=== PATIENT | male | born 1945 | race Caucasian/White ===

== ENCOUNTER 2016-12-31 05:13 | Inpatient (IN) | payer OTHER, MEDICARE ==
[2016-12-31] VITALS (8 sets, daily range): BP systolic 130–158; BP diastolic 62–74; PULSE 77–93; RESP 18–20; TEMP 98.7–99.4; O2SAT 90–97
[~2016-12-31] VITALS: Ht 188 cm; Wt 110.4 kg
[~2016-12-31 05:13] MED LIST: ASPI325T PO; BUME2TAB PO; CARV25TA PO; GLUC10TA3 PO; LANTINJ SQ; LEVA500T PO; NEUR400C PO; SIMV40TA PO; ULTR50TA PO
[2016-12-31] MEDS ORDERED: SODIUM CHLORIDE 0.9% FLUSH 5 ML FLUSH IVF PRN (06:15)
[2016-12-31] MEDS ORDERED: GABA400C5 PO (06:27)
[2016-12-31] MEDS ORDERED: SIMV20TA PO (06:27)
[2016-12-31] MEDS ORDERED: GLIP1TAB51 PO (06:27)
[2016-12-31] MEDS ORDERED: CARV25TA PO (06:27)
[2016-12-31] MEDS ORDERED: LANTUS2P SQ (06:27)
[2016-12-31] MEDS ORDERED: ASPI325T PO (06:27)
[2016-12-31] MEDS ORDERED: BUME1TAB PO (06:27)
--- NOTE | 2016-12-31 06:33 | PD ---
HPI Chief Complaint: Fall Time Seen by Provider: 06:13 Travel History International Travel<30 days: No Contact w/Intl Traveler<30days: No Traveled to known affect area: No History of Present Illness HPI 71-year-old male with history of colon cancer cancer status post resection, A. fib, pacemaker, presents to the ER today because he states that he has had intermittent dizziness for several days and today was walking his dog, got dizzy , and had a near syncopal episode, falling and hitting the posterior part of his scalp. He denies actual loss of consciousness. He denies any other injuries. He denies any chest pains, shortness of breath, palpitations, or any other symptoms. Modifying Factors: None Associated Signs & Symptoms: Near syncope, head injury, no loss of consciousness Risk Factors: A. fib, pacemaker PFSH Past Medical History Atrial Fibrillation: Yes Autoimmune Disease: No Heart Rhythm Problems: Yes Cardiovascular Problems: Yes High Cholesterol: No Chemotherapy: No Chest Pain: No Congestive Heart Failure: Yes Diabetes: Yes Patient Takes Glucophage: No (unsure at this time ) Endocrine: Yes Gastrointestinal Disorders: Yes (COLON CA) GERD: No Genitourinary: No Hiatal Hernia: No Hypertension: No Immune Disorder: No Implanted Vascular Access Dvce: Yes Musculoskeletal: No Neurologic: No Psychiatric: No Reproductive: No Respiratory: No Radiation Therapy: No Thyroid Disease: No Ulcer: No Tetanus Vaccination: Unknown Past Surgical History Abdominal Surgery: Yes (APPY / COLON RESECTION) AICD: Yes (MEDTRONIC CONCERTO II DEFIBRILLATOR) Appendectomy: Yes Arteriovenous Shunt: No Cardiac Surgery: Yes (PACER/AICD 2009 / CARDIAC CATH) Ear Surgery: No Endocrine Surgery: No Eye Surgery: No Genitourinary Surgery: No Insulin Pump: No Joint Replacement: No Oral Surgery: No Pacemaker: Yes Thoracic Surgery: No Other Surgery: Yes (COLON CA, PACEMAKER ) Social History Alcohol Use: Yes (OCCASIONAL) Tobacco Use: No Substance Use: No Allergies-Medications (Allergen,Severity, Reaction): Coded Allergies: No Known Allergies (Unverified , 12/31/16) Reported Meds & Prescriptions Reported Meds & Active Scripts Active Reported Lantus Inj (Insulin Glargine) 1,000 Unit/10 Ml Vial 20 Units SQ HS Glipizide ER (Glipizide) 10 Mg Cyril 10 Mg PO BID Take with breakfast or first main meal of the day Simvastatin 20 Mg Tab 20 Mg PO HS Carvedilol 25 Mg Tab 25 Mg PO BID Gabapentin 400 Mg Cap 400 Cap PO TID Bumetanide 1 Mg Tab 1 Mg PO DAILY Aspirin 325 Mg Tab 325 Mg PO DAILY Review of Systems Except as stated in HPI: all other systems reviewed are Neg Physical Exam Narrative GENERAL: Well-nourished, well-developed elderly white male patient in no acute distress. Awake, alert, oriented 3. SKIN: Warm and dry. HEAD: Normocephalic. Posterior cephalohematoma. EYES: No scleral icterus. No injection or drainage. NECK: Supple, trachea midline. CARDIOVASCULAR: Regular rate and rhythm without murmurs, gallops, or rubs. RESPIRATORY: Breath sounds equal bilaterally. No accessory muscle use. GASTROINTESTINAL: Abdomen soft, non-tender, nondistended. MUSCULOSKELETAL: No cyanosis, or edema. BACK: Nontender without obvious deformity. No CVA tenderness. NEUROLOGICAL: Awake and alert. Cranial nerves II through XII intact. Motor and sensory grossly within normal limits. Five out of 5 muscle strength in all muscle groups. Normal speech. Data Data Last Documented VS Vital Signs Date Time Temp Pulse Resp B/P Pulse Ox O2 Delivery O2 Flow Rate FiO2 12/31/16 05:18 98.7 77 20 135/64 95 Orders Complete Blood Count With Diff (12/31/16 06:13) Comprehensive Metabolic Panel (12/31/16 06:13) Ckmb (Isoenzyme) Profile (12/31/16 06:13) Troponin I (12/31/16 06:13) Act Partial Throm Time (Ptt) (12/31/16 06:13) Prothrombin Time / Inr (Pt) (12/31/16 06:13) Chest, Single Ap (12/31/16 06:13) Ct Brain W/O Iv Contrast(Rout) (12/31/16 06:13) Ecg Monitoring (12/31/16 06:13) Iv Access Insert/Monitor (12/31/16 06:13) Oximetry (12/31/16 06:13) Sodium Chloride 0.9% Flush (Ns Flush) (12/31/16 06:15) CKMB (12/31/16 06:00) CKMB% (12/31/16 06:00) Consult Neurosurgery (12/31/16 ) Admit To Inpatient (12/31/16 ) Vital Signs (Adult) Q4H (12/31/16 07:11) Activity Oob Ad Dania (12/31/16 07:11) Intake + Output 06,14,22 (12/31/16 07:11) Sodium Chloride 0.9% Flush (Ns Flush) (12/31/16 09:00) Sodium Chloride 0.9% Flush (Ns Flush) (12/31/16 07:15) Pantoprazole Inj (Protonix Inj) (12/31/16 09:00) Oxycodone-Acetamin 5-325 Mg (Percocet (12/31/16 07:15) Complete Blood Count With Diff (01/01/17 06:00) Basic Metabolic Panel (Bmp) (01/01/17 06:00) Hepatic Functional Panel (12/31/16 07:11) Scd Bilateral/Knee High MAJO.QSHIFT (12/31/16 07:11) Inpatient Certification (12/31/16 ) Ot Request For Service (12/31/16 07:11) Pt Request For Service (12/31/16 07:11) Activity Oob With Assistance (12/31/16 07:11) Ct Brain W/O Iv Contrast(Rout) (01/01/17 06:00) Levetiracetam Inj (Keppra Inj) (12/31/16 09:00) Labs Laboratory Tests Test 12/31/16 06:00 White Blood Count 5.9 TH/MM3 Red Blood Count 3.58 MIL/MM3 Hemoglobin 11.5 GM/DL Hematocrit 35.1 % Mean Corpuscular Volume 98.0 FL Mean Corpuscular Hemoglobin 32.3 PG Mean Corpuscular Hemoglobin 32.9 % Concent Red Cell Distribution Width 16.4 % Platelet Count 65 TH/MM3 Mean Platelet Volume 8.6 FL Neutrophils (%) (Auto) 82.7 % Lymphocytes (%) (Auto) 8.1 % Monocytes (%) (Auto) 6.7 % Eosinophils (%) (Auto) 2.0 % Basophils (%) (Auto) 0.5 % Neutrophils # (Auto) 4.9 TH/MM3 Lymphocytes # (Auto) 0.5 TH/MM3 Monocytes # (Auto) 0.4 TH/MM3 Eosinophils # (Auto) 0.1 TH/MM3 Basophils # (Auto) 0.0 TH/MM3 CBC Comment AUTO DIFF Sodium Level 140 MEQ/L Potassium Level 4.0 MEQ/L Chloride Level 103 MEQ/L Carbon Dioxide Level 28.5 MEQ/L Anion Gap 9 MEQ/L Blood Urea Nitrogen 30 MG/DL Creatinine 1.61 MG/DL Estimat Glomerular Filtration 43 ML/MIN Rate Random Glucose 179 MG/DL Calcium Level 8.9 MG/DL Total Bilirubin 1.0 MG/DL Aspartate Amino Transf 46 U/L (AST/SGOT) Alanine Aminotransferase 50 U/L (ALT/SGPT) Alkaline Phosphatase 79 U/L Total Creatine Kinase 168 U/L Creatine Kinase MB 4.3 NG/ML Troponin I 0.02 NG/ML Total Protein 7.2 GM/DL Albumin 3.2 GM/DL [facility] Medical Decision Making Medical Screen Exam Complete: Yes Emergency Medical Condition: Yes Medical Record Reviewed: Yes Interpretation(s) EKG shows a ventricular paced rhythm at a rate of 77 bpm with no signs of acute ST-T changes. Last [address] 12/31/16612 Signed Impressions: Service Date/Time: Saturday, December 31, 2016 06:24 - CONCLUSION: 1. Mild right parietal subdural hematoma measuring 7 mm with some effacement of the sulci but no midline shift. 2. Posterior scalp hematoma. 3. Sinus disease. Bonifacio Asencio MD Chest X-Ray 12/31/16612 Signed Impressions: Service Date/Time: Saturday, December 31, 2016 06:30 - CONCLUSION: Cardiomegaly and increased interstitial markings likely representing CHF. Bonifacio Asencio MD Differential Diagnosis Near-syncope, dizziness, head injuryacute intracranial injuries versus acute intracranial processes versus dysrhythmias versus dehydration versus metabolic issues Narrative Course EKG did not show any signs of acute dysrhythmias. CAT scan does show a small subdural hematoma. Case is discussed with Dr. Dennis and she would like the patient to be medically admitted with consult to her. At this point, case is discussed with Dr. Sommer for admission. Diagnosis Primary Impression: Near syncope Additional Impression: Intracranial hemorrhage after injury without loss of consciousness Admitting Information Admitting Physician Requests: Admit Marga Kenyon MD Dec 31, 2016 06:33
--- NOTE | 2016-12-31 06:41 | RADRPT ---
EXAM DATE/TIME: 12/31/2016 06:24 [facility] COMPARISON: No previous studies available for comparison. INDICATIONS : Fell backwards and hit head, laceration on posterior head, dizzy for several days RADIATION DOSE: 48.98 CTDIvol (mGy) MEDICAL HISTORY : Diabetes mellitus type 2. Colon cancer. SURGICAL HISTORY : Pacemaker. ENCOUNTER: Initial ACUITY: 1 day PAIN SCALE: 3/10 LOCATION: posterior cranium TECHNIQUE: Multiple contiguous axial images were obtained of the head. Using automated exposure control and adj ustment of the mA and/or kV according to patient size, radiation dose was kept as low as reasonably a chievable to obtain optimal diagnostic quality images. FINDINGS: CEREBRUM: There is a mild right parietal subdural hematoma measuring 7 mm. There is mild effacement of the sulc i in this region. Significant midline shift is not seen. There is a small old lacunar infarct at the right caudate head. The ventricles are normal for age. No evidence of midline shift or acute infarct ion. POSTERIOR FOSSA: The cerebellum and brainstem are intact. The 4th ventricle is midline. The cerebellopontine angle i s unremarkable. EXTRACRANIAL: The visualized portion of the orbits is intact. There is a prominent posterior scalp hematoma. There is near total opacification of the sinuses. SKULL: The calvaria is intact. No evidence of skull fracture. CONCLUSION: 1. Mild right parietal subdural hematoma measuring 7 mm with some effacement of the sulci but no midl ine shift. 2. Posterior scalp hematoma. 3. Sinus disease. Bonifacio Asencio MD on December 31, 2016 at 6:35 Board Certified Radiologist. This report was verified electronically.
[2016-12-31 06:51] LABS: AUTOMATED NEUTROPHIL # 4.9 TH/MM3 (1.8-7.7); BASOPHIL % 0.5 % (0.0-2.0); EOSINOPHIL # 0.1 TH/MM3 (0-0.4); HEMATOCRIT 35.1 % (39.0-51.0); LYMPH % 8.1 % (9.0-44.0); LYMPHOCYTE # 0.5 TH/MM3 (1.0-4.8); MEAN CORPUSCULAR HEMOGLOBIN 32.3 PG (27.0-34.0); MEAN CORPUSCULAR HGB CONC 32.9 % (32.0-36.0); MONO % 6.7 % (0.0-8.0); NEUT % 82.7 % (16.0-70.0); PLATELET COUNT 65 TH/MM3 (150-450); RED BLOOD COUNT 3.58 MIL/MM3 (4.50-5.90); RED CELL DISTRIBUTION WIDTH 16.4 % (11.6-17.2); WHITE BLOOD COUNT 5.9 TH/MM3 (4.0-11.0)
[2016-12-31 06:54] LABS: HEMO FLAGS AUTO DIFF
--- NOTE | 2016-12-31 06:55 | RADRPT ---
EXAM DATE/TIME: 12/31/2016 06:30 [facility] COMPARISON: CHEST SINGLE AP, February 18, 2013, 6:50. INDICATIONS : Trauma, fall. MEDICAL HISTORY : Diabetes mellitus type II. SURGICAL HISTORY : Pacemaker. ENCOUNTER: Initial ACUITY: 1 day PAIN SCORE: 0/10 LOCATION: Bilateral chest FINDINGS: There is a multilead pacing/AICD in place from the left subclavian approach. The heart size is enlarg ed. Lungs are so diffuse increased interstitial markings. CONCLUSION: Cardiomegaly and increased interstitial markings likely representing CHF. Bonifacio Asencio MD on December 31, 2016 at 6:52 Board Certified Radiologist. This report was verified electronically.
[2016-12-31 07:05] LABS: ALKALINE PHOSPHATASE 79 U/L (45-117); CREATINE KINASE 168 U/L (39-308)
[2016-12-31 07:11] LABS: ALT (GPT) 50 U/L (12-78); ANION GAP 9 MEQ/L (5-15); AST (GOT) 46 U/L (15-37); BICARBONATE 28.5 MEQ/L (21.0-32.0); BLOOD UREA NITROGEN 30 MG/DL (7-18); CHLORIDE 103 MEQ/L (98-107); GLOMERULAR FILTRATION RATE 43 ML/MIN (>89); SODIUM (NA) 140 MEQ/L (136-145)
[2016-12-31] MEDS ORDERED: SODIUM CHLORIDE 0.9% FLUSH 5 ML FLUSH IV FLUSH PRN (07:15)
[2016-12-31 07:17] LABS: CKMB 4.3 NG/ML (0.5-3.6)
[2016-12-31 07:48] LABS: PLATELET ESTIMATE SMEAR LOW (NORMAL); PLATELET MORPHOLOGY NORMAL (NORMAL)
[2016-12-31 07:49] LABS: SCAN/DIFF AUTO DIFF CONFIRMED
[2016-12-31 08:17] LABS: APTT (PATIENT) 27.2 SEC (24.3-30.1); INTERNATIONAL NORMALIZED RATIO 1.2 RATIO; PROTHROMBIN TIME - PATIENT 12.9 SEC (9.8-11.6)
[2016-12-31 08:21] LABS: INDIRECT BILIRUBIN 0.9 MG/DL (0.0-0.8); TOTAL BILIRUBIN ADULT 1.1 MG/DL (0.2-1.0)
[2016-12-31] MEDS: levETIRAcetam INJ 500 MG in SODIUM CHLORIDE 0.9% INJ 100 ML IV SCH ×2 (09:09→21:34)
[2016-12-31] MEDS: SODIUM CHLORIDE 0.9% FLUSH 5 ML FLUSH IV FLUSH SCH ×2 (09:10→21:35)
[2016-12-31] MEDS: PANTOPRAZOLE SODIUM 40 MG VIAL IV SCH (09:10)
[2016-12-31] MEDS: SODIUM CHLOR 0.9% 1000 ML INJ 1,000 ML IV SCH (09:11)
--- NOTE | 2016-12-31 09:39 | RADRPT ---
EXAM DATE/TIME: 12/31/2016 08:00 [facility] COMPARISON: No previous studies available for comparison. INDICATIONS : Syncope. MEDICAL HISTORY : Congestive heart failure. Anticoagulant therapy. A. FIB. Colon cancer. Diabetes. SURGICAL HISTORY : Appendectomy. AICD pacemaker placement. Cardiac catherazation. Colon resection. ENCOUNTER: Initial ACUITY: 1 day PAIN SCORE: 2/10 LOCATION: Bilateral neck PEAK SYSTOLIC VELOCITIES (cm/sec): ICA/CCA RATIO: Right: 2.6 Left: 0.4 ICA: Right: 245 Left: 52 CCA: Right: 95 Left: 126 ECA: Right: Not visualized. Left: 50 VERTEBRAL: Right: Not visualized. absent Left: 93 antegrade Elevated flow velocities and ICA/CCA ratios have been found to correlate with increased degrees of vessel stenosis, calculated as percentage of diameter relative to a normal segment of distal ICA/CCA FINDINGS: RIGHT CAROTID: The distal right internal carotid artery is not visualized. There is calcified plaque in the carotid bulb and proximal internal carotid artery. Spectral broadening is present.. LEFT CAROTID: The distal internal carotid artery is not visualized. Waveform demonstrates high resistance. VERTEBRAL ARTERIES: Antegrade blood flow is present within the left vertebral artery. The right vertebral artery is not v isualized. MISCELLANEOUS: None. CONCLUSION: 1. Abnormally elevated velocity measurements in the proximal right internal carotid artery suggesting greater than 70% stenosis. Consider carotid CTA for further evaluation. 2. Abnormal decreased blood flow in the left internal carotid artery with high resistance waveform murray ggests either a high-grade stenosis or proximal stenosis. 3. No blood flow is documented within the right vertebral artery. Therefore, this could be occluded. Bonifacio Gibson MD on December 31, 2016 at 9:14 Board Certified Radiologist. This report was verified electronically.
[2016-12-31] MEDS: oxyCODONE/ACETAMINOPHEN 5 MG/325 MG TAB PO PRN ×3 (09:50→21:35)
[2016-12-31] MEDS ORDERED: MAGNESIUM HYDROXIDE SUSP 30 ML CUP PO PRN (15:45)
[2016-12-31] MEDS ORDERED: glipiZIDE 10 MG TAB PO SCH (16:00)
--- NOTE | 2016-12-31 16:11 | PD.CONS ---
[facility] Service Neurosurgery Consult Requested By Medicine Reason for Consult [facility] Primary Care Physician Benji Chirinos M.D. History of Present Illness 71 yr old with a hx of afib and arrhythmia has felt light headed for several days. He fell while walking the dog at 5 am this morning. He fell backwards and hit the back of his head. He had no LOC but was unable to get up. He was brought in by EMS. A head CT showed a small 6mm right parietal SDH. He has some chronic back pain but no nausea or vomiting and no new neurologic changes. He did well with PT. Review of Systems Constitutional: DENIES: Diaphoretic episodes, Fatigue, Fever, Weight gain, Weight loss, Chills, Dizziness, Change in appetite, Night Sweats Eyes: DENIES: Blurred vision, Diplopia, Eye inflammation, Eye pain, Vision loss , Photosensitivity, Double Vision Respiratory: DENIES: Apneas, Cough, Snoring, Wheezing, Hemoptysis, Sputum production, Shortness of breath Cardiovascular: DENIES: Chest pain, Palpitations, Syncope, Dyspnea on Exertion , PND, Lower Extremity Edema, Orthopnea, Claudication Gastrointestinal: DENIES: Abdominal pain, Black stools, Bloody stools, Constipation, Diarrhea, Nausea, Vomiting, Difficulty Swallowing, Anorexia Genitourinary: DENIES: Sexual dysfunction, Urinary frequency, Urinary incontinence, Urgency, Hematuria, Dysuria, Nocturia, Penile Discharge, Testicular Pain, Testicular Swelling Musculoskeletal: COMPLAINS OF: Back pain, DENIES: Joint pain, Muscle aches, Stiffness, Joint Swelling, Neck pain Integumentary: DENIES: Abnormal pigmentation, Nail changes, Pruritus, Rash Hematologic/lymphatic: COMPLAINS OF: Bruising Immunologic/allergic: DENIES: Eczema, Urticaria Neurologic: COMPLAINS OF: Poor Balance, DENIES: Abnormal gait, Headache, Localized weakness, Paresthesias, Seizures, Speech Problems, Tremor Psychiatric: DENIES: Anxiety, Confusion, Mood changes, Depression, Hallucinations, Agitation, Suicidal Ideation, Homicidal Ideation, Delusions Past Family Social History Allergies: Coded Allergies: No Known Allergies (Unverified , 12/31/16) Past Medical History Arrhythmia, has a pacemaker, was shocked once CAD, s/p stent placement Spondylosis DM Neuropathy Colon CA, resected primarily Past Surgical History Stent placement several yrs ago. Reported Medications Reported Meds & Active Scripts Active Reported Lantus Inj (Insulin Glargine) 1,000 Unit/10 Ml Vial 20 Units SQ HS Glipizide ER (Glipizide) 10 Mg Cyril 10 Mg PO BID Take with breakfast or first main meal of the day Simvastatin 20 Mg Tab 20 Mg PO HS Carvedilol 25 Mg Tab 25 Mg PO BID Gabapentin 400 Mg Cap 400 Cap PO TID Bumetanide 1 Mg Tab 1 Mg PO DAILY Aspirin 325 Mg Tab 325 Mg PO DAILY Family History Parents late in life, CAD Social History Lives with his , about 2-4 drinks per weeks, no tob Physical Exam Vital Signs Vital Signs Date Time Temp Pulse Resp B/P Pulse Ox O2 Delivery O2 Flow Rate FiO2 12/31/16 12:00 89 19 139/69 97 Nasal Cannula 2 12/31/16 10:50 18 12/31/16 09:52 86 19 145/68 94 Nasal Cannula 12/31/16 08:08 95 Room Air 12/31/16 05:18 98.7 77 20 135/64 95 Physical Exam Alert and oriented x 3, abrasion at the vertex still oozing at this time, face symmetric, no Quick sign, speech fluent, affect normal. No pronator drift, moves both upper and lower extremities with 5/5 strength, able to sit up with no help, Sensory loss in the feet, no radicular numbness Abd soft, obese, Reflexes decreased throughout, no Mcmullen sign Laboratory Laboratory Tests Test 12/31/16 12/31/16 06:00 07:40 White Blood Count 5.9 Red Blood Count 3.58 Hemoglobin 11.5 Hematocrit 35.1 Mean Corpuscular Volume 98.0 Mean Corpuscular Hemoglobin 32.3 Mean Corpuscular Hemoglobin 32.9 Concent Red Cell Distribution Width 16.4 Platelet Count 65 Mean Platelet Volume 8.6 Neutrophils (%) (Auto) 82.7 Lymphocytes (%) (Auto) 8.1 Monocytes (%) (Auto) 6.7 Eosinophils (%) (Auto) 2.0 Basophils (%) (Auto) 0.5 Neutrophils # (Auto) 4.9 Lymphocytes # (Auto) 0.5 Monocytes # (Auto) 0.4 Eosinophils # (Auto) 0.1 Basophils # (Auto) 0.0 CBC Comment AUTO DIFF Differential Comment AUTO DIFF CONFIRMED Platelet Estimate LOW Platelet Morphology Comment NORMAL Basophilic Stippling FAINT Sodium Level 140 Potassium Level 4.0 Chloride Level 103 Carbon Dioxide Level 28.5 Anion Gap 9 Blood Urea Nitrogen 30 Creatinine 1.61 Estimat Glomerular Filtration 43 Rate Random Glucose 179 Calcium Level 8.9 Total Bilirubin 1.1 Direct Bilirubin 0.2 Indirect Bilirubin 0.9 Aspartate Amino Transf 48 (AST/SGOT) Alanine Aminotransferase 51 (ALT/SGPT) Alkaline Phosphatase 84 Total Creatine Kinase 168 Creatine Kinase MB 4.3 Troponin I 0.02 Total Protein 7.4 Albumin 3.3 Prothrombin Time 12.9 Prothromb Time International 1.2 Ratio Activated Partial 27.2 Thromboplast Time Result Diagram: 12/31/1659912/31/16599 Imaging Last Impressions Head CT 12/31/16612 Signed Impressions: Service Date/Time: Saturday, December 31, 2016 06:24 - CONCLUSION: 1. Mild right parietal subdural hematoma measuring 7 mm with some effacement of the sulci but no midline shift. 2. Posterior scalp hematoma. 3. Sinus disease. Bonifacio Asencio MD Chest X-Ray 12/31/16612 Signed Impressions: Service Date/Time: Saturday, December 31, 2016 06:30 - CONCLUSION: Cardiomegaly and increased interstitial markings likely representing CHF. Bonifacio Asencio MD Carotid Artery Ultrasound 12/31/16 0000 Signed Impressions: Service Date/Time: Saturday, December 31, 2016 08:00 - CONCLUSION: 1. Abnormally elevated velocity measurements in the proximal right internal carotid artery suggesting greater than 70%% stenosis. Consider carotid CTA for further evaluation. 2. Abnormal decreased blood flow in the left internal carotid artery with high resistance waveform suggests either a high-grade stenosis or proximal stenosis. 3. No blood flow is documented within the right vertebral artery. Therefore, this could be occluded. Bonifacio Gibson MD Assessment and Plan Diagnosis: (1) Near syncope Plan: Carotid stenosis was diagnosed and neurology consulted. Cardiology evaluation is pending as well as hematology/oncology because anemia and previous colon CA. ICD Code: R55 (2) Intracranial hemorrhage after injury without loss of consciousness Plan: Small SDH, with no side effects or symptoms. Will obtain follow up imaging in the am and again in a week. He may restart ASA or other anticoagulation when the bleed is resolved.PT following. ICD Code: S06.300A Problem Qualifiers (1) Intracranial hemorrhage after injury without loss of consciousness: Qualified Code: S06.300A - Intracranial hemorrhage after injury without loss of consciousness, initial encounter Isaías Dennis Dec 31, 2016 16:11
--- NOTE | 2016-12-31 16:51 | EKG ---
Date Performed: 12/31/2016 Time Performed: 05:34:30 PTAGE: 71 years EKG: ELECTRONIC VENTRICULAR PACEMAKER Since previous tracing, no significant change noted ABNORM AL RHYTHM ECG PREVIOUS TRACING : 03/03/2015 06.36 DOCTOR: Vimal Simpson Interpretating Date/Time 12/31/2016 16:49:44
--- NOTE | 2016-12-31 16:57 | EC ---
Study Study Date:12/31/2016 STUDY CONCLUSIONS SUMMARY - Left ventricle: The cavity size was normal. Wall thickness was increased in a pattern of mild LVH. Systolic function was vigorous. The estimated ejection fraction was in the range of 60% to 70%. Wall motion was normal; there were no regional wall motion abnormalities. - Aortic valve: Valve area: 1.7cm^2(VTI). Valve area: 1.85cm^2 (Vmax). - Mitral valve: Mild regurgitation. - Left atrium: The atrium was mildly dilated. - Tricuspid valve: Mild regurgitation. If LV function is below 40, please consider prescribing an ACEI or ARB or document rationale for non-use. PROCEDURE DATA STUDY STATUS: Elective. Procedure: Transthoracic echocardiography. Image quality was suboptimal. The study was technically limited due to poor acoustic window availability. Scanning was performed from the parasternal, apical, and subcostal acoustic windows. Study completion: The patient tolerated the procedure well. Transthoracic echocardiography. M-mode, complete 2D, complete spectral Doppler, and color Doppler. Height: Height: 74in. Weight: Weight: 264.4lb. Body mass index: BMI: 34kg/m^2. Body surface area: BSA: 2.45m^2. Patient status: Inpatient. CARDIAC ANATOMY LEFT VENTRICLE: The cavity size was normal. Wall thickness was increased in a pattern of mild LVH. Systolic function was vigorous. The estimated ejection fraction was in the range of 60% to 70%. Wall motion was normal; there were no regional wall motion abnormalities. AORTIC VALVE: Trileaflet; normal thickness leaflets. Doppler: Transvalvular velocity was within the normal range. There was no stenosis. No regurgitation. Valve area: 1.7cm^2(VTI). Indexed valve area: 0.69cm^2/m^2 (VTI). Valve area: 1.85cm^2 (Vmax). Indexed valve area: 0.76cm^2/m^2 (Vmax). Mean gradient: 6mm Hg (S). AORTA: Aortic root: The aortic root was normal in size. MITRAL VALVE: Structurally normal valve. Doppler: Transvalvular velocity was within the normal range. There was no evidence for stenosis. Mild regurgitation. Peak gradient: 3mm Hg (D). LEFT ATRIUM: The atrium was mildly dilated. RIGHT VENTRICLE: The cavity size was normal. Wall thickness was normal. Pacer wire or catheter noted in right ventricle. PULMONIC VALVE: Doppler: Transvalvular velocity was within the normal range. There was no evidence for stenosis. No regurgitation. TRICUSPID VALVE: Structurally normal valve. Doppler: Transvalvular velocity was within the normal range. Mild regurgitation. PULMONARY ARTERY: The main pulmonary artery was normal-sized. Systolic pressure was within the normal range. RIGHT ATRIUM: The atrium was normal in size. PERICARDIUM: There was no pericardial effusion. SYSTEMIC VEINS: Inferior vena cava: The vessel was normal in size. Patient weight: 264.4lb _Ejection fraction:_ 65-75% _Fractional shortening:_ 32% up to 5Kg 5-11.5Kg 11.6-22.9Kg 23-45Kg 45-57Kg Aortic Root 7-13 <17 13-22 17-27 17-27 LA diam 6-13 <23 24-38 33-47 37-40 RVID 10-17 7-15 7-15 7-18 8-17 LVIDd 12-22 <32 24-38 33-47 37-40 LVPW 2-4 3-6 5-7 6-8 7-8 IVS 2-4 3-6 5-7 6-8 7-8 BASIC MEASUREMENTS ADULT NORMAL Left ventricle LV internal dimension, ED, chordal 50.6 mm 43-52 level, PLAX LV internal dimension, ES, chordal 34.1 mm 23-38 level, PLAX Fractional shortening, chordal level, 33 % >29 PLAX LV posterior wall thickness, ED 11.6 mm IVS/LVPW ratio, ED 0.97 <1.3 Ventricular septum Septal thickness, ED 11.2 mm Aortic valve Leaflet separation 15 mm 15-26 Aorta Root diameter, ED 41 mm Left atrium Anterior-posterior dimension 45 mm Anterior-posterior dimension index 1.84 cm/m^2 <2.2 BASIC MEASUREMENTS ADULT NORMAL Aortic valve Leaflet separation 15 mm 15-26 DOPPLER MEASUREMENTS ADULT NORMAL Aortic valve Peak velocity, S 141 cm/s Mean velocity, S 104 cm/s VTI, S 25.9 cm Mean gradient, S 6 mm Hg Valve area, VTI 1.7 cm^2 Valve area index, VTI 0.69 cm^2/m^2 Valve area, Vmax 1.85 cm^2 Valve area index, Vmax 0.76 cm^2/m^2 Mitral valve Peak E-wave velocity 84.9 cm/s Peak gradient, D 3 mm Hg Tricuspid valve Regurgitant peak velocity 360 cm/s Peak RV-RA gradient, S 52 mm Hg Maximal regurgitant velocity 360 cm/s Pulmonic valve Peak velocity, S 47.6 cm/s LEGEND: Mean values are shown as u=mean value. Asterisk (*) briceño values outside specified normal range. Prepared and signed by Dada Vinson [id number]
--- NOTE | 2016-12-31 17:44 | HHI.HP ---
[facility] Service [facility] Primary Care Physician Benji Chirinos M.D. Admission Diagnosis syncope/subdural hemorrhage Diagnoses: Chief Complaint: near Syncope. fall Travel History International Travel<30 Days: No Contact w/Intl Traveler <30 Da: No Traveled to Known Affected Are: No History of Present Illness Patient is a 71-year-old male ambidextrous but predominantly left handed male who this morning while walking his dog felt faint, very lightheaded and lost his balance and fell backwards and hit his head on the asphalt. Patient denies any loss of consciousness. Was able to call out for help and a stranger called EMS right away and patient was brought in here. Head CT shows a small posterior scalp hematoma and a small parietal subdural hematoma Labs shows thrombocytopenia which on review of EMR has been on this range since 2012. Patient is currently awake alert denies any pain. Denies any focal weakness. Denies any blurring of vision. On further history patient has been stating that he has been having on and off feeling of lightheadedness. He states easy bruising. But denies any melena or hematochezia or any epistaxis episodes Admitted for further evaluation and management. Review of Systems Constitutional: DENIES: Diaphoretic episodes, Fatigue, Fever, Weight gain, Weight loss, Chills, Dizziness, Change in appetite, Night Sweats Endocrine: DENIES: Heat/cold intolerance, Polydipsia, Polyuria, Polyphagia Eyes: DENIES: Blurred vision, Diplopia, Eye inflammation, Eye pain, Vision loss , Photosensitivity, Double Vision Ears, nose, mouth, throat: DENIES: Tinnitus, Hearing loss, Vertigo, Nasal discharge, Oral lesions, Throat pain, Hoarseness, Ear Pain, Running Nose, Epistaxis, Sinus Pain, Toothache, Odynophagia Respiratory: DENIES: Apneas, Cough, Snoring, Wheezing, Hemoptysis, Sputum production, Shortness of breath Cardiovascular: DENIES: Chest pain, Palpitations, Syncope, Dyspnea on Exertion , PND, Lower Extremity Edema, Orthopnea, Claudication Gastrointestinal: DENIES: Abdominal pain, Black stools, Bloody stools, Constipation, Diarrhea, Nausea, Vomiting, Difficulty Swallowing, Anorexia Genitourinary: DENIES: Sexual dysfunction, Urinary frequency, Urinary incontinence, Urgency, Hematuria, Dysuria, Nocturia, Penile Discharge, Testicular Pain, Testicular Swelling Musculoskeletal: DENIES: Joint pain, Muscle aches, Stiffness, Joint Swelling, Back pain, Neck pain Integumentary: DENIES: Abnormal pigmentation, Nail changes, Pruritus, Rash Hematologic/lymphatic: COMPLAINS OF: Bruising Immunologic/allergic: DENIES: Eczema, Urticaria Neurologic: DENIES: Abnormal gait, Headache, Localized weakness, Paresthesias, Seizures, Speech Problems, Tremor, Poor Balance Psychiatric: DENIES: Anxiety, Confusion, Mood changes, Depression, Hallucinations, Agitation, Suicidal Ideation, Homicidal Ideation, Delusions Past Family Social History Past Medical History History of coronary artery disease status post non-[facility] 3-4 years ago. History of CHF History of chronic thrombocytopenia on review of old labs Diabetes type 2 insulin-requiring Chronic kidney disease stage III stable from review of old labs History of GI bleed in 2009 History of colon cancer History of permanent pacemaker placement in February 2015 Past Surgical History Colon surgery resection due to colon cancer 4 years ago Pacemaker placement in February 2015 Appendectomy Reported Medications Lantus 20 units at bedtime Coreg 25 mg twice a day Gabapentin 400 mg twice a day Simvastatin 20 mg at bedtime Allopurinol 100 mg at bedtime Glipizide 10 mg twice a Bumex 1 mg daily Aspirin 325 mg daily [place]-3 fatty acids Allergies: Coded Allergies: No Known Allergies (Unverified , 12/31/16) Family History Noncontributory Social History Denies smoking very rare alcohol use Denies any substance abuse Physical Exam Vital Signs Vital Signs Date Time Temp Pulse Resp B/P Pulse Ox O2 Delivery O2 Flow Rate FiO2 12/31/16 16:00 99.2 89 20 130/62 90 12/31/16 12:00 89 19 139/69 97 Nasal Cannula 2 12/31/16 10:50 18 12/31/16 09:52 86 19 145/68 94 Nasal Cannula 12/31/16 08:08 95 Room Air 12/31/16 05:18 98.7 77 20 135/64 95 Physical Exam GENERAL: Awake alert oriented 3 clear speech not in distress SKIN: No hematoma HEAD: Atraumatic. Normocephalic. No temporal or scalp tenderness. Posterior scalp with of small hematoma with minimal blood on the gauze EYES: Pupils equal round and reactive. Extraocular motions intact. No scleral icterus. No injection or drainage. ENT: Nose without bleeding, purulent drainage or septal hematoma. Throat without erythema, Airway patent. NECK: Trachea midline. No JVD or lymphadenopathy. Supple, nontender, no meningeal signs. No bruit heard CARDIOVASCULAR: Regular rate and rhythm without murmurs, gallops, or rubs. RESPIRATORY: Clear to auscultation. Breath sounds equal bilaterally. No wheezes , rales, or rhonchi. GASTROINTESTINAL: Abdomen soft, non-tender, nondistended. No guarding. MUSCULOSKELETAL: Extremities without clubbing, cyanosis, or edema. No joint tenderness, effusion, or edema noted. No calf tenderness. Negative Homans sign bilaterally. NEUROLOGICAL: Awake and alert. Cranial nerves II through XII intact. Motor and sensory grossly within normal limits. Five out of 5 muscle strength in all muscle groups. Normal speech. Laboratory Laboratory Tests Test 12/31/16 12/31/16 06:00 07:40 White Blood Count 5.9 Red Blood Count 3.58 Hemoglobin 11.5 Hematocrit 35.1 Mean Corpuscular Volume 98.0 Mean Corpuscular Hemoglobin 32.3 Mean Corpuscular Hemoglobin 32.9 Concent Red Cell Distribution Width 16.4 Platelet Count 65 Mean Platelet Volume 8.6 Neutrophils (%) (Auto) 82.7 Lymphocytes (%) (Auto) 8.1 Monocytes (%) (Auto) 6.7 Eosinophils (%) (Auto) 2.0 Basophils (%) (Auto) 0.5 Neutrophils # (Auto) 4.9 Lymphocytes # (Auto) 0.5 Monocytes # (Auto) 0.4 Eosinophils # (Auto) 0.1 Basophils # (Auto) 0.0 CBC Comment AUTO DIFF Differential Comment AUTO DIFF CONFIRMED Platelet Estimate LOW Platelet Morphology Comment NORMAL Basophilic Stippling FAINT Sodium Level 140 Potassium Level 4.0 Chloride Level 103 Carbon Dioxide Level 28.5 Anion Gap 9 Blood Urea Nitrogen 30 Creatinine 1.61 Estimat Glomerular Filtration 43 Rate Random Glucose 179 Calcium Level 8.9 Total Bilirubin 1.1 Direct Bilirubin 0.2 Indirect Bilirubin 0.9 Aspartate Amino Transf 48 (AST/SGOT) Alanine Aminotransferase 51 (ALT/SGPT) Alkaline Phosphatase 84 Total Creatine Kinase 168 Creatine Kinase MB 4.3 Troponin I 0.02 Total Protein 7.4 Albumin 3.3 Prothrombin Time 12.9 Prothromb Time International 1.2 Ratio Activated Partial 27.2 Thromboplast Time Result Diagram: 12/31/1659912/31/16599 Imaging Last Impressions Head CT 12/31/16612 Signed Impressions: Service Date/Time: Saturday, December 31, 2016 06:24 - CONCLUSION: 1. Mild right parietal subdural hematoma measuring 7 mm with some effacement of the sulci but no midline shift. 2. Posterior scalp hematoma. 3. Sinus disease. Bonifacio Asencio MD Chest X-Ray 12/31/16612 Signed Impressions: Service Date/Time: Saturday, December 31, 2016 06:30 - CONCLUSION: Cardiomegaly and increased interstitial markings likely representing CHF. Bonifacio Asencio MD Carotid Artery Ultrasound 12/31/16 0000 Signed Impressions: Service Date/Time: Saturday, December 31, 2016 08:00 - CONCLUSION: 1. Abnormally elevated velocity measurements in the proximal right internal carotid artery suggesting greater than 70%% stenosis. Consider carotid CTA for further evaluation. 2. Abnormal decreased blood flow in the left internal carotid artery with high resistance waveform suggests either a high-grade stenosis or proximal stenosis. 3. No blood flow is documented within the right vertebral artery. Therefore, this could be occluded. Bonifacio Gibson MD Assessment and Plan Assessment and Plan Patient is an 71-year-old male left-handed Near syncope S/P fall sustained Left parietal small subdural hematoma, posterior scalp hematoma Telemetry. Neuro vital signs. Echo requested. Carotid ultrasound positive for stenosis Seen by neurosurgery. Complete Syncopal workup- get echo, EEG. Carotid US resulted Pressure dressing on the posterior scalp hematoma started on IV Keppra bid Right Carotid Stenosis 70% Get vascular consult for recommendation- History of CAD status post stent history of CMP - EF 45% CHF stable. Status PM Hold ASA Continue on Coreg 25 mg twice a day Continue on simvastatin 20 mg at bedtime Continue on Bumex 1 mg daily Chronic thrombocytopenia Will get hematology consult.. - s/w Dr. Wolfe- monitor. Recheck CBC in am Review of old labs from 2012 shows that this is chronic. Chronic kidney insufficiency stage III. Creatinine is near baseline. gentle hydration 30 cc/hr History of neuropathy Continue on gabapentin 400 mg twice a day Diabetes type 2 insulin-requiring \ hemoglobin A1C in am will check blood sugars tid hs with sliding scale coverage Hold Lantus and glipizide for now PPI for GI prophylaxis No chemical prophylaxis secondary to [employer] bleed Discussed with patient and at bedside Physician Certification 2 Midnight Certification Type: Admission for Inpatient Services Order for Inpatient Services The services are ordered in accordance with Medicare regulations or non- Medicare payer requirements, as applicable. In the case of services not specified as inpatient-only, they are appropriately provided as inpatient services in accordance with the 2-midnight benchmark. Estimated LOS (days): 3 days is the estimated time the patient will need to remain in the hospital, assuming treatment plan goals are met and no additional complications. Post-Hospital Plan: Not yet determined Presley Sommer MD Dec 31, 2016 17:44 Presley Sommer MD Dec 31, 2016 17:44 Presley Sommer MD Dec 31, 2016 17:44
[2016-12-31] MEDS ORDERED: GLUCAGON 1 MG/ML VIAL OTHER PRN ×2 (18:00→20:00)
[2016-12-31] MEDS ORDERED: DEXTROSE 50% IN WATER 50 ML VIAL(D50) IV PUSH PRN ×2 (18:00→20:00)
--- NOTE | 2016-12-31 19:18 | MG ---
cc: JAMAICA DEVLIN MD Lab No: [id number] Date: 12/31/16 Age: 71 Sex: M Race: DATE OF : [address] Sommer With photic stimulation only, awake, drowsy study as well as asleep noted by orthopedic technician. CT mild right parietal subdural hematoma measuring 7 mm with some effacement of the sulci. admitted with intermittent dizziness for several days. Walking the dog today, became dizzy, had syncope, falling and hitting posterior part of the patient's scalp. History of pacemaker, atrial fibrillation, colon cancer, AICD, diabetic. MEDICATIONS Current - Lantus Glimepiride Simvastatin Carvedilol Bumetanide Aspirin DESCRIPTION OF RECORD Overall normal alpha rhythm of 8 Hz, 20 microvolt low amplitude. By epoch 17, the patient starts having some spike and wave discharges predominately seen bilaterally, short-lived and returns and then starts again by epoch 25. Photic stimulation, there is a posterior driving response. IMPRESSION Abnormal EEG due to theta spike and wave discharges seen as described in the EEG consistent with epileptic activity not continuous but paroxysmal. Clinical correlation. [place] Devlin MD DF/ /6:48 PM /7:11 PM
[2016-12-31] MEDS ORDERED: INSULIN GLARGINE 1,000 UNITS/10 ML VIAL SQ SCH (21:00)
[2016-12-31] MEDS ORDERED: INSULIN DETEMIR 100 UNITS/ML VIAL SQ SCH (21:00)
[2016-12-31] MEDS: INSULIN ASPART SUPPLEMENTAL SCALE SQ SCH (21:00)
[2016-12-31] MEDS ORDERED: NON-FORMULARY DRUG (Simvastatin 20 MG) PO SCH (21:00)
[2016-12-31] MEDS: PRAVASTATIN SOD 40 MG TAB PO SCH (21:34)
[2016-12-31] MEDS: CARVEDILOL 12.5 MG TAB PO SCH (21:34)
[2016-12-31] MEDS: DOCUSATE SODIUM 100 MG CAP PO SCH (21:35)
[2016-12-31 21:38] LABS: AUTOMATED NEUTROPHIL # 5.1 TH/MM3 (1.8-7.7); BASOPHIL % 0.3 % (0.0-2.0); EOSINOPHIL # 0.2 TH/MM3 (0-0.4); EOSINOPHIL % 2.8 % (0.0-4.0); HEMATOCRIT 31.7 % (39.0-51.0); LYMPH % 7.2 % (9.0-44.0); LYMPHOCYTE # 0.4 TH/MM3 (1.0-4.8); MEAN CELL VOLUME 97.9 FL (80.0-100.0); MEAN CORPUSCULAR HEMOGLOBIN 32.6 PG (27.0-34.0); MEAN CORPUSCULAR HGB CONC 33.3 % (32.0-36.0); MONO % 5.6 % (0.0-8.0); NEUT % 84.1 % (16.0-70.0); PLATELET COUNT 72 TH/MM3 (150-450); RED BLOOD COUNT 3.23 MIL/MM3 (4.50-5.90); RED CELL DISTRIBUTION WIDTH 16.3 % (11.6-17.2)
[2016-12-31 21:44] LABS: HEMO FLAGS DIFF FINAL
[2016-12-31 22:12] LABS: BICARBONATE 30.2 MEQ/L (21.0-32.0); MAGNESIUM 2.1 MG/DL (1.5-2.5)
[2017-01-01] VITALS: BP 110/58; PULSE 80; RESP 18; TEMP 99.6; O2SAT 94
[2017-01-01 06:27] VITALS: BP 141/70; PULSE 83; RESP 16; TEMP 98.1; O2SAT 96
[2017-01-01] MEDS: oxyCODONE/ACETAMINOPHEN 5 MG/325 MG TAB PO PRN ×2 (06:30→12:56)
[2017-01-01] MEDS: INSULIN ASPART SUPPLEMENTAL SCALE SQ SCH ×4 (06:31→20:51)
[2017-01-01 07:21] LABS: AUTOMATED NEUTROPHIL # 4.9 TH/MM3 (1.8-7.7); BASOPHIL % 0.5 % (0.0-2.0); EOSINOPHIL # 0.3 TH/MM3 (0-0.4); EOSINOPHIL % 4.4 % (0.0-4.0); HEMATOCRIT 31.3 % (39.0-51.0); LYMPH % 6.8 % (9.0-44.0); LYMPHOCYTE # 0.4 TH/MM3 (1.0-4.8); MEAN CELL VOLUME 98.1 FL (80.0-100.0); MEAN CORPUSCULAR HGB CONC 32.6 % (32.0-36.0); MONO % 7.7 % (0.0-8.0); NEUT % 80.6 % (16.0-70.0); PLATELET COUNT 66 TH/MM3 (150-450); RED BLOOD COUNT 3.19 MIL/MM3 (4.50-5.90); RED CELL DISTRIBUTION WIDTH 16.2 % (11.6-17.2); WHITE BLOOD COUNT 6.1 TH/MM3 (4.0-11.0)
[2017-01-01 07:28] LABS: HEMO FLAGS AUTO DIFF
[2017-01-01 07:39] LABS: ANION GAP 7 MEQ/L (5-15); BICARBONATE 28.3 MEQ/L (21.0-32.0); BLOOD UREA NITROGEN 30 MG/DL (7-18); CHLORIDE 102 MEQ/L (98-107); GLOMERULAR FILTRATION RATE 47 ML/MIN (>89); POTASSIUM 4.1 MEQ/L (3.5-5.1); SODIUM (NA) 137 MEQ/L (136-145)
[2017-01-01 08:00] VITALS: BP 116/56; PULSE 70; RESP 20; TEMP 97.4; O2SAT 93
[2017-01-01] MEDS: SODIUM CHLOR 0.9% 1000 ML INJ 1,000 ML IV SCH (08:00)
--- NOTE | 2017-01-01 08:03 | PD.ONC.PN ---
Subjective Subjective Remarks I been asked to see Mr. Wu for his chronic thrombocytopenia, now associated with a sub-dural hematoma following head trauma. I walked in to see him at 7:45 AM, he was on the way out to have a CT scan of the head. I spoke briefly to the patient reported continued pain in his head and neck, no new neurologic deficits were reported. The patient's labs and scans were reviewed. I did speak to his in quite a bit detail who elaborated further on historical details of the event which led to his admission; a fall while walking his dog at around 5 in the morning on 12/31/2016. I have reviewed my previous notes from 2012 when I saw this patient last. I was however not able to fully examine the patient or obtain a full history. The purpose of this note is to document initiation of this consult. At the present time I would recommend awaiting results of the CT scan from this morning. Platelet counts appear to be stable at 66,000. I would recommend continue holding aspirin until we document stability of the subdural hematoma. A full consultation note will be dictated and added to the electronic medical record after a full history and physical has been performed. If the patient is discharged today, I would like to see him in follow-up in my [place] office in 2-3 weeks. Objective Data Date Time Temp Pulse Resp B/P Pulse Ox O2 Delivery O2 Flow Rate FiO2 01/01/17 06:27 98.1 83 16 141/70 96 01/01/17 00:00 99.6 80 18 110/58 94 12/31/16 22:11 Nasal Cannula 2.00 12/31/16 20:00 99.4 93 18 158/74 94 12/31/16 19:25 86 12/31/16 18:25 87 12/31/16 16:00 99.2 89 20 130/62 90 12/31/16 12:00 89 19 139/69 97 Nasal Cannula 2 12/31/16 10:50 18 12/31/16 09:52 86 19 145/68 94 Nasal Cannula 12/31/16 08:08 95 Room Air 01/01/17 01/01/17 01/01/17 07:00 15:00 23:00 Output Total 300 ml Balance -300 ml Result Diagram: 01/01/17 0652 01/01/17 0652 Laboratory Results Laboratory Tests Test 12/31/16 01/01/17 20:38 06:52 White Blood Count 6.0 TH/MM3 6.1 TH/MM3 Red Blood Count 3.23 MIL/MM3 3.19 MIL/MM3 Hemoglobin 10.5 GM/DL 10.2 GM/DL Hematocrit 31.7 % 31.3 % Mean Corpuscular Volume 97.9 FL 98.1 FL Mean Corpuscular Hemoglobin 32.6 PG 32.0 PG Mean Corpuscular Hemoglobin 33.3 % 32.6 % Concent Red Cell Distribution Width 16.3 % 16.2 % Platelet Count 72 TH/MM3 66 TH/MM3 Mean Platelet Volume 8.1 FL 8.0 FL Neutrophils (%) (Auto) 84.1 % 80.6 % Lymphocytes (%) (Auto) 7.2 % 6.8 % Monocytes (%) (Auto) 5.6 % 7.7 % Eosinophils (%) (Auto) 2.8 % 4.4 % Basophils (%) (Auto) 0.3 % 0.5 % Neutrophils # (Auto) 5.1 TH/MM3 4.9 TH/MM3 Lymphocytes # (Auto) 0.4 TH/MM3 0.4 TH/MM3 Monocytes # (Auto) 0.3 TH/MM3 0.5 TH/MM3 Eosinophils # (Auto) 0.2 TH/MM3 0.3 TH/MM3 Basophils # (Auto) 0.0 TH/MM3 0.0 TH/MM3 CBC Comment DIFF FINAL AUTO DIFF Differential Comment Sodium Level 139 MEQ/L 137 MEQ/L Potassium Level 4.0 MEQ/L 4.1 MEQ/L Chloride Level 103 MEQ/L 102 MEQ/L Carbon Dioxide Level 30.2 MEQ/L 28.3 MEQ/L Anion Gap 6 MEQ/L 7 MEQ/L Blood Urea Nitrogen 27 MG/DL 30 MG/DL Creatinine 1.52 MG/DL 1.49 MG/DL Estimat Glomerular Filtration 46 ML/MIN 47 ML/MIN Rate Random Glucose 125 MG/DL 127 MG/DL Calcium Level 8.4 MG/DL 8.7 MG/DL Magnesium Level 2.1 MG/DL Administered Medications Medications (Trade) Dose Ordered Sig/Suzanna Route PRN Reason Start Time Stop Time Status Last Admin Dose Admin IV Flush (NS Flush) 2 ml BID IV FLUSH 12/31/16 09:00 12/31/16 21:35 Pantoprazole Sodium (Protonix Inj) 40 mg DAILY IV 12/31/16 09:00 12/31/16 09:10 Oxycodone/ Acetaminophen 1 tab 1 tab Q4H PRN PO PAIN SCALE 1 TO 5 12/31/16 07:15 01/01/17 06:30 Levetriacetam 500 mg/Sodium Chloride 105 ml @ 420 mls/hr Q12HR IV 12/31/16 09:00 12/31/16 21:34 Sodium Chloride (NS 1000 ml Inj) 1,000 ml @ 30 mls/hr Q24H IV 12/31/16 08:00 12/31/16 09:11 Carvedilol (Coreg) 25 mg BID PO 12/31/16 21:00 12/31/16 21:34 Pravastatin Sodium (Pravachol) 40 mg HS PO 12/31/16 21:00 12/31/16 21:34 Docusate Sodium (Colace) 100 mg BID PO 12/31/16 21:00 12/31/16 21:35 Objective Remarks GENERAL: Well-nourished, well-developed patient. SKIN: Warm and dry. HEAD: Normocephalic. EYES: No scleral icterus. No injection or drainage. NECK: Supple, trachea midline. No JVD or lymphadenopathy. LYMPHATIC: No adenopathy. CARDIOVASCULAR: Regular rate and rhythm without murmurs. RESPIRATORY: Breath sounds equal bilaterally. No accessory muscle use. GASTROINTESTINAL: Abdomen soft, non-tender, nondistended. EXTREMITIES: No cyanosis, or edema. MUSCULOSKELETAL: Adequate muscle tone. NEUROLOGICAL: No obvious focal deficit. Awake, alert, and oriented x3. PSYCHIATRIC: Appropriate mood and affect; insight and judgment normal. Jarocho Wolfe MD Jan 01, 2017 08:03
[2017-01-01 08:20] LABS: PLATELET ESTIMATE SMEAR LOW (NORMAL); PLATELET MORPHOLOGY NORMAL (NORMAL); SCAN/DIFF AUTO DIFF CONFIRMED
--- NOTE | 2017-01-01 08:22 | RADRPT ---
EXAM DATE/TIME: 01/01/2017 07:58 [place] COMPARISON: CT BRAIN W/O CONTRAST, December 31, 2016, 6:24. INDICATIONS: Follow up subdural hematoma. RADIATION DOSE: 52.18 CTDIvol (mGy) MEDICAL HISTORY: Cardiovascular disease. Diabetes mellitus type 2. Carcinoma, colon. SURGICAL HISTORY: Pacemaker. ENCOUNTER: Subsequent ACUITY: 2 days PAIN SCALE: 0/10 LOCATION: Cranial TECHNIQUE: Multiple contiguous axial images were obtained of the head. Using automated exposure control and adj ustment of the mA and/or kV according to patient size, radiation dose was kept as low as reasonably a chievable to obtain optimal diagnostic quality images. FINDINGS: There is increasing subdural hematoma on the right. This now is over the right frontal convexity and measures 1.3 cm. Very small amount of parafalcine blood is present. There is minimal effacing of th e right cortical sulci. There is no significant midline shift. The left hemisphere is unremarkable. Posterior fossa appears normal. CONCLUSION: Increasing subdural hematoma on the right. Camden Sesay MD FACR on January 01, 2017 at 8:11 Board Certified Radiologist. This report was verified electronically.
[2017-01-01 09:20] LABS: HEMOGLOBIN A1a 0.9 %; HEMOGLOBIN A1b 1.4 %; HEMOGLOBIN Ao 85.2 %; HEMOGLOBIN LA1C 2.1 %; HEMOGLOBIN P3 5.4 %
[2017-01-01] MEDS ORDERED: INFLUENZA VIRUS VACCINE (QUADRIVALENT) 0.5 ML SYR IM ONE (10:00)
[2017-01-01] MEDS: PANTOPRAZOLE SODIUM 40 MG VIAL IV SCH (10:03)
[2017-01-01] MEDS: levETIRAcetam INJ 500 MG in SODIUM CHLORIDE 0.9% INJ 100 ML IV SCH ×2 (10:03→20:58)
[2017-01-01] MEDS: CARVEDILOL 12.5 MG TAB PO SCH ×2 (10:04→20:56)
[2017-01-01] MEDS: SODIUM CHLORIDE 0.9% FLUSH 5 ML FLUSH IV FLUSH SCH ×2 (10:04→20:56)
[2017-01-01] MEDS: DOCUSATE SODIUM 100 MG CAP PO SCH ×2 (10:04→20:55)
[2017-01-01] MEDS: BUMETANIDE 1 MG TAB PO SCH (10:05)
[2017-01-01] MEDS: GABAPENTIN 300 MG CAP PO SCH ×4 (10:05→18:00)
[2017-01-01] MEDS: AMIODARONE 200 MG TAB PO SCH ×2 (10:08→20:56)
[2017-01-01] MEDS ORDERED: ALPRAZolam 0.25 MG TAB PO PRN (11:00)
--- NOTE | 2017-01-01 11:06 | HHI.NSPN ---
History Chief Complaint: back pain Interval History Day 2 after near syncope, afib, arrhythmias, chronic low platelet count, obesity , new right SDH after head trauma yesterday, is now complaining of severe back pain after the ct this am. The pain is paraspinal around the left SI joint and muscular. He is improved with sitting up, and with hydrocodone but more tired and anxious this am. GCS is still 15. He denies headaches, nausea, ate breakfast well, walked to bathroom. He is still dizzy and was told by cardiology that this may be from his AFIB. His medications are unchanged except from the ASA which is on hold. His platelet count is low and he was seen by hem/ onc. The platelet function estimate is pending. The repeat CT showed a marked increase of the bleed from 6mm to 13mm. Review of Systems Respiratory: Positive for: shortness of breath, Negative for: cough, sputum Cardiovascular: Negative for: chest pain, palpitations, orthopnea Gastrointestinal: Negative for: nausea, vomitting, diarrhea, constipation Genitourinary: Negative for: urinary burning, urinary frequency, urinary urgency Exam Results Vital Signs Date Time Temp Pulse Resp B/P Pulse Ox O2 Delivery O2 Flow Rate FiO2 01/01/17 08:00 97.4 70 20 116/56 93 12/31/16 22:11 Nasal Cannula 2.00 Intake and Output 12/31/16 12/31/16 01/01/17 08:00 16:00 00:00 Intake Total 240 ml Output Total 200 ml 275 ml Balance -200 ml -35 ml Physical Examination Awake, anxious, cannot lay down, feels claustrophobic, speech fluent, Pupils 2mm equal, EOMI, face symmetric, oriented to hospital, date, events, plan No pronator drift, good delt/bic/tri/HF/quad/at/EHL juancarlos, no neglect, no sensory change from yesterday Hyporeflexic, irregular HR, abd obese and interferes with breathing when lying flat. Peripheral edema juancarlos Lab, Micro, Other Results Laboratory Tests Test 12/31/16 01/01/17 20:38 06:52 White Blood Count 6.0 TH/MM3 6.1 TH/MM3 Red Blood Count 3.23 MIL/MM3 3.19 MIL/MM3 Hemoglobin 10.5 GM/DL 10.2 GM/DL Hematocrit 31.7 % 31.3 % Mean Corpuscular Volume 97.9 FL 98.1 FL Mean Corpuscular Hemoglobin 32.6 PG 32.0 PG Mean Corpuscular Hemoglobin 33.3 % 32.6 % Concent Red Cell Distribution Width 16.3 % 16.2 % Platelet Count 72 TH/MM3 66 TH/MM3 Mean Platelet Volume 8.1 FL 8.0 FL Neutrophils (%) (Auto) 84.1 % 80.6 % Lymphocytes (%) (Auto) 7.2 % 6.8 % Monocytes (%) (Auto) 5.6 % 7.7 % Eosinophils (%) (Auto) 2.8 % 4.4 % Basophils (%) (Auto) 0.3 % 0.5 % Neutrophils # (Auto) 5.1 TH/MM3 4.9 TH/MM3 Lymphocytes # (Auto) 0.4 TH/MM3 0.4 TH/MM3 Monocytes # (Auto) 0.3 TH/MM3 0.5 TH/MM3 Eosinophils # (Auto) 0.2 TH/MM3 0.3 TH/MM3 Basophils # (Auto) 0.0 TH/MM3 0.0 TH/MM3 CBC Comment DIFF FINAL AUTO DIFF Differential Comment AUTO DIFF CONFIRMED Sodium Level 139 MEQ/L 137 MEQ/L Potassium Level 4.0 MEQ/L 4.1 MEQ/L Chloride Level 103 MEQ/L 102 MEQ/L Carbon Dioxide Level 30.2 MEQ/L 28.3 MEQ/L Anion Gap 6 MEQ/L 7 MEQ/L Blood Urea Nitrogen 27 MG/DL 30 MG/DL Creatinine 1.52 MG/DL 1.49 MG/DL Estimat Glomerular Filtration 46 ML/MIN 47 ML/MIN Rate Random Glucose 125 MG/DL 127 MG/DL Calcium Level 8.4 MG/DL 8.7 MG/DL Magnesium Level 2.1 MG/DL Platelet Estimate LOW Platelet Morphology Comment NORMAL Hemoglobin A1c 6.0 % Last Impressions Head CT 12/31/16 0613 Signed Impressions: Service Date/Time: Saturday, December 31, 2016 06:24 - CONCLUSION: 1. Mild right parietal subdural hematoma measuring 7 mm with some effacement of the sulci but no midline shift. 2. Posterior scalp hematoma. 3. Sinus disease. Bonifacio Asencio MD Chest X-Ray 12/31/16 0613 Signed Impressions: Service Date/Time: Saturday, December 31, 2016 06:30 - CONCLUSION: Cardiomegaly and increased interstitial markings likely representing CHF. Bonifacio Asencio MD Carotid Artery Ultrasound 12/31/16 0000 Signed Impressions: Service Date/Time: Saturday, December 31, 2016 08:00 - CONCLUSION: 1. Abnormally elevated velocity measurements in the proximal right internal carotid artery suggesting greater than 70%% stenosis. Consider carotid CTA for further evaluation. 2. Abnormal decreased blood flow in the left internal carotid artery with high resistance waveform suggests either a high-grade stenosis or proximal stenosis. 3. No blood flow is documented within the right vertebral artery. Therefore, this could be occluded. Bonifacio Gibson MD Reported Meds & Active Scripts Active Reported Lantus Inj (Insulin Glargine) 1,000 Unit/10 Ml Vial 20 Units SQ HS Glipizide ER (Glipizide) 10 Mg [place] 10 Mg PO BID Take with breakfast or first main meal of the day Simvastatin 20 Mg Tab 20 Mg PO HS Carvedilol 25 Mg Tab 25 Mg PO BID Gabapentin 400 Mg Cap 400 Cap PO TID Bumetanide 1 Mg Tab 1 Mg PO DAILY Aspirin 325 Mg Tab 325 Mg PO DAILY Medical Decision Making Impression and Plan 1- Large right SDH with minimal symptoms at this time. Will keep on neuro checks and obtain a platelet function assay. Plan platelet transfusion if function is compromised. Seizure prophylaxis and DVT prophylaxis as well as PT/ OT continued. 2- Dizziness, afib, carotid stenosis. Anticoagulation is on hold. Possible cardioversion and CEA in the future to be discussed with the appropriate specialists. He remains critically ill and at risk for new CVA and PE. Total Minutes: 20 Isaías Dennis Jan 01, 2017 11:06
[2017-01-01 12:00] VITALS: BP 118/58; PULSE 76; RESP 20; TEMP 97.1; O2SAT 99
[2017-01-01] MEDS ORDERED: PILL SPLITTER OTHER PRN (12:00)
--- NOTE | 2017-01-01 15:11 | HHI.PR ---
Subjective Remarks The patient currently has no back pain. He's able to get up unassisted and ambulate to the bed. However his feels he is somewhat groggy from the Percocet. He has no paresthesias, headache, or unilateral weakness. Head CT was reviewed. Objective Vitals Vital Signs Date Time Temp Pulse Resp B/P Pulse Ox O2 Delivery O2 Flow Rate FiO2 01/01/17 12:00 97.1 76 20 118/58 99 01/01/17 08:00 97.4 70 20 116/56 93 01/01/17 06:27 98.1 83 16 141/70 96 01/01/17 00:00 99.6 80 18 110/58 94 12/31/16 22:11 Nasal Cannula 2.00 12/31/16 20:00 99.4 93 18 158/74 94 12/31/16 19:25 86 12/31/16 18:25 87 12/31/16 16:00 99.2 89 20 130/62 90 I/O 12/31/16 12/31/16 12/31/16 01/01/17 01/01/17 01/01/17 07:00 15:00 23:00 07:00 15:00 23:00 Intake Total 240 ml Output Total 200 ml 275 ml 300 ml 175 ml Balance -200 ml -35 ml -300 ml -175 ml Intake Oral 240 ml Output Urine Total 200 ml 275 ml 300 ml 175 ml # Voids 2 # Bowel Movements 0 0 0 0 Result Diagram: 01/01/17 0652 01/01/17 0652 Objective Remarks GENERAL: Well-nourished, well-developed pleasant male patient. SKIN: Warm and dry. HEAD: Normocephalic. EYES: No scleral icterus. No injection or drainage. Pupils are constricted but equal and reactive bilaterally. NECK: Supple, trachea midline. No JVD or lymphadenopathy. CARDIOVASCULAR: Regular rate and rhythm without murmurs, gallops, or rubs. RESPIRATORY: Breath sounds equal bilaterally. No accessory muscle use. GASTROINTESTINAL: Abdomen soft, non-tender, nondistended. EXTREMITIES: 1+ pitting edema of the feet bilaterally. NEUROLOGICAL: Awake, alert, and oriented x 3. Non-focal. 5 out of 5 strength in hands and feet. A/P Assessment and Plan -Subdural hematoma status post fall backwards while walking his dog - head CT this morning shows slight increase in the size of subdural hematoma without midline shift. Patient has no neurologic findings. I discussed with neurosurgery Dr. Dennis. We will continue neuro checks every 4 hours and repeat a head CT in the morning. -Vertigo/versus syncope precipitating the fall. The patient had been lightheaded before he fell. Left ventricular ejection fraction is normal on 2- D echocardiogram with no significant valvular abnormalities. He has a biventricular AICD in place with no recent shocks. -Paroxysmal Atrial fibrillation - seen by cardiology and started on amiodarone. Continue Coreg. He is also been started on amiodarone by cardiology today. -Chronic thrombocytopenia. This is stable on repeat CBC. Hematology is following. -Right internal carotid artery stenosis which is estimated to be 70% on the Doppler carotid ultrasound. This will need to be addressed in the outpatient setting as patient currently is not a candidate for carotid endarterectomy due to the intracranial bleed. Avoid CTAs the patient is having extreme lower back pain when he lays flat. -Chronic kidney disease. Appears stable. Type 2 diabetes. Continue sliding scale insulin with Accu-Cheks at this time. His by mouth intake is not that great so I will hold off on his basal insulin. Obesity Chronic low back pain with acute exacerbation secondary to the fall. Will continue Percocet as needed. Will use a pain scale. is concerned about sedation so I will use a lower dose for less severe pain. Consider imaging of the back however this time patient cannot tolerate laying flat for CT and is already having a hard time with a head CT. -Pedal edema. Continue his Bumex 1 mg by mouth daily. -DVT prophylaxis with SCDs. Mikaela Gregg MD Jan 01, 2017 15:11
--- NOTE | 2017-01-01 15:22 | HHI.PR ---
Objective Vitals Vital Signs Date Time Temp Pulse Resp B/P Pulse Ox O2 Delivery O2 Flow Rate FiO2 01/01/17 12:00 97.1 76 20 118/58 99 01/01/17 08:00 97.4 70 20 116/56 93 01/01/17 06:27 98.1 83 16 141/70 96 01/01/17 00:00 99.6 80 18 110/58 94 12/31/16 22:11 Nasal Cannula 2.00 12/31/16 20:00 99.4 93 18 158/74 94 12/31/16 19:25 86 12/31/16 18:25 87 12/31/16 16:00 99.2 89 20 130/62 90 I/O 12/31/16 12/31/16 12/31/16 01/01/17 01/01/17 01/01/17 07:00 15:00 23:00 07:00 15:00 23:00 Intake Total 240 ml Output Total 200 ml 275 ml 300 ml 175 ml Balance -200 ml -35 ml -300 ml -175 ml Intake Oral 240 ml Output Urine Total 200 ml 275 ml 300 ml 175 ml # Voids 2 # Bowel Movements 0 0 0 0 Result Diagram: 01/01/17 0652 01/01/17 0652 Mikaela Gregg MD Jan 01, 2017 15:22
--- NOTE | 2017-01-01 15:44 | MB ---
cc: VALENTE MIRANDA M.D. DATE OF CONSULTATION: 01/01/2017 REASON FOR CONSULTATION Near-syncope, arrhythmia evaluation. HISTORY OF PRESENT ILLNESS The patient is a 71-year-old white male with a history of possibly nonischemic cardiomyopathy, status post biventricular AICD implant 2008 in [place], chronic renal insufficiency, coronary artery disease, diabetes, paroxysmal atrial flutter, chronic thrombocytopenia, who presented to the hospital after a near-syncopal episode which resulted in a fall causing head trauma. Brain imaging has revealed a mild right parietal subdural hematoma with no midline shift. The patient states he has felt more lightheaded than usual over the last several days although he has never lost consciousness. On the day of admission he was walking up an incline to his house when he felt generally weak and lightheaded, falling backwards and hitting the back of his head on the pavement. He denies any preceding nausea, palpitations. He also denies chest pains, shortness of breath, paroxysmal nocturnal dyspnea, orthopnea, pedal edema. PAST MEDICAL HISTORY 1. Apparently history of nonischemic cardiomyopathy diagnosed in [place] several years ago, subsequently undergoing biventricular [employer] AICD implant in 2008. 2. Chronic renal insufficiency. 3. Colon cancer status post resection approximately 2009. 4. Diabetes. 5. Gout. 6. Hyperlipidemia. 7. Hypertension. 8. Chronic thrombocytopenia. 9. Paroxysmal atrial flutter initially diagnosed February 2013. 10. Coronary artery disease status post possible non-ST elevation myocardial infarction 02/13/2013 initially treated medically due to renal insufficiency and hemoptysis. He did undergo cardiac catheterization 03/02/2013 after his renal indices had improved, with coronary angiography showing normal left main, 60% proximal LAD stenosis stented with a 3.0-mm Resolute stent after the fractional flow reserve was found to be 0.76, 85% proximal obtuse marginal (small vessel), 30% proximal and 30% mid right coronary arteries lesions, 40% distal right coronary stenosis. MEDICATIONS His cardiac medications at home: 1. Simvastatin 20 mg q.h.s. 2. Carvedilol 25 mg b.i.d. 3. Bumex 1 mg daily. 4. Aspirin 325 mg daily. ALLERGIES NO KNOWN DRUG ALLERGIES. FAMILY HISTORY Noncontributory. SOCIAL HISTORY The patient has never smoked cigarettes. He drinks occasional alcohol. REVIEW OF SYSTEMS Review of systems as in the history of present illness, otherwise negative or noncontributory. He also denies visual changes, unilateral weakness or numbness, abdominal pain, melena, dyspepsia, bright red blood per rectum, fevers. PHYSICAL EXAMINATION VITAL SIGNS: On physical examination, his blood pressure is 118/58 with a pulse of 76, respirations 20. GENERAL: In general he is a well-developed, well-nourished white male in no acute distress. HEENT: Jugular venous pressure is normal. Carotid pulses are 2+ bilaterally and without bruits. CHEST: Examination of the chest reveals clear lung victoria. CARDIAC: On cardiac examination he has a regular rhythm and rate without S3-S4 or murmur. ABDOMEN: On abdominal examination he has a soft, nontender abdomen. Bowel sounds are present. There is no definite hepatosplenomegaly. EXTREMITIES: Examination of the extremities reveals no clubbing, cyanosis or edema. LABORATORY DATA Laboratory data includes WBC 6.1, hemoglobin 10.2, platelets 66, potassium 4.1, BUN 30, creatinine 1.49, CK 168, troponin 0.02. IMAGING STUDIES Chest x-ray shows possibly increased interstitial markings. EKG Shows atrial sensed ventricular paced rhythm. IMPRESSION Near syncope, head trauma resulting in subdural hematoma in this 71-year-old white male with a history of multiple medical problems including nonischemic cardiomyopathy diagnosed a few years ago, apparently now resolved, history of coronary artery disease, diabetes, paroxysmal atrial flutter, chronic thrombocytopenia. Overall, I doubt his recent lightheadedness and near-syncope has been due to ventricular tachyarrhythmias. He does have a biventricular AICD implant in place, and he has received no recent shocks. The patient does have a history of paroxysmal atrial flutter, with a relatively high atrial arrhythmia burden noted on this months AICD check (approximately 60% of the time). I doubt the atrial flutter itself is causing his dizziness. At this time monitoring suggests an atrial sensed ventricular paced rhythm. He is at fairly high risk for thromboembolic phenomena without anticoagulation therapy. With the subdural hematoma he is obviously not a candidate for anticoagulation at this time. Left ventricular function by echo this admission reportedly is normal. RECOMMENDATIONS 1. In the future resume at least daily aspirin when okay from a neurosurgical standpoint. 2. We will start amiodarone orally 400 mg b.i.d. to help reduce his atrial flutter burden. MD EDMOND Benitez/TLL /1:36 PM /3:18 PM AL
[2017-01-01 16:00] VITALS: BP 110/56; PULSE 79; RESP 20; TEMP 98.6; O2SAT 93
[2017-01-01] MEDS ORDERED: oxyCODONE/ACETAMINOPHEN 5 MG/325 MG TAB PO PRN (17:30)
[2017-01-01 20:00] VITALS: BP 131/68; PULSE 93; RESP 22; TEMP 100.1; O2SAT 94
[2017-01-01] MEDS: PRAVASTATIN SOD 40 MG TAB PO SCH (20:55)
[2017-01-02] VITALS (9 sets, daily range): BP systolic 114–143; BP diastolic 55–67; PULSE 70–87; RESP 14–22; TEMP 97–100.4; O2SAT 94–99
[2017-01-02] MEDS: INSULIN ASPART SUPPLEMENTAL SCALE SQ SCH ×4 (05:36→20:43)
[2017-01-02] MEDS ORDERED: SODIUM CHLOR 0.9% 250 ML INJ 250 ML IV ONE (07:00)
[2017-01-02] MEDS ORDERED: diphenhydrAMINE HCL 25 MG CAP PO PRN (07:00)
[2017-01-02] MEDS ORDERED: ACETAMINOPHEN 325 MG TAB PO PRN (07:00)
[2017-01-02] MEDS: SODIUM CHLOR 0.9% 1000 ML INJ 1,000 ML IV SCH (08:00)
--- NOTE | 2017-01-02 08:06 | PD.CARD.PN ---
Subjective Subjective Remarks Denies dizziness, near syncope, CP , dyspnea, palpitations, nausea. Objective Medications Item Value Date Time Bumetanide 1 mg 01/01/17 0900 (Bumetanide) DAILY/PO 01/01/17 100 Amiodarone HCl 400 mg 01/01/17 0900 (Cordarone) Q12HR/PO 01/01/172055 Carvedilol 25 mg 12/31/162099 (Coreg) BID/PO 01/01/172055 Pravastatin Sodium 40 mg 12/31/162099 (Pravachol) HS/PO 01/01/172054 Vital Signs / I&O Vital Signs Date Time Temp Pulse Resp B/P Pulse Ox O2 Delivery O2 Flow Rate FiO2 01/02/17 07:41 97.9 80 14 122/66 97 01/02/17 07:39 98.0 78 16 143/ 97 01/02/17 05:40 99.5 87 16 139/64 99 01/02/17 00:00 98.8 82 22 121/60 95 01/01/17 20:45 Nasal Cannula 2.00 01/01/17 20:00 100.1 93 22 131/68 94 01/01/17 16:00 98.6 79 20 110/56 93 01/01/17 13:56 15 01/01/17 12:00 97.1 76 20 118/58 99 I/O 01/01/17 01/01/17 01/01/17 01/02/17 01/02/17 01/02/17 07:00 15:00 23:00 07:00 15:00 23:00 Intake Total 240 ml Output Total 300 ml 175 ml Balance -300 ml -175 ml 240 ml Intake Oral 240 ml Output Urine Total 300 ml 175 ml # Voids 2 1 1 # Bowel Movements 0 0 0 0 Physical Exam GENERAL: Well developed, well nourished. No acute distress. HEENT: Jugular venous pressure is normal. CHEST: Lungs clear to auscultation bilaterally. Unlabored respiratory effort. CARDIAC: Regular rate and rhythm without S3, S4, or murmur. ABDOMEN: Soft, nontender, no hepatosplenomegaly. Bowel sounds present. EXTREMITIES: No clubbing, cyanosis. Trace to 1+ pretibial edema. Laboratory Laboratory Tests Test 01/01/17 01/01/17 01/01/1701/02/17 13:45 13:55 13:56 07:01 Blood Type O NEGATIVE O NEGATIVE Blood Bank Comment Platelet Function Screen (ADP) 98 SECONDS Platelet Function Scrn 236 SECONDS (Epinephrine Assessment and Plan Problem List: (1) Near syncope Assessment and Plan: No further near syncope or lightheadedness. Etiology of episode on presentation not entirely clear. Doubt atrial flutter causing near syncope especially as HR's normal during episodes. (2) Paroxysmal atrial flutter Assessment and Plan: Currently in ventricular paced rhythm. Patient in atrial flutter ~60% of the time the past few months. He is now not a candidate for anticoagulation therapy with his SDH. Rec continue Amiodarone. (3) CAD (coronary artery disease) Assessment and Plan: Stable. No recent angina. Cont medical therapy. (4) Dilated cardiomyopathy Assessment and Plan: History of non-ischemic cardiomyopathy, now resolved. EF 65% on echo this admission. Continue beta susana, diuretic. No JHON-I with his CRI. Code Status full code Discussed Condition With patient and Problem Qualifiers (1) CAD (coronary artery disease): Qualified Code: I25.10 - Coronary artery disease involving [place] coronary artery of [place] heart without angina pectoris Lalit Sim MD Jan 02, 2017 08:05
--- NOTE | 2017-01-02 08:14 | MB ---
cc: MARIA ESTHER AVILA MD RAYOS, GLEN DATE OF CONSULTATION 01/02/2017 DATE OF 1945 REASON FOR CONSULTATION Right-sided subdural hematoma which occurred following a fall with direct impact to the head on 12/31/2016. 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 The patient had also been on aspirin at a dose of 325 mg daily. CHIEF COMPLAINT Mr. Wu reports pain along the back of his head and along his neck. HISTORY OF PRESENT ILLNESS Mr. Wu is a very pleasant 71-year-old male whom I am know from previous visits in 2012, he was referred to me initially for further workup and evaluation of thrombocytopenia. Mr. 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 He denies having had any loss of consciousness and though there were no witnesses to his fall, his neighbor says that the amount of time the patient was on the ground was less than one minute. There was extensive bleeding from a laceration along the scalp. He was brought into the emergency department immediately and underwent imaging studies of the head on 12/31/2016. CT scan without contrast of the head revealed a right parietal subdural hematoma measuring 7 mm with some effacement of the sulci, but no midline shift. Platelet counts at the time of admission were 65,000. Hemoglobin/hematocrit were stable. Additionally, repeat CT scan of the head dated 01/01/2017 revealed interval enlargement of the subdural hematoma on the right side, now measuring 1.3 cm. Very small amount of parafalcine blood was noted. There was no significant midline shift. The left hemisphere was unremarkable. His platelet counts have fluctuated between 65 and 72,000. A platelet study performed on 01/01/2017 indicated a prolonged epinephrine time indicating drug effect which fits with his history of being on aspirin 325 mg daily. The hematology service has been consulted for further workup and evaluation and management of thrombocytopenia to make a progression of the subdural hematoma. The patient is also being followed by the neurosurgeons. PAST MEDICAL HISTORY 1. Chronic thrombocytopenia 2. History of adenocarcinoma of the colon diagnosed in 2009. 3. Type 2 diabetes 4. Diastolic heart failure 5. Chronic kidney failure 6. Patient with permanent pacemaker/defibrillator placed in 2007. 7. Valvular heart disease. 8. History of gastric ulcers. 9. Hyperlipidemia 10. Obesity PAST SURGICAL HISTORY 1. Appendectomy at age of 18. 2. Multiple cardiac catheterizations 3. Permanent pacemaker placement in 2007 4. Colon resection of primary anastomoses in 2009. 5. Multiple surveillance colonoscopies and EGD's. FAMILY HISTORY Father of coronary artery disease at the age of 39. Brother with coronary artery disease, mom at the age of 82. SOCIAL HISTORY The patient is a [place]. He lives at home with his daughter. Mr. Wu has two adult children. 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 He denies ever being a smoker. He reports previously being a heavy drinker. ALLERGIES NO KNOWN DRUG ALLERGIES. CURRENT INPATIENT MEDICATIONS 1. Keppra for 500 mg twice daily 2. Tylenol 650 mg p.o. q4h as needed for pain 3. Alprazolam 0.125 mg p.o. q6h 4. Amiodarone 400 mg p.o. q12h 5. Bumetanide 1 mg p.o. daily 6. Coreg 25 mg p.o. twice daily 7. Diphenhydramine 25 mg p.o. q4h as needed 8. Colace 100 mg twice daily 9. Gabapentin 300 mg p.o. t.i.d. 10. Low-dose insulin sliding scale before meals and before Bedtime. 11. Milk of magnesia 30 mL p.o. daily as needed for constipation. 12. Oxycodone/acetaminophen 5/325 one tablet every 4 hours as needed for pain. 13. Pantoprazole 40 mcg IV daily 14. Pravastatin 50 mg p.o. q.h.s. REVIEW OF SYSTEMS 13-point review of systems is obtained the following are the pertinent positives: CONSTITUTIONAL: The patient reports fatigue, denies fevers, chills, night sweats. He reports his appetite had been good. HEENT: Reports headache, pain in his neck, denies blurry vision, difficulty swallowing, soreness in the throat or nosebleeds. RESPIRATORY: Denies difficulty breathing, cough, hemoptysis, pleuritic chest pain. CARDIOVASCULAR: Denies angina-like chest pain, PND, orthopnea. EXTREMITIES: Lower extremities, reports chronic lower extremity swelling. GI: Denies nausea, vomiting, diarrhea, hematochezia or melena. : No complaints. MARBLE HELPER: Denies any focal sensory or motor deficits. PHYSICAL EXAMINATION VITAL SIGNS: Dated 01/02/2017: Temperature 99.5 degrees Fahrenheit, heart rate 87 beats minute, respiratory rate 16, blood pressure 139/64, O2 sats 99% on two liters nasal cannula. GENERAL PHYSICAL APPEARANCE: Mr. Wu is an elderly male, he is laying in bed comfortably, he was easily awakened when spoken to. He is able to sit up without assistance. His is at bedside. HEENT: Head atraumatic, normocephalic, conjunctivae are non-pale, sclerae are anicteric, EOMI, PERRLA, oral exam no pharyngeal erythema. NECK: No palpable cervical or supraclavicular lymphadenopathy. RESPIRATORY: Good air movement bilaterally. No added breath sounds. CARDIOVASCULAR: Regular rate and rhythm, S1 plus S2. No obvious murmurs, rubs or gallops. ABDOMEN: Protuberant/obese belly, soft and nontender, nondistended. No palpable organ enlargement (the clinical exam may have been impaired by his large body habitus which would obscure palpation of a mildly enlarged visceral organs such as the spleen). EXTREMITIES: Bilateral pretibial edema. No calf tenderness. MARBLE HELPER: 5/5 motor strength over his upper and lower extremities of both extensor and flexor compartments at the wrist, elbow, shoulders, knees and ankles as well as hips. SKIN: Multiple bruises over the forearms. LABORATORY FINDINGS Blood work dated 01/01/2017: WBC count 6.1, hemoglobin 10.2 gm/dl, hematocrit 31.3%, platelet count 66,000, absolute neutrophil count 4.9. Chemistries: Sodium 137, potassium 4.1, chloride 102, bicarb 28, BUN 7, creatinine 1.5, BUN 30, EGFR 47, random glucose 127, calcium 8.7. Liver enzymes: Total bilirubin 1.1, AST 48, ALT 51, alkaline phosphatase 84, albumin 3.3. IMAGING STUDIES CT scan of the head dated 12/30/2016: Increasing subdural hematoma on the right side, now measuring 1.3 cm at its greatest thickness. Minimal effacement of the right cortical sulci. No significant midline shift. ASSESSMENT Mr. Wu is a very pleasant 71-year-old male with multiple medical comorbid conditions as outlined above. He does have chronic non-progressive thrombocytopenia which dates back at least to 2012 when I had first seen him. 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 The patient has not had any significant unprovoked bleeding over his lifetime. He presently had been on a therapeutic dose of aspirin for antiplatelet effect due to his increased risk of stroke, he does have a history of valvular heart disease and I believe also has a cardiac arrhythmia (I am not certain exactly what specific cardiac arrhythmia he has, but he been he does have a pacemaker). On 12/31/2016, the patient fell while walking his dog at five in the morning, he fell backwards and hit the back of his head on the pavement. He suffered a laceration and also was found to have a 7 mm subdural hematoma all over the right parietal lobe of the brain. Over the next 224 hours, the subdural hematoma increased and measured 1.3 cm in greatest thickness. There was also more involvement anteriorly. From a clinical standpoint, Mr. Wu denies any loss of consciousness, worsening headaches and on a clinical examination, he is without evidence of progressive neurological deficits and in fact on my examination today, he had no neurologic deficits that were measurable. The hematology service has been consulted to help mitigate the progression of the subdural hematoma. His risk factors for developing the subdural hematomas certainly were the thrombocytopenia which is chronic, as well as the antiplatelet effect from the therapeutic dose aspirin. RECOMMENDATIONS Chronic thrombocytopenia: I have recommended we transfuse him platelets this morning given the increased size of the subdural hematoma. Two units have been ordered to be delivered stat. I would like the platelets to be delivered before he goes down for his CT scan which is scheduled for this morning. Additionally, I would like a CBC to be drawn two to four hours after the platelet transfusion has been delivered. I suspect there is a possibility of the transfused platelets to become sequestered within the enlarged and hyperfunctioning spleen, therefore, I would not be surprised if he does not have a major rebound in his platelet counts after transfusion. Recommend holding aspirin until we are certain his subdural hematomas no longer progressing. Monitor closely with neuro checks and monitor blood counts daily. MD JOE Arrington/KANDIS /7:14 AM /7:39 AM
[2017-01-02] MEDS ORDERED: BUMETANIDE INJ 1 MG/4 ML VIAL IV PUSH ONE (08:15)
[2017-01-02] MEDS: PANTOPRAZOLE SODIUM 40 MG VIAL IV SCH (08:31)
[2017-01-02] MEDS: DOCUSATE SODIUM 100 MG CAP PO SCH ×2 (08:32→20:40)
[2017-01-02] MEDS: CARVEDILOL 12.5 MG TAB PO SCH ×2 (08:32→20:40)
[2017-01-02] MEDS: AMIODARONE 200 MG TAB PO SCH ×2 (08:32→20:41)
[2017-01-02] MEDS: GABAPENTIN 300 MG CAP PO SCH ×3 (08:32→19:12)
[2017-01-02] MEDS: SODIUM CHLORIDE 0.9% FLUSH 5 ML FLUSH IV FLUSH SCH ×2 (08:33→20:42)
[2017-01-02] MEDS: oxyCODONE/ACETAMINOPHEN 5 MG/325 MG TAB PO PRN (08:35)
[2017-01-02] MEDS: BUMETANIDE 1 MG TAB PO SCH (09:00)
[2017-01-02] MEDS: levETIRAcetam INJ 500 MG in SODIUM CHLORIDE 0.9% INJ 100 ML IV SCH (09:04)
--- NOTE | 2017-01-02 10:38 | RADRPT ---
EXAM DATE/TIME: 01/02/2017 09:48 CORRECTION Corrected on: January 10, 2017; added missing exam form information [facility] COMPARISON: CT BRAIN W/O CONTRAST, January 01, 2017, 7:58. INDICATIONS : Follow up bleed. RADIATION DOSE: 50.36 CTDIvol (mGy) MEDICAL HISTORY : Cardiovascular disease. Carcinoma, colon. Diabetes mellitus type 2. SURGICAL HISTORY : Pacemaker. ENCOUNTER: Subsequent ACUITY: 1 day PAIN SCALE: 0/10 LOCATION: cranial TECHNIQUE: Multiple contiguous axial images were obtained of the head. Using automated exposure control and adj ustment of the mA and/or kV according to patient size, radiation dose was kept as low as reasonably a chievable to obtain optimal diagnostic quality images. FINDINGS: CEREBRUM: Stable configuration and size of the right subdural hematoma which extends from below is the highest convexity. The widest area is in the high right frontal parietal region measuring 1.2 cm in thicknes s, unchanged from prior. There is some minimal effacement of the sulci in the right hemisphere, stab le configuration. The ventricular width is symmetric. There is good meehan-white matter differentiati on. No evidence of midline shift. POSTERIOR FOSSA: The cerebellum and brainstem are intact. The 4th ventricle is midline. The cerebellopontine angle i s unremarkable. EXTRACRANIAL: Opacification of the visualized portions of the frontal and ethmoid sinuses, stable. SKULL: The calvaria is intact. No evidence of skull fracture. CONCLUSION: Stable size to the right hemisphere subdural hematoma. No evidence of midline shift. Rodo Gaxiola MD on January 02, 2017 at 10:34 Board Certified Radiologist. This report was verified electronically. DR Certified [place] Engineer on January 10, 2017 at 16:11 Board Certified Radiologist. This report was verified electronically.
--- NOTE | 2017-01-02 11:54 | HHI.PR ---
Subjective Remarks Patient states he is doing well today with no low back pain. He tolerated the CT well. He denies headache, double vision, paresthesias or weakness. Objective Vitals Vital Signs Date Time Temp Pulse Resp B/P Pulse Ox O2 Delivery O2 Flow Rate FiO2 01/02/17 08:49 97 Nasal Cannula 2.00 01/02/17 08:42 76 01/02/17 08:30 16 01/02/17 08:00 97.9 80 14 122/66 97 01/02/17 07:41 97.9 80 14 122/66 97 01/02/17 07:39 98.0 78 16 143/ 97 01/02/17 05:40 99.5 87 16 139/64 99 01/02/17 00:00 98.8 82 22 121/60 95 01/01/17 20:45 Nasal Cannula 2.00 01/01/17 20:00 100.1 93 22 131/68 94 01/01/17 16:00 98.6 79 20 110/56 93 01/01/17 13:56 15 01/01/17 12:00 97.1 76 20 118/58 99 I/O 01/01/17 01/01/17 01/01/17 01/02/17 01/02/17 01/02/17 07:00 15:00 23:00 07:00 15:00 23:00 Intake Total 240 ml Output Total 300 ml 175 ml Balance -300 ml -175 ml 240 ml Intake Oral 240 ml Output Urine Total 300 ml 175 ml # Voids 2 1 1 # Bowel Movements 0 0 0 0 Result Diagram: 01/01/17 0652 01/01/17 0652 Objective Remarks GENERAL: Well-nourished, well-developed pleasant male patient. SKIN: Warm and dry. HEAD: Normocephalic. EYES: No scleral icterus. No injection or drainage. Pupils are constricted but equal and reactive bilaterally. NECK: Supple, trachea midline. No JVD or lymphadenopathy. CARDIOVASCULAR: Regular rate and rhythm without murmurs, gallops, or rubs. RESPIRATORY: Breath sounds equal bilaterally. No accessory muscle use. GASTROINTESTINAL: Abdomen soft, non-tender, nondistended. EXTREMITIES: 1+ pitting edema of the feet bilaterally. NEUROLOGICAL: Awake, alert, and oriented x 3. Non-focal. 5 out of 5 strength in hands and feet. A/P Assessment and Plan -Subdural hematoma status post fall backwards while walking his dog - head CT this morning shows stable size of subdural hematoma 1.3 cm without midline shift. Patient has no neurologic findings. Management as per neurosurgery. -Vertigo/versus syncope precipitating the fall. The patient had been lightheaded before he fell. Left ventricular ejection fraction is normal on 2- D echocardiogram with no significant valvular abnormalities. He has a biventricular AICD in place with no recent shocks. -Paroxysmal Atrial fibrillation - seen by cardiology and started on amiodarone. Continue Coreg. He has also been started on amiodarone by cardiology. -Chronic thrombocytopenia. This is stable on repeat CBC. Hematology is following. -Right internal carotid artery stenosis which is estimated to be 70% on the Doppler carotid ultrasound. This will need to be addressed in the outpatient setting as patient currently is not a candidate for carotid endarterectomy due to the intracranial bleed. -Chronic kidney disease. Appears stable. Type 2 diabetes. Continue sliding scale insulin with Accu-Cheks at this time. Resume basal insulin if blood glucose trend warrants it. Obesity Chronic low back pain with acute exacerbation secondary to the fall. Will continue Percocet as needed. -Pedal edema. Continue his Bumex 1 mg by mouth daily. -DVT prophylaxis with SCDs. Mikaela Gregg MD Jan 02, 2017 11:54 Mikaela Gregg MD Jan 02, 2017 11:54
--- NOTE | 2017-01-02 14:28 | HHI.NSPN ---
History Chief Complaint: back pain Interval History Day 2 after near syncope, afib, arrhythmias, chronic low platelet count, obesity , new right SDH after head trauma yesterday, is now complaining of severe back pain after the ct this am. The pain is paraspinal around the left SI joint and muscular. He is improved with sitting up, and with hydrocodone but more tired and anxious this am. GCS is still 15. He denies headaches, nausea, ate breakfast well, walked to bathroom. He is still dizzy and was told by cardiology that this may be from his AFIB. His medications are unchanged except from the ASA which is on hold. His platelet count is low and he was seen by hem/ onc. The platelet function estimate is pending. The repeat CT showed a marked increase of the bleed from 6mm to 13mm. 01/02/17 He remains alert and cooperative. He denies headaches. Platelet transfusion was ordered with the help of hematology for platelet thrombocytopenia and dysfunction. Review of Systems General: Negative for: fever, chills, insomnia Respiratory: Negative for: shortness of breath, cough, sputum Cardiovascular: Negative for: chest pain, palpitations, orthopnea Gastrointestinal: Negative for: nausea, vomitting, diarrhea, constipation Exam Results Vital Signs Date Time Temp Pulse Resp B/P Pulse Ox O2 Delivery O2 Flow Rate FiO2 01/02/17 12:29 97.0 70 18 114/55 94 01/02/17 08:49 Nasal Cannula 2.00 Intake and Output 01/01/17 01/01/17 01/02/17 08:00 16:00 00:00 Intake Total 240 ml Output Total 300 ml 175 ml Balance -300 ml -175 ml 240 ml Physical Examination Awake, speech fluent, cooperative Pupils 2mm equal, EOMI, face symmetric, oriented to hospital, date, events, plan No pronator drift, good delt/bic/tri/HF/quad/at/EHL juancarlos, no neglect, no sensory change from yesterday Hyporeflexic, irregular HR, abd obese Peripheral edema juancarlos Lab, Micro, Other Results Last Impressions Head CT 01/02/17 0600 Signed Impressions: Service Date/Time: December 09:48 - CONCLUSION: Stable size to the right hemisphere subdural hematoma. No evidence of midline shift. Rodo Gaxiola MD Chest X-Ray 12/31/16 0613 Signed Impressions: Service Date/Time: Saturday, December 31, 2016 06:30 - CONCLUSION: Cardiomegaly and increased interstitial markings likely representing CHF. Bonifacio Asencio MD Carotid Artery Ultrasound 12/31/16 0000 Signed Impressions: Service Date/Time: Saturday, December 31, 2016 08:00 - CONCLUSION: 1. Abnormally elevated velocity measurements in the proximal right internal carotid artery suggesting greater than 70%% stenosis. Consider carotid CTA for further evaluation. 2. Abnormal decreased blood flow in the left internal carotid artery with high resistance waveform suggests either a high-grade stenosis or proximal stenosis. 3. No blood flow is documented within the right vertebral artery. Therefore, this could be occluded. Bonifacio Gibson MD Medical Decision Making Impression and Plan 1- Large right SDH with minimal symptoms at this time. Will keep on neuro checks and obtain a platelet function assay. Platelet transfusion completed finally this am. Seizure prophylaxis and DVT prophylaxis as well as PT/OT continued. 2- Dizziness, afib, carotid stenosis. Anticoagulation is on hold.Amiodarone was added and CEA in the future to be discussed with the appropriate specialists. He remains critically ill and at risk for new CVA and PE. Total Minutes: 20 Isaías Dennis Jan 02, 2017 14:28
[2017-01-02 16:40] LABS: AUTOMATED NEUTROPHIL # 4.2 TH/MM3 (1.8-7.7); BASOPHIL % 0.6 % (0.0-2.0); EOSINOPHIL # 0.2 TH/MM3 (0-0.4); EOSINOPHIL % 3.3 % (0.0-4.0); HEMATOCRIT 31.4 % (39.0-51.0); LYMPH % 5.2 % (9.0-44.0); LYMPHOCYTE # 0.3 TH/MM3 (1.0-4.8); MEAN CELL VOLUME 98.1 FL (80.0-100.0); MEAN CORPUSCULAR HEMOGLOBIN 32.4 PG (27.0-34.0); MONO % 7.3 % (0.0-8.0); NEUT % 83.6 % (16.0-70.0); PLATELET COUNT 86 TH/MM3 (150-450); RED CELL DISTRIBUTION WIDTH 16.4 % (11.6-17.2); WHITE BLOOD COUNT 5.1 TH/MM3 (4.0-11.0)
[2017-01-02 16:41] LABS: HEMO FLAGS DIFF FINAL; INTERNATIONAL NORMALIZED RATIO 1.1 RATIO; PROTHROMBIN TIME - PATIENT 12.4 SEC (9.8-11.6)
[2017-01-02] MEDS: ACETAMINOPHEN 325 MG TAB PO PRN (16:42)
[2017-01-02 16:50] LABS: ALKALINE PHOSPHATASE 68 U/L (45-117); ALT (GPT) 35 U/L (12-78); ANION GAP 5 MEQ/L (5-15); AST (GOT) 23 U/L (15-37); BICARBONATE 32.1 MEQ/L (21.0-32.0); BLOOD UREA NITROGEN 38 MG/DL (7-18); CHLORIDE 98 MEQ/L (98-107); GLOMERULAR FILTRATION RATE 39 ML/MIN (>89); POTASSIUM 4.2 MEQ/L (3.5-5.1); SODIUM (NA) 135 MEQ/L (136-145); TOTAL BILIRUBIN ADULT 1.1 MG/DL (0.2-1.0)
--- NOTE | 2017-01-02 19:03 | EKG ---
Date Performed: 01/02/2017 Time Performed: 08:11:13 PTAGE: 71 years EKG: ELECTRONIC VENTRICULAR PACEMAKER ABNORMAL RHYTHM ECG PREVIOUS TRACING : 12/31/2016 05.34 Compared to prior tracing no significant change DOCTOR: Iek Nicole Interpretating Date/Time 01/02/2017 19:01:20
--- NOTE | 2017-01-02 19:19 | RADRPT ---
EXAM DATE/TIME: 01/02/2017 19:02 [facility] COMPARISON: CHEST SINGLE AP, December 31, 2016, 6:30. INDICATIONS : Fever. MEDICAL HISTORY : Cardiovascular disease. Carcinoma, colon. Diabetes mellitus type 2. SURGICAL HISTORY : Pacemaker. ENCOUNTER: Subsequent ACUITY: 1 day PAIN SCORE: 0/10 LOCATION: chest FINDINGS: Evidence of pulmonary vascular congestion CHF has cleared. Pacemaker remains in place and compensated cardiomegaly. CONCLUSION: No acute disease. Findings of CHF have cleared Matt Reed MD on January 02, 2017 at 19:17 Board Certified Radiologist. This report was verified electronically.
[2017-01-02] MEDS: levETIRAcetam 500 MG TAB PO SCH (20:40)
[2017-01-02] MEDS: PRAVASTATIN SOD 40 MG TAB PO SCH (20:41)
[2017-01-02 23:04] LABS: BLOOD, URINE NEG (NEG); GLUCOSE,URINE NEG (NEG); KETONE, URINE NEG (NEG); MUCUS URINE FEW /lpf (OCC); NITRITE,URINE NEG (NEG); URINE COLOR YELLOW (YELLW/STRAW)
[2017-01-02 23:05] LABS: COMMENT (UR) CULT NOT INDICATED; CULTURE IF INDICATED CULT NOT INDICATED
[2017-01-03] VITALS: BP 130/70; PULSE 82; RESP 16; TEMP 99; O2SAT 94
[2017-01-03 04:00] VITALS: BP 120/59; PULSE 86; RESP 22; TEMP 99.5; O2SAT 93
[2017-01-03] MEDS: INSULIN ASPART SUPPLEMENTAL SCALE SQ SCH ×2 (06:19→11:00)
[2017-01-03] MEDS: ACETAMINOPHEN 325 MG TAB PO PRN (07:35)
[2017-01-03 07:39] LABS: AUTOMATED NEUTROPHIL # 3.2 TH/MM3 (1.8-7.7); BASOPHIL % 0.5 % (0.0-2.0); EOSINOPHIL # 0.1 TH/MM3 (0-0.4); HEMATOCRIT 29.2 % (39.0-51.0); LYMPHOCYTE # 0.4 TH/MM3 (1.0-4.8); MEAN CELL VOLUME 96.4 FL (80.0-100.0); MEAN CORPUSCULAR HEMOGLOBIN 32.4 PG (27.0-34.0); MEAN CORPUSCULAR HGB CONC 33.6 % (32.0-36.0); MONO % 12.1 % (0.0-8.0); NEUT % 76.4 % (16.0-70.0); PLATELET COUNT 78 TH/MM3 (150-450); RED BLOOD COUNT 3.03 MIL/MM3 (4.50-5.90); RED CELL DISTRIBUTION WIDTH 16.7 % (11.6-17.2); WHITE BLOOD COUNT 4.2 TH/MM3 (4.0-11.0)
[2017-01-03 07:54] LABS: BICARBONATE 26.3 MEQ/L (21.0-32.0); POTASSIUM 4.2 MEQ/L (3.5-5.1)
[2017-01-03 07:55] LABS: HEMO FLAGS AUTO DIFF
[2017-01-03 08:00] VITALS: PULSE 86
[2017-01-03] MEDS: SODIUM CHLOR 0.9% 1000 ML INJ 1,000 ML IV SCH (08:00)
[2017-01-03 08:19] VITALS: BP 132/66; PULSE 76; RESP 16; TEMP 98.9; O2SAT 98
[2017-01-03] MEDS: PANTOPRAZOLE SODIUM 40 MG VIAL IV SCH (08:45)
[2017-01-03] MEDS: SODIUM CHLORIDE 0.9% FLUSH 5 ML FLUSH IV FLUSH SCH (08:46)
[2017-01-03] MEDS: AMIODARONE 200 MG TAB PO SCH (08:46)
[2017-01-03] MEDS: levETIRAcetam 500 MG TAB PO SCH (08:46)
[2017-01-03] MEDS: CARVEDILOL 12.5 MG TAB PO SCH (08:47)
[2017-01-03] MEDS: GABAPENTIN 300 MG CAP PO SCH ×2 (08:48→14:44)
[2017-01-03] MEDS: BUMETANIDE 1 MG TAB PO SCH (08:48)
[2017-01-03] MEDS: DOCUSATE SODIUM 100 MG CAP PO SCH (08:48)
[2017-01-03 09:13] LABS: PLATELET ESTIMATE SMEAR LOW (NORMAL); PLATELET MORPHOLOGY NORMAL (NORMAL)
[2017-01-03 09:14] LABS: SCAN/DIFF AUTO DIFF CONFIRMED
--- NOTE | 2017-01-03 10:27 | HHI.PR ---
Subjective Remarks Follow up for SDH, bilateral carotid artery stenosis. Objective Vitals Vital Signs Date Time Temp Pulse Resp B/P Pulse Ox O2 Delivery O2 Flow Rate FiO2 01/03/17 08:35 15 01/03/17 08:19 98.9 76 16 132/66 98 01/03/17 04:00 99.5 86 22 120/59 93 01/03/17 00:00 99.0 82 16 130/70 94 01/02/17 20:00 Nasal Cannula 2.00 01/02/17 20:00 86 01/02/17 20:00 100.2 81 16 131/60 94 01/02/17 16:29 100.4 78 18 132/67 97 01/02/17 12:29 97.0 70 18 114/55 94 I/O 01/02/17 01/02/17 01/02/17 01/03/17 01/03/17 01/03/17 06:59 14:59 22:59 06:59 14:59 22:59 Intake Total 480 ml 0 ml Balance 480 ml 0 ml Intake Oral 480 ml IV Total 0 ml # Voids 1 2 # Bowel Movements 0 Result Diagram: 01/03/17 0651 01/03/17 0651 Lakesha Cortez DO Jan 03, 2017 10:26
[2017-01-03 12:00] VITALS: BP 118/58; PULSE 70; RESP 16; TEMP 99.1; O2SAT 92
--- NOTE | 2017-01-03 12:20 | PD.CONS ---
[facility] Service Rehabilitation Medicine Consult Requested By José Miguel Dennis MD Reason for Consult Comprehensive rehabilitation evaluation. Primary Care Physician Benji Chirinos M.D. History of Present Illness Michelet Wu is a 71 year old left hand dominant male admitted to [facility] 12/31/16 after fall when walking his dogs. He reports that he fell backward and hit his head. No LOC. Head CT showed mild right parietal SDH 7mm without midline shift, Carotid ultrasound 12/31/16 showed >70% stenosis right ICA; left ICA high resistance waveform suggesting high grade stenosis or proximal stenosis; no flow in right vertebral artery. Followup CT 01/02/17 showed stable right hemipshere SDH without shift. Review of Systems Constitutional: COMPLAINS OF: Fatigue Eyes: DENIES: Diplopia Ears, nose, mouth, throat: COMPLAINS OF: Hearing loss Respiratory: DENIES: Shortness of breath Cardiovascular: DENIES: Chest pain Gastrointestinal: DENIES: Abdominal pain Genitourinary: DENIES: Urinary incontinence Integumentary: DENIES: Rash Hematologic/lymphatic: COMPLAINS OF: Bruising Immunologic/allergic: DENIES: Urticaria Neurologic: DENIES: Headache, Localized weakness, Paresthesias Psychiatric: DENIES: Confusion Past Family Social History Allergies: Coded Allergies: No Known Allergies (Unverified , 12/31/16) Past Medical History CAD S/P MT CHF Chronic thrombocytopenia DM type II Neuropathy CKD III History of GI bleed Colon CA Past Surgical History AICD Colon resection Appendectomy Current Medications Current Medications Medications (Trade) Dose Ordered Sig/Suzanna Route Start Time Stop Time Status Last Admin (NS Flush) 2 ml BID IV FLUSH 12/31/16 09:00 01/03/17 08:46 (NS Flush) 2 ml UNSCH PRN IV FLUSH 12/31/16 07:15 (Protonix Inj) 40 mg DAILY IV 12/31/16 09:00 01/03/17 08:45 Oxycodone/ Acetaminophen 1 tab 1 tab Q4H PRN PO 12/31/16 07:15 01/02/17 08:35 (NS 1000 ml Inj) 1,000 ml @ 30 mls/hr Q24H IV 12/31/16 08:00 12/31/16 09:11 (Bumetanide) 1 mg DAILY PO 01/01/17 09:00 01/03/17 08:48 (Coreg) 25 mg BID PO 12/31/16 21:00 01/03/17 08:47 (Neurontin) 300 mg TID PO 12/31/16 18:00 01/03/17 08:48 (Pravachol) 40 mg HS PO 12/31/16 21:00 01/02/17 20:41 (Colace) 100 mg BID PO 12/31/16 21:00 01/03/17 08:48 (Milk Of Magnesia Liq) 30 ml DAILY PRN PO 12/31/16 15:45 (D50w (Vial) Inj) 25 ml UNSCH PRN IV PUSH 12/31/16 20:00 (Glucagon Inj) 1 mg UNSCH PRN OTHER 12/31/16 20:00 (Cordarone) 400 mg Q12HR PO 01/01/17 09:00 01/03/17 08:46 (Xanax) 0.125 mg Q6H PRN PO 01/01/17 11:00 (Pill Splitter) 1 ea UNSCH PRN OTHER 01/01/17 12:00 (Percocet 5-325 Mg) 0.5 tab Q4H PRN PO 01/01/17 17:30 (Keppra) 500 mg Q12HR PO 01/02/17 21:00 01/03/17 08:46 (Tylenol) 650 mg Q6H PRN PO 01/02/17 17:00 01/03/17 07:35 Family History Father : MT age 39 Mother: DM Social History No tobacco. Occasional ETOH. Independent with mobility and ADL's prior to admission. Lives in [place], [place] with his in a first floor condo with no steps. Exam I&O / VS 01/02/17 01/02/17 01/03/17 15:00 23:00 07:00 Intake Total 480 ml 0 ml Balance 480 ml 0 ml Intake Oral 480 ml IV Total 0 ml # Voids 2 Vital Signs Date Time Temp Pulse Resp B/P Pulse Ox O2 Delivery O2 Flow Rate FiO2 01/03/17 08:35 15 01/03/17 08:19 98.9 76 16 132/66 98 01/03/17 08:00 86 01/03/17 07:00 Nasal Cannula 2.00 01/03/17 04:00 99.5 86 22 120/59 93 01/03/17 00:00 99.0 82 16 130/70 94 01/02/17 20:00 Nasal Cannula 2.00 01/02/17 20:00 86 01/02/17 20:00 100.2 81 16 131/60 94 01/02/17 16:29 100.4 78 18 132/67 97 01/02/17 12:29 97.0 70 18 114/55 94 General: No acute distress Respiratory: Lungs CTA, Non-labored respirations, BS equal, Other (NC oxygen in place) Gastrointestinal: Positive Bowel Sounds, Non-Distended, Non-Tender, Other ( Obese) Cardiovascular: Normal rate, Regular Rhythm Musculoskeletal: Swelling (Bilateral LE edema 2+ to knee level) Psychiatric: Cooperative, Appropriate mood & affect Orientation: oriented to Self, oriented to Place, oriented to Time, oriented to Situation Neurologic: Cranial Nerves (Intact 2-12), Speech (Clear with no dysarthtria or word finding problems) Motor: Right Upper Extremity (5/5), Left Upper Extremity (5/5), Right Lower Extremity (5/5), Left Lower Extremity (5/5) Spasticity None Sensory Intact to light touch bilateral UE and LE DTRs: Normal (1+ throughout) Clonus: Negative Assessment and Plan Diagnosis: (1) SDH (subdural hematoma) Assessment 1. Right parietal SDH after fall 2. CAD S/P MT 3. AICD 4. DM type II 5. Neuropathy 6. CKD III 7. Colon CA S/P resection 8. History of GI bleed Plan 1. Patient progressing well with PT for transfers and gait and now independent with transfers and ambulating 100 feet with CG. Continue to mobilize. 2. OT evaluated ADL's and independent with dressing and grooming 3. Case management addressing discharge planning and would recommend Home health PT at discharge 4. Will follow while hospitalized and at discharge as needed. Thank you for this consult. Vivian Armijo MD Jan 03, 2017 12:20
[2017-01-03 16:06] VITALS: BP 116/55; PULSE 72; RESP 16; TEMP 98.3; O2SAT 98
[2017-01-03] MEDS ORDERED: LEVE500 PO ×2 (16:16→18:19)
--- NOTE | 2017-01-03 16:24 | HHI.FF ---
Face to Face Verification Diagnosis: (1) SDH (subdural hematoma) (2) Near syncope Physical Therapy Order: Evaluate and Treat, Improve ambulation, Strength and gait training Home Health Nursing Order: Signs/symptoms of disease process CHF education Medication education-adverse effect Wound care and dressing changes Nursing assessment with vital signs Home Health Aide Order: To Assist In: Bathing and personal care, underwriting consultant and meal prep I have seen patient Michelet Wu on 01/03/17. My clinical findings support the need for the requested home health care services because: Ltd mobility - disease progression Patient has SOB Deconditioned w/ increased weakness Limited ability to care for self Need for psychosocial assistance High risk of falls Infection w/ risk of complications I certify that my clinical findings support that this patient is homebound because: Impaired cognitive ability/safety Unsteady gait/balance Unsafe to leave home unassisted Need for psychosocial assistance Unable to use public transportation Lakesha Cortez DO Jan 03, 2017 16:24
--- NOTE | 2017-01-03 16:28 | HHI.NSPN ---
History Chief Complaint: none Interval History 71 yr old gentleman presents after a near syncope, afib, arrhythmias, chronic low platelet count, obesity, new right SDH after head trauma yesterday, is now complaining of severe back pain after the ct this am. The pain is paraspinal around the left SI joint and muscular. He is improved with sitting up, and with hydrocodone but more tired and anxious this am. GCS is still 15. He denies headaches, nausea, ate breakfast well, walked to bathroom. He is still dizzy and was told by cardiology that this may be from his AFIB. His medications are unchanged except from the ASA which is on hold. His platelet count is low and he was seen by hem/onc. The platelet function estimate is pending. The repeat CT showed a marked increase of the bleed from 6mm to 13mm. 01/02/17 He remains alert and cooperative. He denies headaches. Platelet transfusion was ordered with the help of hematology for platelet thrombocytopenia and dysfunction. 01/03/17 He is now improved, did very well with PT, walked 100 ft. The fatigue and peripheral edema remain. He denies headaches or gait instability Review of Systems General: Negative for: fever, chills, insomnia Respiratory: Negative for: shortness of breath, cough, sputum Cardiovascular: Negative for: chest pain, palpitations, orthopnea Gastrointestinal: Negative for: nausea, vomitting, diarrhea, constipation Exam Results Vital Signs Date Time Temp Pulse Resp B/P Pulse Ox O2 Delivery O2 Flow Rate FiO2 01/03/17 16:06 98.3 72 16 116/55 98 01/03/17 07:00 Nasal Cannula 2.00 Intake and Output 01/02/17 01/02/17 01/03/17 08:00 16:00 00:00 Intake Total 480 ml Balance 480 ml Physical Examination Awake, speech fluent, cooperative Pupils 2mm equal, EOMI, face symmetric, oriented to hospital, date, events, plan No pronator drift, good delt/bic/tri/HF/quad/at/EHL juancarlos, no neglect, no sensory change from yesterday Peripheral edema juancarlos Lab, Micro, Other Results Laboratory Tests Test 2/23/17 2/24/17 21:26 06:51 Urine Color YELLOW Urine Turbidity CLEAR Urine pH 5.0 Urine Specific [place] 1.015 Urine Protein TRACE mg/dL Urine Glucose (UA) NEG mg/dL Urine Ketones NEG mg/dL Urine Occult Blood NEG Urine Nitrite NEG Urine Bilirubin NEG Urine Urobilinogen LESS THAN 2.0 MG/DL Urine Leukocyte Esterase NEG Urine RBC LESS THAN 1 /hpf Urine WBC LESS THAN 1 /hpf Urine Mucus FEW /lpf Microscopic Urinalysis Comment CULT NOT INDICATED White Blood Count 4.2 TH/MM3 Red Blood Count 3.03 MIL/MM3 Hemoglobin 9.8 GM/DL Hematocrit 29.2 % Mean Corpuscular Volume 96.4 FL Mean Corpuscular Hemoglobin 32.4 PG Mean Corpuscular Hemoglobin 33.6 % Concent Red Cell Distribution Width 16.7 % Platelet Count 78 TH/MM3 Mean Platelet Volume 8.2 FL Neutrophils (%) (Auto) 76.4 % Lymphocytes (%) (Auto) 9.0 % Monocytes (%) (Auto) 12.1 % Eosinophils (%) (Auto) 2.0 % Basophils (%) (Auto) 0.5 % Neutrophils # (Auto) 3.2 TH/MM3 Lymphocytes # (Auto) 0.4 TH/MM3 Monocytes # (Auto) 0.5 TH/MM3 Eosinophils # (Auto) 0.1 TH/MM3 Basophils # (Auto) 0.0 TH/MM3 CBC Comment AUTO DIFF Differential Comment AUTO DIFF CONFIRMED Platelet Estimate LOW Platelet Morphology Comment NORMAL Sodium Level 133 MEQ/L Potassium Level 4.2 MEQ/L Chloride Level 97 MEQ/L Carbon Dioxide Level 26.3 MEQ/L Anion Gap 10 MEQ/L Blood Urea Nitrogen 39 MG/DL Creatinine 1.69 MG/DL Estimat Glomerular Filtration 40 ML/MIN Rate Random Glucose 129 MG/DL Calcium Level 8.6 MG/DL Medical Decision Making Impression and Plan 1- Right SDH with minimal symptoms at this time. Will keep on neuro checks and obtain a platelet function assay. Platelet transfusion completed finally yesterday Seizure prophylaxis and DVT prophylaxis as well as PT/OT continued. 2- Dizziness, afib, carotid stenosis. Anticoagulation is on hold.Amiodarone was added and CEA in the future to be discussed with the appropriate specialists. He remains at risk for new CVA and PE. Total Minutes: 10 Isaías Dennis M Jan 03, 2017 16:28 Isaías Dennis Jan 03, 2017 16:28
--- NOTE | 2017-01-03 16:45 | PD.CARD.PN ---
Subjective Subjective Remarks Tired. No dyspnea, CP, dizziness, nausea, palpitations. Objective Medications Item Value Date Time Bumetanide 1 mg 01/01/17 0900 (Bumetanide) DAILY/PO 01/03/17 0848 Amiodarone HCl 400 mg 01/01/17 0900 (Cordarone) Q12HR/PO 01/03/17 0846 Carvedilol 25 mg 12/31/16 2100 (Coreg) BID/PO 01/03/17 0847 Pravastatin Sodium 40 mg 12/31/162099 (Pravachol) HS/PO 01/02/17 204 Vital Signs / I&O Vital Signs Date Time Temp Pulse Resp B/P Pulse Ox O2 Delivery O2 Flow Rate FiO2 01/03/17 16:06 98.3 72 16 116/55 98 01/03/17 12:00 99.1 70 16 118/58 92 01/03/17 08:35 15 01/03/17 08:19 98.9 76 16 132/66 98 01/03/17 08:00 86 01/03/17 07:00 Nasal Cannula 2.00 01/03/17 04:00 99.5 86 22 120/59 93 01/03/17 00:00 99.0 82 16 130/70 94 01/02/17 20:00 Nasal Cannula 2.00 01/02/17 20:00 86 01/02/17 20:00 100.2 81 16 131/60 94 I/O 01/02/17 01/02/17 01/02/17 01/03/17 01/03/17 01/03/17 07:00 15:00 23:00 07:00 15:00 23:00 Intake Total 480 ml 0 ml 960 ml Balance 480 ml 0 ml 960 ml Intake Oral 480 ml 960 ml IV Total 0 ml # Voids 1 2 6 # Bowel Movements 0 1 Physical Exam GENERAL: Well developed, well nourished. No acute distress. HEENT: Jugular venous pressure is normal. CHEST: Lungs clear to auscultation bilaterally. Unlabored respiratory effort. CARDIAC: Regular rate and rhythm without S3, S4, or murmur. ABDOMEN: Soft, nontender, no hepatosplenomegaly. Bowel sounds present. EXTREMITIES: No clubbing, cyanosis. 1-2+ pretibial edema. Laboratory Laboratory Tests Test 01/02/17 01/03/17 21:26 06:51 Urine Color YELLOW Urine Turbidity CLEAR Urine pH 5.0 Urine Specific [place] 1.015 Urine Protein TRACE mg/dL Urine Glucose (UA) NEG mg/dL Urine Ketones NEG mg/dL Urine Occult Blood NEG Urine Nitrite NEG Urine Bilirubin NEG Urine Urobilinogen LESS THAN 2.0 MG/DL Urine Leukocyte Esterase NEG Urine RBC LESS THAN 1 /hpf Urine WBC LESS THAN 1 /hpf Urine Mucus FEW /lpf Microscopic Urinalysis Comment CULT NOT INDICATED White Blood Count 4.2 TH/MM3 Red Blood Count 3.03 MIL/MM3 Hemoglobin 9.8 GM/DL Hematocrit 29.2 % Mean Corpuscular Volume 96.4 FL Mean Corpuscular Hemoglobin 32.4 PG Mean Corpuscular Hemoglobin 33.6 % Concent Red Cell Distribution Width 16.7 % Platelet Count 78 TH/MM3 Mean Platelet Volume 8.2 FL Neutrophils (%) (Auto) 76.4 % Lymphocytes (%) (Auto) 9.0 % Monocytes (%) (Auto) 12.1 % Eosinophils (%) (Auto) 2.0 % Basophils (%) (Auto) 0.5 % Neutrophils # (Auto) 3.2 TH/MM3 Lymphocytes # (Auto) 0.4 TH/MM3 Monocytes # (Auto) 0.5 TH/MM3 Eosinophils # (Auto) 0.1 TH/MM3 Basophils # (Auto) 0.0 TH/MM3 CBC Comment AUTO DIFF Differential Comment AUTO DIFF CONFIRMED Platelet Estimate LOW Platelet Morphology Comment NORMAL Sodium Level 133 MEQ/L Potassium Level 4.2 MEQ/L Chloride Level 97 MEQ/L Carbon Dioxide Level 26.3 MEQ/L Anion Gap 10 MEQ/L Blood Urea Nitrogen 39 MG/DL Creatinine 1.69 MG/DL Estimat Glomerular Filtration 40 ML/MIN Rate Random Glucose 129 MG/DL Calcium Level 8.6 MG/DL Assessment and Plan Problem List: (1) Near syncope Assessment and Plan: No further near syncope or lightheadedness. Etiology of episode on presentation not entirely clear. Doubt atrial flutter causing near syncope especially as HR's normal during episodes. (2) Paroxysmal atrial flutter Assessment and Plan: Currently in ventricular paced rhythm. Patient in atrial flutter ~60% of the time the past few months. He is now not a candidate for anticoagulation therapy with his subdural hematoma. Rec continue Amiodarone; can reduce dose to 200 mg qd on discharge. (3) CAD (coronary artery disease) Assessment and Plan: Stable. No recent angina. Cont medical therapy. (4) Dilated cardiomyopathy Assessment and Plan: History of non-ischemic cardiomyopathy, now resolved. EF 65% on echo this admission. Continue beta susana, diuretic. No JHON-I with his CRI. Suspect his pedal edema is mostly due to chronic deep venous insufficiency. Rec increase Bumex to 2 mg qd, and will check BMP next week as an outpatient. Code Status full code Discussed Condition With patient and Problem Qualifiers (1) CAD (coronary artery disease): Qualified Code: I25.10 - Coronary artery disease involving [place] coronary artery of [place] heart without angina pectoris Lalit Sim MD Jan 03, 2017 16:45
[2017-01-03] MEDS ORDERED: AMIO200T PO (16:48)
[2017-01-03] MEDS ORDERED: LANTUS2P SQ (16:48)
[2017-01-03] MEDS ORDERED: NEUR300C PO (16:48)
[2017-01-03] MEDS ORDERED: NOVOLOGP2 SQ (16:48)
[2017-01-03] MEDS ORDERED: BUME1TAB PO (16:49)
--- NOTE | 2017-01-03 18:03 | PD.CAR.PN ---
CVT Progress Note Subjective/Hospital Course: Patient seen and evaluated Full consult dictated Patient has hemodynamically significant carotid stenosis based on the ultrasound but ultrasound sometimes overestimates are underestimates the degree of stenosis. CTA of the neck at this point is not necessary for patient has a subdural hematoma and is not candidate for carotid surgery as it is Patient can be discharged and he is instructed to follow-up with me in a month at which point I'm going to order a repeat CT of the head as well as CTA of the neck and then we going to reassess the situation If patient has over 70% carotid stenosis he will be a candidate for surgery as long as the subdural hematoma by that time is gone or has significantly decreased in size At this point there is no zhao to any of this and patient can be discharged safely Thanks Eitan Objective: Vital Signs Date Time Temp Pulse Resp B/P Pulse Ox O2 Delivery O2 Flow Rate FiO2 01/03/17 16:06 98.3 72 16 116/55 98 01/03/17 12:00 99.1 70 16 118/58 92 01/03/17 08:35 15 01/03/17 08:19 98.9 76 16 132/66 98 01/03/17 08:00 86 01/03/17 07:00 Nasal Cannula 2.00 01/03/17 04:00 99.5 86 22 120/59 93 01/03/17 00:00 99.0 82 16 130/70 94 01/02/17 20:00 Nasal Cannula 2.00 01/02/17 20:00 86 01/02/17 20:00 100.2 81 16 131/60 94 Labs: Laboratory Tests Test 01/03/17 06:51 White Blood Count 4.2 TH/MM3 (4.0-11.0) Red Blood Count 3.03 MIL/MM3 (4.50-5.90) Hemoglobin 9.8 GM/DL (13.0-17.0) Hematocrit 29.2 % (39.0-51.0) Mean Corpuscular Volume 96.4 FL (80.0-100.0) Mean Corpuscular Hemoglobin 32.4 PG (27.0-34.0) Mean Corpuscular Hemoglobin 33.6 % Concent (32.0-36.0) Red Cell Distribution Width 16.7 % (11.6-17.2) Platelet Count 78 TH/MM3 (150-450) Mean Platelet Volume 8.2 FL (7.0-11.0) Neutrophils (%) (Auto) 76.4 % (16.0-70.0) Lymphocytes (%) (Auto) 9.0 % (9.0-44.0) Monocytes (%) (Auto) 12.1 % (0.0-8.0) Eosinophils (%) (Auto) 2.0 % (0.0-4.0) Basophils (%) (Auto) 0.5 % (0.0-2.0) Neutrophils # (Auto) 3.2 TH/MM3 (1.8-7.7) Lymphocytes # (Auto) 0.4 TH/MM3 (1.0-4.8) Monocytes # (Auto) 0.5 TH/MM3 (0-0.9) Eosinophils # (Auto) 0.1 TH/MM3 (0-0.4) Basophils # (Auto) 0.0 TH/MM3 (0-0.2) CBC Comment AUTO DIFF Differential Comment AUTO DIFF CONFIRMED Platelet Estimate LOW (NORMAL) Platelet Morphology Comment NORMAL (NORMAL) Sodium Level 133 MEQ/L (136-145) Potassium Level 4.2 MEQ/L (3.5-5.1) Chloride Level 97 MEQ/L (98-107) Carbon Dioxide Level 26.3 MEQ/L (21.0-32.0) Anion Gap 10 MEQ/L (5-15) Blood Urea Nitrogen 39 MG/DL (7-18) Creatinine 1.69 MG/DL (0.60-1.30) Estimat Glomerular Filtration 40 ML/MIN (>89) Rate Random Glucose 129 MG/DL (74-106) Calcium Level 8.6 MG/DL (8.5-10.1) Result Diagram: 01/03/1765001/03/17650 (1) Near syncope Plan: No further near syncope or lightheadedness. Etiology of episode on presentation not entirely clear. Doubt atrial flutter causing near syncope especially as HR's normal during episodes. (2) Paroxysmal atrial flutter Plan: Currently in ventricular paced rhythm. Patient in atrial flutter ~60% of the time the past few months. He is now not a candidate for anticoagulation therapy with his subdural hematoma. Rec continue Amiodarone; can reduce dose to 200 mg qd on discharge. (3) CAD (coronary artery disease) Plan: Stable. No recent angina. Cont medical therapy. (4) Dilated cardiomyopathy Plan: History of non-ischemic cardiomyopathy, now resolved. EF 65% on echo this admission. Continue beta susana, diuretic. No JHON-I with his CRI. Suspect his pedal edema is mostly due to chronic deep venous insufficiency. Rec increase Bumex to 2 mg qd, and will check BMP next week as an outpatient. Problem Qualifiers (1) CAD (coronary artery disease): Qualified Code: I25.10 - Coronary artery disease involving crow coronary artery of crow heart without angina pectoris Yamila Good MD Jan 03, 2017 18:03
--- NOTE | 2017-01-03 19:50 | MB ---
cc: YAMILA SOL MD DATE OF CONSULTATION: 01/03/2017. REASON FOR CONSULTATION: Bilateral carotid stenosis. HISTORY OF PRESENT ILLNESS: This is a 71-year-old gentleman with multiple medical problems who presented to the hospital with a syncopal episode and a fall. On further workup, he was found to have on ultrasound bilateral carotid stenosis and also a right subdural hematoma, which did not require any surgical drainage. The question now rises as to where to go from here as far as carotid stenosis is concerned. PAST MEDICAL HISTORY: 1. Coronary artery disease. 2. Nonischemic cardiomyopathy with placement of defibrillator in 2008. 3. Chronic renal insufficiency. 4. Diabetes mellitus. 5. Hyperlipidemia. 6. Hypertension. 7. Splenomegaly. 8. Colon cancer with resection in 2009. 9. Paroxysmal atrial flutter. MEDICATIONS: His medications include: 1. Carvedilol. 2. Bumex. 3. Aspirin. ALLERGIES: NO ALLERGIES. 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 He never smoked. He drinks socially. REVIEW OF SYSTEMS: The patient is now doing well. He has no complaint about any problem. PHYSICAL EXAMINATION: GENERAL: The physical examination reveals a pleasant 71-year-old gentleman in no acute distress. HEAD, EYES, EARS, NOSE, THROAT: Normocephalic. No trauma to the head. Pupils equal and reactive. Extraocular muscles intact. NECK: The neck is supple. Bilateral carotid pulses. Actually, no bruits. CHEST: Clear. Bilateral breath sounds. HEART: Regular rhythm. He is not in either atrial fibrillation or atrial flutter. ABDOMEN: Soft. Active bowel sounds. EXTREMITIES: The patient has bilateral femoral, popliteal, dorsalis pedis, posterior tibial pulses on palpation. BACK: The back is normal. NEUROLOGIC: The patient is fully intact. IMPRESSION AND RECOMMENDATIONS: This gentleman had an ultrasound that confirmed bilateral carotid stenosis which is hemodynamically significant, left probably more than the right. The current literature indicates that patients who are even asymptomatic should be considered strongly for carotid surgery if they have over 70% asymptomatic carotid stenosis. I do not believe that the syncopal episode in this gentleman was related to his carotid disease, but was probably more so related to his cardiac function and a plethora of other problems he has. Therefore, until proven otherwise, I would consider this asymptomatic stenosis. Having said that, ultrasound can sometimes overestimate and sometimes underestimate the degree of stenosis because it is a fractionated measure of the velocity of blood flow. Therefore, CTA of the neck will be necessary to objectively evaluate the degree of stenosis. At this point, however, this would not matter because the patient has a subdural hematoma and he is not a candidate for anticoagulation, which would be of course necessary if we were to do a carotid endarterectomy. Therefore, at this point, the patient can be discharged from my point and I will followup with him in about a month or so at which point we are going to order repeat CT of the head as well as CTA of the neck and then go from there. If at that time the subdural is resolved and the patient has indeed hemodynamically significant carotid stenosis, then will talk about surgery. I thank you very much for the referral. I will see the patient in followup. Yamila BERGERON/SKIP /6:32 PM /7:28 PM
--- NOTE | 2017-01-03 22:58 | HHI.DS ---
Discharge Summary Admission Date Dec 31, 2016 at 07:29 Discharge Date: Jan 03, 2017 Admitting Diagnosis syncope/subdural hemorrhage (1) Subdural hematoma ICD Code: I62.00 Diagnosis: Principal (2) Dilated cardiomyopathy ICD Code: I42.0 (3) Paroxysmal atrial flutter ICD Code: I48.92 Diagnosis: Principal (4) DM type 2 (diabetes mellitus, type 2) ICD Code: E11.9 (5) Chronic kidney disease, stage III (moderate) ICD Code: N18.3 Procedures Echo 12/31/2016 - Left ventricle: The cavity size was normal. Wall thickness was increased in a pattern of mild LVH. Systolic function was vigorous. The estimated ejection fraction was in the range of 60% to 70%. Wall motion was normal; there were no regional wall motion abnormalities. - Aortic valve: Valve area: 1.7cm^2(VTI). Valve area: 1.85cm^2 (Vmax). - Mitral valve: Mild regurgitation. - Left atrium: The atrium was mildly dilated. - Tricuspid valve: Mild regurgitation. Brief History - From Admission Patient is a 71-year-old male ambidextrous but predominantly left handed male who this morning while walking his dog felt faint, very lightheaded and lost his balance and fell backwards and hit his head on the asphalt. Patient denies any loss of consciousness. Was able to call out for help and a stranger called EMS right away and patient was brought in here. Head CT shows a small posterior scalp hematoma and a small parietal subdural hematoma Labs shows thrombocytopenia which on review of EMR has been on this range since 2013. Patient is currently awake alert denies any pain. Denies any focal weakness. Denies any blurring of vision. On further history patient has been stating that he has been having on and off feeling of lightheadedness. He states easy bruising. But denies any melena or hematochezia or any epistaxis episodes Admitted for further evaluation and management. CBC/BMP: 01/03/17 0651 01/03/17 0651 Significant Findings Laboratory Tests Test 2/22/17 01/01/17 01/02/17 01/02/17 06:52 13:55 16:17 21:26 Red Blood Count 3.19 MIL/MM3 3.20 MIL/MM3 (4.50-5.90) (4.50-5.90) Hemoglobin 10.2 GM/DL 10.4 GM/DL (13.0-17.0) (13.0-17.0) Hematocrit 31.3 % 31.4 % (39.0-51.0) (39.0-51.0) Platelet Count 66 TH/MM3 86 TH/MM3 (150-450) (150-450) Neutrophils (%) (Auto) 80.6 % 83.6 % (16.0-70.0) (16.0-70.0) Lymphocytes (%) (Auto) 6.8 % 5.2 % (9.0-44.0) (9.0-44.0) Eosinophils (%) (Auto) 4.4 % (0.0-4.0) Lymphocytes # (Auto) 0.4 TH/MM3 0.3 TH/MM3 (1.0-4.8) (1.0-4.8) Platelet Estimate LOW (NORMAL) Blood Urea Nitrogen 30 MG/DL (7-18) 38 MG/DL (7-18) Creatinine 1.49 MG/DL 1.75 MG/DL (0.60-1.30) (0.60-1.30) Estimat Glomerular Filtration 47 ML/MIN (>89) 39 ML/MIN (>89) Rate Random Glucose 127 MG/DL 145 MG/DL (74-106) (74-106) Platelet Function Scrn 236 SECONDS (Epinephrine (103-176) Prothrombin Time 12.4 SEC (9.8-11.6) Sodium Level 135 MEQ/L (136-145) Carbon Dioxide Level 32.1 MEQ/L (21.0-32.0) Total Bilirubin 1.1 MG/DL (0.2-1.0) Albumin 3.3 GM/DL (3.4-5.0) Urine Mucus FEW /lpf (OCC) Test 01/03/17 06:51 Red Blood Count 3.03 MIL/MM3 (4.50-5.90) Hemoglobin 9.8 GM/DL (13.0-17.0) Hematocrit 29.2 % (39.0-51.0) Platelet Count 78 TH/MM3 (150-450) Neutrophils (%) (Auto) 76.4 % (16.0-70.0) Monocytes (%) (Auto) 12.1 % (0.0-8.0) Lymphocytes # (Auto) 0.4 TH/MM3 (1.0-4.8) Platelet Estimate LOW (NORMAL) Sodium Level 133 MEQ/L (136-145) Chloride Level 97 MEQ/L (98-107) Blood Urea Nitrogen 39 MG/DL (7-18) Creatinine 1.69 MG/DL (0.60-1.30) Estimat Glomerular Filtration 40 ML/MIN (>89) Rate Random Glucose 129 MG/DL (74-106) Imaging Last Impressions Head CT 01/02/17 0600 Signed Impressions: Service Date/Time: December 09:48 - CONCLUSION: Stable size to the right hemisphere subdural hematoma. No evidence of midline shift. Rodo Gaxiola MD Chest X-Ray 01/02/17 0000 Signed Impressions: Service Date/Time: December 19:02 - CONCLUSION: No acute disease. Findings of CHF have cleared Matt Reed MD Carotid Artery Ultrasound 12/31/16 0000 Signed Impressions: Service Date/Time: Saturday, December 31, 2016 08:00 - CONCLUSION: 1. Abnormally elevated velocity measurements in the proximal right internal carotid artery suggesting greater than 70%% stenosis. Consider carotid CTA for further evaluation. 2. Abnormal decreased blood flow in the left internal carotid artery with high resistance waveform suggests either a high-grade stenosis or proximal stenosis. 3. No blood flow is documented within the right vertebral artery. Therefore, this could be occluded. Bonifacio Gibson MD PE at Discharge GENERAL: Well-nourished, well-developed pleasant male patient. SKIN: Warm and dry. HEAD: Normocephalic. EYES: No scleral icterus. No injection or drainage. Pupils are constricted but equal and reactive bilaterally. NECK: Supple, trachea midline. No JVD or lymphadenopathy. CARDIOVASCULAR: Regular rate and rhythm without murmurs, gallops, or rubs. RESPIRATORY: Breath sounds equal bilaterally. No accessory muscle use. GASTROINTESTINAL: Abdomen soft, non-tender, nondistended. EXTREMITIES: 1+ pitting edema of the feet bilaterally. NEUROLOGICAL: Awake, alert, and oriented x 3. Non-focal. 5 out of 5 strength in hands and feet. Pt update on day of discharge Patient is doing well. No acute concerns. Hospital Course Mr. Wu is a pleasant 71 year old male with diabetes mellitus, colon cancer, Afib who presented to the ED on 12/31/2016 after he fell at around 5AM while walking his dog. He fell backwards and hit the back of his head without any loss of consciousness. CT head showed a small right parietal subdural hematoma. Cardiology followed patient closely with regards to near syncope. Patient was not a candidate for anti-coagulation. Cardiology adjusted patient's medications for dilated cardiomyopathy - we continued beta susana and increased dose of Bumex. Patient has a history of chronic thrombocytopenia, his plt count was 66K. Hematology was consulted and patient received two units of platelet transfusions due to subdural hemorrhage. CT head on 01/02/2017 showed stable SDH. Patient was subsequently discharged on 01/03/2017 with appropriate follow ups. Pt Condition on Discharge: Good Discharge Disposition: Disch w/ Home Health Serv Discharge Time: > 30 minutes Discharge Instructions DIET: Follow Instructions for: Diabetic Diet Activities you can perform: Regular-No Restrictions Follow up Referrals: Cardiology - 1 Week with Lalit Sim MD Neurosurgery - 1 Week @ [facility] that morning at [place] PCP Follow-up - 1 Week Physical Medicine & Rehab - 6 Weeks with Vivian Armijo MD Vascular Surgery - 3 Weeks with Yamila Good MD New Medications: Insulin Aspart Inj (Novolog Inj) 1,000 Unit/10 Ml Vial 1-9 UNITS SQ ACHS Max dose at bedtime:( )units; sugars less than 70,(0)units; sugars 150-199,(1) unit; sugars 200-249,(3) units; sugars 250-299,(5) units; sugars 300-349,(7) units; sugars greater than 349,(9) units Blood Sugar Management #10 Ref 0 ML Amiodarone (Amiodarone) 200 Mg Tab 200 MG PO DAILY Heart Rhythm #30 TAB Gabapentin (Neurontin) 300 Mg Cap 300 MG PO TID Neuropathic pain #90 CAP Levetiracetam (Keppra) 500 Mg Tab 500 MG PO Q12HR seizure prevention #60 Ref 5 TAB Changed Medications: Bumetanide (Bumetanide) 1 Mg Tab 1 MG PO BID Fluid #30 Ref 0 TAB (Changed from: DAILY) Insulin Glargine Inj (Lantus Inj) 1,000 Unit/10 Ml Vial 5 UNITS SQ HS Blood Sugar Management Days 30 Ref 0 VIAL (Changed from: 20 UNITS) Continued Medications: Carvedilol (Carvedilol) 25 Mg Tab 25 MG PO BID #60 Ref 0 TAB Simvastatin (Simvastatin) 20 Mg Tab 20 MG PO HS Cholesterol Management #30 Ref 0 TAB Discontinued Medications: Aspirin (Aspirin) 325 Mg Tab 325 MG PO DAILY #30 Ref 0 TAB Gabapentin (Gabapentin) 400 Mg Cap 400 CAP PO TID #30 Ref 0 CAP Glipizide ER (Glipizide ER) 10 Mg Cyril 10 MG PO BID Take with breakfast or first main meal of the day Blood Sugar Management #30 Ref 0 TAB Lakesha Cortez DO Jan 03, 2017 22:58
[2017-03-03] MEDS ORDERED: BACL10TA (14:49)
== END 2017-01-03 20:55 | disposition home health service (06) | DRG 86 ==
LOC: NEPE 05:13 → NEDA 07:29 → N05B 12:39
PROVIDERS: ADMIT Hospitalist; ATTEND Hospitalist
PROC: 30233R1 Transfusion of Nonautologous Platelets into Peripheral Vein, Percutaneous Approach (ICD-10-PCS; principal; 2017-01-02)
PROC: 30233R1 Transfusion of Nonautologous Platelets into Peripheral Vein, Percutaneous Approach (ICD-10-PCS; 2017-01-03)
DX: S06.5X0A Traumatic subdural hemorrhage without loss of consciousness, initial encounter (principal); I42.0 Dilated cardiomyopathy; D69.6 Thrombocytopenia, unspecified; I13.0 Hypertensive heart and chronic kidney disease with heart failure and stage 1 through stage 4 chronic kidney disease, or unspecified chronic kidney disease; I50.32 Chronic diastolic (congestive) heart failure; E11.22 Type 2 diabetes mellitus with diabetic chronic kidney disease; N18.3 Chronic kidney disease, stage 3 (moderate); I48.92 Unspecified atrial flutter; I65.23 Occlusion and stenosis of bilateral carotid arteries; I48.0 Paroxysmal atrial fibrillation; G62.9 Polyneuropathy, unspecified; R55 Syncope and collapse; I87.2 Venous insufficiency (chronic) (peripheral); D73.1 Hypersplenism; I25.10 Atherosclerotic heart disease of native coronary artery without angina pectoris; W18.30XA Fall on same level, unspecified, initial encounter; Y93.K1 Activity, walking an animal; I25.2 Old myocardial infarction; E66.9 Obesity, unspecified; E78.5 Hyperlipidemia, unspecified; G89.29 Other chronic pain; Z95.5 Presence of coronary angioplasty implant and graft; Z79.4 Long term (current) use of insulin; Z95.810 Presence of automatic (implantable) cardiac defibrillator; Z85.038 Personal history of other malignant neoplasm of large intestine; R16.1 Splenomegaly, not elsewhere classified
CPT/HCPCS: 36430; 70450; 71010; 80048; 80053; 80076; 81001; 82550; 82552; 82948; 83036; 83735; 84484; 85025; 85576; 85610; 85730; 86900; 86901; 87040; 90686; 93005; 93306; 93880; 95819; C9113; J1815; J1953; J7030; P9035; Q2038

== ENCOUNTER 2017-01-13 07:41 | Inpatient (IN) | payer OTHER, MEDICARE ==
[~2017-01-13] VITALS: Ht 188 cm; Wt 110.3 kg
[2017-01-13] VITALS (10 sets, daily range): BP systolic 109–181; BP diastolic 57–86; PULSE 67–88; RESP 15–22; TEMP 98.1–98.6; O2SAT 95–99
[~2017-01-13 07:41] MED LIST changes: +AMIO200T PO; -ASPI325T PO; +BUME1TAB PO; -BUME2TAB PO; -GLUC10TA3 PO; -LANTINJ SQ; +LANTUS2P SQ; -LEVA500T PO; +LEVE500 PO; +NEUR300C PO; -NEUR400C PO; +NOVOLOGP2 SQ; +SIMV20TA PO; -SIMV40TA PO; -ULTR50TA PO
--- NOTE | 2017-01-13 07:46 | PD ---
HPI Chief Complaint: headache, disequilibrium Time Seen by Provider: 07:46 Travel History International Travel<30 days: No Contact w/Intl Traveler<30days: No Traveled to known affect area: No History of Present Illness HPI 71-year-old male came to the emergency room with his with history of headache and disequilibrium over the weekend for past couple days. Patient was discharged not too long ago from this hospital after being diagnosed with a head bleed. No surgery was done at that point. Patient called his neurosurgeon this morning who asked him to go to the emergency room to get a CAT scan and blood test. Patient says that his headache has never gone since the initial head bleed but it has worsened over the weekend. Patient was little hypertensive in ER. He is slow in answering questions but answers them appropriately. He is fully oriented. Patient denied any fall or head injury this time. [facility] Past Medical History Narrative Medical List of his past medical, surgical, social and family history as reviewed from the nursing note. Arthritis: No Atrial Fibrillation: Yes Autoimmune Disease: No Heart Rhythm Problems: Yes Cardiovascular Problems: Yes High Cholesterol: No Chemotherapy: No Chest Pain: No Congestive Heart Failure: Yes Cerebrovascular Accident: No Diabetes: Yes Endocrine: Yes Gastrointestinal Disorders: Yes (COLON CA) GERD: No Genitourinary: Yes Hiatal Hernia: No Hypertension: No Immune Disorder: No Implanted Vascular Access Dvce: Yes Kidney Stones: Yes Musculoskeletal: Yes Neurologic: Yes Psychiatric: No Reproductive: No Respiratory: No Migraines: No Radiation Therapy: No Renal Failure: No Seizures: No Thyroid Disease: No Ulcer: No Past Surgical History Abdominal Surgery: Yes (colon surgery) AICD: Yes ([employer] CONCERTO II DEFIBRILLATOR) Appendectomy: Yes Arteriovenous Shunt: No Cardiac Surgery: Yes (pacemaker implantation and stent) Ear Surgery: No Endocrine Surgery: No Eye Surgery: Yes (cataracts) Genitourinary Surgery: No Gynecologic Surgery: No Insulin Pump: No Joint Replacement: No Oral Surgery: No Pacemaker: Yes Thoracic Surgery: No Other Surgery: Yes (COLON CA, PACEMAKER ) Social History Alcohol Use: Yes (OCCASIONAL) Tobacco Use: No Substance Use: No Allergies-Medications (Allergen,Severity, Reaction): Coded Allergies: No Known Allergies (Unverified , 01/13/17) Comments List of his allergies reviewed from the nursing note. Reported Meds & Prescriptions Reported Meds & Active Scripts Active Keppra (Levetiracetam) 500 Mg Tab 500 Mg PO Q12HR Bumetanide 1 Mg Tab 1 Mg PO BID Novolog Inj (Insulin Aspart) 1,000 Unit/10 Ml Vial 1-9 Units SQ ACHS Max dose at bedtime:( )units; sugars less than 70,(0)units; sugars 150-199,(1) unit; sugars 200-249,(3) units; sugars 250-299,(5) units; sugars 300-349,(7) units; sugars greater than 349,(9) units Neurontin (Gabapentin) 300 Mg Cap 300 Mg PO TID Amiodarone (Amiodarone HCl) 200 Mg Tab 200 Mg PO DAILY Lantus Inj (Insulin Glargine) 1,000 Unit/10 Ml Vial 5 Units SQ HS 30 Days Reported Glipizide 10 Mg Tab 10 Mg PO BIDAC Take 30 minutes before a meal Allopurinol 100 Mg Tab 100 Mg PO DAILY Simvastatin 20 Mg Tab 20 Mg PO HS Carvedilol 25 Mg Tab 25 Mg PO BID Narrative Medication List of his home medications reviewed from the nursing note. Review of Systems Except as stated in HPI: all other systems reviewed are Neg Physical Exam Narrative GENERAL: Awake, alert, little slow in answering questions, moderate distress SKIN: Warm and dry. Ecchymosis around the left posterior auricular area as well as mandibular area HEAD: Posterior parietal area has a little bogginess with a hematoma and clotted blood that's oozing slight dark-colored blood. EYES: Pupils equal and round. No scleral icterus. No injection or drainage. ENT: No nasal bleeding or discharge. Mucous membranes pink and moist. NECK: Trachea midline. No JVD. CARDIOVASCULAR: Regular rate and rhythm. No murmur appreciated. RESPIRATORY: No accessory muscle use. Clear to auscultation. Breath sounds equal bilaterally. GASTROINTESTINAL: Abdomen soft, non-tender, nondistended. Hepatic and splenic margins not palpable. MUSCULOSKELETAL: No obvious deformities. No clubbing. No cyanosis. No edema. NEUROLOGICAL: Awake and alert. No obvious cranial nerve deficits. Slight weakness over the left lower extremity. Strength of 4 out of 5 of the left leg and 5 out of 5 of right leg. Normal speech. PSYCHIATRIC: Appropriate mood and affect; insight and judgment normal. Data Data Last Documented VS Vital Signs Date Time Temp Pulse Resp B/P Pulse Ox O2 Delivery O2 Flow Rate FiO2 01/13/17 08:02 95 Room Air 01/13/17 07:55 70 16 01/13/17 07:44 98.3 181/83 Orders Prothrombin Time / Inr (Pt) (01/13/17 07:54) Complete Blood Count With Diff (01/13/17 07:54) Basic Metabolic Panel (Bmp) (01/13/17 07:54) Creatine Kinase (Cpk) (01/13/17 07:54) Troponin I (01/13/17 07:54) Ct Brain W/O Iv Contrast(Rout) (01/13/17 07:54) Chest, Single Ap (01/13/17 07:54) Ecg Monitoring (01/13/17 07:54) Iv Access Insert/Monitor (01/13/17 07:54) Oximetry (01/13/17 07:54) Sodium Chloride 0.9% Flush (Ns Flush) (01/13/17 08:00) Admit Order (Ed Use Only) (01/13/17 09:23) Labs Laboratory Tests Test 01/13/17 08:10 White Blood Count 5.4 TH/MM3 Red Blood Count 3.79 MIL/MM3 Hemoglobin 11.9 GM/DL Hematocrit 35.3 % Mean Corpuscular Volume 93.0 FL Mean Corpuscular Hemoglobin 31.4 PG Mean Corpuscular Hemoglobin 33.7 % Concent Red Cell Distribution Width 16.0 % Platelet Count 119 TH/MM3 Mean Platelet Volume 7.5 FL Neutrophils (%) (Auto) 79.8 % Lymphocytes (%) (Auto) 9.9 % Monocytes (%) (Auto) 8.9 % Eosinophils (%) (Auto) 0.9 % Basophils (%) (Auto) 0.5 % Neutrophils # (Auto) 4.3 TH/MM3 Lymphocytes # (Auto) 0.5 TH/MM3 Monocytes # (Auto) 0.5 TH/MM3 Eosinophils # (Auto) 0.1 TH/MM3 Basophils # (Auto) 0.0 TH/MM3 CBC Comment DIFF FINAL Differential Comment Prothrombin Time 12.4 SEC Prothromb Time International 1.1 RATIO Ratio Sodium Level 135 MEQ/L Potassium Level 4.4 MEQ/L Chloride Level 100 MEQ/L Carbon Dioxide Level 27.7 MEQ/L Anion Gap 7 MEQ/L Blood Urea Nitrogen 24 MG/DL Creatinine 1.36 MG/DL Estimat Glomerular Filtration 52 ML/MIN Rate Random Glucose 105 MG/DL Calcium Level 9.5 MG/DL Total Creatine Kinase 49 U/L Troponin I 0.02 NG/ML MDM Medical Decision Making Medical Screen Exam Complete: Yes Emergency Medical Condition: Yes Medical Record Reviewed: Yes Differential Diagnosis Intracranial bleed, peaked hemorrhage Narrative Course 9:30 AM discussed the case with the neurosurgeon Dr. Dennis and she is aware that the patient is in the emergency room. She was notified about the CAT scan finding. She was driving and said she would be here as soon as possible and take the patient to the OR. Patient had been admitted under her service at this point to the ICU. Waiting for her to come in and take the patient to the OR. 10:30 AM patient should be going soon to the operating room. Neurosurgeon is here and saw the patient and spoke with the patient as well as his . I've spoken with the patient and his as well and let them know about the CAT scan finding. Critical Care Narrative Aggregate critical care time was 45 minutes. Time to perform other separately billable procedures was not included in the critical care time. My time did not include minutes spent treating any other patients simultaneously or on activities that did not directly contribute to the patient's treatment. The services I provided to this patient were to treat and/or prevent clinically significant deterioration that could result in: Subdural hygroma with acute subdural hematoma with midline shift I provided critical care services requiring my management, as noted below: Chart data review, documentation time, medication orders and management, vital sign assessments/reviewing monitor data, ordering and reviewing lab tests, ordering and interpreting/reviewing x-rays and diagnostic studies, care of the patient and discussion of the patient with the admitting physicians. Procedures EKG Prior to Arrival: No Physician Communication Physician Communication Dr. Nirav Ludwig Diagnosis Primary Impression: Subdural hematoma Additional Impressions: Subdural hygroma Midline shift of brain Admitting Information Admitting Physician Requests: Admit Alejandra Dhaliwal MD Jan 13, 2017 07:46 Alejandra Dhaliwal MD Jan 13, 2017 07:46
[2017-01-13] MEDS ORDERED: SODIUM CHLORIDE 0.9% FLUSH 5 ML FLUSH IVF PRN ×2 (08:00→10:15)
[2017-01-13] MEDS ORDERED: GLIP10TA6 PO (08:08)
[2017-01-13] MEDS ORDERED: ALLO100T PO (08:08)
[2017-01-13 08:38] LABS: AUTOMATED NEUTROPHIL # 4.3 TH/MM3 (1.8-7.7); BASOPHIL % 0.5 % (0.0-2.0); EOSINOPHIL # 0.1 TH/MM3 (0-0.4); EOSINOPHIL % 0.9 % (0.0-4.0); HEMATOCRIT 35.3 % (39.0-51.0); HEMO FLAGS DIFF FINAL; LYMPH % 9.9 % (9.0-44.0); LYMPHOCYTE # 0.5 TH/MM3 (1.0-4.8); MEAN CORPUSCULAR HEMOGLOBIN 31.4 PG (27.0-34.0); MEAN CORPUSCULAR HGB CONC 33.7 % (32.0-36.0); MONO % 8.9 % (0.0-8.0); NEUT % 79.8 % (16.0-70.0); PLATELET COUNT 119 TH/MM3 (150-450); RED BLOOD COUNT 3.79 MIL/MM3 (4.50-5.90); WHITE BLOOD COUNT 5.4 TH/MM3 (4.0-11.0)
[2017-01-13 08:47] LABS: INTERNATIONAL NORMALIZED RATIO 1.1 RATIO; PROTHROMBIN TIME - PATIENT 12.4 SEC (9.8-11.6)
--- NOTE | 2017-01-13 08:49 | RADRPT ---
EXAM DATE/TIME: 01/13/2017 07:56 [facility] COMPARISON: CHEST SINGLE AP, January 02, 2017, 19:02. INDICATIONS : Extreme weakness. Previous fall with head trauma 10 days ago. MEDICAL HISTORY : Cardiovascular disease. Carcinoma, colon. Diabetes mellitus type 2. SURGICAL HISTORY : Pacemaker. ENCOUNTER: Subsequent ACUITY: 2 days PAIN SCORE: 0/10 LOCATION: Bilateral chest FINDINGS: AP views of the chest demonstrate stable enlargement of the cardiac silhouette. Left chest wall cardi ac pacemaker device remains present with biventricular leads. No pleural effusion, airspace consolida tion, or pneumothorax is identified. Bones and soft tissues demonstrate no acute finding. CONCLUSION: No acute cardiopulmonary abnormality is identified. Cardiac silhouette size remains enlarged. Bonifacio Gibson MD on January 13, 2017 at 8:46 Board Certified Radiologist. This report was verified electronically.
--- NOTE | 2017-01-13 08:51 | RADRPT ---
EXAM DATE/TIME: 01/13/2017 08:29 [facility] COMPARISON: CT BRAIN W/O CONTRAST, January 02, 2017, 9:48. INDICATIONS: Generalized weakness. RADIATION DOSE: 56.35 CTDIvol (mGy) MEDICAL HISTORY: Cerebrovascular disease. Cardiovascular disease Carcinoma, colon. SURGICAL HISTORY: None. ENCOUNTER: Initial ACUITY: 1 day PAIN SCALE: 0/10 LOCATION: Cranial TECHNIQUE: Multiple contiguous axial images were obtained of the head. Using automated exposure control and adj ustment of the mA and/or kV according to patient size, radiation dose was kept as low as reasonably a chievable to obtain optimal diagnostic quality images. FINDINGS: There is a large right subdural hygroma with acute blood products measuring 2.2 cm. There is no hemo rrhage on the left. Posterior fossa is unremarkable. CONCLUSION: Acute and chronic subdural hygroma and subdural blood with right to left shift as described above. Findings were discussed with Dr. Dhaliwal on today's date. Camden Sesay MD FACR on January 13, 2017 at 8:43 Board Certified Radiologist. This report was verified electronically.
[2017-01-13 09:01] LABS: BICARBONATE 27.7 MEQ/L (21.0-32.0); POTASSIUM 4.4 MEQ/L (3.5-5.1)
[2017-01-13] MEDS ORDERED: hydrALAZINE HCL 20 MG/ML VIAL IV PUSH STA (09:34)
[2017-01-13] MEDS ORDERED: ENALAPRILAT 1.25 MG/ML VIAL IV PRN (10:15)
[2017-01-13] MEDS ORDERED: ONDANSETRON HCL 4 MG/2 ML VIAL IV PRN (10:15)
[2017-01-13] MEDS ORDERED: DOCUSATE SODIUM 100 MG/10 ML UDC NG PRN (10:15)
[2017-01-13] MEDS ORDERED: MORPHINE SULFATE 8 MG/ML INJ IV PUSH PRN (10:15)
[2017-01-13] MEDS ORDERED: MAGNESIUM HYDROXIDE SUSP 30 ML CUP PO PRN (10:15)
[2017-01-13] MEDS ORDERED: LABETALOL HCL 100 MG/20 ML VIAL IV PRN (10:15)
[2017-01-13] MEDS: hydrALAZINE HCL 20 MG/ML VIAL IV PUSH PRN ×2 (10:37→13:27)
[2017-01-13] MEDS ORDERED: ceFAZolin 2 GM PREMIX 50 ML ONE (10:56)
[2017-01-13] MEDS ORDERED: LIDOCAINE 1%/EPINEPHrine 1:100,000 SOLN 20 ML VIAL INFIL ONE (11:35)
[2017-01-13 11:47] LABS: BLOOD GAS BASE EXCESS -1.6 mmol/L (-2-2); BLOOD GAS CARBOXYHEMOGLOBIN 2.5 % (0-4); BLOOD GAS HCO3 23 mmol/L (22-26); BLOOD GAS METHEMOGLOBIN 0.8 % (0-2); BLOOD GAS O2 HGB SATURATION 97 % (90-100); BLOOD GAS OXYGEN CONTENT 18.7 Vol % (12.0-20.0); BLOOD GAS PCO2 37 mmHg (38-42); BLOOD GAS PO2 259 mmHg (61-120); BLOOD GAS TOTAL HGB 13.4 G/DL (12.0-16.0); CRITICAL VALUE NO; FIO2 50 %; OXYGEN DEVICE OR; STAT YES; TEMP CORR TO 98.6
[2017-01-13] MEDS ORDERED: PROPOFOL 200 MG/20 ML AMP IV ONE (12:00)
[2017-01-13] MEDS: levETIRAcetam 500 MG TAB PO SCH ×2 (12:00→20:49)
[2017-01-13] MEDS ORDERED: ONDANSETRON HCL 4 MG/2 ML VIAL IV PUSH ONE (12:00)
[2017-01-13] MEDS ORDERED: NEOSTIGMINE 3 MG/3 ML SYR IV ONE (12:00)
[2017-01-13] MEDS ORDERED: ePHEDrine/NS 25 MG/5 ML SYR IV ONE (12:00)
--- NOTE | 2017-01-13 12:43 | OTSOAPIP ---
TIME SESSION COMPLETED: 1200 TREATMENT TIME: 0 MINS. CHART REVIEWED. PATIENT ADMITTED WITH ACUTE SUBDURAL BLEED WITH SUBDURAL HYGROMA MIDLINE. PATIENT WAS NOT AVAILABLE DUE TO BEING INVOLVED IN A SURGICAL PROCEDURE. PLAN: WILL SEE PATIENT NEXT TREATMENT DAY INTERDISCIPLINARY COMMUNICATION: SPOKE WITH NURSING Therapist: EVETTE HANDLEY/Francisca Signature on file
[2017-01-13] MEDS: GABAPENTIN 300 MG CAP PO SCH ×2 (13:00→18:23)
[2017-01-13] MEDS ORDERED: DO NOT ADM ANY ANTICOAGULANT DRUGS XX PRN ×2 (13:00→13:30)
[2017-01-13] MEDS ORDERED: fentaNYL CITRATE 250 MCG/5 ML AMP ONE (13:11)
[2017-01-13] MEDS ORDERED: niCARdipine INJ 25 MG in SODIUM CHLOR 0.9% 250 ML INJ 250 ML IV SCH (13:30)
[2017-01-13] MEDS: levETIRAcetam INJ 500 MG in SODIUM CHLORIDE 0.9% INJ 100 ML IV SCH ×2 (13:30→16:14)
--- NOTE | 2017-01-13 13:31 | HHI.HP ---
HPI Service Neurosurgery Primary Care Physician Benji Chirinos M.D. Chief Complaint: lethargy History of Present Illness 71 yr old fell walking his dog 12/31/16 and suffered a right SDH. He was discharged at his neurologic baseline on 01/03/17 and scheduled for repeat CT today but his noted deterioration in his alertness and he underwent a right mally hole for evacuation of the bleed today. Review of Systems Endocrine: COMPLAINS OF: Heat/cold intolerance Respiratory: COMPLAINS OF: Shortness of breath Genitourinary: COMPLAINS OF: Urinary frequency Musculoskeletal: COMPLAINS OF: Back pain Neurologic: COMPLAINS OF: Localized weakness, Poor Balance Past Family Social History Allergies: Coded Allergies: No Known Allergies (Unverified , 01/13/17) Past Medical History Cardiomyopathy, s/p pacemaker implant HTN, DM, OA Past Surgical History Pacemaker Reported Medications Reported Meds & Active Scripts Active Keppra (Levetiracetam) 500 Mg Tab 500 Mg PO Q12HR Bumetanide 1 Mg Tab 1 Mg PO BID Novolog Inj (Insulin Aspart) 1,000 Unit/10 Ml Vial 1-9 Units SQ ACHS Max dose at bedtime:( )units; sugars less than 70,(0)units; sugars 150-199,(1) unit; sugars 200-249,(3) units; sugars 250-299,(5) units; sugars 300-349,(7) units; sugars greater than 349,(9) units Neurontin (Gabapentin) 300 Mg Cap 300 Mg PO TID Amiodarone (Amiodarone HCl) 200 Mg Tab 200 Mg PO DAILY Lantus Inj (Insulin Glargine) 1,000 Unit/10 Ml Vial 5 Units SQ HS 30 Days Reported Glipizide 10 Mg Tab 10 Mg PO BIDAC Take 30 minutes before a meal Allopurinol 100 Mg Tab 100 Mg PO DAILY Simvastatin 20 Mg Tab 20 Mg PO HS Carvedilol 25 Mg Tab 25 Mg PO BID Family History NC Social History Lives with his family, does not smoke, occ ETOH Physical Exam Vital Signs Vital Signs Date Time Temp Pulse Resp B/P Pulse Ox O2 Delivery O2 Flow Rate FiO2 3/6/17 10:37 69 166/78 98 01/13/17 10:11 67 16 172/81 98 Room Air 01/13/17 10:09 69 16 179/86 98 Room Air 01/13/17 08:02 95 Room Air 01/13/17 07:55 70 16 95 Room Air 01/13/17 07:44 98.3 73 16 181/83 97 Physical Exam Awake but lethargic, pupils 2mm equal, EOMI, full visual victoria, Left sided apraxia and weakness but antigravity with the left arm and hand RRR, abd obese, lungs CTA, no wheezing Mod peripheral edema Skin warm and dry, healing vertex cephalohematoma on the scalp. Laboratory Laboratory Tests Test 01/13/17 01/13/17 08:10 11:30 White Blood Count 5.4 Red Blood Count 3.79 Hemoglobin 11.9 Hematocrit 35.3 Mean Corpuscular Volume 93.0 Mean Corpuscular Hemoglobin 31.4 Mean Corpuscular Hemoglobin 33.7 Concent Red Cell Distribution Width 16.0 Platelet Count 119 Mean Platelet Volume 7.5 Neutrophils (%) (Auto) 79.8 Lymphocytes (%) (Auto) 9.9 Monocytes (%) (Auto) 8.9 Eosinophils (%) (Auto) 0.9 Basophils (%) (Auto) 0.5 Neutrophils # (Auto) 4.3 Lymphocytes # (Auto) 0.5 Monocytes # (Auto) 0.5 Eosinophils # (Auto) 0.1 Basophils # (Auto) 0.0 CBC Comment DIFF FINAL Differential Comment Prothrombin Time 12.4 Prothromb Time International 1.1 Ratio Sodium Level 135 Potassium Level 4.4 Chloride Level 100 Carbon Dioxide Level 27.7 Anion Gap 7 Blood Urea Nitrogen 24 Creatinine 1.36 Estimat Glomerular Filtration 52 Rate Random Glucose 105 Calcium Level 9.5 Total Creatine Kinase 49 Troponin I 0.02 Blood Gas Puncture Site DRAWN IN OR Blood Gas Patient Temperature 98.6 Blood Gas HCO3 23 Blood Gas Base Excess -1.6 Blood Gas Oxygen Saturation 97 Arterial Blood pH 7.40 Arterial Blood Partial 37 Pressure CO2 Arterial Blood Partial 259 Pressure O2 Arterial Blood Oxygen Content 18.7 Arterial Blood 2.5 Carboxyhemoglobin Arterial Blood Methemoglobin 0.8 Blood Gas Hemoglobin 13.4 Oxygen Delivery Device OR Blood Gas Inspired Oxygen 50 Result Diagram: 01/13/17 0810 01/13/17 0810 Imaging Last Impressions Chest X-Ray 01/13/17 0754 Signed Impressions: Service Date/Time: Friday, January 13, 2017 07:56 - CONCLUSION: No acute cardiopulmonary abnormality is identified. Cardiac silhouette size remains enlarged. Bonifacio Gibson MD Assessment and Plan Diagnosis: (1) SDH (subdural hematoma) Plan: s/p right sided bur hole, BP control, follow up CT in the am. Seizure and PUD prophylaxis is pending. ICD Code: I62.00 (2) Midline shift of brain Plan: Required surgery, drain is in place. ICD Code: G93.9 Isaías Dennis Jan 13, 2017 13:31
[2017-01-13] MEDS: SODIUM CHLOR 0.9% 1000 ML INJ 1,000 ML IV SCH ×2 (13:43→16:14)
--- NOTE | 2017-01-13 13:46 | PD.CONS ---
[facility] Service Critical Care Medicine Consult Requested By Primary Care Physician Benji Chirinos M.D. History of Present Illness History of Present Illness HPI 71-year-old male came to the emergency room with his with history of headache and disequilibrium over the weekend for past couple days. Patient was discharged not too long ago from this hospital after being diagnosed with a head bleed. No surgery was done at that point. Patient called his neurosurgeon this morning who asked him to go to the emergency room to get a CAT scan and blood test. Patient says that his headache has never gone since the initial head bleed but it has worsened over the weekend. Patient was little hypertensive in ER. He is slow in answering questions but answers them appropriately. He is fully oriented. Patient denied any fall or head injury this time. Patient underwent head CT following arrival in the ER which revealed right subdural hygroma with an acute component of subdural hemorrhage with midline shift. Dr. Dennis was contacted and per discussion with ER physician was planning to take patient to the OR for craniotomy and evacuation of right subdural collection/hematoma. Critical care consult was requested and I evaluated patient shortly after being notified while he was in the ER. Patient' s blood pressure was running 180s systolic and I had already ordered hydralazine when necessary. Patient did not appear to be in any acute distress at the time of my evaluation in the ER. He was complaining of a headache, otherwise denied any chest pain shortness of breath nausea or abdominal discomfort visual disturbance or any weakness in either extremities. Per his , his gait became more unsteady yesterday and he was unable to walk around today. History PFSH Past Medical History Narrative Medical List of his past medical, surgical, social and family history as reviewed from the nursing note. Arthritis: No Atrial Fibrillation: Yes Autoimmune Disease: No Heart Rhythm Problems: Yes Cardiovascular Problems: Yes High Cholesterol: No Chemotherapy: No Chest Pain: No Congestive Heart Failure: Yes Cerebrovascular Accident: No Diabetes: Yes Endocrine: Yes Gastrointestinal Disorders: Yes (COLON CA) GERD: No Genitourinary: Yes Hiatal Hernia: No Hypertension: No Immune Disorder: No Implanted Vascular Access Dvce: Yes Kidney Stones: Yes Musculoskeletal: Yes Neurologic: Yes Psychiatric: No Reproductive: No Respiratory: No Migraines: No Radiation Therapy: No Renal Failure: No Seizures: No Thyroid Disease: No Ulcer: No Past Surgical History Abdominal Surgery: Yes (colon surgery) AICD: Yes ([employer] CONCERTO II DEFIBRILLATOR) Appendectomy: Yes Arteriovenous Shunt: No Cardiac Surgery: Yes (pacemaker implantation and stent) Ear Surgery: No Endocrine Surgery: No Eye Surgery: Yes (cataracts) Genitourinary Surgery: No Gynecologic Surgery: No Insulin Pump: No Joint Replacement: No Oral Surgery: No Pacemaker: Yes Thoracic Surgery: No Other Surgery: Yes (COLON CA, PACEMAKER ) Social History Alcohol Use: Yes (OCCASIONAL) Tobacco Use: No Substance Use: No Allergies-Medications Allergies-Medications (Allergen,Severity, Reaction): Coded Allergies: No Known Allergies (Unverified , 01/13/17) Comments List of his allergies reviewed from the nursing note. Reported Meds & Prescriptions Reported Meds & Active Scripts Active Keppra (Levetiracetam) 500 Mg Tab 500 Mg PO Q12HR Bumetanide 1 Mg Tab 1 Mg PO BID Novolog Inj (Insulin Aspart) 1,000 Unit/10 Ml Vial 1-9 Units SQ ACHS Max dose at bedtime:( )units; sugars less than 70,(0)units; sugars 150-199,(1) unit; sugars 200-249,(3) units; sugars 250-299,(5) units; sugars 300-349,(7) units; sugars greater than 349,(9) units Neurontin (Gabapentin) 300 Mg Cap 300 Mg PO TID Amiodarone (Amiodarone HCl) 200 Mg Tab 200 Mg PO DAILY Lantus Inj (Insulin Glargine) 1,000 Unit/10 Ml Vial 5 Units SQ HS 30 Days Reported Glipizide 10 Mg Tab 10 Mg PO BIDAC Take 30 minutes before a meal Allopurinol 100 Mg Tab 100 Mg PO DAILY Simvastatin 20 Mg Tab 20 Mg PO HS Carvedilol 25 Mg Tab 25 Mg PO BID Narrative Medication List of his home medications reviewed from the nursing note. ROS Review of Systems Except as stated in HPI: all other systems reviewed are Neg Physical Exam Vital Signs Vital Signs Date Time Temp Pulse Resp B/P Pulse Ox O2 Delivery O2 Flow Rate FiO2 01/13/17 10:37 69 166/78 98 01/13/17 10:11 67 16 172/81 98 Room Air 01/13/17 10:09 69 16 179/86 98 Room Air 01/13/17 08:02 95 Room Air 01/13/17 07:55 70 16 95 Room Air 01/13/17 07:44 98.3 73 16 181/83 97 Physical Exam Narrative GENERAL: Awake, alert, little slow in answering questions, not in any acute distress SKIN: Warm and dry. Ecchymosis around the left posterior auricular area as well as mandibular area HEAD: Posterior parietal area has a little bogginess with a hematoma and clotted blood that's oozing slight dark-colored blood. EYES: Pupils equal and round. No scleral icterus. No injection or drainage. ENT: No nasal bleeding or discharge. Mucous membranes pink and moist. NECK: Trachea midline. No JVD. CARDIOVASCULAR: Regular rate and rhythm. No murmur appreciated. RESPIRATORY: No accessory muscle use. Clear to auscultation. Breath sounds equal bilaterally. GASTROINTESTINAL: Abdomen soft, non-tender, nondistended. Hepatic and splenic margins not palpable. MUSCULOSKELETAL: No obvious deformities. No clubbing. No cyanosis. No edema. NEUROLOGICAL: Awake and alert. No obvious cranial nerve deficits. Slight weakness over the left lower extremity. Strength of 4 out of 5 of the left leg and 5 out of 5 of right leg. Normal speech. PSYCHIATRIC: Appropriate mood and affect; insight and judgment normal. Laboratory Laboratory Tests Test 01/13/17 01/13/17 08:10 11:30 White Blood Count 5.4 Red Blood Count 3.79 Hemoglobin 11.9 Hematocrit 35.3 Mean Corpuscular Volume 93.0 Mean Corpuscular Hemoglobin 31.4 Mean Corpuscular Hemoglobin 33.7 Concent Red Cell Distribution Width 16.0 Platelet Count 119 Mean Platelet Volume 7.5 Neutrophils (%) (Auto) 79.8 Lymphocytes (%) (Auto) 9.9 Monocytes (%) (Auto) 8.9 Eosinophils (%) (Auto) 0.9 Basophils (%) (Auto) 0.5 Neutrophils # (Auto) 4.3 Lymphocytes # (Auto) 0.5 Monocytes # (Auto) 0.5 Eosinophils # (Auto) 0.1 Basophils # (Auto) 0.0 CBC Comment DIFF FINAL Differential Comment Prothrombin Time 12.4 Prothromb Time International 1.1 Ratio Sodium Level 135 Potassium Level 4.4 Chloride Level 100 Carbon Dioxide Level 27.7 Anion Gap 7 Blood Urea Nitrogen 24 Creatinine 1.36 Estimat Glomerular Filtration 52 Rate Random Glucose 105 Calcium Level 9.5 Total Creatine Kinase 49 Troponin I 0.02 Blood Gas Puncture Site DRAWN IN OR Blood Gas Patient Temperature 98.6 Blood Gas HCO3 23 Blood Gas Base Excess -1.6 Blood Gas Oxygen Saturation 97 Arterial Blood pH 7.40 Arterial Blood Partial 37 Pressure CO2 Arterial Blood Partial 259 Pressure O2 Arterial Blood Oxygen Content 18.7 Arterial Blood 2.5 Carboxyhemoglobin Arterial Blood Methemoglobin 0.8 Blood Gas Hemoglobin 13.4 Oxygen Delivery Device OR Blood Gas Inspired Oxygen 50 Result Diagram: 01/13/17 0810 01/13/[address] 01/13: Right sided subdural collection with component of acute hemorrhage with midline shift Last 24 hours Impressions Chest X-Ray 01/13/17 0754 Signed Impressions: Service Date/Time: Friday, January 13, 2017 07:56 - CONCLUSION: No acute cardiopulmonary abnormality is identified. Cardiac silhouette size remains enlarged. Bonifacio Gibson MD Assessment and Plan Assessment and Plan 71-year-old male with: Right subdural hematoma with midline shift Diastolic CHF Type 2 diabetes mellitus CK D Permanent pacemaker/ICD placement Valvular heart disease gastric ulcers hyperlipidemia Hypersplenism with thrombocytopenia Plan: Neuro: Patient being admitted by Dr. Dennis from neurosurgery who is taking patient to the OR directly from the emergency room for craniotomy and evacuation of hematoma. Follow neuro status. Antihypertensives to control blood pressure. Cardiovascular: Hydralazine when necessary to keep SBP below 1 60 mmHg. Nicardipine drip as needed. Pulmonary: Supplemental O2 as needed. Protecting airway adequately in the ER. GI/liver: Nothing by mouth in anticipation of surgery Renal/: Strict intake output, monitor and replete elect lites, follow BUN/ creatinine. IV hydration ID: Perioperative antibiotic prophylaxis per Dr. Esparza. Heme: Patient has chronic thrombocytopenia secondary to hypersplenism. Currently platelet count greater than 100,000. Endocrine: SSI for glycemic control as needed Prophylaxis: SCDs. No heparin or Lovenox till OK by neurosurgery. Condition critical. Patient with significant subdural collection with midline shift which will require emergent decompression by neurosurgery. Time spent on critical care excluding procedures 45 minutes. Bryson Gastelum MD Jan 13, 2017 13:45
--- NOTE | 2017-01-13 13:51 | MP ---
cc: ISAÍAS ROQUE MD DATE OF SURGERY: 01/13/2017 PREOPERATIVE DIAGNOSIS Right-sided subacute subdural hematoma. POSTOPERATIVE DIAGNOSIS Right-sided subacute subdural hematoma. PROCEDURE Right-sided bur hole for evacuation of subdural hematoma. HISTORY The patient is a 71-year-old gentleman who fell and hit the back of his head on December 31. He was admitted to the hospital and found to have a right-sided subdural hematoma which was managed medically. He was kept on antiseizure medication. He had experienced increased headaches at home as well as increasing apraxia on the left side. He was taken to the emergency room where a head CT showed increased mass-effect from the subacute collection from December 31 to the 13 of January. He was taken to the operating room for decompression of the brain. SURGEON Dr. Isaías Roque. TECHNIQUE The patient was brought to the operating room, placed supine on the OR table. Anesthesia was induced and the patient was intubated orally. His right frontal region, frontal parietal and occipital region were clipped and prepped with Betadine scrub and paint. The incision was planned at the level of the coronal suture and posterior to it in front of the parietal boss. The skin was infiltrated with 1% lidocaine with epinephrine. 10 ccs of local was used. The incision was made with a 15 blade and carried to the periosteum with the 15 blade. Hemostasis was obtained with bipolar cautery and Luis clips. A single bur hole was placed in the posterior right frontal lobe. Hemostasis was obtained with bone wax. The dura was then coagulated and opened with an 11 blade. Thick subdural membranes were removed with the bipolar cautery and irrigation. An external ventricular catheter from [employer] was then used to drain the subdural collection which was copious and dark brown in color in all quadrants. Most of the collection was actually in the temporal region. The drain was left in that position 7 cm from the skull surface. The drain was then tunneled under the scalp and secured with a 3-0 nylon suture. The galea was then reapproximated with 2-0 Vicryl sutures. The skin edges were reapproximated with mattress 3-0 nylon sutures. The wound was dressed sterilely with Telfa iodine dressing and Kerlix. The patient was then extubated and brought back to the recovery room in a stable condition. ESTIMATED BLOOD LOSS Estimated at 50 ccs. Isaías Roque MD YYG/TLFrancisca /1:06 PM /1:34 PM
[2017-01-13] MEDS: BUMETANIDE 1 MG TAB PO SCH (20:49)
[2017-01-13] MEDS: CARVEDILOL 12.5 MG TAB PO SCH (20:49)
[2017-01-13] MEDS: SODIUM CHLORIDE 0.9% FLUSH 5 ML FLUSH IVF SCH (20:49)
[2017-01-13] MEDS: PRAVASTATIN SOD 40 MG TAB PO SCH (20:49)
[2017-01-13] MEDS: TAMSULOSIN HCL 0.4 MG CAP PO SCH (21:00)
[2017-01-14] VITALS (9 sets, daily range): BP systolic 97–142; BP diastolic 51–66; PULSE 69–93; RESP 11–20; TEMP 97.4–98.4; O2SAT 93–100
[2017-01-14 05:03] LABS: AUTOMATED NEUTROPHIL # 5.3 TH/MM3 (1.8-7.7); BASOPHIL % 0.2 % (0.0-2.0); HEMATOCRIT 34.2 % (39.0-51.0); HEMO FLAGS DIFF FINAL; LYMPH % 8.5 % (9.0-44.0); LYMPHOCYTE # 0.5 TH/MM3 (1.0-4.8); MEAN CELL VOLUME 93.3 FL (80.0-100.0); MEAN CORPUSCULAR HEMOGLOBIN 31.2 PG (27.0-34.0); MEAN CORPUSCULAR HGB CONC 33.5 % (32.0-36.0); NEUT % 83.3 % (16.0-70.0); PLATELET COUNT 126 TH/MM3 (150-450); RED BLOOD COUNT 3.67 MIL/MM3 (4.50-5.90); RED CELL DISTRIBUTION WIDTH 16.2 % (11.6-17.2); WHITE BLOOD COUNT 6.4 TH/MM3 (4.0-11.0)
--- NOTE | 2017-01-14 05:07 | RADRPT ---
EXAM DATE/TIME: 01/14/2017 04:17 [facility] COMPARISON: CT BRAIN W/O CONTRAST, January 13, 2017, 8:29. INDICATIONS : Follow up hemorrhagic stroke. RADIATION DOSE: 69.15 CTDIvol (mGy) MEDICAL HISTORY : Cardiovascular disease. Cerebrovascular disease. Carcinoma, colon.diabetes SURGICAL HISTORY : Pacemaker. ENCOUNTER: Subsequent ACUITY: 1 week PAIN SCALE: Non-responsive LOCATION: cranial TECHNIQUE: Multiple contiguous axial images were obtained of the head. Using automated exposure control and adj ustment of the mA and/or kV according to patient size, radiation dose was kept as low as reasonably a chievable to obtain optimal diagnostic quality images. FINDINGS: CEREBRUM: Previously seen large acute on chronic right subdural hygroma has been decompressed with a subdural d rain. There is still some air and fluid remaining in the subdural space however, the 1.1 cm right to left subfalcine shift seen previously has resolved. No parenchymal mass lesions. POSTERIOR FOSSA: The cerebellum and brainstem are intact. The 4th ventricle is midline. The cerebellopontine angle i s unremarkable. EXTRACRANIAL: The visualized portion of the orbits is intact. Chronic sinus disease in the bilateral maxillary antr a, frontal sinuses and ethmoid air cells SKULL: The calvaria is intact. No evidence of skull fracture. CONCLUSION: 1. Interval surgical evacuation of the acute on chronic right subdural hygroma with resolution of the previously seen 1.1 cm right to left subfalcine shift. 2. Subdural drain remains in place. Small amount of fluid, blood and air still remains in the subdura l space. 3. No new lesions. 4. Chronic sinusitis. Kory Zayas MD on January 14, 2017 at 5:01 Board Certified Radiologist. This report was verified electronically.
[2017-01-14 05:31] LABS: BICARBONATE 27.8 MEQ/L (21.0-32.0); POTASSIUM 4.7 MEQ/L (3.5-5.1)
[2017-01-14 05:32] LABS: INDIRECT BILIRUBIN 0.4 MG/DL (0.0-0.8); TOTAL BILIRUBIN ADULT 0.7 MG/DL (0.2-1.0)
--- NOTE | 2017-01-14 07:17 | HHI.NSPN ---
History Chief Complaint: none Interval History POD1 after mally hole for SDH, alert and with improved headache this am. Review of Systems General: Negative for: fever, chills, insomnia Respiratory: Negative for: shortness of breath, cough, sputum Cardiovascular: Negative for: chest pain, palpitations, orthopnea Gastrointestinal: Negative for: nausea, vomitting, diarrhea, constipation Genitourinary: Negative for: urinary burning, urinary frequency, urinary urgency Exam Results Vital Signs Date Time Temp Pulse Resp B/P Pulse Ox O2 Delivery O2 Flow Rate FiO2 01/14/17 04:00 98.2 69 12 116/58 100 01/14/17 00:05 Nasal Cannula 3.00 Intake and Output 01/13/17 01/13/17 01/14/17 08:00 16:00 00:00 Intake Total 600 ml 681 ml Output Total 600 ml 500 ml Balance 0 ml 181 ml Physical Examination Oriented x 3 and to events, asking appropriate questions about the CT and plans pupils 2mm, EOMI, face symmetric, No motor weakness or apraxia juancarlos, Mild left peripheral edema, Wound with dried blood, closed. Drain removed this am. RRR, abd obese, lungs clear Lab, Micro, Other Results Last Impressions Head CT 01/14/17 0000 Signed Impressions: Service Date/Time: Saturday, January 14, 2017 04:17 - CONCLUSION: 1. Interval surgical evacuation of the acute on chronic right subdural hygroma with resolution of the previously seen 1.1 cm right to left subfalcine shift. 2. Subdural drain remains in place. Small amount of fluid, blood and air still remains in the subdural space. 3. No new lesions. 4. Chronic sinusitis. Kory Zayas MD Chest X-Ray 01/13/17 0754 Signed Impressions: Service Date/Time: Friday, January 13, 2017 07:56 - CONCLUSION: No acute cardiopulmonary abnormality is identified. Cardiac silhouette size remains enlarged. Bonifacio Gibson MD Laboratory Tests Test 01/13/17 01/13/17 01/13/17 01/14/17 08:10 11:30 14:45 03:40 White Blood Count 5.4 TH/MM3 6.4 TH/MM3 Red Blood Count 3.79 MIL/MM3 3.67 MIL/MM3 Hemoglobin 11.9 GM/DL 11.5 GM/DL Hematocrit 35.3 % 34.2 % Mean Corpuscular Volume 93.0 FL 93.3 FL Mean Corpuscular Hemoglobin 31.4 PG 31.2 PG Mean Corpuscular Hemoglobin 33.7 % 33.5 % Concent Red Cell Distribution Width 16.0 % 16.2 % Platelet Count 119 TH/MM3 126 TH/MM3 Mean Platelet Volume 7.5 FL 7.8 FL Neutrophils (%) (Auto) 79.8 % 83.3 % Lymphocytes (%) (Auto) 9.9 % 8.5 % Monocytes (%) (Auto) 8.9 % 8.0 % Eosinophils (%) (Auto) 0.9 % 0.0 % Basophils (%) (Auto) 0.5 % 0.2 % Neutrophils # (Auto) 4.3 TH/MM3 5.3 TH/MM3 Lymphocytes # (Auto) 0.5 TH/MM3 0.5 TH/MM3 Monocytes # (Auto) 0.5 TH/MM3 0.5 TH/MM3 Eosinophils # (Auto) 0.1 TH/MM3 0.0 TH/MM3 Basophils # (Auto) 0.0 TH/MM3 0.0 TH/MM3 CBC Comment DIFF FINAL DIFF FINAL Differential Comment Prothrombin Time 12.4 SEC Prothromb Time International 1.1 RATIO Ratio Sodium Level 135 MEQ/L 137 MEQ/L Potassium Level 4.4 MEQ/L 4.7 MEQ/L Chloride Level 100 MEQ/L 101 MEQ/L Carbon Dioxide Level 27.7 MEQ/L 27.8 MEQ/L Anion Gap 7 MEQ/L 8 MEQ/L Blood Urea Nitrogen 24 MG/DL 27 MG/DL Creatinine 1.36 MG/DL 1.52 MG/DL Estimat Glomerular Filtration 52 ML/MIN 46 ML/MIN Rate Random Glucose 105 MG/DL 84 MG/DL Calcium Level 9.5 MG/DL 9.2 MG/DL Total Creatine Kinase 49 U/L Troponin I 0.02 NG/ML Blood Gas Puncture Site DRAWN IN OR Blood Gas Patient Temperature 98.6 Blood Gas HCO3 23 mmol/L Blood Gas Base Excess -1.6 mmol/L Blood Gas Oxygen Saturation 97 % Arterial Blood pH 7.40 Arterial Blood Partial 37 mmHg Pressure CO2 Arterial Blood Partial 259 mmHg Pressure O2 Arterial Blood Oxygen Content 18.7 Vol % Arterial Blood 2.5 % Carboxyhemoglobin Arterial Blood Methemoglobin 0.8 % Blood Gas Hemoglobin 13.4 G/DL Oxygen Delivery Device OR Blood Gas Inspired Oxygen 50 % Nasal Screen MRSA (PCR) NEGATIVE Fibrinogen 366 mg/dL Total Bilirubin 0.7 MG/DL Direct Bilirubin 0.3 MG/DL Indirect Bilirubin 0.4 MG/DL Aspartate Amino Transf 22 U/L (AST/SGOT) Alanine Aminotransferase 32 U/L (ALT/SGPT) Alkaline Phosphatase 95 U/L Total Protein 7.1 GM/DL Albumin 3.4 GM/DL Medical Decision Making Impression and Plan POD 1 after mally hole for SDH, improved cognitively. Platelet dysfunction stable with no active bleeding at this time. DVT prophylaxis with SCDs in bed but rehab is planned. May be up to the chair today. Total Minutes: 10 Isaías Dennis Jan 14, 2017 07:17
[2017-01-14] MEDS: BUMETANIDE 1 MG TAB PO SCH ×2 (08:58→21:02)
[2017-01-14] MEDS: AMIODARONE 200 MG TAB PO SCH (08:58)
[2017-01-14] MEDS: ALLOPURINOL 100 MG TAB PO SCH (08:58)
[2017-01-14] MEDS: CARVEDILOL 12.5 MG TAB PO SCH ×2 (08:58→21:03)
[2017-01-14] MEDS: PANTOPRAZOLE SODIUM 40 MG VIAL IVP SCH (08:58)
[2017-01-14] MEDS: levETIRAcetam 500 MG TAB PO SCH ×2 (08:58→21:00)
[2017-01-14] MEDS: TAMSULOSIN HCL 0.4 MG CAP PO SCH (08:58)
[2017-01-14] MEDS: GABAPENTIN 300 MG CAP PO SCH ×2 (08:58→21:02)
[2017-01-14] MEDS: SODIUM CHLORIDE 0.9% FLUSH 5 ML FLUSH IVF SCH ×2 (08:59→21:00)
[2017-01-14] MEDS ORDERED: INFLUENZA VIRUS VACCINE (QUADRIVALENT) 0.5 ML SYR IM ONE (10:00)
--- NOTE | 2017-01-14 11:35 | HHI.PR ---
Subjective Remarks Follow-up CHF, diabetes, CAD, subdural hematoma. The patient states that he is having some weakness of the left arm/hand. This seemed to worsen this morning while using the walker. He states that neurosurgery told him it may have been exhaustion that caused the worsening weakness. Denies chest pain, dyspnea. Objective Vitals Vital Signs Date Time Temp Pulse Resp B/P Pulse Ox O2 Delivery O2 Flow Rate FiO2 01/14/17 11:01 76 01/14/17 11:00 94 Nasal Cannula 01/14/17 08:00 98.4 69 19 134/63 93 01/14/17 07:47 93 21 01/14/17 04:00 98.2 69 12 116/58 100 01/14/17 00:05 98 Nasal Cannula 3.00 01/14/17 00:00 73 11 97/51 98 01/13/17 23:00 79 01/13/17 20:00 97 Nasal Cannula 2.00 01/13/17 20:00 98.6 86 15 109/57 97 01/13/17 15:16 80 22 122/57 99 01/13/17 15:15 80 22 122/57 99 01/13/17 15:00 88 01/13/17 15:00 98.1 75 17 134/68 99 01/13/17 15:00 99 Nasal Cannula 2.00 01/13/17 14:15 96.9 69 12 130/60 100 Nasal Cannula 3 01/13/17 14:00 69 12 134/62 100 Nasal Cannula 3 01/13/17 13:45 69 12 127/59 100 Nasal Cannula 3 01/13/17 13:30 69 13 155/72 96 Nasal Cannula 3 01/13/17 13:15 86 14 142/70 100 Nasal Cannula 3 01/13/17 13:00 96.2 118 16 131/66 98 Simple Mask 6 I/O 01/13/17 01/13/17 01/13/17 01/14/17 01/14/17 01/14/17 07:00 15:00 23:00 07:00 15:00 23:00 Intake Total 600 ml 681 ml 1124 ml Output Total 600 ml 500 ml 500 ml 1000 ml Balance 0 ml 181 ml 624 ml -1000 ml Intake IV Total 681 ml 1124 ml Other 600 ml Output Urine Total 500 ml 500 ml 1000 ml Drainage Total 150 ml Estimated Blood Loss 50 ml Other 400 ml Result Diagram: 01/14/17 0340 01/14/17 0340 Imaging Last Impressions Head CT 01/14/17 0000 Signed Impressions: Service Date/Time: Saturday, January 14, 2017 04:17 - CONCLUSION: 1. Interval surgical evacuation of the acute on chronic right subdural hygroma with resolution of the previously seen 1.1 cm right to left subfalcine shift. 2. Subdural drain remains in place. Small amount of fluid, blood and air still remains in the subdural space. 3. No new lesions. 4. Chronic sinusitis. Kory Zayas MD Chest X-Ray 01/13/17 0754 Signed Impressions: Service Date/Time: Friday, January 13, 2017 07:56 - CONCLUSION: No acute cardiopulmonary abnormality is identified. Cardiac silhouette size remains enlarged. Bonifacio Gibson MD Objective Remarks General: No acute distress. HEENT: S/P craniotomy. Heart: Regular rate and rhythm. No murmur. Lungs: Clear to auscultation bilaterally. No wheezes, rales, or rhonchi. Breathing is nonlabored. Abdomen: Soft, nontender, nondistended. Extremities: No lower extremity edema. Left upper extremity slightly weak compared to right (4/5 cylinder tester strength compared to 5/5 on right). Psych: Alert and oriented. Procedures 01/13/17 craniotomy with evacuation of subdural hematoma Urinary Catheter: No Vascular Central Line Catheter: No A/P Problem List: (1) Intracranial hemorrhage after injury without loss of consciousness ICD Code: S06.300A Status: Acute (2) Subdural hematoma ICD Code: I62.00 Status: Acute (3) Subdural hygroma ICD Code: D18.1 Status: Acute (4) CAD (coronary artery disease) ICD Code: I25.10 Status: Chronic (5) Dilated cardiomyopathy ICD Code: I42.0 Status: Chronic Assessment and Plan 1. Head injury with subdural hematoma: Appreciate neurosurgery management. Status post craniotomy with evacuation of hematoma. Monitor neuro status. Antihypertensives for blood pressure control. Keppra for seizure prophylaxis. 2. Chronic diastolic CHF: Stable. Continue home medications. 3. Diabetes mellitus type 2: Monitor Accu-Cheks and cover with sliding scale insulin. 4. Chronic kidney disease: Monitor labs. IV fluids. 5. Hypertension: Vasotec as needed. Blood pressure is well controlled. 6. DVT prophylaxis: SCDs. Avoid chemical prophylaxis until okay by neurosurgery secondary to subdural hematoma. 7. Paroxysmal atrial flutter: Continue amiodarone, Coreg. 8. GI prophylaxis: Protonix. Discharge Planning Transfer to med/surg floor. Dario Rosa MD Jan 14, 2017 11:35
[2017-01-14] MEDS ORDERED: DEXTROSE 50% IN WATER 50 ML VIAL(D50) IV PUSH PRN (12:00)
[2017-01-14] MEDS ORDERED: GLUCAGON 1 MG/ML VIAL OTHER PRN (12:00)
[2017-01-14] MEDS: INSULIN ASPART SUPPLEMENTAL SCALE SQ SCH ×2 (16:17→21:00)
[2017-01-14] MEDS: ACETAMINOPHEN 325 MG TAB PO PRN (17:19)
[2017-01-14] MEDS: ACETAMINOPHEN/HYDROcodone 325 MG/5 MG TAB PO PRN (21:02)
[2017-01-14] MEDS: PRAVASTATIN SOD 40 MG TAB PO SCH (21:03)
[2017-01-15] VITALS (12 sets, daily range): BP systolic 107–135; BP diastolic 55–63; PULSE 69–82; RESP 16–20; TEMP 97–98; O2SAT 93–100
[2017-01-15] MEDS: ACETAMINOPHEN/HYDROcodone 325 MG/5 MG TAB PO PRN ×3 (06:02→18:00)
[2017-01-15] MEDS: INSULIN ASPART SUPPLEMENTAL SCALE SQ SCH ×4 (07:00→22:15)
--- NOTE | 2017-01-15 07:13 | HHI.NSPN ---
History Chief Complaint: none Interval History POD1 after mally hole for SDH, alert and with improved headache this am. 01/15/17 POD 2 alert and tired. He did well with PT yesterday but his left arm apraxia and headaches worsened after PT. They improved after rest. He has difficulty sleeping. His pain is mainly incisional and frontal, he is still GCS 15. Review of Systems General: Negative for: fever, chills, insomnia Respiratory: Negative for: shortness of breath, cough, sputum Cardiovascular: Negative for: chest pain, palpitations, orthopnea Gastrointestinal: Negative for: nausea, vomitting, diarrhea, constipation Genitourinary: Negative for: urinary burning, urinary frequency, urinary urgency Exam Results Vital Signs Date Time Temp Pulse Resp B/P Pulse Ox O2 Delivery O2 Flow Rate FiO2 01/15/17 04:23 97.4 70 20 134/61 95 01/14/17 11:00 Nasal Cannula 01/14/17 07:47 21 01/14/17 00:05 3.00 Intake and Output 01/14/17 01/14/17 01/15/17 08:00 16:00 00:00 Intake Total 1124 ml 240 ml Output Total 500 ml 1450 ml 400 ml Balance 624 ml -1450 ml -160 ml Physical Examination Oriented x 3 and to events, asking appropriate questions about inpatient rehab Pupils 2mm, EOMI, face symmetric, No motor weakness or apraxia juancarlos, Mild left peripheral edema, Wound with dried blood, closed. Drain site dry RRR, abd obese,no wheezing, off oxygen Medical Decision Making Impression and Plan POD 2 after mally hole for SDH, improved cognitively. Platelet dysfunction stable with no active bleeding at this time. DVT prophylaxis with SCDs in bed but rehab is planned. May be up to the chair today. Inpatient rehab is requested for the end of the week. Total Minutes: 10 Isaías Dennis Jan 15, 2017 07:13
[2017-01-15 08:14] LABS: AUTOMATED NEUTROPHIL # 5.8 TH/MM3 (1.8-7.7); BASOPHIL % 0.4 % (0.0-2.0); EOSINOPHIL % 0.4 % (0.0-4.0); HEMATOCRIT 34.6 % (39.0-51.0); HEMO FLAGS DIFF FINAL; LYMPH % 6.9 % (9.0-44.0); LYMPHOCYTE # 0.5 TH/MM3 (1.0-4.8); MEAN CELL VOLUME 93.7 FL (80.0-100.0); MEAN CORPUSCULAR HGB CONC 34.2 % (32.0-36.0); MONO % 8.2 % (0.0-8.0); NEUT % 84.1 % (16.0-70.0); PLATELET COUNT 116 TH/MM3 (150-450); RED CELL DISTRIBUTION WIDTH 16.2 % (11.6-17.2); WHITE BLOOD COUNT 6.9 TH/MM3 (4.0-11.0)
[2017-01-15 08:38] LABS: BICARBONATE 26.4 MEQ/L (21.0-32.0); POTASSIUM 4.2 MEQ/L (3.5-5.1)
[2017-01-15] MEDS: AMIODARONE 200 MG TAB PO SCH (09:24)
[2017-01-15] MEDS: GABAPENTIN 300 MG CAP PO SCH ×2 (09:24→22:03)
[2017-01-15] MEDS: CARVEDILOL 12.5 MG TAB PO SCH ×2 (09:25→22:02)
[2017-01-15] MEDS: ALLOPURINOL 100 MG TAB PO SCH (09:25)
[2017-01-15] MEDS: PANTOPRAZOLE SODIUM 40 MG VIAL IVP SCH (09:25)
[2017-01-15] MEDS: BUMETANIDE 1 MG TAB PO SCH ×2 (09:25→22:03)
[2017-01-15] MEDS: TAMSULOSIN HCL 0.4 MG CAP PO SCH (09:25)
[2017-01-15] MEDS: SODIUM CHLORIDE 0.9% FLUSH 5 ML FLUSH IVF SCH ×2 (09:26→22:02)
[2017-01-15] MEDS: levETIRAcetam 500 MG TAB PO SCH ×2 (09:38→22:03)
--- NOTE | 2017-01-15 10:13 | HHI.PR ---
Subjective Remarks no complains of headache, nausea or vomiting, or weakness po intake - no difficulty- appetite fair seen with at bedside Objective Vitals Vital Signs Date Time Temp Pulse Resp B/P Pulse Ox O2 Delivery O2 Flow Rate FiO2 01/15/17 09:57 97 21 01/15/17 08:00 97.7 69 17 135/63 100 01/15/17 04:23 97.4 70 20 134/61 95 01/15/17 00:49 71 01/15/17 00:06 97.1 70 20 107/59 97 01/14/17 20:09 97.4 71 20 122/60 96 01/14/17 16:51 98.4 72 18 142/66 95 01/14/17 12:00 98.0 93 18 103/57 100 01/14/17 11:01 76 01/14/17 11:00 94 Nasal Cannula I/O 01/14/17 01/14/17 01/14/17 01/15/17 01/15/17 01/15/17 07:00 15:00 23:00 07:00 15:00 23:00 Intake Total 1124 ml 240 ml 240 ml Output Total 500 ml 1450 ml 400 ml 350 ml Balance 624 ml -1450 ml -160 ml -110 ml Intake Oral 240 ml 240 ml IV Total 1124 ml Output Urine Total 500 ml 1450 ml 400 ml 350 ml # Voids 1 Result Diagram: 01/15/17 0655 01/15/17 0655 Imaging Last Impressions Head CT 01/14/17 0000 Signed Impressions: Service Date/Time: Saturday, January 14, 2017 04:17 - CONCLUSION: 1. Interval surgical evacuation of the acute on chronic right subdural hygroma with resolution of the previously seen 1.1 cm right to left subfalcine shift. 2. Subdural drain remains in place. Small amount of fluid, blood and air still remains in the subdural space. 3. No new lesions. 4. Chronic sinusitis. Kory Zayas MD Chest X-Ray 01/13/17 0754 Signed Impressions: Service Date/Time: Friday, January 13, 2017 07:56 - CONCLUSION: No acute cardiopulmonary abnormality is identified. Cardiac silhouette size remains enlarged. Bonifacio Gibson MD Objective Remarks head - sutures dry awake and alert, oriented x 3, speech clear pupils equally reactive to light, EOM full ROM no facial asymmetry, tongue, midline, good gag reflex no bruit lungs clear regular rhythm abdomen soft, nontender extremities no edema neuro exam- non focal Procedures 01/13/17 craniotomy with evacuation of subdural hematoma A/P Problem List: (1) Intracranial hemorrhage after injury without loss of consciousness ICD Code: S06.300A Status: Acute (2) Subdural hematoma ICD Code: I62.00 Status: Acute (3) Subdural hygroma ICD Code: D18.1 Status: Acute (4) CAD (coronary artery disease) ICD Code: I25.10 Status: Chronic (5) Dilated cardiomyopathy ICD Code: I42.0 Status: Chronic Assessment and Plan 71 years old male left handed 1. Head injury with subdural hematoma: Appreciate neurosurgery management. Status post craniotomy with evacuation of hematoma. Monitor neuro status- awake and alert . Antihypertensives for blood pressure control. Keppra for seizure prophylaxis. 2. Chronic diastolic CHF: not in failure. Stable. Continue home medications. 3. Diabetes mellitus type 2: Monitor Accu-Cheks and cover with sliding scale insulin. 4. Chronic kidney disease: creatinine stable. non oliguric 5. Hypertension: Vasotec as needed. Blood pressure is well controlled. 6. DVT prophylaxis: SCDs. Avoid chemical prophylaxis until okay by neurosurgery secondary to subdural hematoma. 7. Paroxysmal atrial flutter: in SR. Continue amiodarone, Coreg. 8. GI prophylaxis: Protonix. 9. Bilateral Carotid Stenosis - not candidate for CEA with recent ICH noted last admission. OP ff up with Vascular surgery 3-4 weeks and consider CTA then PT/OT daily CM-consulted working on SNF- family requesting for Presley Lara MD Jan 15, 2017 10:13
[2017-01-15] MEDS ORDERED: TEMAZEPAM 15 MG CAP PO SCH (21:00)
[2017-01-15] MEDS: PRAVASTATIN SOD 40 MG TAB PO SCH (22:02)
[2017-01-16] VITALS (7 sets, daily range): BP systolic 113–127; BP diastolic 61–63; PULSE 70–97; RESP 18–26; TEMP 97–97.9; O2SAT 93–97
[2017-01-16] MEDS: INSULIN ASPART SUPPLEMENTAL SCALE SQ SCH ×4 (05:56→21:59)
[2017-01-16] MEDS: ACETAMINOPHEN/HYDROcodone 325 MG/5 MG TAB PO PRN ×4 (06:56→21:58)
[2017-01-16] MEDS: BUMETANIDE 1 MG TAB PO SCH ×2 (09:11→21:58)
[2017-01-16] MEDS: CARVEDILOL 12.5 MG TAB PO SCH ×2 (09:11→21:58)
[2017-01-16] MEDS: GABAPENTIN 300 MG CAP PO SCH ×2 (09:12→21:58)
[2017-01-16] MEDS: AMIODARONE 200 MG TAB PO SCH (09:12)
[2017-01-16] MEDS: levETIRAcetam 500 MG TAB PO SCH ×2 (09:12→21:58)
[2017-01-16] MEDS: TAMSULOSIN HCL 0.4 MG CAP PO SCH (09:12)
[2017-01-16] MEDS: SODIUM CHLORIDE 0.9% FLUSH 5 ML FLUSH IVF SCH ×2 (09:13→21:58)
[2017-01-16] MEDS: ALLOPURINOL 100 MG TAB PO SCH (09:13)
[2017-01-16] MEDS: PANTOPRAZOLE SODIUM 40 MG VIAL IVP SCH (09:13)
--- NOTE | 2017-01-16 09:57 | HHI.PR ---
Subjective Remarks patient appears depressed- he feels that he is being a burden to his poor po appetite- but he is trying mild headache, no nausea or vomiting states he did not sleep well last evening Objective Vitals Vital Signs Date Time Temp Pulse Resp B/P Pulse Ox O2 Delivery O2 Flow Rate FiO2 01/16/17 08:39 97.9 75 20 122/63 94 01/16/17 04:00 97.8 97 26 113/62 97 01/16/17 00:12 Room Air 01/16/17 00:00 97.0 70 20 121/61 93 01/15/17 23:00 82 01/15/17 20:00 98.0 73 16 117/62 97 01/15/17 17:42 99 21 01/15/17 14:44 81 01/15/17 14:40 98.0 74 18 117/58 99 01/15/17 11:49 97.7 74 19 111/55 97 01/15/17 10:25 Room Air 01/15/17 09:57 97 21 I/O 01/15/17 01/15/17 01/15/17 01/16/17 01/16/17 01/16/17 07:00 15:00 23:00 07:00 15:00 23:00 Intake Total 240 ml 450 ml Output Total 350 ml 1200 ml Balance -110 ml 450 ml -1200 ml Intake Oral 240 ml 450 ml Output Urine Total 350 ml 1200 ml Result Diagram: 01/15/17 0655 01/15/17 0655 Imaging Last Impressions Head CT 01/14/17 0000 Signed Impressions: Service Date/Time: Saturday, January 14, 2017 04:17 - CONCLUSION: 1. Interval surgical evacuation of the acute on chronic right subdural hygroma with resolution of the previously seen 1.1 cm right to left subfalcine shift. 2. Subdural drain remains in place. Small amount of fluid, blood and air still remains in the subdural space. 3. No new lesions. 4. Chronic sinusitis. Kory Zayas MD Chest X-Ray 01/13/17 0754 Signed Impressions: Service Date/Time: Friday, January 13, 2017 07:56 - CONCLUSION: No acute cardiopulmonary abnormality is identified. Cardiac silhouette size remains enlarged. Bonifacio Gibson MD Objective Remarks head - sutures with dried blood awake and alert, oriented x 3, speech clear, appears depressed pupils equally reactive to light, EOM full ROM no facial asymmetry, tongue, midline, good gag reflex no bruit lungs clear regular rhythm abdomen soft, nontender extremities no edema neuro exam- non focal Procedures 01/13/17 craniotomy with evacuation of subdural hematoma A/P Problem List: (1) Intracranial hemorrhage after injury without loss of consciousness ICD Code: S06.300A Status: Acute (2) Subdural hematoma ICD Code: I62.00 Status: Acute (3) Subdural hygroma ICD Code: D18.1 Status: Acute (4) CAD (coronary artery disease) ICD Code: I25.10 Status: Chronic (5) Dilated cardiomyopathy ICD Code: I42.0 Status: Chronic Assessment and Plan 71 years old male left handed 1. Head injury with subdural hematoma: Appreciate neurosurgery management. Status post craniotomy with evacuation of hematoma. Monitor neuro status- awake and alert . Antihypertensives for blood pressure control. Keppra for seizure prophylaxis. 2. Chronic diastolic CHF: not in failure. Stable. Continue home medications. 3. Diabetes mellitus type 2: Monitor Accu-Cheks and cover with sliding scale insulin. as OP was on Lantus 5 units hs. monitor here. restart if po intake improves 4. Chronic kidney disease: creatinine stable. non oliguric 5. Hypertension: Vasotec as needed. Blood pressure is well controlled. 6. DVT prophylaxis: SCDs. Avoid chemical prophylaxis until okay by neurosurgery secondary to subdural hematoma. 7. Paroxysmal atrial flutter: in SR. Continue amiodarone, Coreg. 8. GI prophylaxis: Protonix. no Lovenox with ICH 9. Depression - will get Psychiatry consult 10. Bialteral carotid stenosis- no plan for surgery at this time due to ICH. OP ff up with Vascular with a CTA then CM- [facility] willing to take him- awaiting insurance approval good candidate for [facility] for comprehensive rehab PT/OT daily Presley Sommer MD Jan 16, 2017 09:57 Presley Sommer MD Jan 16, 2017 09:57
--- NOTE | 2017-01-16 15:30 | HHI.NSPN ---
History Chief Complaint: none Interval History POD1 after mally hole for SDH, alert and with improved headache this am. 01/15/17 POD 2 alert and tired. He did well with PT yesterday but his left arm apraxia and headaches worsened after PT. They improved after rest. He has difficulty sleeping. His pain is mainly incisional and frontal, he is still GCS 15. 01/16/17 POD 3, has poor appetite. Some redness developed on the head with serous drainage. Review of Systems General: Negative for: fever, chills, insomnia Respiratory: Negative for: shortness of breath, cough, sputum Cardiovascular: Negative for: chest pain, palpitations, orthopnea Gastrointestinal: Negative for: nausea, vomitting, diarrhea, constipation Exam Results Vital Signs Date Time Temp Pulse Resp B/P Pulse Ox O2 Delivery O2 Flow Rate FiO2 01/16/17 13:16 97.9 76 20 118/62 97 01/16/17 09:06 21 01/16/17 00:12 Room Air 01/14/17 00:05 3.00 Intake and Output 01/15/17 01/15/17 01/16/17 08:00 16:00 00:00 Intake Total 240 ml 450 ml Output Total 350 ml Balance -110 ml 450 ml Physical Examination Oriented x 3 and to events, asking appropriate questions about inpatient rehab Pupils 2mm, EOMI, face symmetric, Serous erythema inferior and lateral to the wound about 5mm No motor weakness or apraxia juancarlos, no pronator drift Mild left peripheral edema, Wound with dried blood, closed. Drain site dry RRR, abd obese,no wheezing, off oxygen Medical Decision Making Impression and Plan POD 3 after mally hole for SDH, improved cognitively. Platelet dysfunction stable with no active bleeding at this time. DVT prophylaxis with SCDs in bed but rehab is planned. May be up to the chair today. Inpatient rehab is requested for the end of the week. Wound healing may be delayed, to be followed closely. Total Minutes: 10 Isaías Dennis Jan 16, 2017 15:30
--- NOTE | 2017-01-16 15:50 | PD.CONS ---
Provisional Diagnosis Admission Date Jan 13, 2017 at 09:26 [place] I. Adjustment disorder with depression, alcohol use disorder [place] II. Deferred [place] III. CHF, DM, A. fib, CAD, subdural hygroma, subdural hematoma [place] V. 55 History of Present Illness Service Psychiatry Consult Requested By Primary Care Physician Benji Chirinos M.D. HPI The patient is a 71-year-old man, domicile with with his in [place], retired, without any previous psychiatric history, no previous psychiatric hospitalizations, no previous suicidal attempts, alcohol use disorder, significant medical history of CHF, DM, A. fib, CAD. He was hospitalized due to subdural hematoma after fall in December, was discharged at his neurologic baseline on 01/03/17 and scheduled for repeat CT today but his noted deterioration in his alertness and brought into the ER again, he finally underwent for neurosurgical evacuation. During this hospitalization a she has pressed depresses symptoms in the context of feeling guilty and burden for his . Patient was seen for psychiatric evaluation at bedside in the medical floor. His Sandra Sanchez served as collateral information, she says that about 2 months ago she had to go to help her daughter with her , she left her along in the house and for about 3 weeks he was abusing alcohol and not taking his medication properly. She thinks that for this reason is why he felt. Now, he was hospitalized and discharged at baseline with recommendations, he was doing fine, but resulted that she had to go back to help her daughter with the , but and I before leaving he deteriorated to the point that he ended up hospitalized again. What is going on now is that he feels very guilty that his could not do what she wanted and plan to do because he was sick. She does not think that his depression, but having a bad moment and having and normal reaction to his medical condition. At baseline the patient is very functional and active, he has a good memory and is able to take care of himself. He usually takes alcohol about 2 or 3 times a week no more than 1 or 2 drinks. On psychiatric evaluation patient is calm, cooperative and pleasant, he reports good mood, but has moments of sadness thinking that he been in the hospital is a burden for his and his family. He also reports very poor sleep at night, mostly thinking about his medical problems and pessimistic thought. He denies hopelessness, he denies helplessness, he denies anhedonia, he denies low energy and poor appetite, he denies suicidal and homicidal ideation, patient reports that he has too many things to live for. He denies visual and auditory hallucinations. Patient is fully oriented 3, no confusion, no delirium, no attention deficit, not gross cognitive impairment is observed. He denies the use of illicit drugs and confirms that he drinks alcohol about 2 or 3 times per week. Review of Systems Constitutional: DENIES: Diaphoretic episodes, Fatigue, Fever, Weight gain, Weight loss, Chills, Dizziness, Change in appetite, Night Sweats Endocrine: DENIES: Heat/cold intolerance, Polydipsia, Polyuria, Polyphagia Eyes: DENIES: Blurred vision, Diplopia, Eye inflammation, Eye pain, Vision loss , Photosensitivity, Double Vision Ears, nose, mouth, throat: DENIES: Tinnitus, Hearing loss, Vertigo, Nasal discharge, Oral lesions, Throat pain, Hoarseness, Ear Pain, Running Nose, Epistaxis, Sinus Pain, Toothache, Odynophagia Respiratory: DENIES: Apneas, Cough, Snoring, Wheezing, Hemoptysis, Sputum production, Shortness of breath Cardiovascular: DENIES: Chest pain, Palpitations, Syncope, Dyspnea on Exertion , PND, Lower Extremity Edema, Orthopnea, Claudication Gastrointestinal: DENIES: Abdominal pain, Black stools, Bloody stools, Constipation, Diarrhea, Nausea, Vomiting, Difficulty Swallowing, Anorexia Musculoskeletal: DENIES: Joint pain, Muscle aches, Stiffness, Joint Swelling, Back pain, Neck pain Integumentary: DENIES: Abnormal pigmentation, Nail changes, Pruritus, Rash Hematologic/lymphatic: DENIES: Bruising, Lymphadenopathy Immunologic/allergic: DENIES: Eczema, Urticaria Neurologic: DENIES: Abnormal gait, Headache, Localized weakness, Paresthesias, Seizures, Speech Problems, Tremor, Poor Balance Psychiatric: DENIES: Anxiety, Confusion, Mood changes, Depression, Hallucinations, Agitation, Suicidal Ideation, Homicidal Ideation, Delusions Past Family Social History Coded Allergies: No Known Allergies (Unverified , 01/13/17) Active Scripts Levetiracetam (Keppra)500 Mg [id number] Mg PO Q12HR #60 TAB Ref 5 Prov:Lakesha Cortez DO 01/03/17 Bumetanide 1 Mg Tab1 Mg PO BID #30 TAB Ref 0 Prov:Lakesha Cortez DO 01/03/17 Insulin Aspart Inj (Novolog Inj)1,000 Unit/10 Ml Vial1-9 Units SQ ACHS #10 ML Ref 0 Max dose at bedtime:( )units; sugars less than 70,(0)units; sugars 150-199,(1) unit; sugars 200-249,(3) units; sugars 250-299,(5) units; sugars 300-349,(7) units; sugars greater than 349,(9) units Prov:Lakesha Cortez DO 01/03/17 Gabapentin (Neurontin)300 Mg [id number] Mg PO TID #90 CAP Prov:Lakesha Cortez DO 01/03/17 Amiodarone 200 Mg [id number] Mg PO DAILY #30 TAB Prov:Lakesha Cortez DO 01/03/17 Insulin Glargine Inj (Lantus Inj)1,000 Unit/10 Ml Vial5 Units SQ HS 30 Days Ref 0 Prov:Lakesha Cortez DO 01/03/17 Reported Medications Glipizide 10 Mg Tab10 Mg PO BIDAC #60 TAB Ref 0 Take 30 minutes before a meal 01/13/17 Allopurinol 100 Mg [id number] Mg PO DAILY #30 TAB Ref 0 01/13/17 Simvastatin 20 Mg Tab20 Mg PO HS #30 TAB Ref 0 12/31/16 Carvedilol 25 Mg Tab25 Mg PO BID #60 TAB Ref 0 12/31/16 Current Medications Medications (Trade) Dose Ordered Sig/Suzanna Route Start Time Stop Time Status Last Admin (NS Flush) 2 ml UNSCH PRN IVF 01/13/17 08:00 (Apresoline Inj) 10 mg Q1HR PRN IV PUSH 01/13/17 09:45 01/13/17 13:27 (Zyloprim) 100 mg DAILY PO 01/14/17 09:00 01/16/17 09:13 (Cordarone) 200 mg DAILY PO 01/14/17 09:00 01/16/17 09:12 (Bumetanide) 1 mg BID PO 01/13/17 21:00 01/16/17 09:11 (Coreg) 25 mg BID PO 01/13/17 21:00 01/16/17 09:11 (Keppra) 500 mg Q12HR PO 01/13/17 12:00 01/16/17 09:12 (Pravachol) 40 mg HS PO 01/13/17 21:00 01/15/17 22:02 (NS Flush) 2 ml UNSCH PRN IVF 01/13/17 10:15 (NS Flush) 2 ml BID IVF 01/13/17 21:00 01/16/17 09:13 (Vasotec Inj) 1.25 mg Q6H PRN IV 01/13/17 10:15 01/13/17 16:21 (Tylenol) 650 mg Q4H PRN PO 01/13/17 10:15 01/14/17 17:19 ([place] 5-325 Mg) 1 tab Q4H PRN PO 01/13/17 10:15 01/16/17 14:02 (Morphine Inj) 5 mg Q4H PRN IV PUSH 01/13/17 10:15 (Zofran Inj) 4 mg Q6H PRN IV 01/13/17 10:15 (Colace Liq) 100 mg BID PRN NG 01/13/17 10:15 01/16/17 14:05 (Milk Of Magnesia Liq) 30 ml DAILY PRN PO 01/13/17 10:15 (Flomax) 0.4 mg DAILY PO 01/13/17 21:00 01/16/17 09:12 (Neurontin) 300 mg BID PO 01/14/17 21:00 01/16/17 09:12 (D50w (Vial) Inj) 25 ml UNSCH PRN IV PUSH 01/14/17 12:00 (Glucagon Inj) 1 mg UNSCH PRN OTHER 01/14/17 12:00 (Protonix) 40 mg DAILY PO 01/17/17 09:00 (Ambien) 10 mg HS PO 01/16/17 21:00 Family History He denies Social History The patient lives with his in [place], 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, 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, he was born and raised in [place], he has a college degree Physical Exam Vital Signs Vital Signs Date Time Temp Pulse Resp B/P Pulse Ox O2 Delivery O2 Flow Rate FiO2 01/16/17 13:16 97.9 76 20 118/62 97 01/16/17 09:06 21 01/16/17 00:12 Room Air 01/14/17 00:05 3.00 I/O 01/15/17 01/15/17 01/16/17 08:00 16:00 00:00 Intake Total 240 ml 450 ml Output Total 350 ml Balance -110 ml 450 ml Mental Status Examination Appearance Told man, appearing his stated age, good hygiene, hospital [facility], calm, cooperative and pleasant Speech: Unremarkable Orientation: x3 Memory: Unremarkable Thought Process: Logical Thought Content: Unremarkable Hallucination Type: None Attention and Concentration: Good Suicidal Ideation: No Homicidal Ideation: No Previous Homicide Attempts: No Insight: Good Judgement: WNL Affect: Good Mood: Appropriate Motor Activity: Normal gait Assessment & Plan Problem List: (1) Adjustment disorder with depressed mood Assessment & Plan: On psychiatric evaluation today the patient reports guiltiness and sadness related with the fact that he be hospitalized already twice is a burden for his and family, but also secondary to his medical conditions. However the patient denies low energy, hopelessness, helplessness, anhedonia, generalized pessimism, he denies suicidal and homicidal ideation. He denies visual and auditory hallucinations. There are several protective factors for suicidality and depression identified in this patient as a good family support, high level of education, spirituality. He does not meet criteria for psychiatric hospitalization at this moment. His recently reported sad mood is most probably related with adjustment to his medical illness and no to a primary psychiatric diagnosis. He will benefit of a medication that can improve his mood and help him to sleep at night, such as Trazodone 100 mg hs. extensive support, motivation and psychoeducation provided. Consult appreciated. ICD Code: F43.21 Assessment & Plan Estimated LOS: Arnoldo Nunes MD Jan 16, 2017 15:50
[2017-01-16] MEDS: MULTIVITAMINS/MINERALS THERAPEUTIC TAB PO SCH (17:26)
[2017-01-16] MEDS ORDERED: ZOLPIDEM TARTRATE 10 MG TAB PO SCH (21:00)
[2017-01-16] MEDS: PRAVASTATIN SOD 40 MG TAB PO SCH (21:58)
[2017-01-17] VITALS (11 sets, daily range): BP systolic 114–155; BP diastolic 53–79; PULSE 73–99; RESP 17–22; TEMP 97.2–101.6; O2SAT 90–96
[2017-01-17] MEDS: INSULIN ASPART SUPPLEMENTAL SCALE SQ SCH ×4 (06:43→21:00)
--- NOTE | 2017-01-17 09:38 | PD.CONS ---
[facility] Service Rehabilitation Medicine Consult Requested By Reason for Consult Comprehensive rehabilitation evaluation. Primary Care Physician eBnji Chirinos M.D. History of Present Illness Michelet Wu is a 71-year-old male who sustained a fall 12/31/16 with right subdural hematoma. He was excessively discharged home 01/03/17. He presented to the emergency department 01/13/17 with headache and decreased balance. Head CT showed acute and chronic subdural hygroma with subdural blood with right to left shift. On 01/13/17 he underwent right mally hole for evacuation of subdural hematoma. Follow-up head CT 01/14/17 showed interval surgical evacuation of the acute on chronic right subdural hygroma with resolution of the previously seen 1.1 cm right to left subfalcine shift. Noted to have had a fall 01/16/17. Psychiatry has evaluated for depression and trazodone has been recommended. Review of Systems Constitutional: COMPLAINS OF: Fatigue Eyes: DENIES: Diplopia Ears, nose, mouth, throat: DENIES: Hearing loss, Throat pain Respiratory: DENIES: Shortness of breath Cardiovascular: DENIES: Chest pain Gastrointestinal: DENIES: Abdominal pain, Constipation Genitourinary: DENIES: Urinary incontinence Integumentary: DENIES: Rash Hematologic/lymphatic: COMPLAINS OF: Bruising Neurologic: COMPLAINS OF: Headache (Mild), Localized weakness, Poor Balance, DENIES: Speech Problems Psychiatric: DENIES: Confusion Past Family Social History Allergies: Coded Allergies: No Known Allergies (Unverified , 01/13/17) Past Medical History Cardiomyopathy Hypertension Diabetes mellitus Osteoarthritis Paroxysmal atrial flutter Depression Bilateral carotid stenosis Chronic kidney disease Past Surgical History Pacemaker Current Medications Current Medications Medications (Trade) Dose Ordered Sig/Suzanna Route Start Time Stop Time Status Last Admin (NS Flush) 2 ml UNSCH PRN IVF 01/13/17 08:00 (Apresoline Inj) 10 mg Q1HR PRN IV PUSH 01/13/17 09:45 01/13/17 13:27 (Zyloprim) 100 mg DAILY PO 01/14/17 09:00 01/16/17 09:13 (Cordarone) 200 mg DAILY PO 01/14/17 09:00 01/16/17 09:12 (Bumetanide) 1 mg BID PO 01/13/17 21:00 01/16/17 21:58 (Coreg) 25 mg BID PO 01/13/17 21:00 01/16/17 21:58 (Keppra) 500 mg Q12HR PO 01/13/17 12:00 01/16/17 21:58 (Pravachol) 40 mg HS PO 01/13/17 21:00 01/16/17 21:58 (NS Flush) 2 ml UNSCH PRN IVF 01/13/17 10:15 (NS Flush) 2 ml BID IVF 01/13/17 21:00 01/16/17 21:58 (Vasotec Inj) 1.25 mg Q6H PRN IV 01/13/17 10:15 01/13/17 16:21 (Tylenol) 650 mg Q4H PRN PO 01/13/17 10:15 01/14/17 17:19 ([place] 5-325 Mg) 1 tab Q4H PRN PO 01/13/17 10:15 01/16/17 21:58 (Morphine Inj) 5 mg Q4H PRN IV PUSH 01/13/17 10:15 (Zofran Inj) 4 mg Q6H PRN IV 01/13/17 10:15 (Colace Liq) 100 mg BID PRN NG 01/13/17 10:15 01/16/17 14:05 (Milk Of Magnesia Liq) 30 ml DAILY PRN PO 01/13/17 10:15 (Flomax) 0.4 mg DAILY PO 01/13/17 21:00 01/16/17 09:12 (Neurontin) 300 mg BID PO 01/14/17 21:00 01/16/17 21:58 (D50w (Vial) Inj) 25 ml UNSCH PRN IV PUSH 01/14/17 12:00 (Glucagon Inj) 1 mg UNSCH PRN OTHER 01/14/17 12:00 (Protonix) 40 mg DAILY PO 01/17/17 09:00 (Ambien) 10 mg HS PO 01/16/17 21:00 01/16/17 21:58 (Theragran M Tab) 1 tab DAILY PO 01/16/17 15:30 01/16/17 17:26 Family History Mother: : "old age" Father: , MIH 39 Social History No tobacco. Occasional alcohol use. Lives with his in [place], [place] Exam I&O / VS 01/16/17 01/16/17 01/17/17 15:00 23:00 07:00 Intake Total 120 ml 360 ml Output Total 750 ml Balance 120 ml -390 ml Intake Oral 120 ml 360 ml Output Urine Total 750 ml # Voids 2 # Bowel Movements 0 Vital Signs Date Time Temp Pulse Resp B/P Pulse Ox O2 Delivery O2 Flow Rate FiO2 01/17/17 08:29 99.8 91 20 145/68 95 01/17/17 06:27 97.2 80 17 152/73 96 01/17/17 05:14 97.9 84 17 155/73 96 01/17/17 04:10 97.9 80 17 131/72 96 01/17/17 00:23 98.2 73 17 134/63 94 01/16/17 23:15 Room Air 01/16/17 23:00 82 01/16/17 16:18 97.6 80 18 127/62 94 01/16/17 13:16 97.9 76 20 118/62 97 General: No acute distress Respiratory: Lungs CTA, Non-labored respirations, BS equal Gastrointestinal: Positive Bowel Sounds, Non-Distended, Non-Tender Cardiovascular: Normal rate, Regular Rhythm Skin: Incision (Dressing intact) Musculoskeletal: Swelling Psychiatric: Cooperative Orientation: oriented to Self, oriented to Place, oriented to Time (with cues) Neurologic: Pupils (PERRLA), EOM (Intact), Speech (intelligible) Motor: Right Upper Extremity (5/5), Left Upper Extremity (4-4+/5), Right Lower Extremity (4/5 hip flexion remainder 4+/5), Left Lower Extremity (4/5 hip flexion remainder 4+/5) Spasticity None noted Sensory Intact to light touch bilateral UE and LE Clonus: Negative Assessment and Plan Diagnosis: (1) SDH (subdural hematoma) (2) Subdural hygroma Assessment 1. History of fall 12/31/16 with decreased balance and headache status post right mally hole evacuation of subdural hygroma/subdural hematoma 2. Impaired mobility and ADLs due to the above 3. Hypertension 4. Diabetes mellitus 5. Osteoarthritis 6. Cardiomyopathy 7. Status post pacemaker 8. Depression 9. Paroxysmal atrial flutter 10. Carotid stenosis 11. Chronic kidney disease Plan 1. Physical therapy as mobilizing and patient requires minimal assistance for transfers and is ambulating 50 feet contact guard with a rolling walker with fair balance. Continue to mobilize. Monitor carefully for falls as patient is at high risk and has had recent fall 01/16/17 2. Occupational therapy is addressing ADLs and now set up for eating, minimal assistance for grooming and moderate to maximal assistance for dressing 3. Speech therapy for cognitive eval 4. Patient will benefit from ongoing rehabilitation at discharge and case management is working with family for placement 5. Will follow-up hospitalized and at discharge Thank you for this consult Vivian Armijo MD Jan 17, 2017 09:38
[2017-01-17 09:43] LABS: POTASSIUM 4.3 MEQ/L (3.5-5.1)
[2017-01-17] MEDS: PANTOPRAZOLE SOD 40 MG DELAYED RELEASE TAB PO SCH (10:25)
[2017-01-17] MEDS: levETIRAcetam 500 MG TAB PO SCH ×2 (10:25→21:29)
[2017-01-17] MEDS: ALLOPURINOL 100 MG TAB PO SCH (10:25)
[2017-01-17] MEDS: MULTIVITAMINS/MINERALS THERAPEUTIC TAB PO SCH (10:25)
[2017-01-17] MEDS: BUMETANIDE 1 MG TAB PO SCH (10:25)
[2017-01-17] MEDS: CARVEDILOL 12.5 MG TAB PO SCH ×2 (10:26→21:29)
[2017-01-17] MEDS: TAMSULOSIN HCL 0.4 MG CAP PO SCH (10:26)
[2017-01-17] MEDS: GABAPENTIN 300 MG CAP PO SCH (10:26)
[2017-01-17] MEDS: AMIODARONE 200 MG TAB PO SCH (10:26)
[2017-01-17] MEDS: SODIUM CHLORIDE 0.9% FLUSH 5 ML FLUSH IVF SCH ×2 (10:27→21:29)
--- NOTE | 2017-01-17 11:58 | HHI.NSPN ---
History Chief Complaint: i feel cold Interval History Admitted for mally hole for right SDH 3 POD 2 alert and tired. He did well with PT yesterday but his left arm apraxia and headaches worsened after PT. They improved after rest. He has difficulty sleeping. His pain is mainly incisional and frontal, he is still GCS 15. 01/16/17 POD 3, has poor appetite. Some redness developed on the head with serous drainage. 01/17/17 Day 4 after SDH, fell after being given the ambien yesterday, is still very lethargic this afternoon. His intake is poor, CR is increased and sodium has dropped to 133. Review of Systems General: Positive for: fever (low grade) Respiratory: Negative for: shortness of breath, cough, sputum Cardiovascular: Negative for: chest pain, palpitations, orthopnea Gastrointestinal: Negative for: nausea, vomitting, diarrhea, constipation Exam Results Vital Signs Date Time Temp Pulse Resp B/P Pulse Ox O2 Delivery O2 Flow Rate FiO2 01/17/17 10:00 98.8 75 20 141/75 95 01/16/17 23:15 Room Air 01/16/17 09:06 21 01/14/17 00:05 3.00 Intake and Output 01/16/17 01/16/17 01/17/17 08:00 16:00 00:00 Intake Total 120 ml Output Total 1200 ml Balance -1200 ml 120 ml Physical Examination Oriented x 3 and to events,lethargic today Pupils 2mm, EOMI, face symmetric, speech is clear Serous erythema inferior and lateral to the wound about 5mm No focal motor weakness or apraxia juancarlos, no pronator drift but is too weak to walk today Mod left peripheral edema, Wound with dried blood, closed. Drain site dry RRR, abd obese,no wheezing, off oxygen Lab, Micro, Other Results Laboratory Tests Test 01/17/17 07:36 Sodium Level 133 MEQ/L Potassium Level 4.3 MEQ/L Chloride Level 96 MEQ/L Carbon Dioxide Level 27.0 MEQ/L Anion Gap 10 MEQ/L Blood Urea Nitrogen 35 MG/DL Creatinine 1.64 MG/DL Estimat Glomerular Filtration 42 ML/MIN Rate Random Glucose 183 MG/DL Calcium Level 9.6 MG/DL Medical Decision Making Impression and Plan POD 4 after mally hole for SDH, worsened after a fall yesterday after ambien was given in the chair. Platelet dysfunction stable with no active bleeding at this time. DVT prophylaxis with SCDs in bed but rehab is planned. May be up to the chair today. Inpatient rehab is requested for the end of the week. Wound healing may be delayed, to be followed closely. His mental status changes are thought to be related to his medications at this time. The ambien is removed as it was the cause of his fall last night. A follow up CT is ordered. Total Minutes: 10 Isaías Dennis Jan 17, 2017 11:58
--- NOTE | 2017-01-17 13:08 | HHI.PR ---
Subjective Remarks spoke with me- smiled, ff all commands patient appears depressed but looks better c/w yesterday discussed with and Dr. Keshawn Dennis patient received Ambie last evening Objective Vitals Vital Signs Date Time Temp Pulse Resp B/P Pulse Ox O2 Delivery O2 Flow Rate FiO2 01/17/17 12:00 100.5 92 20 146/65 94 01/17/17 10:00 98.8 75 20 141/75 95 01/17/17 08:29 99.8 91 20 145/68 95 01/17/17 06:27 97.2 80 17 152/73 96 01/17/17 05:14 97.9 84 17 155/73 96 01/17/17 04:10 97.9 80 17 131/72 96 01/17/17 00:23 98.2 73 17 134/63 94 01/16/17 23:15 Room Air 01/16/17 23:00 82 01/16/17 16:18 97.6 80 18 127/62 94 01/16/17 13:16 97.9 76 20 118/62 97 I/O 01/16/17 01/16/17 01/16/17 01/17/17 01/17/17 01/17/17 07:00 15:00 23:00 07:00 15:00 23:00 Intake Total 120 ml 360 ml Output Total 1200 ml 750 ml Balance -1200 ml 120 ml -390 ml Intake Oral 120 ml 360 ml Output Urine Total 1200 ml 750 ml # Voids 2 # Bowel Movements 0 Result Diagram: 01/15/17 0655 01/17/17 0736 Imaging Last Impressions Head CT 01/14/17 0000 Signed Impressions: Service Date/Time: Saturday, January 14, 2017 04:17 - CONCLUSION: 1. Interval surgical evacuation of the acute on chronic right subdural hygroma with resolution of the previously seen 1.1 cm right to left subfalcine shift. 2. Subdural drain remains in place. Small amount of fluid, blood and air still remains in the subdural space. 3. No new lesions. 4. Chronic sinusitis. Kory Zayas MD Chest X-Ray 01/13/17 0754 Signed Impressions: Service Date/Time: Friday, January 13, 2017 07:56 - CONCLUSION: No acute cardiopulmonary abnormality is identified. Cardiac silhouette size remains enlarged. Bonifacio Gibson MD Objective Remarks head - sutures with dried blood awake oriented x 3, speech clear, appears depressed and less interactive pupils equally reactive to light, EOM full ROM no facial asymmetry, tongue, midline, good gag reflex no bruit lungs clear regular rhythm abdomen soft, nontender extremities no edema neuro exam- non focal Procedures 01/13/17 craniotomy with evacuation of subdural hematoma A/P Problem List: (1) Intracranial hemorrhage after injury without loss of consciousness ICD Code: S06.300A Status: Acute (2) Subdural hematoma ICD Code: I62.00 Status: Acute (3) Subdural hygroma ICD Code: D18.1 Status: Acute (4) CAD (coronary artery disease) ICD Code: I25.10 Status: Chronic (5) Dilated cardiomyopathy ICD Code: I42.0 Status: Chronic Assessment and Plan 71 years old male left handed 1. Head injury with subdural hematoma: Appreciate neurosurgery management. Status post craniotomy with evacuation of hematoma. Monitor neuro status- awake and alert . Antihypertensives for blood pressure control. Keppra for seizure prophylaxis. repeat Head CT today. Caution with CHARGER drugs- Ambien discontinued 2. Chronic diastolic CHF: not in failure. Stable. Continue home medications. 3. Diabetes mellitus type 2: Monitor Accu-Cheks and cover with sliding scale insulin. as OP was on Lantus 5 units hs. monitor here. restart if po intake improves 4. Chronic kidney disease: creatinine stable. non oliguric 5. Hypertension: Vasotec as needed. Blood pressure is well controlled. 6. DVT prophylaxis: SCDs. Avoid chemical prophylaxis until okay by neurosurgery secondary to subdural hematoma. 7. Paroxysmal atrial flutter: in SR. Continue amiodarone, Coreg. 8. GI prophylaxis: Protonix. no Lovenox with ICH 9. Depression - will get Psychiatry consult 10. Bialteral carotid stenosis- no plan for surgery at this time due to ICH. OP ff up with [facility] with a CTA then CM- [facility] willing to take him- awaiting insurance approval Definitely a good candidate for [facility]- needs comprehensive rehab good candidate for [facility] for comprehensive rehab PT/OT daily d/w - NO code status Presley Sommer MD Jan 17, 2017 13:08
[2017-01-17] MEDS: ACETAMINOPHEN 325 MG TAB PO PRN ×2 (16:32→21:30)
[2017-01-17] MEDS: PRAVASTATIN SOD 40 MG TAB PO SCH (21:29)
--- NOTE | 2017-01-17 23:55 | RADRPT ---
EXAM DATE/TIME: 01/17/2017 22:37 [place] COMPARISON: CT BRAIN W/O CONTRAST, January 14, 2017, 4:17. INDICATIONS : Follow up subdural hematoma. RADIATION DOSE: 50.58 CTDIvol (mGy) MEDICAL HISTORY : Carcinoma, colon. Cardiovascular disease Diabetes mellitus type 2.CVA SURGICAL HISTORY : Pacemaker. ENCOUNTER: Subsequent ACUITY: 2 days PAIN SCALE: 5/10 LOCATION: cranial TECHNIQUE: Multiple contiguous axial images were obtained of the head. Using automated exposure control and adj ustment of the mA and/or kV according to patient size, radiation dose was kept as low as reasonably a chievable to obtain optimal diagnostic quality images. FINDINGS: CEREBRUM: The subdural drain has been removed since the prior CT. Extra-axial mixed-intensity subdural fluid c ollection extending from mid to high as convexity is stable in size when compared to 01/14/17, measurin g up to 1.2 cm in width at the high convexity. Several collections of gas in the subdural space minoo in. At the level of the foramen magnum, there is 2 mm midline shift towards left which is unchanged from the most recent CT. The ventricles are symmetric in size and there is good meehan-white matter di fferentiation in both hemispheres. No intra-axial blood products seen. The POSTERIOR FOSSA: The cerebellum and brainstem are intact. The 4th ventricle is midline. The cerebellopontine angle i s unremarkable. EXTRACRANIAL: The visualized portion of the orbits is intact. Chronic opacities in the frontal, ethmoid, and maxil shannan sinuses. SKULL: The calvaria is intact. No evidence of skull fracture. CONCLUSION: Interval removal of subdural drain. Extra-axial fluid/blood in the right subdural space is stable in size when compared to 01/14/17. Chronic sinus disease. No new findings. Rodo Gaxiola MD on January 17, 2017 at 23:46 Board Certified Radiologist. This report was verified electronically.
[2017-01-18] VITALS (8 sets, daily range): BP systolic 110–152; BP diastolic 58–75; PULSE 69–85; RESP 17–20; TEMP 96.6–98.9; O2SAT 91–96
[2017-01-18] MEDS: INSULIN ASPART SUPPLEMENTAL SCALE SQ SCH ×4 (05:59→22:00)
[2017-01-18 07:30] LABS: BASOPHIL % 0.6 % (0.0-2.0); EOSINOPHIL % 0.4 % (0.0-4.0); HEMATOCRIT 32.9 % (39.0-51.0); LYMPH % 7.1 % (9.0-44.0); LYMPHOCYTE # 0.4 TH/MM3 (1.0-4.8); MEAN CELL VOLUME 92.6 FL (80.0-100.0); MEAN CORPUSCULAR HGB CONC 33.5 % (32.0-36.0); MONO % 11.2 % (0.0-8.0); NEUT % 80.7 % (16.0-70.0); PLATELET COUNT 93 TH/MM3 (150-450); RED BLOOD COUNT 3.55 MIL/MM3 (4.50-5.90); RED CELL DISTRIBUTION WIDTH 15.6 % (11.6-17.2)
[2017-01-18 07:46] LABS: BICARBONATE 29.1 MEQ/L (21.0-32.0); POTASSIUM 4.4 MEQ/L (3.5-5.1)
[2017-01-18 07:56] LABS: HEMO FLAGS AUTO DIFF
--- NOTE | 2017-01-18 08:18 | HHI.NSPN ---
History Chief Complaint: i feel better Interval History Admitted for mally hole for right SDH 3 POD 2 alert and tired. He did well with PT yesterday but his left arm apraxia and headaches worsened after PT. They improved after rest. He has difficulty sleeping. His pain is mainly incisional and frontal, he is still GCS 15. 3/07/27 POD 3, has poor appetite. Some redness developed on the head with serous drainage. 01/17/17 Day 4 after SDH, fell after being given the ambien yesterday, is still very lethargic this afternoon. His intake is poor, CR is increased and sodium has dropped to 133. 01/18/17 Day 5 after mally hole, alertness has improved but his mobility and appetite are still poor. He is awaiting rehab. Review of Systems General: Negative for: fever, chills, insomnia Respiratory: Negative for: shortness of breath, cough, sputum Cardiovascular: Negative for: chest pain, palpitations, orthopnea Gastrointestinal: Negative for: nausea, vomitting, diarrhea, constipation Genitourinary: Negative for: urinary burning, urinary frequency, urinary urgency Exam Results Vital Signs Date Time Temp Pulse Resp B/P Pulse Ox O2 Delivery O2 Flow Rate FiO2 01/18/17 04:00 97.6 71 20 129/62 91 01/17/17 07:00 Room Air 01/16/17 09:06 21 Intake and Output 01/17/17 01/17/17 01/18/17 08:00 16:00 00:00 Intake Total 360 ml 360 ml Output Total 750 ml 400 ml Balance -390 ml -40 ml Physical Examination Oriented x 3 and to events, cooperative Pupils 2mm, EOMI, face symmetric, speech is clear Serous erythema inferior and lateral to the wound about 5mm is improving No focal motor weakness or apraxia juancarlos, no pronator drift but is still weak Mod left peripheral edema, Wound with dried blood, closed. Drain site dry RRR, abd obese,no wheezing, off oxygen Lab, Micro, Other Results Laboratory Tests Test 01/18/17 05:53 White Blood Count 5.0 TH/MM3 Red Blood Count 3.55 MIL/MM3 Hemoglobin 11.0 GM/DL Hematocrit 32.9 % Mean Corpuscular Volume 92.6 FL Mean Corpuscular Hemoglobin 31.0 PG Mean Corpuscular Hemoglobin 33.5 % Concent Red Cell Distribution Width 15.6 % Platelet Count 93 TH/MM3 Mean Platelet Volume 8.0 FL Neutrophils (%) (Auto) 80.7 % Lymphocytes (%) (Auto) 7.1 % Monocytes (%) (Auto) 11.2 % Eosinophils (%) (Auto) 0.4 % Basophils (%) (Auto) 0.6 % Neutrophils # (Auto) 4.0 TH/MM3 Lymphocytes # (Auto) 0.4 TH/MM3 Monocytes # (Auto) 0.6 TH/MM3 Eosinophils # (Auto) 0.0 TH/MM3 Basophils # (Auto) 0.0 TH/MM3 CBC Comment AUTO DIFF Sodium Level 132 MEQ/L Potassium Level 4.4 MEQ/L Chloride Level 95 MEQ/L Carbon Dioxide Level 29.1 MEQ/L Anion Gap 8 MEQ/L Blood Urea Nitrogen 34 MG/DL Creatinine 1.60 MG/DL Estimat Glomerular Filtration 43 ML/MIN Rate Random Glucose 198 MG/DL Calcium Level 10.0 MG/DL Medical Decision Making Impression and Plan POD 5 after mally hole for SDH, worsened after a fall yesterday . Platelet dysfunction stable with low count of 93 with no active bleeding at this time. DVT prophylaxis with SCDs in bed but rehab is planned. May be up to the chair today. Inpatient rehab is requested. Wound healing may be delayed, to be followed closely. Follow up CT shows a 1 cm healing subacute collection, it will be followed in the next 8 weeks until resolution. Next CT planned in 4 weeks unless he changes. Total Minutes: 10 Isaías Dennis Jan 18, 2017 08:18
--- NOTE | 2017-01-18 10:00 | HHI.PR ---
Subjective Remarks patient comfortable- no complains of headache per had a good am- ate pretty good telemetry- paced rhythm Objective Vitals Vital Signs Date Time Temp Pulse Resp B/P Pulse Ox O2 Delivery O2 Flow Rate FiO2 01/18/17 08:54 98.5 75 17 135/63 96 01/18/17 04:00 97.6 71 20 129/62 91 01/18/17 00:00 98.9 85 18 116/72 94 01/17/17 20:00 99.4 75 18 114/53 90 01/17/17 20:00 94 01/17/17 17:32 15 01/17/17 16:18 101.3 99 22 132/79 91 01/17/17 14:00 101.6 90 20 151/70 96 01/17/17 12:00 100.5 92 20 146/65 94 01/17/17 10:00 98.8 75 20 141/75 95 I/O 01/17/17 01/17/17 01/17/17 01/18/17 01/18/17 01/18/17 07:00 15:00 23:00 07:00 15:00 23:00 Intake Total 360 ml 360 ml 0 ml Output Total 750 ml 400 ml 850 ml Balance -390 ml -40 ml -850 ml Intake Oral 360 ml 360 ml IV Total 0 ml Output Urine Total 750 ml 400 ml 850 ml # Bowel Movements 0 Result Diagram: 01/18/17 0553 01/18/17 0553 Imaging Last Impressions Head CT 01/17/17 0000 Signed Impressions: Service Date/Time: Tuesday, January 17, 2017 22:37 - CONCLUSION: Interval removal of subdural drain. Extra-axial fluid/blood in the right subdural space is stable in size when compared to 01/14/17. Chronic sinus disease. No new findings. Rodo Gaxiola MD Chest X-Ray 01/13/17 0754 Signed Impressions: Service Date/Time: Friday, January 13, 2017 07:56 - CONCLUSION: No acute cardiopulmonary abnormality is identified. Cardiac silhouette size remains enlarged. Bonifacio Gibson MD Objective Remarks head - sutures with dried blood awake oriented x 3, speech clear, smiled a little pupils equally reactive to light, EOM full ROM no facial asymmetry, tongue, midline, good gag reflex no bruit lungs clear regular rhythm abdomen soft, nontender extremities no edema neuro exam- non focal Procedures 01/13/17 craniotomy with evacuation of subdural hematoma A/P Problem List: (1) Intracranial hemorrhage after injury without loss of consciousness ICD Code: S06.300A Status: Acute (2) Subdural hematoma ICD Code: I62.00 Status: Acute (3) Subdural hygroma ICD Code: D18.1 Status: Acute (4) CAD (coronary artery disease) ICD Code: I25.10 Status: Chronic (5) Dilated cardiomyopathy ICD Code: I42.0 Status: Chronic Assessment and Plan 71 years old male left handed 1. Head injury with subdural hematoma: Appreciate neurosurgery management. Status post craniotomy with evacuation of hematoma. Monitor neuro status- awake and alert . Antihypertensives for blood pressure control. Keppra for seizure prophylaxis. repeat Head CT - unchanged Caution with PATIENT OFFICE REP drugs- Ambien discontinued 01/17 2. Chronic diastolic CHF: not in failure. Stable. Continue home medications. 3. Diabetes mellitus type 2: Monitor Accu-Cheks and cover with sliding scale insulin. as OP was on Lantus 5 units hs. monitor here. restart if po intake improves 4. Chronic kidney disease: creatinine stable. non oliguric 5. Hypertension: Vasotec as needed. Blood pressure is well controlled. 6. DVT prophylaxis: SCDs. Avoid chemical prophylaxis until okay by neurosurgery secondary to subdural hematoma. 7. Paroxysmal atrial flutter: in SR. Continue Coreg. 8. GI prophylaxis: Protonix. no Lovenox with ICH 9. Depression - will get Psychiatry consult 10. Bialteral carotid stenosis- no plan for surgery at this time due to ICH. OP ff up with [facility] with a CTA then [facility]- [facility] willing to take him- awaiting insurance approval Definitely a good candidate for [facility]- needs comprehensive rehab good candidate for [facility] for comprehensive rehab PT/OT daily d/w - NO code status Presley Sommer MD Jan 18, 2017 10:00
[2017-01-18] MEDS: PANTOPRAZOLE SOD 40 MG DELAYED RELEASE TAB PO SCH (10:11)
[2017-01-18] MEDS: TAMSULOSIN HCL 0.4 MG CAP PO SCH (10:11)
[2017-01-18] MEDS: levETIRAcetam 500 MG TAB PO SCH ×2 (10:11→21:47)
[2017-01-18] MEDS: CARVEDILOL 12.5 MG TAB PO SCH ×2 (10:12→21:47)
[2017-01-18] MEDS: MULTIVITAMINS/MINERALS THERAPEUTIC TAB PO SCH (10:12)
[2017-01-18] MEDS: ACETAMINOPHEN 325 MG TAB PO PRN ×3 (10:13→21:46)
[2017-01-18] MEDS: SODIUM CHLORIDE 0.9% FLUSH 5 ML FLUSH IVF SCH ×2 (10:13→21:47)
[2017-01-18 10:16] LABS: PLATELET ESTIMATE SMEAR LOW (NORMAL); PLATELET MORPHOLOGY NORMAL (NORMAL); SCAN/DIFF AUTO DIFF CONFIRMED
[2017-01-18] MEDS: PRAVASTATIN SOD 40 MG TAB PO SCH (21:47)
[2017-01-19] VITALS (9 sets, daily range): BP systolic 111–148; BP diastolic 63–78; PULSE 71–92; RESP 18–20; TEMP 96.8–98.9; O2SAT 94–97
[2017-01-19] MEDS: ACETAMINOPHEN 325 MG TAB PO PRN ×5 (01:27→19:55)
[2017-01-19] MEDS: INSULIN ASPART SUPPLEMENTAL SCALE SQ SCH ×4 (05:35→23:10)
[2017-01-19 07:53] LABS: AUTOMATED NEUTROPHIL # 3.8 TH/MM3 (1.8-7.7); BASOPHIL % 0.4 % (0.0-2.0); EOSINOPHIL % 0.7 % (0.0-4.0); HEMATOCRIT 32.3 % (39.0-51.0); LYMPH % 10.8 % (9.0-44.0); LYMPHOCYTE # 0.6 TH/MM3 (1.0-4.8); MEAN CELL VOLUME 92.6 FL (80.0-100.0); MEAN CORPUSCULAR HEMOGLOBIN 31.6 PG (27.0-34.0); MEAN CORPUSCULAR HGB CONC 34.1 % (32.0-36.0); MONO % 13.8 % (0.0-8.0); NEUT % 74.3 % (16.0-70.0); PLATELET COUNT 98 TH/MM3 (150-450); RED BLOOD COUNT 3.49 MIL/MM3 (4.50-5.90); RED CELL DISTRIBUTION WIDTH 16.2 % (11.6-17.2); WHITE BLOOD COUNT 5.1 TH/MM3 (4.0-11.0)
[2017-01-19 08:02] LABS: HEMO FLAGS AUTO DIFF
[2017-01-19 08:11] LABS: BICARBONATE 29.9 MEQ/L (21.0-32.0); POTASSIUM 4.6 MEQ/L (3.5-5.1)
[2017-01-19] MEDS: PANTOPRAZOLE SOD 40 MG DELAYED RELEASE TAB PO SCH (08:34)
[2017-01-19] MEDS: TAMSULOSIN HCL 0.4 MG CAP PO SCH (08:34)
[2017-01-19] MEDS: SODIUM CHLORIDE 0.9% FLUSH 5 ML FLUSH IVF SCH ×2 (08:34→23:06)
[2017-01-19] MEDS: CARVEDILOL 12.5 MG TAB PO SCH ×2 (08:34→23:03)
[2017-01-19] MEDS: levETIRAcetam 500 MG TAB PO SCH ×2 (08:34→23:03)
[2017-01-19] MEDS: MULTIVITAMINS/MINERALS THERAPEUTIC TAB PO SCH (08:34)
--- NOTE | 2017-01-19 09:43 | HHI.NSPN ---
History Chief Complaint: Tired this am Interval History Admitted for mally hole for right SDH 3 POD 2 alert and tired. He did well with PT yesterday but his left arm apraxia and headaches worsened after PT. They improved after rest. He has difficulty sleeping. His pain is mainly incisional and frontal, he is still GCS 15. 3 POD 3, has poor appetite. Some redness developed on the head with serous drainage. 01/17/17 Day 4 after SDH, fell after being given the ambien yesterday, is still very lethargic this afternoon. His intake is poor, CR is increased and sodium has dropped to 133. 01/18/17 Day 5 after mally hole, alertness has improved but his mobility and appetite are still poor. He is awaiting rehab. 01/19/17 Day 6 after right SDH drainage, neurologically stable. He is still evry depressed and lethargic. Na remains low 132 Review of Systems General: Negative for: fever, chills, insomnia Respiratory: Negative for: shortness of breath, cough, sputum Cardiovascular: Negative for: chest pain, palpitations, orthopnea Gastrointestinal: Negative for: nausea, vomitting, diarrhea, constipation Genitourinary: Negative for: urinary burning, urinary frequency, urinary urgency Exam Results Vital Signs Date Time Temp Pulse Resp B/P Pulse Ox O2 Delivery O2 Flow Rate FiO2 01/19/17 08:00 96.8 72 18 113/65 97 01/17/17 07:00 Room Air 01/16/17 09:06 21 Intake and Output 01/18/17 01/18/17 01/19/17 08:00 16:00 00:00 Intake Total 0 ml Output Total 850 ml Balance -850 ml Physical Examination Oriented x 3 and to events, cooperative Pupils 2mm, EOMI, face symmetric, speech is clear Serous erythema inferior and lateral to the wound about 5mm is improving No focal motor weakness or apraxia juancarlos, no pronator drift but is still weak Mod left peripheral edema, Wound with dried blood, closed. Drain site dry RRR, abd obese,no wheezing, off oxygen Medical Decision Making Impression and Plan POD 6 after mally hole for SDH, worsened after a fall 2 days ago . Platelet dysfunction stable with low count of 98 with no active bleeding at this time. DVT prophylaxis with SCDs in bed but rehab is planned. May be up to the chair today. Inpatient rehab is requested. Wound healing may be delayed, to be followed closely. Follow up CT shows a 1 cm healing subacute collection, it will be followed in the next 8 weeks until resolution. Next CT planned in 4 weeks unless he changes. We will monitor urine sodium and osmolarity Total Minutes: 10 Isaías Dennis Jan 19, 2017 09:43
[2017-01-19 10:42] LABS: PLATELET ESTIMATE SMEAR LOW (NORMAL); PLATELET MORPHOLOGY NORMAL (NORMAL); SCAN/DIFF AUTO DIFF CONFIRMED
--- NOTE | 2017-01-19 13:22 | HHI.PR ---
Subjective Remarks patient up more interactive and more spontaneous but you can tell that he is still a bit withdrawn telling jokes no complains of headaches, nausea or vomiting telemetry- paced Objective Vitals Vital Signs Date Time Temp Pulse Resp B/P Pulse Ox O2 Delivery O2 Flow Rate FiO2 01/19/17 13:16 97.7 71 18 119/63 97 01/19/17 12:54 72 01/19/17 08:00 96.8 72 18 113/65 97 01/19/17 04:00 98.9 72 20 136/70 96 01/19/17 00:00 98.2 77 18 148/73 94 01/18/17 20:00 98.9 81 18 152/75 95 01/18/17 18:00 69 01/18/17 16:19 96.6 75 18 127/59 93 I/O 01/18/17 01/18/17 01/18/17 01/19/17 01/19/17 01/19/17 07:00 15:00 23:00 07:00 15:00 23:00 Intake Total 0 ml Output Total 850 ml Balance -850 ml IV Total 0 ml Output Urine Total 850 ml # Voids 4 3 # Bowel Movements 1 1 Result Diagram: 01/19/17 0635 01/19/17 0635 Imaging Last Impressions Head CT 01/17/17 0000 Signed Impressions: Service Date/Time: Tuesday, January 17, 2017 22:37 - CONCLUSION: Interval removal of subdural drain. Extra-axial fluid/blood in the right subdural space is stable in size when compared to 01/14/17. Chronic sinus disease. No new findings. Rodo Gaxiola MD Chest X-Ray 01/13/17 0754 Signed Impressions: Service Date/Time: Friday, January 13, 2017 07:56 - CONCLUSION: No acute cardiopulmonary abnormality is identified. Cardiac silhouette size remains enlarged. Bonifacio Gibson MD Objective Remarks head - sutures in place awake oriented x 3, speech clear, pupils equally reactive to light, EOM full ROM no facial asymmetry, tongue, midline, good gag reflex no bruit lungs clear regular rhythm abdomen soft, nontender extremities no edema neuro exam- non focal Procedures 01/13/17 craniotomy with evacuation of subdural hematoma A/P Problem List: (1) Intracranial hemorrhage after injury without loss of consciousness ICD Code: S06.300A Status: Acute (2) Subdural hematoma ICD Code: I62.00 Status: Acute (3) Subdural hygroma ICD Code: D18.1 Status: Acute (4) CAD (coronary artery disease) ICD Code: I25.10 Status: Chronic (5) Dilated cardiomyopathy ICD Code: I42.0 Status: Chronic Assessment and Plan 71 years old male left handed 1. Head injury with subdural hematoma: Status post craniotomy with evacuation of hematoma. Neurologically improving gradually . Antihypertensives for blood pressure control. Keppra for seizure prophylaxis. repeat Head CT - unchanged Caution with SIGNS CLEANER drugs- Ambien discontinued 01/17 Neurosurgery ff 2. Chronic diastolic CHF: not in failure. Stable. Continue home medications. 3. Diabetes mellitus type 2: Monitor Accu-Cheks and cover with sliding scale insulin. as OP was on Lantus 5 units hs. monitor here 4. Chronic kidney disease: creatinine stable. non oliguric 5. Hypertension: Vasotec as needed. Blood pressure is well controlled. 6. DVT prophylaxis: SCDs. Avoid chemical prophylaxis until okay by neurosurgery secondary to subdural hematoma. 7. Paroxysmal atrial flutter: in SR. Continue Coreg. 8. GI prophylaxis: Protonix. no Lovenox with ICH 9. Depression - will get Psychiatry consult 10. Bilateral carotid stenosis- no plan for surgery at this time due to ICH. OP ff up with [facility] with a CTA then [facility]- [facility] willing to take him- awaiting insurance approval Definitely a good candidate for [facility]- needs comprehensive rehab PT/OT daily Presley Sommer MD Jan 19, 2017 13:22 Presely Sommer MD Jan 19, 2017 13:22
[2017-01-19] MEDS: PRAVASTATIN SOD 40 MG TAB PO SCH (23:03)
[2017-01-20] VITALS (10 sets, daily range): BP systolic 118–164; BP diastolic 58–81; PULSE 70–92; RESP 18–20; TEMP 96.5–98; O2SAT 90–100
[2017-01-20] MEDS: ACETAMINOPHEN 325 MG TAB PO PRN ×5 (00:33→22:19)
[2017-01-20] MEDS: INSULIN ASPART SUPPLEMENTAL SCALE SQ SCH ×4 (06:53→22:17)
[2017-01-20 07:21] LABS: POTASSIUM 5.3 MEQ/L (3.5-5.1)
[2017-01-20] MEDS: PANTOPRAZOLE SOD 40 MG DELAYED RELEASE TAB PO SCH (09:42)
[2017-01-20] MEDS: levETIRAcetam 500 MG TAB PO SCH ×2 (09:42→22:18)
[2017-01-20] MEDS: SODIUM CHLORIDE 0.9% FLUSH 5 ML FLUSH IVF SCH ×2 (09:43→22:12)
[2017-01-20] MEDS: TAMSULOSIN HCL 0.4 MG CAP PO SCH (09:43)
[2017-01-20] MEDS: MULTIVITAMINS/MINERALS THERAPEUTIC TAB PO SCH (09:43)
[2017-01-20] MEDS: CARVEDILOL 12.5 MG TAB PO SCH ×2 (09:43→22:18)
--- NOTE | 2017-01-20 11:50 | HHI.NSPN ---
History Chief Complaint: much improved this am Interval History Admitted for mally hole for right SDH 3 POD 2 alert and tired. He did well with PT yesterday but his left arm apraxia and headaches worsened after PT. They improved after rest. He has difficulty sleeping. His pain is mainly incisional and frontal, he is still GCS 15. 3/07/27 POD 3, has poor appetite. Some redness developed on the head with serous drainage. 01/17/17 Day 4 after SDH, fell after being given the ambien yesterday, is still very lethargic this afternoon. His intake is poor, CR is increased and sodium has dropped to 133. 01/18/17 Day 5 after mally hole, alertness has improved but his mobility and appetite are still poor. He is awaiting rehab. 01/19/17 Day 6 after right SDH drainage, neurologically stable. He is still very depressed and lethargic. Na remains low 132 01/20/17 Day 7, more alert this am. He is ready to start a rehab program He is eating better and sleeping better. Review of Systems General: Negative for: fever, chills, insomnia Respiratory: Negative for: shortness of breath, cough, sputum Gastrointestinal: Negative for: nausea, vomitting, diarrhea, constipation Exam Results Vital Signs Date Time Temp Pulse Resp B/P Pulse Ox O2 Delivery O2 Flow Rate FiO2 01/20/17 08:12 97.7 84 18 127/60 98 01/17/17 07:00 Room Air 01/16/17 09:06 21 Intake and Output 01/19/17 01/19/17 01/20/17 08:00 16:00 00:00 Intake Total 240 ml Balance 240 ml Physical Examination Oriented x 3 and to events, cooperative Pupils 2mm, EOMI, face symmetric, speech is clear Wound dry healing better No focal motor weakness or apraxia juancarlos, no pronator drift Mod left peripheral edema, RRR, abd obese,no wheezing, off oxygen Lab, Micro, Other Results Laboratory Tests Test 01/20/17 01/20/17 06:20 06:48 Sodium Level 132 MEQ/L Potassium Level 5.3 MEQ/L Chloride Level 98 MEQ/L Carbon Dioxide Level 28.0 MEQ/L Anion Gap 6 MEQ/L Blood Urea Nitrogen 26 MG/DL Creatinine 1.37 MG/DL Estimat Glomerular Filtration 52 ML/MIN Rate Random Glucose 150 MG/DL Calcium Level 10.0 MG/DL Serum Osmolality 295 MOSM/KG Medical Decision Making Impression and Plan POD 7 after mally hole for SDH, worsened after a fall 2 days ago . Platelet dysfunction stable with low count of 98 with no active bleeding at this time. DVT prophylaxis with SCDs in bed but rehab is planned. May be up to the chair today. Inpatient rehab is requested. Wound healing improving. Follow up CT shows a 1 cm healing subacute collection, it will be followed in the next 8 weeks until resolution. Next CT planned in 4 weeks unless he changes. We will monitor urine sodium and osmolarity. Cardiology and renal services consulted to help resume diuretics and control BP. Total Minutes: 10 Isaías Dennis Jan 20, 2017 11:50
--- NOTE | 2017-01-20 12:04 | HHI.PR ---
Subjective Remarks patient definitely more interactive, smiling minimal headache po intake improved Objective Vitals Vital Signs Date Time Temp Pulse Resp B/P Pulse Ox O2 Delivery O2 Flow Rate FiO2 01/20/17 08:12 97.7 84 18 127/60 98 01/20/17 05:10 70 20 164/75 01/20/17 04:10 92 20 140/71 96 01/20/17 04:00 98.0 72 18 156/74 98 01/20/17 03:10 98.0 70 20 156/73 97 01/20/17 00:00 97.0 90 18 124/81 90 01/19/17 21:00 73 01/19/17 20:00 97.6 92 18 118/78 97 01/19/17 18:33 72 01/19/17 16:00 98.7 72 18 111/63 96 01/19/17 13:16 97.7 71 18 119/63 97 01/19/17 12:54 72 I/O 01/19/17 01/19/17 01/19/17 01/20/17 01/20/17 01/20/17 07:00 15:00 23:00 07:00 15:00 23:00 Intake Total 240 ml Output Total 1600 ml Balance 240 ml -1600 ml Intake Oral 240 ml Output Urine Total 1600 ml # Voids 3 4 # Bowel Movements 1 0 1 Result Diagram: 01/19/17 0635 01/20/17 0620 Imaging Last Impressions Head CT 01/17/17 0000 Signed Impressions: Service Date/Time: Tuesday, January 17, 2017 22:37 - CONCLUSION: Interval removal of subdural drain. Extra-axial fluid/blood in the right subdural space is stable in size when compared to 01/14/17. Chronic sinus disease. No new findings. Rodo Gaxiola MD Chest X-Ray 01/13/17 0754 Signed Impressions: Service Date/Time: Friday, January 13, 2017 07:56 - CONCLUSION: No acute cardiopulmonary abnormality is identified. Cardiac silhouette size remains enlarged. Bonifacio Gibson MD Objective Remarks head - sutures in place, awake oriented x 3, speech clear, pupils equally reactive to light, EOM full ROM no facial asymmetry, tongue, midline, good gag reflex no bruit lungs clear regular rhythm abdomen soft, nontender extremities trace edema neuro exam- non focal Procedures 3/6/17 craniotomy with evacuation of subdural hematoma A/P Problem List: (1) Intracranial hemorrhage after injury without loss of consciousness ICD Code: S06.300A Status: Acute (2) Subdural hematoma ICD Code: I62.00 Status: Acute (3) Subdural hygroma ICD Code: D18.1 Status: Acute (4) CAD (coronary artery disease) ICD Code: I25.10 Status: Chronic (5) Dilated cardiomyopathy ICD Code: I42.0 Status: Chronic Assessment and Plan 71 years old male left handed 1. Head injury with subdural hematoma: Appreciate neurosurgery management. Status post craniotomy with evacuation of hematoma. Monitor neuro status- continues to improve . Antihypertensives for blood pressure control. Keppra for seizure prophylaxis. repeat Head CT - unchanged Caution with COLON THERAPIST drugs- Ambien discontinued 01/17 2. Chronic diastolic CHF: not in failure. Stable. Continue home medications. 3. Diabetes mellitus type 2: Monitor Accu-Cheks and cover with sliding scale insulin. as OP was on Lantus 5 units hs. monitor here. - monitor- consider restarting 4. Chronic kidney disease: creatinine stable. non oliguric. Nephrology ff 5. Hypertension: Vasotec as needed. Blood pressure is well controlled. Cardiology ff 01/20 6. DVT prophylaxis: SCDs. Avoid chemical prophylaxis until okay by neurosurgery secondary to subdural hematoma. 7. Paroxysmal atrial flutter: in SR. Continue Coreg. Patient refused Amiodarone 8. GI prophylaxis: Protonix. no Lovenox with ICH 9. Depression -appreciate Dr. Tran's recommendations 10. Bialteral carotid stenosis- no plan for surgery at this time due to ICH. OP ff up with [facility] with a CTA then [facility]- [facility] willing to take him- awaiting insurance approval Definitely a good candidate for [facility]- needs comprehensive rehab PT/OT daily d/w Presley Sommer MD Jan 20, 2017 12:04 Presley Sommer MD Jan 20, 2017 12:04
--- NOTE | 2017-01-20 12:15 | PD.CONS ---
HPI Service Nephrology Consult Requested By Reason for Consult Hyponatremia Primary Care Physician Benji Chirinos M.D. History of Present Illness This is a 71 y/o male pt who was admitted with subdural hemorrhage after a fall. He had mally hole on 01/13. His sodium was 135 on arrival, improved to 137, but for the past few days has been around 132, thus we were consulted for management. PMH of HTN, DM, and CHF, he normally takes bumex daily at home. Today he is awake, demonstrating some lower extremity edema. Denies complaints. His creatinine was 1.36 on arrival, peaked at 1.6, but has improved to admission levels. There is adequate urine output. He is a full code. (Wendy Monten[place]ro) Review of Systems Constitutional: COMPLAINS OF: Fatigue Eyes: DENIES: Blurred vision Cardiovascular: COMPLAINS OF: Lower Extremity Edema, DENIES: Dyspnea on Exertion Neurologic: DENIES: Headache, Paresthesias (Wendy [place]en[place]) Past Family Social History Allergies: Coded Allergies: No Known Allergies (Unverified , 01/13/17) Past Medical History Cardiomyopathy HTN DM OA Past Surgical History Pacemaker Reported Medications Keppra (Levetiracetam) 500 Mg Tab 500 Mg PO Q12HR Bumetanide 1 Mg Tab 1 Mg PO BID Novolog Inj (Insulin Aspart) 1,000 Unit/10 Ml Vial 1-9 Units SQ ACHS Max dose at bedtime:( )units; sugars less than 70,(0)units; sugars 150-199,(1) unit; sugars 200-249,(3) units; sugars 250-299,(5) units; sugars 300-349,(7) units; sugars greater than 349,(9) units Neurontin (Gabapentin) 300 Mg Cap 300 Mg PO TID Amiodarone (Amiodarone HCl) 200 Mg Tab 200 Mg PO DAILY Lantus Inj (Insulin Glargine) 1,000 Unit/10 Ml Vial 5 Units SQ HS 30 Days Glipizide 10 Mg Tab 10 Mg PO BIDAC Take 30 minutes before a meal Allopurinol 100 Mg Tab 100 Mg PO DAILY Simvastatin 20 Mg Tab 20 Mg PO HS Carvedilol 25 Mg Tab 25 Mg PO BID Active Ordered Medications Current Medications Medications (Trade) Dose Ordered Sig/Suzanna Route Start Time Stop Time Status Last Admin (NS Flush) 2 ml UNSCH PRN IVF 01/13/17 08:00 (Apresoline Inj) 10 mg Q1HR PRN IV PUSH 01/13/17 09:45 01/13/17 13:27 (Coreg) 25 mg BID PO 01/13/17 21:00 01/20/17 09:43 (Keppra) 500 mg Q12HR PO 01/13/17 12:00 01/20/17 09:42 (Pravachol) 40 mg HS PO 01/13/17 21:00 01/19/17 23:03 (NS Flush) 2 ml UNSCH PRN IVF 01/13/17 10:15 (NS Flush) 2 ml BID IVF 01/13/17 21:00 01/20/17 09:43 (Vasotec Inj) 1.25 mg Q6H PRN IV 01/13/17 10:15 01/13/17 16:21 (Tylenol) 650 mg Q4H PRN PO 01/13/17 10:15 01/20/17 06:58 ([place] 5-325 Mg) 1 tab Q4H PRN PO 01/13/17 10:15 01/16/17 21:58 (Morphine Inj) 5 mg Q4H PRN IV PUSH 01/13/17 10:15 (Zofran Inj) 4 mg Q6H PRN IV 01/13/17 10:15 (Colace Liq) 100 mg BID PRN NG 01/13/17 10:15 01/16/17 14:05 (Milk Of Magnesia Liq) 30 ml DAILY PRN PO 01/13/17 10:15 01/20/17 06:55 (Flomax) 0.4 mg DAILY PO 01/13/17 21:00 01/20/17 09:43 (D50w (Vial) Inj) 25 ml UNSCH PRN IV PUSH 01/14/17 12:00 (Glucagon Inj) 1 mg UNSCH PRN OTHER 01/14/17 12:00 (Protonix) 40 mg DAILY PO 01/17/17 09:00 01/20/17 09:42 (Theragran M Tab) 1 tab DAILY PO 01/16/17 15:30 01/20/17 09:43 (Neurontin) 400 mg HS PO 01/20/17 21:00 (Bumetanide) 1 mg DAILY PO 01/20/17 12:00 Family History No hx of renal disorders Social History No smoking hx hx of 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 (Wendy Monten[place]ro) Physical Exam Vital Signs Vital Signs Date Time Temp Pulse Resp B/P Pulse Ox O2 Delivery O2 Flow Rate FiO2 01/20/17 08:12 97.7 84 18 127/60 98 01/20/17 05:10 70 20 164/75 01/20/17 04:10 92 20 140/71 96 01/20/17 04:00 98.0 72 18 156/74 98 01/20/17 03:10 98.0 70 20 156/73 97 01/20/17 00:00 97.0 90 18 124/81 90 01/19/17 21:00 73 01/19/17 20:00 97.6 92 18 118/78 97 01/19/17 18:33 72 01/19/17 16:00 98.7 72 18 111/63 96 01/19/17 13:16 97.7 71 18 119/63 97 01/19/17 12:54 72 Physical Exam Obese male, sitting up in chair awake, alert, no neuro deficit CV: S1/S2, no rubs or murmurs Lungs: clear in all victoria abd: obese, non distended Ext: 2+ edema Laboratory Laboratory Tests Test 01/20/17 01/20/17 06:20 06:48 Sodium Level 132 Potassium Level 5.3 Chloride Level 98 Carbon Dioxide Level 28.0 Anion Gap 6 Blood Urea Nitrogen 26 Creatinine 1.37 Estimat Glomerular Filtration 52 Rate Random Glucose 150 Calcium Level 10.0 Serum Osmolality 295 (Wendy Monten[place]) Result Diagram: 01/19/17 0635 01/20/17 0620 Imaging Last Impressions Head CT 01/17/17 0000 Signed Impressions: Service Date/Time: Tuesday, January 17, 2017 22:37 - CONCLUSION: Interval removal of subdural drain. Extra-axial fluid/blood in the right subdural space is stable in size when compared to 01/14/17. Chronic sinus disease. No new findings. Rodo Gaxiola MD Chest X-Ray 01/13/17 0754 Signed Impressions: Service Date/Time: Friday, January 13, 2017 07:56 - CONCLUSION: No acute cardiopulmonary abnormality is identified. Cardiac silhouette size remains enlarged. Bonifacio Gibson MD (Wendy Monten[place]) Assessment and Plan Problem List: (1) Hyponatremia Plan: mild hyponatremia, asymptomatic may have underlying SIADH check urine sodium, urine osmolality, uric acid, TSH, cortisol level he also has a hx of cardiomyopathy, may have hypervolemic component demonstrating excess fluid, begin bumex 1 mg po and monitor effect renal function has improved to baseline good urine output labs in am no IVF required (2) Subdural hematoma Plan: s/p mally hole monitor clinically neurosurgery following (3) DM type 2 (diabetes mellitus, type 2) Plan: insulin as needed monitor blood sugar (4) HTN (hypertension) Plan: on coreg BID per home medication list bumex started clonidine added BID (Wendy [place]en[place]) Problem List: (1) Subdural hematoma (2) Hyponatremia Plan: clinically appears to be hypervolemic hyponatremia, could be due to CHF. Start Bumex 1 mg PO daily, at home, he was taking 2 mg PO daily. May need fluid restriction. Workup of hyponatremia was ordered. (3) DM type 2 (diabetes mellitus, type 2) (4) HTN (hypertension) (5) Chronic kidney disease, stage III (moderate) Plan: May have nephrosclerosis or diabetic nephropathy. Appears to be stable. Obtain UA. Assessment and Plan patient was seen and examined. Start Bumex, monitor renal function. (Eagle Khan MD) Wendy Montenegro Jan 20, 2017 12:15 Eagle Khan MD Jan 20, 2017 21:08
[2017-01-20 12:30] LABS: URIC ACID 7.2 MG/DL (2.6-7.2)
[2017-01-20 12:42] LABS: TOTAL BILIRUBIN ADULT 0.8 MG/DL (0.2-1.0)
[2017-01-20 12:48] LABS: INDIRECT BILIRUBIN 0.6 MG/DL (0.0-0.8)
[2017-01-20] MEDS: BUMETANIDE 1 MG TAB PO SCH (13:10)
[2017-01-20] MEDS: cloNIDine HCL 0.1 MG TAB PO SCH ×2 (13:10→21:00)
--- NOTE | 2017-01-20 20:46 | MB ---
cc: IKE GONG GLENN H. MD DATE OF CONSULTATION 01/20/[address] Benji Chirinos PRIMARY DREDGE PIPEMAN Dr. Lalit Sim REASON FOR CONSULTATION Possible congestive heart failure, atrial fibrillation. HISTORY OF PRESENT ILLNESS Michelet Wu is a pleasant 71-year-old male who presents to [facility] on January 13, 2017 due to neurological deterioration. He was originally walking his dog on December 31, 2016 when he fell and suffered a right subdural hematoma. He was discharged on January 03, 2017 with a repeat for a CT scan. noticed neurologically he was deteriorating in his alertness and so he was brought to the emergency room. He was seen by neurosurgery at that time and underwent a right mally hole for evacuation of the bleed. Post procedure he was on a Bumex drip but then his creatinine started to increase. He also had an episode of atrial fibrillation with rapid ventricular response. In speaking to him and his he does not know when he is in atrial fibrillation. He denies chest pain or shortness of breath. He has noticed some swelling in his lower extremities but this that is somewhat chronic in nature. PAST MEDICAL HISTORY 1. Atrial fibrillation. 2. Coronary artery disease. 3. Cardiomyopathy. 4. Diabetes mellitus. 5. History of colon cancer. 6. Subdural hematoma. 7. Osteoarthritis. PAST SURGICAL HISTORY 1. Right mally hole for subdural hematoma (January 13, 2017). 2. Implantation of a Medtronic biventricular ICD (2008). 3. Colectomy for colon cancer (2009). 4. Cardiac catheterization (March 02, 2013) normal left main, 60% proximal LAD stented with a Resolute drug-eluting stent (3 mm), 85% proximal obtuse marginal which is a small vessel, 30% proximal and 30% mid RCA, 40% distal RCA. ALLERGIES NO KNOWN DRUG ALLERGIES. MEDICATIONS 1. Amiodarone 200 milligrams daily. 2. Give 300 milligrams t.i.d. 3. Keppra 500 milligrams every 12 hours. 4. Allopurinol 100 milligrams daily. 5. Coreg 25 milligrams b.i.d. 6. Zocor 20 milligrams every night. 7. Insulin sliding scale. 8. Lantus 5 units every night. 9. Bumex 1 milligram p.o. b.i.d. 10. Glipizide 10 milligrams b.i.d. FAMILY HISTORY Denies premature coronary artery disease or sudden cardiac within the family. SOCIAL HISTORY Denies tobacco, alcohol or drug abuse. REVIEW OF SYSTEMS 14-systems were reviewed in the history and physical and above, pertinent positives and negatives above, otherwise negative. PHYSICAL EXAMINATION VITAL SIGNS: Temperature 96.5, heart rate 75, blood pressure 128/61, respirations 18, pulse ox 100% on room air. GENERAL: In general the patient appears well in no acute distress. Alert, awake and oriented x3. HEENT: Incision on the right side of his head due to recent mally hole. Extraocular muscles intact. Mucous membranes moist. NECK: Neck is supple. No JVD at 45 degrees. No carotid bruits heard bilaterally. Carotid upstroke is brisk in nature. HEART: Heart is regular rate and rhythm. Positive first and second heart sounds with a 1/6 holosystolic murmur noted at the apex. LUNGS: Lungs are clear to auscultation bilaterally. No wheezes, rales or rhonchi. ABDOMEN: Soft, nontender, nondistended. No organomegaly noted. EXTREMITIES: Extremities have 1+ pitting edema with chronic changes secondary to venous stasis. NEUROLOGICALLY: No focal deficits. SKIN: Warm, dry and intact. OSTEOPATHIC: Mild lordosis. No kyphoscoliosis or paraspinal tender points. LABORATORY FINDINGS Hemoglobin 11.0, hematocrit 32.3, platelets 98. Potassium 5.3, BUN 26, creatinine 1.37. IMPRESSION 1. Head injury with subdural hematoma status post mally hole (January 13, 2017) for evacuation of hematoma. 2. Paroxysmal atrial fibrillation currently in sinus rhythm. 3. Chronic nonischemic heart failure status post biventricular Medtronic AICD (2009). 4. Diabetes mellitus type 2. 5. Lower extremity edema with some component of chronic venous stasis. 6. Chronic kidney disease. 7. Hypertension. 8. Depression. 9. Bilateral carotid stenosis. RECOMMENDATIONS 1. I spoke to Mr. Wu and his about his atrial fibrillation and trying to control. He has previously been on amiodarone and digoxin and disliked both of them as he felt that they slowed him down too much and he was unable to do anything. We will attempt to just control him on his Coreg 25 milligrams b.i.d. 2. If he is unable to be controlled on Coreg we may need too add back either amiodarone or digoxin. There is a possibility that Coreg could be switched to metoprolol succinate for better control also. 3. History of congestive heart failure, he clinically does not appear to be in it at this time. He does have some lower extremity edema and I would attribute some of this to chronic venous stasis. We will place him back on Bumex 1 milligram p.o. daily and watch his intake and output as well as his lower extremity edema. 4. Further recommendations will be made based on hospital course. Thank you for allowing me to see Michelet Wu. If there are any questions please do not hesitate to call. Ike Gong DO VGP/EO /4:32 PM /7:27 PM
[2017-01-20] MEDS: GABAPENTIN 400 MG CAP PO SCH (22:18)
[2017-01-20] MEDS: PRAVASTATIN SOD 40 MG TAB PO SCH (22:19)
[2017-01-21] VITALS (9 sets, daily range): BP systolic 103–136; BP diastolic 55–66; PULSE 69–78; RESP 17–19; TEMP 97.1–98.4; O2SAT 90–99
[2017-01-21] MEDS: INSULIN ASPART SUPPLEMENTAL SCALE SQ SCH ×4 (07:29→22:38)
[2017-01-21] MEDS: CARVEDILOL 12.5 MG TAB PO SCH ×2 (08:16→22:37)
[2017-01-21] MEDS: cloNIDine HCL 0.1 MG TAB PO SCH ×2 (08:17→21:00)
[2017-01-21] MEDS: PANTOPRAZOLE SOD 40 MG DELAYED RELEASE TAB PO SCH (08:17)
[2017-01-21] MEDS: levETIRAcetam 500 MG TAB PO SCH ×2 (08:17→22:32)
[2017-01-21] MEDS: SODIUM CHLORIDE 0.9% FLUSH 5 ML FLUSH IVF SCH ×2 (08:17→22:38)
[2017-01-21] MEDS: MULTIVITAMINS/MINERALS THERAPEUTIC TAB PO SCH (08:17)
[2017-01-21] MEDS: BUMETANIDE 1 MG TAB PO SCH (08:17)
[2017-01-21] MEDS: TAMSULOSIN HCL 0.4 MG CAP PO SCH (08:21)
--- NOTE | 2017-01-21 10:01 | HHI.PR ---
Subjective Remarks had a good breakfast, no headaches, nausea or vomting feeling better each day and getting more motivated Objective Vitals Vital Signs Date Time Temp Pulse Resp B/P Pulse Ox O2 Delivery O2 Flow Rate FiO2 01/21/17 08:00 98.0 70 17 118/63 97 01/21/17 05:14 69 01/21/17 04:15 97.1 70 18 112/60 90 01/21/17 00:00 97.6 72 18 103/57 96 01/20/17 23:34 19 01/20/17 20:29 96.7 74 18 118/58 98 01/20/17 20:14 74 01/20/17 16:04 96.5 72 18 128/61 100 01/20/17 12:14 97.7 75 18 118/59 95 I/O 01/20/17 01/20/17 01/20/17 01/21/17 01/21/17 01/21/17 07:00 15:00 23:00 07:00 15:00 23:00 Intake Total 780 ml 480 ml Output Total 1600 ml 350 ml 850 ml Balance -1600 ml 780 ml 130 ml -850 ml Intake Oral 780 ml 480 ml Output Urine Total 1600 ml 350 ml 850 ml # Voids 3 # Bowel Movements 1 2 Result Diagram: 01/19/17 0635 01/20/17 0620 Objective Remarks head - sutures in place, awake oriented x 3, speech clear, pupils equally reactive to light, EOM full ROM no facial asymmetry, tongue, midline, good gag reflex no bruit lungs clear regular rhythm abdomen soft, nontender extremities trace edema neuro exam- non focal Procedures 01/13/17 craniotomy with evacuation of subdural hematoma A/P Problem List: (1) Intracranial hemorrhage after injury without loss of consciousness ICD Code: S06.300A Status: Acute (2) Subdural hematoma ICD Code: I62.00 Status: Acute (3) Subdural hygroma ICD Code: D18.1 Status: Acute (4) CAD (coronary artery disease) ICD Code: I25.10 Status: Chronic (5) Dilated cardiomyopathy ICD Code: I42.0 Status: Chronic Assessment and Plan 71 years old male left handed 1. Head injury with subdural hematoma: Status post craniotomy with evacuation of hematoma. Neurologically improving gradually . Antihypertensives for blood pressure control. Keppra for seizure prophylaxis. 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 Chronic diastolic CHF: not in failure. Stable. On Bumex 3. Diabetes mellitus type 2: Monitor Accu-Cheks and cover with sliding scale insulin. as OP was on Lantus 5 units hs. monitor here 4. Chronic kidney disease: creatinine stable. non oliguric. nephrology ff BMP today- ff K 5. Hypertension: started on clonidine 0.1 mg po bid. on Coreg. Bumex 6. DVT prophylaxis: SCDs. Avoid chemical prophylaxis until okay by neurosurgery secondary to subdural hematoma. 7. Paroxysmal atrial flutter: in SR. Continue Coreg. 8. GI prophylaxis: Protonix. no Lovenox with ICH 9. Depression -psychiatry ff 10. Bilateral carotid stenosis- no plan for surgery at this time due to ICH. OP ff up with [facility] with a CTA then - [facility] willing to take him- awaiting insurance approval We are continuing to adjust his medications Definitely a great candidate for [facility]- needs comprehensive rehab- PT/OT daily Presley Sommer MD Jan 21, 2017 10:01
[2017-01-21 11:21] LABS: BICARBONATE 30.2 MEQ/L (21.0-32.0)
--- NOTE | 2017-01-21 12:24 | HHI.NPPN ---
Subjective Renal Failure: Acute Interval History Sodium has improved. Edema also improved. Fluctuant renal function. He is requesting discharge. (Wendy Montenegro) Objective Data Data 01/20/17 01/21/17 19:00 07:00 Intake Total 780 ml 480 ml Output Total 1200 ml Balance 780 ml -720 ml Intake Oral 780 ml 480 ml Output Urine Total 1200 ml # Voids 3 # Bowel Movements 2 Vital Signs Date Time Temp Pulse Resp B/P Pulse Ox O2 Delivery O2 Flow Rate FiO2 01/21/17 08:00 98.0 70 17 118/63 97 01/21/17 05:14 69 01/21/17 04:15 97.1 70 18 112/60 90 01/21/17 00:00 97.6 72 18 103/57 96 01/20/17 23:34 19 01/20/17 20:29 96.7 74 18 118/58 98 01/20/17 20:14 74 01/20/17 16:04 96.5 72 18 128/61 100 (Wendy Monten[place]ro) -: 01/19/17 0635 01/21/17 1041 Physical Exam General Appearance: Well Developed, Well Nourished, Comfortable (Wendy Montenegro) Throat Throat Exam: Oral Mucosa [place] & Moist (Wendy Montenegro) Pulmonary Resp Exam: Clear Bilaterally, Breath Sounds Equal (Wendy Montenegro) Cardiology CV Exam: Normal Sinus Rhythm, Good Perfusion (Wendy Montenegro) Gastrointestinal/Abdomen GI Exam: Non-Tender, Bowel Sounds Present (Wendy Montenegro) Musculoskeletal MS Exam: Joints Intact, Normal Tone, Good Strength (Wendy Montenegro) Integumentary Skin Exam: Warm, Dry (Wendy Montenegro) Extremeties Extremities Exam: Pedal Pulses Palpable, Trace Edema (Wendy Montenegro) Neurologic Neuro Exam: Alert, Awake, Oriented, Speech Clear, Moving All Extremities ( Wendy Montenegro) Assessment/Plan Problem List: (1) Hyponatremia Plan: clinically appears to be hypervolemic hyponatremia, could be due to CHF. on Bumex 1 mg PO daily, off IVF correcting as of today labs not indicating SIADH (2) Chronic kidney disease, stage III (moderate) Plan: May have nephrosclerosis or diabetic nephropathy. renal function slightly worse but has been fluctuant awaiting UA for analysis of protein, infection Obtain UA. off IVF no electrolyte concerns (3) DM type 2 (diabetes mellitus, type 2) Plan: continue insulin therapy (4) HTN (hypertension) Plan: BP stable (5) Subdural hematoma Plan: may need rehab (Wendy Montenegro) Plan patient was seen and examined. Hyponatremia and renal function have improved. He can be discharged from renal standpoint. (Eagle Khan MD) Wendy Montenegro Jan 21, 2017 12:24 Eagle Khan MD Jan 21, 2017 21:05
--- NOTE | 2017-01-21 13:02 | PD.CARD.PN ---
Subjective Subjective Remarks No chest pain, no shortness of breath No events on telemetry concern with getting Clonidine as it makes him a "zombie" Objective Medications Current Medications Medications (Trade) Dose Ordered Sig/Suzanna Route Start Time Stop Time Status Last Admin (NS Flush) 2 ml UNSCH PRN IVF 01/13/17 08:00 (Apresoline Inj) 10 mg Q1HR PRN IV PUSH 01/13/17 09:45 01/13/17 13:27 (Coreg) 25 mg BID PO 01/13/17 21:00 01/21/17 08:16 (Keppra) 500 mg Q12HR PO 01/13/17 12:00 01/21/17 08:17 (Pravachol) 40 mg HS PO 01/13/17 21:00 01/20/17 22:19 (NS Flush) 2 ml UNSCH PRN IVF 01/13/17 10:15 (NS Flush) 2 ml BID IVF 01/13/17 21:00 01/21/17 08:17 (Vasotec Inj) 1.25 mg Q6H PRN IV 01/13/17 10:15 01/13/17 16:21 (Tylenol) 650 mg Q4H PRN PO 01/13/17 10:15 01/20/17 22:19 ([place] 5-325 Mg) 1 tab Q4H PRN PO 01/13/17 10:15 01/16/17 21:58 (Morphine Inj) 5 mg Q4H PRN IV PUSH 01/13/17 10:15 (Zofran Inj) 4 mg Q6H PRN IV 01/13/17 10:15 (Colace Liq) 100 mg BID PRN NG 01/13/17 10:15 01/16/17 14:05 (Milk Of Magnesia Liq) 30 ml DAILY PRN PO 01/13/17 10:15 01/20/17 06:55 (Flomax) 0.4 mg DAILY PO 01/13/17 21:00 01/21/17 08:21 (D50w (Vial) Inj) 25 ml UNSCH PRN IV PUSH 01/14/17 12:00 (Glucagon Inj) 1 mg UNSCH PRN OTHER 01/14/17 12:00 (Protonix) 40 mg DAILY PO 01/17/17 09:00 01/21/17 08:17 (Theragran M Tab) 1 tab DAILY PO 01/16/17 15:30 01/21/17 08:17 (Neurontin) 400 mg HS PO 01/20/17 21:00 01/20/17 22:18 (Bumetanide) 1 mg DAILY PO 01/20/17 12:00 01/21/17 08:17 (Catapres) 0.1 mg Q12HR PO 01/20/17 12:30 01/21/17 08:17 Vital Signs / I&O Vital Signs Date Time Temp Pulse Resp B/P Pulse Ox O2 Delivery O2 Flow Rate FiO2 01/21/17 12:00 98.4 70 17 118/61 95 01/21/17 08:00 98.0 70 17 118/63 97 01/21/17 05:14 69 01/21/17 04:15 97.1 70 18 112/60 90 01/21/17 00:00 97.6 72 18 103/57 96 01/20/17 23:34 19 01/20/17 20:29 96.7 74 18 118/58 98 01/20/17 20:14 74 01/20/17 16:04 96.5 72 18 128/61 100 I/O 01/20/17 01/20/17 01/20/17 01/21/17 01/21/17 01/21/17 07:00 15:00 23:00 07:00 15:00 23:00 Intake Total 780 ml 480 ml Output Total 1600 ml 350 ml 850 ml Balance -1600 ml 780 ml 130 ml -850 ml Intake Oral 780 ml 480 ml Output Urine Total 1600 ml 350 ml 850 ml # Voids 3 # Bowel Movements 1 2 Physical Exam GENERAL: NAD, AAOx3 SKIN: Warm and dry. HEAD: Atraumatic. Normocephalic. Right sided mally hole EYES: Pupils equal and round. No scleral icterus. No injection or drainage. ENT: No nasal bleeding or discharge. Mucous membranes pink and moist. NECK: Trachea midline. No JVD. CARDIOVASCULAR: Regular rate and rhythm. RESPIRATORY: No accessory muscle use. Clear to auscultation. Breath sounds equal bilaterally. GASTROINTESTINAL: Abdomen soft, non-tender, nondistended. Hepatic and splenic margins not palpable. MUSCULOSKELETAL: Trace to 1+ edema NEUROLOGICAL: Awake and alert. No obvious cranial nerve deficits. Motor grossly within normal limits. Five out of 5 muscle strength in the arms and legs. Normal speech. PSYCHIATRIC: Appropriate mood and affect; insight and judgment normal. Laboratory Laboratory Tests Test 01/20/17 01/21/17 01/21/17 13:05 08:20 10:41 Urine Osmolality 534 MOSM/KG Urine Random Sodium 21 MEQ/L Random Cortisol 25.7 MCG/DL Sodium Level 135 MEQ/L Potassium Level 5.0 MEQ/L Chloride Level 97 MEQ/L Carbon Dioxide Level 30.2 MEQ/L Anion Gap 8 MEQ/L Blood Urea Nitrogen 34 MG/DL Creatinine 1.56 MG/DL Estimat Glomerular Filtration 44 ML/MIN Rate Random Glucose 218 MG/DL Calcium Level 9.2 MG/DL Assessment and Plan Problem List: (1) SDH (subdural hematoma) (2) HTN (hypertension) (3) CAD (coronary artery disease) (4) Dilated cardiomyopathy (5) Paroxysmal atrial flutter (6) History of mally hole surgery Assessment and Plan 1) Afib currently controlled, patient and want to avoid Amiodarone and Digoxin, will continue on Coreg BID 2) Continue Bumex daily, will watch BUN/Cr 3) Patient and concerned about Clonidine as it makes him a "zombie", started by nephrology, consider changing to Hydralazine? Ike Nicole DO Jan 21, 2017 13:02
[2017-01-21 16:03] LABS: BACTERIA, URINE FEW /hpf; BLOOD, URINE SMALL (NEG); COMMENT (UR) CULTURE INDICATED; CULTURE IF INDICATED CULTURE INDICATED; GLUCOSE,URINE NEG (NEG); HYALINE CAST, URINE 2 /lpf (RARE); KETONE, URINE NEG (NEG); NITRITE,URINE NEG (NEG); SQUAMOUS EPITHELIAL CELL URINE <1 /hpf (0-5); URINE COLOR YELLOW (YELLW/STRAW)
[2017-01-21] MEDS: ACETAMINOPHEN 325 MG TAB PO PRN (17:11)
[2017-01-21] MEDS: ACETAMINOPHEN/HYDROcodone 325 MG/5 MG TAB PO PRN (22:32)
[2017-01-21] MEDS: PRAVASTATIN SOD 40 MG TAB PO SCH (22:32)
[2017-01-21] MEDS: GABAPENTIN 400 MG CAP PO SCH (22:33)
[2017-01-22 00:30] VITALS: BP 118/61; PULSE 72; RESP 18; TEMP 96.6; O2SAT 94
[2017-01-22 00:42] VITALS: PULSE 74
[2017-01-22 04:29] VITALS: BP 140/70; PULSE 70; RESP 18; TEMP 96.9; O2SAT 95
[2017-01-22] MEDS: INSULIN ASPART SUPPLEMENTAL SCALE SQ SCH ×2 (06:17→13:38)
[2017-01-22 08:00] VITALS: BP 136/69; PULSE 70; RESP 19; TEMP 97.5; O2SAT 98
[2017-01-22 09:00] VITALS: PULSE 69
--- NOTE | 2017-01-22 10:00 | HHI.FF ---
Face to Face Verification Diagnosis: (1) Paroxysmal atrial flutter (2) Intracranial hemorrhage after injury without loss of consciousness (3) Dilated cardiomyopathy (4) Chronic kidney disease, stage III (moderate) (5) DM type 2 (diabetes mellitus, type 2) Physical Therapy Order: Evaluate and Treat, Improve ambulation, Strength and gait training Occupational Therapy Order: Evaluate and Treat, Improve ADL, Gross motor coordination, Fine motor coordination Speech Therapy Order: To Improve: Cognitive skills Home Health Nursing Order: Medical education Signs/symptoms of disease process Medication education-adverse effect Nursing assessment with vital signs Home Health Aide Order: To Assist In: Bathing and personal care, stores clerk and meal prep Art Specialist Order: To Evaluate: Living conditions/environment, Support services I have seen patient Michelet Wu on 01/22/17. My clinical findings support the need for the requested home health care services because: Ltd mobility - disease progression Limited ability to care for self Need for psychosocial assistance High risk of falls I certify that my clinical findings support that this patient is homebound because: Post-op weakness Unsafe to leave home unassisted Need for psychosocial assistance Poor cardiac reserve Presley Sommer MD Jan 22, 2017 10:00
[2017-01-22] MEDS: MULTIVITAMINS/MINERALS THERAPEUTIC TAB PO SCH (10:08)
[2017-01-22] MEDS: BUMETANIDE 1 MG TAB PO SCH (10:08)
[2017-01-22] MEDS: CARVEDILOL 12.5 MG TAB PO SCH (10:09)
[2017-01-22] MEDS: TAMSULOSIN HCL 0.4 MG CAP PO SCH (10:09)
[2017-01-22] MEDS: SODIUM CHLORIDE 0.9% FLUSH 5 ML FLUSH IVF SCH (10:09)
[2017-01-22] MEDS: cloNIDine HCL 0.1 MG TAB PO SCH (10:09)
[2017-01-22] MEDS: PANTOPRAZOLE SOD 40 MG DELAYED RELEASE TAB PO SCH (10:09)
[2017-01-22] MEDS: levETIRAcetam 500 MG TAB PO SCH (10:09)
[2017-01-22] MEDS: ACETAMINOPHEN 325 MG TAB PO PRN (10:10)
--- NOTE | 2017-01-22 12:25 | HHI.NSPN ---
History Chief Complaint: much improved, denies pain Interval History Admitted for mally hole for right SDH 3 POD 2 alert and tired. He did well with PT yesterday but his left arm apraxia and headaches worsened after PT. They improved after rest. He has difficulty sleeping. His pain is mainly incisional and frontal, he is still GCS 15. 3 POD 3, has poor appetite. Some redness developed on the head with serous drainage. 01/17/17 Day 4 after SDH, fell after being given the ambien yesterday, is still very lethargic this afternoon. His intake is poor, CR is increased and sodium has dropped to 133. 01/18/17 Day 5 after mally hole, alertness has improved but his mobility and appetite are still poor. He is awaiting rehab. 01/19/17 Day 6 after right SDH drainage, neurologically stable. He is still very depressed and lethargic. Na remains low 132 01/20/17 Day 7, more alert this am. He is ready to start a rehab program He is eating better and sleeping better. 01/22/17 He is doing well. outpatient cardiac rehab is planned after he heals. His appetite has improved. Review of Systems General: Negative for: fever, chills, insomnia Respiratory: Negative for: shortness of breath, cough, sputum Cardiovascular: Negative for: chest pain, palpitations, orthopnea Exam Results Vital Signs Date Time Temp Pulse Resp B/P Pulse Ox O2 Delivery O2 Flow Rate FiO2 01/22/17 08:00 97.5 70 19 136/69 98 Intake and Output 01/21/17 01/21/17 01/22/17 08:00 16:00 00:00 Intake Total 450 ml Output Total 850 ml Balance -850 ml 450 ml Physical Examination Oriented x 3 and to events, cooperative Pupils 2mm, EOMI, face symmetric, speech is clear Wound dry healing better, suture were removed today No focal motor weakness or apraxia juancarlos, no pronator drift Mod left peripheral edema, RRR, abd obese,no wheezing, off oxygen Lab, Micro, Other Results Laboratory Tests Test 3/14/17 15:42 Urine Color YELLOW Urine Turbidity CLEAR Urine pH 6.0 Urine Specific [place] 1.009 Urine Protein NEG mg/dL Urine Glucose (UA) NEG mg/dL Urine Ketones NEG mg/dL Urine Occult Blood SMALL Urine Nitrite NEG Urine Bilirubin NEG Urine Urobilinogen LESS THAN 2.0 MG/DL Urine Leukocyte Esterase LARGE Urine RBC 5 /hpf Urine WBC 42 /hpf Urine Squamous Epithelial <1 /hpf Cells Urine Bacteria FEW /hpf Urine Hyaline Casts 2 /lpf Microscopic Urinalysis Comment CULTURE INDICATED Medical Decision Making Impression and Plan POD 10 after mally hole for SDH, worsened after a fall 2 days ago . Platelet dysfunction stable with no active bleeding at this time. He is doing better with eating and walking, has no dizziness and no headaches. Follow up CT of the brain is planned in early February. Total Minutes: 10 Isaías Dennis Jan 22, 2017 12:25
[2017-01-22 12:34] VITALS: BP 129/65; PULSE 74; RESP 17; TEMP 97.4; O2SAT 95
--- NOTE | 2017-01-22 13:15 | HHI.PR ---
Subjective Remarks patient doing great po 100%, affect very interactive, smiling and very motivated Objective Vitals Vital Signs Date Time Temp Pulse Resp B/P Pulse Ox O2 Delivery O2 Flow Rate FiO2 01/22/17 12:34 97.4 74 17 129/65 95 01/22/17 08:00 97.5 70 19 136/69 98 01/22/17 04:29 96.9 70 18 140/70 95 01/22/17 00:42 74 01/22/17 00:30 96.6 72 18 118/61 94 01/21/17 23:45 19 01/21/17 22:39 97.8 78 19 133/66 97 01/21/17 21:23 97.8 69 18 136/62 95 01/21/17 15:58 98.0 78 19 108/55 99 I/O 01/21/17 01/21/17 01/21/17 01/22/17 01/22/17 01/22/17 07:00 15:00 23:00 07:00 15:00 23:00 Intake Total 450 ml Output Total 850 ml 375 ml Balance -850 ml 450 ml -375 ml Intake Oral 450 ml Output Urine Total 850 ml 375 ml # Voids 3 # Bowel Movements 1 Result Diagram: 01/19/17 0635 01/21/17 1041 Imaging Last Impressions Head CT 01/17/17 0000 Signed Impressions: Service Date/Time: Tuesday, January 17, 2017 22:37 - CONCLUSION: Interval removal of subdural drain. Extra-axial fluid/blood in the right subdural space is stable in size when compared to 01/14/17. Chronic sinus disease. No new findings. Rodo Gaxiola MD Chest X-Ray 01/13/17 0754 Signed Impressions: Service Date/Time: Friday, January 13, 2017 07:56 - CONCLUSION: No acute cardiopulmonary abnormality is identified. Cardiac silhouette size remains enlarged. Bonifacio Gibson MD Objective Remarks head - dried blood, no active bleeding awake oriented x 3, speech clear, pupils equally reactive to light, EOM full ROM no facial asymmetry, tongue, midline, good gag reflex no bruit lungs clear regular rhythm abdomen soft, nontender extremities no edema neuro exam- non focal Procedures 01/13/17 craniotomy with evacuation of subdural hematoma A/P Problem List: (1) Intracranial hemorrhage after injury without loss of consciousness ICD Code: S06.300A Status: Acute (2) Subdural hematoma ICD Code: I62.00 Status: Acute (3) Subdural hygroma ICD Code: D18.1 Status: Acute (4) CAD (coronary artery disease) ICD Code: I25.10 Status: Chronic (5) Dilated cardiomyopathy ICD Code: I42.0 Status: Chronic Assessment and Plan 71 years old male left handed 1. Head injury with subdural hematoma: Status post craniotomy with evacuation of hematoma. Neurologically improving gradually . Antihypertensives for blood pressure control. Keppra for seizure prophylaxis. repeat Head CT - unchanged Neurosurgery ff. sutures removed today cleared for DC. repeat head CT in February 09. Chronic diastolic CHF: not in failure. Stable. On Bumex 3. Diabetes mellitus type 2: Monitor Accu-Cheks and cover with sliding scale insulin. as OP was on Lantus 5 units hs. monitor here 4. Chronic kidney disease: creatinine stable. non oliguric. nephrology ff BMP today-stable 5. Hypertension: not taking clonidine 0.1 mg po bid- states- makes him a zombit. . on Coreg. Bumex- fairly good readings 6. DVT prophylaxis: SCDs. Avoid chemical prophylaxis until okay by neurosurgery secondary to subdural hematoma. 7. Paroxysmal atrial flutter: in SR. Continue Coreg. 8. GI prophylaxis: Protonix. no Lovenox with ICH 9. Depression -psychiatry ff 10. Bilateral carotid stenosis- no plan for surgery at this time due to ICH. OP ff up with Vascular with a CTA then HOme with home PT- CM assisting and arranged d/w patient and - very motivated Presley Sommer MD Jan 22, 2017 13:15
[2017-01-22] MEDS ORDERED: NEUR400C PO (13:24)
[2017-01-22] MEDS ORDERED: TAMS5CAP PO (13:24)
[2017-01-22] MEDS ORDERED: BUME1TAB PO (13:24)
--- NOTE | 2017-01-22 13:28 | HHI.DS ---
Discharge Summary Admission Date Jan 13, 2017 at 09:26 Discharge Date: Jan 22, 2017 Admitting Diagnosis acute subdural bleed with subdural hygroma, midline shift (1) Intracranial hemorrhage after injury without loss of consciousness ICD Code: S06.300A Diagnosis: Principal (2) Subdural hematoma ICD Code: I62.00 (3) Subdural hygroma ICD Code: D18.1 Diagnosis: Principal (4) CAD (coronary artery disease) ICD Code: I25.10 Diagnosis: Secondary (5) Dilated cardiomyopathy ICD Code: I42.0 Diagnosis: Secondary Procedures 01/13/17 craniotomy with evacuation of subdural hematoma Brief History - From Admission 71 yr old fell walking his dog 12/31/16 and suffered a right SDH. He was discharged at his neurologic baseline on 01/03/17 and scheduled for repeat CT today but his noted deterioration in his alertness and he underwent a right mally hole for evacuation of the bleed today. CBC/BMP: 01/19/17 0635 01/21/17 1041 Significant Findings Laboratory Tests Test 01/20/17 01/21/17 01/21/17 06:20 10:41 15:42 Sodium Level 132 MEQ/L 135 MEQ/L (136-145) (136-145) Potassium Level 5.3 MEQ/L (3.5-5.1) Blood Urea Nitrogen 26 MG/DL (7-18) 34 MG/DL (7-18) Creatinine 1.37 MG/DL 1.56 MG/DL (0.60-1.30) (0.60-1.30) Estimat Glomerular Filtration 52 ML/MIN (>89) 44 ML/MIN (>89) Rate Random Glucose 150 MG/DL 218 MG/DL (74-106) (74-106) Aspartate Amino Transf 40 U/L (15-37) (AST/SGOT) Albumin 3.1 GM/DL (3.4-5.0) Chloride Level 97 MEQ/L (98-107) Urine Occult Blood SMALL (NEG) Urine Leukocyte Esterase LARGE (NEG) Urine RBC 5 /hpf (0-3) Urine WBC 42 /hpf (0-5) Urine Bacteria FEW /hpf (NONE) Imaging Last Impressions Head CT 01/17/17 0000 Signed Impressions: Service Date/Time: Tuesday, January 17, 2017 22:37 - CONCLUSION: Interval removal of subdural drain. Extra-axial fluid/blood in the right subdural space is stable in size when compared to 01/14/17. Chronic sinus disease. No new findings. Rodo Gaxiola MD Chest X-Ray 01/13/17 0754 Signed Impressions: Service Date/Time: Friday, January 13, 2017 07:56 - CONCLUSION: No acute cardiopulmonary abnormality is identified. Cardiac silhouette size remains enlarged. Bonifacio Gibson MD PE at Discharge head - dried blood, no active bleeding awake oriented x 3, speech clear, pupils equally reactive to light, EOM full ROM no facial asymmetry, tongue, midline, good gag reflex no bruit lungs clear regular rhythm abdomen soft, nontender extremities no edema neuro exam- non focal Pt update on day of discharge aqwake and alert, good po, no headaches very motivated and interactive Hospital Course 71 years old male left handed 1. Head injury with subdural hematoma: Status post craniotomy with evacuation of hematoma. Neurologically improving gradually . Antihypertensives for blood pressure control. Keppra for seizure prophylaxis. repeat Head CT - unchanged Neurosurgery ff. sutures removed today cleared for DC. repeat head CT in February 2. Chronic diastolic CHF: not in failure. Stable. On Bumex 3. Diabetes mellitus type 2: Monitor Accu-Cheks and cover with sliding scale insulin. as OP was on Lantus 5 units hs. monitor here 4. Chronic kidney disease: creatinine stable. non oliguric. nephrology ff BMP today-stable 5. Hypertension: not taking clonidine 0.1 mg po bid- states- makes him a zombit. . on Coreg. Bumex- fairly good readings 6. DVT prophylaxis: SCDs. Avoid chemical prophylaxis until okay by neurosurgery secondary to subdural hematoma. 7. Paroxysmal atrial flutter: in SR. Continue Coreg. 8. GI prophylaxis: Protonix. no Lovenox with ICH 9. Depression -psychiatry ff 10. Bilateral carotid stenosis- no plan for surgery at this time due to ICH. OP ff up with Vascular with a CTA then HOme with home PT- CM assisting and arranged d/w patient and - very motivated Pt Condition on Discharge: Stable Discharge Disposition: Disch w/ Home Health Serv Discharge Time: <= 30 minutes Discharge Instructions DIET: Follow Instructions for: Heart Healthy Diet, Diabetic Diet Speech Therapy-Diet Recommends: Regular Activities you can perform: Weight Bearing as Maria Elena Activities to Avoid: Prolonged Standing, Strenuous Activity Follow up Referrals: Cardiology - 2 Weeks with SHARAN Neurosurgery - 1 Month with Isaías Dennis PCP Follow-up - 01/28/17 with Danya New Orders: BASIC METABOLIC PROF - 01/27/17 New Medications: Bumetanide (Bumetanide) 1 Mg Tab 1 MG PO DAILY HTN Days 30 TAB Gabapentin (Neurontin) 400 Mg Cap 400 MG PO HS NEURO Days 30 CAP Tamsulosin (Flomax) 0.4 Mg Cap 0.4 MG PO DAILY URINARET Days 30 CAP Continued Medications: Carvedilol (Carvedilol) 25 Mg Tab 25 MG PO BID #60 Ref 0 TAB Insulin Aspart Inj (Novolog Inj) 1,000 Unit/10 Ml Vial 1-9 UNITS SQ ACHS Max dose at bedtime:( )units; sugars less than 70,(0)units; sugars 150-199,(1) unit; sugars 200-249,(3) units; sugars 250-299,(5) units; sugars 300-349,(7) units; sugars greater than 349,(9) units Blood Sugar Management #10 Ref 0 ML Insulin Glargine Inj (Lantus Inj) 1,000 Unit/10 Ml Vial 5 UNITS SQ HS Blood Sugar Management Days 30 Ref 0 VIAL Levetiracetam (Keppra) 500 Mg Tab 500 MG PO Q12HR seizure prevention #60 Ref 5 TAB Simvastatin (Simvastatin) 20 Mg Tab 20 MG PO HS Cholesterol Management #30 Ref 0 TAB Discontinued Medications: Allopurinol (Allopurinol) 100 Mg Tab 100 MG PO DAILY Gout #30 Ref 0 TAB Amiodarone (Amiodarone) 200 Mg Tab 200 MG PO DAILY Heart Rhythm #30 TAB Bumetanide (Bumetanide) 1 Mg Tab 1 MG PO BID Fluid #30 Ref 0 TAB Gabapentin (Neurontin) 300 Mg Cap 300 MG PO TID Neuropathic pain #90 CAP Glipizide (Glipizide) 10 Mg Tab 10 MG PO BIDAC Take 30 minutes before a meal Blood Sugar Management #60 Ref 0 TAB Presley Sommer MD Jan 22, 2017 13:28
--- NOTE | 2017-01-22 15:18 | HHI.NPPN ---
Subjective Renal Failure: Acute Interval History He is sleepy. Thinks it is related to clonidine. Wanting to be discharged. ( Wendy Montenegro) Objective Data Data 01/21/17 01/22/17 19:00 07:00 Intake Total 450 ml Output Total 375 ml Balance 450 ml -375 ml Intake Oral 450 ml Output Urine Total 375 ml # Voids 3 # Bowel Movements 1 Vital Signs Date Time Temp Pulse Resp B/P Pulse Ox O2 Delivery O2 Flow Rate FiO2 01/22/17 12:34 97.4 74 17 129/65 95 01/22/17 08:00 97.5 70 19 136/69 98 01/22/17 04:29 96.9 70 18 140/70 95 01/22/17 00:42 74 01/22/17 00:30 96.6 72 18 118/61 94 01/21/17 23:45 19 01/21/17 22:39 97.8 78 19 133/66 97 01/21/17 21:23 97.8 69 18 136/62 95 01/21/17 15:58 98.0 78 19 108/55 99 (Wendy Montenegro) -: 01/19/17 0635 01/21/17 1041 Microbiology 01/21/17 Urine Culture - Preliminary, Resulted Gram Negative Wing (Wendy Montenegro) Physical Exam General Appearance: Well Developed, Well Nourished, Comfortable (Wendy Montenegro) Throat Throat Exam: Oral Mucosa [place] & Moist (Wendy Montenegro) Pulmonary Resp Exam: Clear Bilaterally, Breath Sounds Equal (Wendy Montenegro) Cardiology CV Exam: Normal Sinus Rhythm, Good Perfusion (Wendy Montenegro) Gastrointestinal/Abdomen GI Exam: Non-Tender, Bowel Sounds Present (Wendy Montenegro) Musculoskeletal MS Exam: Joints Intact, Normal Tone, Good Strength (Wendy Montenegro) Integumentary Skin Exam: Warm, Dry (Wendy Montenegro) Extremeties Extremities Exam: Pedal Pulses Palpable, Trace Edema (Wendy Montenegro) Neurologic Neuro Exam: Alert, Awake, Oriented, Speech Clear, Moving All Extremities ( Wendy Montenegro) Assessment/Plan Problem List: (1) Hyponatremia Plan: clinically appears to be hypervolemic hyponatremia, could be due to CHF. Na corrected, continue Bumex 1 mg PO daily (2) Chronic kidney disease, stage III (moderate) Plan: May have nephrosclerosis or diabetic nephropathy. UA without protein, some blood no renal labs today no electrolyte concerns as of yesterday BP stable he is stable for discharge, advised to avoid NSAIDs when home have adequate water intake within 1500 ml fluid restriction (3) DM type 2 (diabetes mellitus, type 2) Plan: continue insulin therapy (4) HTN (hypertension) Plan: BP stable clonidine to be stopped also has A fib, digoxin and amiodarone were stopped, he is on metoprolol (5) Subdural hematoma Plan: may need rehab (Wendy Montenegro) Plan patient was seen and examined. Renal function and hyponatremia had been stable. He is cleared for discharge from renal standpoint. (Eagle Khan MD) Wendy Montenegro Jan 22, 2017 15:18 Eagle Khan MD Jan 22, 2017 20:25
[2017-03-03] MEDS ORDERED: BACL10TA (14:49)
== END 2017-01-22 14:51 | disposition home health service (06) | DRG 940 ==
LOC: NEPE 07:41 → NEDA 09:26 → N03A 14:42 → N05A 01-14 16:33
PROVIDERS: ADMIT Internal Medicine; ATTEND Internal Medicine
PROC: 00C43ZZ Extirpation of Matter from Intracranial Subdural Space, Percutaneous Approach (ICD-10-PCS; principal; 2017-01-13 11:11)
DX: S06.5X0D Traumatic subdural hemorrhage without loss of consciousness, subsequent encounter (principal); I42.0 Dilated cardiomyopathy; D69.59 Other secondary thrombocytopenia; I50.32 Chronic diastolic (congestive) heart failure; E11.22 Type 2 diabetes mellitus with diabetic chronic kidney disease; N18.3 Chronic kidney disease, stage 3 (moderate); E87.1 Hypo-osmolality and hyponatremia; I48.92 Unspecified atrial flutter; E78.5 Hyperlipidemia, unspecified; I12.9 Hypertensive chronic kidney disease with stage 1 through stage 4 chronic kidney disease, or unspecified chronic kidney disease; I87.8 Other specified disorders of veins; I48.0 Paroxysmal atrial fibrillation; D73.1 Hypersplenism; I25.10 Atherosclerotic heart disease of native coronary artery without angina pectoris; M19.90 Unspecified osteoarthritis, unspecified site; F43.21 Adjustment disorder with depressed mood; G47.9 Sleep disorder, unspecified; Z79.4 Long term (current) use of insulin; Z85.038 Personal history of other malignant neoplasm of large intestine; Z87.442 Personal history of urinary calculi; Z95.810 Presence of automatic (implantable) cardiac defibrillator; Z95.5 Presence of coronary angioplasty implant and graft; Z91.81 History of falling; W19.XXXA Unspecified fall, initial encounter; W19.XXXD Unspecified fall, subsequent encounter
CPT/HCPCS: 70450; 71010; 80048; 80076; 81001; 82533; 82550; 82805; 82948; 83930; 83935; 84300; 84443; 84484; 84550; 85025; 85384; 85610; 87077; 87086; 87186; 87641; 88300; 88304; 94150; C9113; J0360; J0690; J1815; J1953; J2405; J2710; J3010; J7030

== ENCOUNTER 2017-04-08 09:34 | Emergency (ER) | payer MEDICARE, OTHER ==
[~2017-04-08] VITALS: Ht 188 cm; Wt 115.0 kg
[~2017-04-08 09:34] MED LIST changes: -AMIO200T PO; +BACL10TA; -NEUR300C PO; +NEUR400C PO; +TAMS5CAP PO
[2017-04-08 09:37] VITALS: BP 135/62; PULSE 77; RESP 18; TEMP 98.4; O2SAT 90
[2017-04-08] MEDS ORDERED: ASPI81TA11 PO (09:58)
[2017-04-08] MEDS ORDERED: GLIP10TA6 PO (09:58)
[2017-04-08] MEDS ORDERED: SODIUM CHLORIDE 0.9% FLUSH 10 ML FLUSH IVF PRN (10:00)
--- NOTE | 2017-04-08 10:05 | PD ---
HPI Chief Complaint: Dizziness Time Seen by Provider: 09:47 Travel History International Travel<30 days: No Contact w/Intl Traveler<30days: No Traveled to known affect area: No History of Present Illness HPI 72 y/o male presents after getting dizzy and having a fall while he was walking his dog 2 days ago. He states he doesn't remember the fall. He states he thinks he blacked out. He called his inclinometer tester today who advised him to come here to get checked out. He denies specific complaints at this time. He states he takes a baby aspirin. He states last fall he had to have surgery on his brain for a bleed. He states Dr. Sim is his inclinometer tester. Fall was from standing. Quality is likely syncope. PFSH Past Medical History Arthritis: No Atrial Fibrillation: Yes Autoimmune Disease: No Heart Rhythm Problems: Yes Cardiovascular Problems: Yes (PACEMAKER ) High Cholesterol: No Chemotherapy: No Chest Pain: No Congestive Heart Failure: Yes Cerebrovascular Accident: Yes Diabetes: Yes Patient Takes Glucophage: No Endocrine: Yes Gastrointestinal Disorders: Yes (COLON CA) GERD: No Genitourinary: Yes Headaches: Yes (sinus headaches not chronic) Hiatal Hernia: No Hypertension: No Immune Disorder: No Implanted Vascular Access Dvce: Yes Kidney Stones: Yes Musculoskeletal: Yes Neurologic: Yes Psychiatric: No Reproductive: No Migraines: No Radiation Therapy: No Renal Failure: No Seizures: No Thyroid Disease: No Ulcer: No Tetanus Vaccination: > 5 Years Influenza Vaccination: Yes Past Surgical History Abdominal Surgery: Yes (colon surgery) AICD: Yes (MED[employer] CONCERTO II DEFIBRILLATOR) Appendectomy: Yes Arteriovenous Shunt: No Cardiac Surgery: Yes (pacemaker implantation and stent) Ear Surgery: No Endocrine Surgery: No Eye Surgery: Yes (cataracts) Genitourinary Surgery: No Gynecologic Surgery: No Insulin Pump: No Joint Replacement: No Oral Surgery: No Pacemaker: Yes Thoracic Surgery: No Other Surgery: Yes (COLON CA, PACEMAKER ) Social History Alcohol Use: Yes (OCCASIONAL) Tobacco Use: No Substance Use: No Allergies-Medications (Allergen,Severity, Reaction): Coded Allergies: No Known Allergies (Unverified , 04/08/17) Reported Meds & Prescriptions Reported Meds & Active Scripts Active Neurontin (Gabapentin) 400 Mg Cap 400 Mg PO HS 30 Days Bumetanide 1 Mg Tab 1 Mg PO DAILY 30 Days Lantus Inj (Insulin Glargine) 1,000 Unit/10 Ml Vial 5 Units SQ HS 30 Days Reported Glipizide 10 Mg Tab 10 Mg PO BIDAC Take 30 minutes before a meal Aspirin EC (Aspirin) 81 Mg Tabdr 81 Mg PO DAILY Simvastatin 20 Mg Tab 20 Mg PO HS Carvedilol 25 Mg Tab 25 Mg PO BID Review of Systems Except as stated in HPI: all other systems reviewed are Neg Physical Exam Narrative GENERAL: Well-nourished, well-developed patient. SKIN: Warm and dry. HEAD: Normocephalic and atraumatic. EYES: No injection or drainage. ENT: No nasal drainage noted. NECK: Supple, trachea midline. CARDIOVASCULAR: Regular rate and rhythm RESPIRATORY: Breath sounds equal bilaterally. No accessory muscle use. GASTROINTESTINAL: Abdomen soft, non-tender, nondistended. NEUROLOGICAL: Awake and alert. moves all extremities. Normal speech. Data Data Last Documented VS Vital Signs Date Time Temp Pulse Resp B/P Pulse Ox O2 Delivery O2 Flow Rate FiO2 04/08/17 12:02 80 18 139/60 91 Room Air 04/08/17 10:10 2 04/08/17 09:37 98.4 Orders Electrocardiogram (04/08/17 09:57) Complete Blood Count With Diff (04/08/17 09:57) Comprehensive Metabolic Panel (04/08/17 09:57) Magnesium (Mg) (04/08/17 09:57) B-Type Natriuretic Peptide (04/08/17 09:57) Ckmb (Isoenzyme) Profile (04/08/17 09:57) Troponin I (04/08/17 09:57) Act Partial Throm Time (Ptt) (04/08/17 09:57) Prothrombin Time / Inr (Pt) (04/08/17 09:57) Chest, Single Ap (04/08/17 09:57) Ct Brain W/O Iv Contrast(Rout) (04/08/17 09:57) Blood Glucose (04/08/17 09:57) Ecg Monitoring (04/08/17 09:57) Iv Access Insert/Monitor (04/08/17 09:57) Oximetry (04/08/17 09:57) Sodium Chloride 0.9% Flush (Ns Flush) (04/08/17 10:00) CKMB (04/08/17 10:12) CKMB% (04/08/17 10:12) Labs Laboratory Tests Test 04/08/17 10:12 White Blood Count 4.0 TH/MM3 Red Blood Count 3.55 MIL/MM3 Hemoglobin 10.7 GM/DL Hematocrit 33.7 % Mean Corpuscular Volume 95.2 FL Mean Corpuscular Hemoglobin 30.2 PG Mean Corpuscular Hemoglobin 31.7 % Concent Red Cell Distribution Width 18.0 % Platelet Count 70 TH/MM3 Mean Platelet Volume 8.4 FL Neutrophils (%) (Auto) 80.0 % Lymphocytes (%) (Auto) 10.0 % Monocytes (%) (Auto) 7.0 % Eosinophils (%) (Auto) 2.3 % Basophils (%) (Auto) 0.7 % Neutrophils # (Auto) 3.2 TH/MM3 Lymphocytes # (Auto) 0.4 TH/MM3 Monocytes # (Auto) 0.3 TH/MM3 Eosinophils # (Auto) 0.1 TH/MM3 Basophils # (Auto) 0.0 TH/MM3 CBC Comment AUTO DIFF Differential Comment AUTO DIFF CONFIRMED Platelet Estimate LOW Platelet Morphology Comment NORMAL Ovalocytes 1+ Prothrombin Time 12.2 SEC Prothromb Time International 1.1 RATIO Ratio Activated Partial 26.5 SEC Thromboplast Time Sodium Level 141 MEQ/L Potassium Level 5.3 MEQ/L Chloride Level 105 MEQ/L Carbon Dioxide Level 30.1 MEQ/L Anion Gap 6 MEQ/L Blood Urea Nitrogen 34 MG/DL Creatinine 1.52 MG/DL Estimat Glomerular Filtration 46 ML/MIN Rate Random Glucose 162 MG/DL Calcium Level 9.6 MG/DL Magnesium Level 2.4 MG/DL Total Bilirubin 0.8 MG/DL Aspartate Amino Transf 27 U/L (AST/SGOT) Alanine Aminotransferase 26 U/L (ALT/SGPT) Alkaline Phosphatase 84 U/L Total Creatine Kinase 140 U/L Creatine Kinase MB 3.5 NG/ML Troponin I LESS THAN 0.02 NG/ML B-Type Natriuretic Peptide 91 PG/ML Total Protein 7.5 GM/DL Albumin 3.5 GM/DL MDM Medical Decision Making Medical Screen Exam Complete: Yes Emergency Medical Condition: Yes Medical Record Reviewed: Yes (pmh confirmed) Interpretation(s) EKG paced at 75 without scarbossa criteria CBC & BMP Diagram 04/08/17 10:12 Last [address] 04/08/17 7124 Signed Impressions: Service Date/Time: Saturday, April 08, 2017 10:42 - CONCLUSION: 1. Unremarkable CT brain for patient's age. No focal or acute intracranial hemorrhage. 2. Stable chronic pansinusitis. Saroj Xiong MD Chest X-Ray 04/08/17 0957 Signed Impressions: Service Date/Time: Saturday, April 08, 2017 10:01 - CONCLUSION: No acute cardiopulmonary abnormality is identified. There is stable mild enlargement of the cardiac silhouette. Bonifacio Gibson MD Differential Diagnosis Anemia, cardiac, bleed, vasovagal, fracture.... Narrative Course Will check blood work, imaging and reevaluate ed workup with no acute, advised next step would be ct pulmonary to rule out pe for syncope and pulse ox of 90 on RA and to interrogate pacemaker with observation in hospital for cardiac monitoring, patient states he is not waiting for anymore testing and will leave AMA Nurse and at bedside, AMA: The risks of leaving against medical advice without further evaluation treatment were discussed with the patient. These risks include cardiac dysfunction, cardiac dysrhythmia, possible heart attack, possible stroke or . The patient indicated understanding of these risks and appeared to have the capacity to make this decision. I offered also to call his inclinometer tester and primary and he states he just wants to go Diagnosis Primary Impression: Syncope Qualified Code: R55 - Syncope, unspecified syncope type Disposition: 07 AGAINST MEDICAL ADVICE Condition: Stable Terra Krishnamurthy MD April 08, 2017 10:05
[2017-04-08 10:10] VITALS: RESP 18; O2SAT 93; O2SAT 94
[2017-04-08 10:36] LABS: AUTOMATED NEUTROPHIL # 3.2 TH/MM3 (1.8-7.7); BASOPHIL % 0.7 % (0.0-2.0); EOSINOPHIL # 0.1 TH/MM3 (0-0.4); EOSINOPHIL % 2.3 % (0.0-4.0); HEMATOCRIT 33.7 % (39.0-51.0); LYMPHOCYTE # 0.4 TH/MM3 (1.0-4.8); MEAN CELL VOLUME 95.2 FL (80.0-100.0); MEAN CORPUSCULAR HEMOGLOBIN 30.2 PG (27.0-34.0); MEAN CORPUSCULAR HGB CONC 31.7 % (32.0-36.0); PLATELET COUNT 70 TH/MM3 (150-450); RED BLOOD COUNT 3.55 MIL/MM3 (4.50-5.90)
[2017-04-08 10:41] LABS: HEMO FLAGS AUTO DIFF
[2017-04-08 10:46] LABS: APTT (PATIENT) 26.5 SEC (24.3-30.1); INTERNATIONAL NORMALIZED RATIO 1.1 RATIO; PROTHROMBIN TIME - PATIENT 12.2 SEC (9.8-11.6)
--- NOTE | 2017-04-08 10:57 | RADRPT ---
EXAM DATE/TIME: 04/08/2017 10:42 [facility] COMPARISON: CT BRAIN W/O CONTRAST, January 17, 2017, 22:37. INDICATIONS : Dizziness and falls two days ago. RADIATION DOSE: 52.00 CTDIvol (mGy) MEDICAL HISTORY : Cerebrovascular disease. Cardiovascular disease Carcinoma, colon. SURGICAL HISTORY : None. ENCOUNTER: Initial ACUITY: 1 day PAIN SCALE: 0/10 LOCATION: cranial TECHNIQUE: Multiple contiguous axial images were obtained of the head. Using automated exposure control and adj ustment of the mA and/or kV according to patient size, radiation dose was kept as low as reasonably a chievable to obtain optimal diagnostic quality images. FINDINGS: CEREBRUM: The ventricles are normal for age. Stable bilateral cortical atrophy. Tiny old right lacunar infarct . No evidence of midline shift, mass lesion, hemorrhage or acute infarction. No extra-axial fluid co llections are seen. The previously noted right-sided subdural fluid collection has completely resolve d. POSTERIOR FOSSA: The cerebellum and brainstem are intact. The 4th ventricle is midline. The cerebellopontine angle i s unremarkable. EXTRACRANIAL: The visualized portion of the orbits is intact. Chronic stable pansinusitis. SKULL: The calvaria is intact. No evidence of skull fracture. CONCLUSION: 1. Unremarkable CT brain for patient's age. No focal or acute intracranial hemorrhage. 2. Stable chronic pansinusitis. Saroj Xiong MD on April 08, 2017 at 10:53 Board Certified Radiologist. This report was verified electronically.
[2017-04-08 10:58] LABS: ALT (GPT) 26 U/L (12-78); ANION GAP 6 MEQ/L (5-15); AST (GOT) 27 U/L (15-37); BICARBONATE 30.1 MEQ/L (21.0-32.0); BLOOD UREA NITROGEN 34 MG/DL (7-18); CHLORIDE 105 MEQ/L (98-107); GLOMERULAR FILTRATION RATE 46 ML/MIN (>89); MAGNESIUM 2.4 MG/DL (1.5-2.5); POTASSIUM 5.3 MEQ/L (3.5-5.1); SODIUM (NA) 141 MEQ/L (136-145)
[2017-04-08 11:01] LABS: ALKALINE PHOSPHATASE 84 U/L (45-117); CREATINE KINASE 140 U/L (39-308); TOTAL BILIRUBIN ADULT 0.8 MG/DL (0.2-1.0)
[2017-04-08 11:13] LABS: CKMB 3.5 NG/ML (0.5-3.6)
[2017-04-08 11:29] LABS: OVALOCYTES 1+ (NORMAL); PLATELET ESTIMATE SMEAR LOW (NORMAL); PLATELET MORPHOLOGY NORMAL (NORMAL); SCAN/DIFF AUTO DIFF CONFIRMED
--- NOTE | 2017-04-08 11:42 | RADRPT ---
EXAM DATE/TIME: 04/08/2017 10:01 [place] COMPARISON: CHEST SINGLE AP, January 13, 2017, 7:56. INDICATIONS : Weakness. MEDICAL HISTORY : Chronic obstructive pulmonary disease. Myocardial infarction. SURGICAL HISTORY : Coronary artery stent. Pacemaker. ENCOUNTER: Initial ACUITY: 1 day PAIN SCORE: 0/10 LOCATION: Bilateral chest FINDINGS: Portable upright AP view of the chest demonstrate stable mild enlargement of the cardiac silhouette. Left chest wall cardiac pacing device is present. No effusion, consolidation, or pneumothorax is appr eciated. The bones and soft tissues demonstrate no acute finding. CONCLUSION: No acute cardiopulmonary abnormality is identified. There is stable mild enlargement of the cardiac s ilhouette. Bonifacio Gibson MD on April 08, 2017 at 11:13 Board Certified Radiologist. This report was verified electronically.
[2017-04-08 12:02] VITALS: BP 139/60; PULSE 80; RESP 18; O2SAT 91
--- NOTE | 2017-04-09 09:45 | EKG ---
Date Performed: 04/08/2017 Time Performed: 10:19:24 PTAGE: 72 years EKG: ELECTRONIC VENTRICULAR PACEMAKER ABNORMAL RHYTHM ECG PREVIOUS TRACING : 01/02/2017 08.11 DOCTOR: Dada Vinson Interpretating Date/Time 04/09/2017 09:43:41
== END 2017-04-08 12:23 | disposition left against medical advice (07) ==
LOC: NEPC 09:34
DX: R55 Syncope and collapse (principal); E11.9 Type 2 diabetes mellitus without complications; R94.31 Abnormal electrocardiogram [ECG] [EKG]; W18.39XA Other fall on same level, initial encounter; Y93.K1 Activity, walking an animal; Z53.29 Procedure and treatment not carried out because of patient's decision for other reasons; Z79.82 Long term (current) use of aspirin; Z79.4 Long term (current) use of insulin; Z95.810 Presence of automatic (implantable) cardiac defibrillator; Z98.890 Other specified postprocedural states; Z86.79 Personal history of other diseases of the circulatory system; Z87.19 Personal history of other diseases of the digestive system; Z87.448 Personal history of other diseases of urinary system; Z87.39 Personal history of other diseases of the musculoskeletal system and connective tissue; Z86.69 Personal history of other diseases of the nervous system and sense organs
CPT/HCPCS: 70450; 71010; 80053; 82550; 82552; 83735; 83880; 84484; 85025; 85610; 85730; 93005; 99285

== ENCOUNTER 2017-06-10 10:03 | Day surgery (SDC) | payer OTHER ==
[~2017-06-10] VITALS: Ht 188 cm; Wt 118.3 kg
[2017-06-10] VITALS (10 sets, daily range): BP systolic 117–131; BP diastolic 72–81; PULSE 60–86; RESP 16–20; TEMP 97.8–98.1; O2SAT 90–99
[~2017-06-10 10:03] MED LIST changes: +ASPI81TA11 PO; -BACL10TA; +GLIP10TA6 PO; -LEVE500 PO; -NOVOLOGP2 SQ; -TAMS5CAP PO
[2017-06-10] MEDS ORDERED: METOPROLOL TARTRATE 25 MG TAB PO PRN (10:45)
[2017-06-10] MEDS ORDERED: LORazepam 1 MG TAB SL SCH (10:45)
[2017-06-10] MEDS ORDERED: SODIUM CHLORID 0.9% 500 ML IV PRN (10:45)
[2017-06-10] MEDS ORDERED: CHLORHEXIDINE GLUCONATE 2 % 1 PACK (2 CLOTHS) TOPICAL PRN (10:45)
[2017-06-10] MEDS ORDERED: POVIDONE IODINE 5% (ANTISEPSIS KIT) 4 APPLICATIONS EACH NARE PRN (10:45)
[2017-06-10] MEDS ORDERED: LACTATED RINGER'S 1000 ML IV PRN (10:45)
[2017-06-10] MEDS ORDERED: INSULIN HUMAN REGULAR 1,000 UNITS/10 ML VIAL SQ PRN (10:45)
[2017-06-10] MEDS ORDERED: APIX5TAB PO (10:56)
[2017-06-10] MEDS ORDERED: SODIUM CHLORID 0.9% 500 ML INJ 500 ML IV SCH (11:00)
[2017-06-10 11:21] LABS: AUTOMATED NEUTROPHIL # 3.1 TH/MM3 (1.8-7.7); BASOPHIL % 0.5 % (0.0-2.0); EOSINOPHIL # 0.1 TH/MM3 (0-0.4); EOSINOPHIL % 3.4 % (0.0-4.0); LYMPH % 11.3 % (9.0-44.0); LYMPHOCYTE # 0.5 TH/MM3 (1.0-4.8); MEAN CELL VOLUME 96.3 FL (80.0-100.0); MEAN CORPUSCULAR HEMOGLOBIN 31.3 PG (27.0-34.0); MEAN CORPUSCULAR HGB CONC 32.5 % (32.0-36.0); MONO % 7.8 % (0.0-8.0); PLATELET COUNT 65 TH/MM3 (150-450); RED BLOOD COUNT 3.85 MIL/MM3 (4.50-5.90); RED CELL DISTRIBUTION WIDTH 17.2 % (11.6-17.2)
[2017-06-10 11:23] LABS: HEMO FLAGS AUTO DIFF
[2017-06-10 11:25] LABS: BICARBONATE 30.6 MEQ/L (21.0-32.0); POTASSIUM 4.4 MEQ/L (3.5-5.1)
[2017-06-10 11:34] LABS: APTT (PATIENT) 28.8 SEC (24.3-30.1); INTERNATIONAL NORMALIZED RATIO 1.1 RATIO; PROTHROMBIN TIME - PATIENT 12.4 SEC (9.8-11.6)
[2017-06-10 11:53] LABS: PLATELET ESTIMATE SMEAR LOW (NORMAL); PLATELET MORPHOLOGY NORMAL (NORMAL); SCAN/DIFF AUTO DIFF CONFIRMED
[2017-06-10] MEDS ORDERED: MIDAZOLAM HCL 2 MG/2 ML VIAL ONE (15:41)
[2017-06-10] MEDS ORDERED: PROPOFOL 200 MG/20 ML AMP IV ONE (15:51)
[2017-06-10] MEDS ORDERED: ISOPROTERENOL HCL 1 MG/5 ML AMP ONE (16:50)
[2017-06-10] MEDS ORDERED: LIDOCAINE HCL 1% 50 ML VIAL INFIL PRN (17:15)
[2017-06-10] MEDS ORDERED: SODIUM CHLOR 0.9% 250 ML INJ 250 ML IV PRN (17:15)
[2017-06-10] MEDS ORDERED: ONDANSETRON HCL 4 MG/2 ML VIAL IV PRN (17:15)
[2017-06-10] MEDS ORDERED: METOCLOPRAMIDE HCL 10 MG/2 ML VIAL IV PRN (17:15)
[2017-06-10] MEDS ORDERED: oxyCODONE/ACETAMINOPHEN 5 MG/325 MG TAB PO PRN ×2 (17:15)
[2017-06-10] MEDS ORDERED: ATROPINE SULFATE 1 MG/ML VIAL IV PRN (17:15)
[2017-06-10] MEDS ORDERED: LORazepam 2 MG/ML VIAL IV PRN (17:15)
[2017-06-10] MEDS ORDERED: BACITRACIN OINT 0.9 GM PKT TOP ONE (17:15)
[2017-06-10] MEDS ORDERED: PRAVASTATIN SOD 40 MG TAB PO SCH (21:00)
[2017-06-10] MEDS ORDERED: INSULIN GLARGINE 1,000 UNITS/10 ML VIAL SQ SCH (21:00)
[2017-06-10] MEDS ORDERED: INSULIN DETEMIR 100 UNITS/ML VIAL SQ SCH (21:00)
[2017-06-10] MEDS ORDERED: NON-FORMULARY DRUG (Simvastatin 20 MG) PO SCH (21:00)
[2017-06-10] MEDS: CARVEDILOL 12.5 MG TAB PO SCH (22:23)
[2017-06-10] MEDS: GABAPENTIN 400 MG CAP PO SCH (22:23)
[2017-06-10] MEDS: APIXABAN 5 MG TABLET PO SCH (22:23)
[2017-06-11] VITALS (12 sets, daily range): BP systolic 112–126; BP diastolic 66–71; PULSE 76–87; RESP 18; TEMP 98–98.3; O2SAT 91–96
[2017-06-11 06:05] LABS: APTT (PATIENT) 29.6 SEC (24.3-30.1); INTERNATIONAL NORMALIZED RATIO 1.1 RATIO; PROTHROMBIN TIME - PATIENT 12.2 SEC (9.8-11.6)
[2017-06-11] MEDS ORDERED: glipiZIDE 10 MG TAB PO SCH (07:00)
--- NOTE | 2017-06-11 07:33 | PD.CARD.PN ---
Subjective Subjective Remarks Feels okay. Objective Medications Current Medications Medications (Trade) Dose Ordered Sig/Suzanna Route Start Time Stop Time Status Last Admin Lactated Ringer's 1,000 ml @ 30 mls/hr Q24H PRN IV 06/10/17 10:45 06/13/17 10:44 Sodium Chloride 500 ml @ 30 mls/hr [id number] PRN IV 06/10/17 10:45 06/13/17 10:44 (NS 500 ml Inj) 500 ml @ 30 mls/hr [id number] IV 06/10/17 11:00 (Percocet 5-325 Mg) 1 tab Q4H PRN PO 06/10/17 17:15 (Percocet 5-325 Mg) 2 tab Q4H PRN PO 06/10/17 17:15 (Ativan Inj) 0.5 mg UNSCH PRN IV 06/10/17 17:15 06/11/17 17:14 Atropine Sulfate 0.5 mg 0.5 mg UNSCH PRN IV 06/10/17 17:15 (NS 250 ml Inj) 250 ml @ 500 mls/hr ONCE PRN IV 06/10/17 17:15 06/11/17 17:14 (Reglan Inj) 10 mg Q4H PRN IV 06/10/17 17:15 (Zofran Inj) 4 mg Q4H PRN IV 06/10/17 17:15 (Xylocaine 1% Inj (50 ml)) 10 ml UNSCH PRN INFIL 06/10/17 17:15 06/11/17 17:14 (Eliquis) 5 mg BID PO 06/10/17 21:00 06/10/17 22:23 (Bumetanide) 1 mg DAILY PO 06/11/17 09:00 (Coreg) 25 mg BID PO 06/10/17 21:00 06/10/17 22:23 (Neurontin) 400 mg HS PO 06/10/17 21:00 06/10/17 22:23 (Glucotrol) 10 mg BIDAC PO 06/11/17 07:00 06/11/17 06:35 (Pravachol) 40 mg HS PO 06/10/17 21:00 06/10/17 22:23 (Levemir Inj) 5 units HS SQ 06/10/17 21:00 06/10/17 22:34 Vital Signs / I&O Vital Signs Date Time Temp Pulse Resp B/P Pulse Ox O2 Delivery O2 Flow Rate FiO2 06/11/17 06:13 80 06/11/17 05:58 92 06/11/17 05:05 80 06/11/17 04:24 79 06/11/17 03:25 98.0 79 18 112/66 91 06/11/17 03:25 80 06/11/17 02:23 79 06/11/17 01:01 80 06/11/17 01:00 93 06/11/17 00:00 79 06/10/17 23:02 97.8 80 20 131/75 90 06/10/17 23:00 80 06/10/17 22:00 78 06/10/17 21:00 78 06/10/17 20:00 80 06/10/17 19:25 79 06/10/17 19:25 98.1 80 18 131/80 98 06/10/17 18:16 80 06/10/17 18:07 60 06/10/17 17:48 97.9 80 18 117/72 99 06/10/17 10:56 98.0 86 16 131/81 90 I/O 06/10/17 06/10/17 06/10/17 06/11/17 06/11/17 06/11/17 07:00 15:00 23:00 07:00 15:00 23:00 Intake Total 100 ml 1361 ml Output Total 350 ml Balance 100 ml 1011 ml Intake Oral 461 ml IV Total 100 ml 900 ml Output Urine Total 350 ml Physical Exam GENERAL: Well-nourished, well-developed patient. SKIN: Warm and dry. Groin sites soft without bruising or bleeding. HEAD: Normocephalic. EYES: No scleral icterus. No injection or drainage. NECK: Supple, trachea midline. No JVD or lymphadenopathy. CARDIOVASCULAR: Regular rate and rhythm without murmurs, gallops, or rubs. RESPIRATORY: Breath sounds equal bilaterally. No accessory muscle use. GASTROINTESTINAL: Abdomen soft, non-tender, nondistended. EXTREMITIES: No cyanosis, or edema. NEUROLOGICAL: Awake, alert, and oriented x 3. Non-focal. Laboratory Laboratory Tests Test 06/10/17 06/11/17 10:50 04:02 White Blood Count 4.0 TH/MM3 Red Blood Count 3.85 MIL/MM3 Hemoglobin 12.1 GM/DL Hematocrit 37.0 % Mean Corpuscular Volume 96.3 FL Mean Corpuscular Hemoglobin 31.3 PG Mean Corpuscular Hemoglobin 32.5 % Concent Red Cell Distribution Width 17.2 % Platelet Count 65 TH/MM3 Mean Platelet Volume 7.9 FL Neutrophils (%) (Auto) 77.0 % Lymphocytes (%) (Auto) 11.3 % Monocytes (%) (Auto) 7.8 % Eosinophils (%) (Auto) 3.4 % Basophils (%) (Auto) 0.5 % Neutrophils # (Auto) 3.1 TH/MM3 Lymphocytes # (Auto) 0.5 TH/MM3 Monocytes # (Auto) 0.3 TH/MM3 Eosinophils # (Auto) 0.1 TH/MM3 Basophils # (Auto) 0.0 TH/MM3 CBC Comment AUTO DIFF Differential Comment AUTO DIFF CONFIRMED Platelet Estimate LOW Platelet Morphology Comment NORMAL Red Cell Morphology Comment NORMAL Prothrombin Time 12.4 SEC 12.2 SEC Prothromb Time International 1.1 RATIO 1.1 RATIO Ratio Activated Partial 28.8 SEC 29.6 SEC Thromboplast Time Sodium Level 142 MEQ/L Potassium Level 4.4 MEQ/L Chloride Level 106 MEQ/L Carbon Dioxide Level 30.6 MEQ/L Anion Gap 5 MEQ/L Blood Urea Nitrogen 44 MG/DL Creatinine 1.69 MG/DL Estimat Glomerular Filtration 40 ML/MIN Rate Random Glucose 112 MG/DL Calcium Level 9.4 MG/DL Blood Type O NEGATIVE Antibody Screen NEGATIVE Assessment and Plan Problem List: (1) S/P AV rajinder ablation Assessment and Plan: Groin sites stable, pacing appropriately status post AV node ablation. Discharge home, follow-up with Dr. Dickerson in 2 weeks per my discussion with him. (2) Atrial fibrillation Assessment and Plan: On eliquis, rate controlled by AV node ablation. Problem Qualifiers (1) Atrial fibrillation: Qualified Code: I48.0 - Paroxysmal atrial fibrillation Gemma Adams Jun 11, 2017 07:33
[2017-06-11] MEDS: APIXABAN 5 MG TABLET PO SCH (08:35)
[2017-06-11] MEDS: CARVEDILOL 12.5 MG TAB PO SCH (08:35)
[2017-06-11] MEDS: GABAPENTIN 400 MG CAP PO SCH (08:38)
[2017-06-11] MEDS ORDERED: BUMETANIDE 1 MG TAB PO SCH (09:00)
--- NOTE | 2017-06-11 09:05 | EKG ---
Date Performed: 06/11/2017 Time Performed: 03:38:54 PTAGE: 72 years EKG: Ventricular pacing Pacemaker rhythm - no further analysis Abnormal ECG PREVIOUS TRACING : 06/10/2017 19.32 DOCTOR: Dada Vinson Interpretating Date/Time 06/11/2017 09:03:09
--- NOTE | 2017-06-11 09:19 | EKG ---
Date Performed: 06/10/2017 Time Performed: 19:32:28 PTAGE: 72 years EKG: Ventricular pacing Pacemaker rhythm - no further analysis Abnormal ECG PREVIOUS TRACING : 06/10/2017 11.07 DOCTOR: Dada Vinson Interpretating Date/Time 06/11/2017 09:19:45
--- NOTE | 2017-06-11 11:43 | EKG ---
Date Performed: 06/10/2017 Time Performed: 11:07:18 PTAGE: 72 years EKG: Ventricular pacing. Pacemaker rhythm - no further analysis Abnormal ECG PREVIOUS TRACING : 04/08/2017 10.19 DOCTOR: Dada Vinson Interpretating Date/Time 06/11/2017 11:42:24
--- NOTE | 2017-06-12 14:33 | CATHPROC ---
[facility] HIS Report Study Information Study Number Admission Scheduled Start Study Start [id number] 06/10/2017 06/10/2017 Jun 10 2017 3:21PM Referring Institution Admit Source Facility Department 1 Other [facility] Wire Coiler Machine Operator Physician and Clinical Staff Initial Ricardo Sherman Cardiovascular Disease Specialist Terrance Kilgore,RT(R) Cardiovascular Disease Specialist Deena Marcano,CLINICAL MANAGER HOME CARE TECH2 Other Wendy Horton,[place] Other Anesthesia, SENIOR NET PROGRAMMER Recorder Julieta Boyle BSRDa Scrub Odalys Kennedy,RT(R) TECH2 Procedures Performed Procedure Ablation Procedure Cardioversion Equipment Time Manager Fashion Description Size Mfg Part Number Used/Scraped BIOSENSE POE CATHETER, CELSIUS DS, 8MM, F [id number] 16:08 FR 7 Used INC. TYPE QUAD *[id number] 15:50 [employer] INDUSTRIES PACK, CCL CUSTOM * Used *[id number] 15:50 [employer] PACER JOAQUIN, LIMB * 2530 *[id number] Used [id number] 15:50 [employer] BL[employer]ET,WARM AIR CCL * Used *[id number] 16:09 [employer] CATHETER, JSN, QUAD FR 5 Used *[id number] 16:09 [employer] MED[employer] CATHETER, JSN, QUAD FR 5 Used *[id number] 16:09 [employer] MED[employer] CATHETER, JSN, QUAD FR 5 Used *[id number] 16:09 [employer] MED[employer] CATHETER, JSN, QUAD FR 5 Used *[id number] 15:50 [employer] MEDICAL ELECTRODE KIT, FROILAN X SURFACE * [id number] Used [id number] 16:09 [employer] MED[employer] SHEATH, EPS, FR5 FAST CATH FR 5 Used *[id number] 16:09 [employer] SHEATH, EPS, FR5 FAST CATH FR 5 Used *[id number] 16:09 [employer] MED[employer] SHEATH, EPS, FR5 FAST CATH FR 5 Used *[id number] 16:09 [employer] MED[employer] SHEATH, EPS, FR6 FAST CATH FR [address] [id number] Used 16:09 [employer] MED[employer] SHEATH, EPS, FR8 FAST CATH FR 8 [id number] Used [facility] PAD, ELECTROSURGICAL 15:50 * [id number] *[id number] Used SURGICAL GROUNDING (BLUE) History: Current Medications Medication Dosage/Unit Route Frequency Last Date/Time Taken CARVEDILOL ELIQUIS Statins (any) Insulin Neurontin Glypizide History: Allergies Allergy Reaction NKDA History: Risk Factors Family History of Hypertension Dyslipidemia Previous PR Previous Heart Failure Premature CAD Yes Yes Yes Yes Yes Prior Valve Prior PCI Prior CABG Surgery No Yes No Cerebrovascular Peripheral Artery Chronic Lung On Dialysis Diabetes Diabetes Therapy Disease Disease Disease No Yes Yes No Yes Insulin History: Symptoms/Diagnosis Selection Items Syncope History: CV Disease Selection Items PR History: Other Disease Selection Items CHF HTN Labs Hgb (g/dl) Hct (%) RBC (MIL/MM3) WBC (l/cumm) Platelets (thousands) 11.60-17.00 35.00-51.00 4.00-5.90 4.00-11.00 150.00-450.00 12.1 37 3.8 4 65 Glucose (mg/dl) BUN (mg/dl) Creatinine (mg/dl) BUN:Creatinine (1:x) 74.00-106.00 7.00-18.00 0.50-1.30 10.00-20.00 112 44 1.6 27.5 Na (meq/l) K (meq/l) Cl (meq/l) CO2 (mmol/L) Ca (mg/dl) 136.00-145.00 3.50-5.10 98.00-107.00 21.00-32.00 8.50-10.10 142 4.4 106 30.6 9.4 INR (PTT:PT) 0.90-1.10 1.1 Medication Medication Total Dose (Bolus/Oral) Medication Total Dosage/Unit 1% XYLOCAINE 40 mL Medications (Bolus/Oral) Medication Time Given Dosage/Unit Administered By Reason 1% XYLOCAINE 06/10/2017 4:32:49 PM 20 mL Ricardo Dickerson For pain 20 mL 1% XYLOCAINE given in lab by Ricardo Dickerson in Left Groin via Subcutaneous. Ordered by Romeo Dickerson. Reason: For pain. 1% XYLOCAINE 06/10/2017 4:35:24 PM 20 mL Ricardo Dickerson As per physicians verbal order 20 mL 1% XYLOCAINE given in lab by Ricardo Dickerson in Right Groin via Subcutaneous. Ordered by Vikram Dickerson. Reason: As per physicians verbal order. Medication (Drip) Medication Time Given Dosage/Unit Concentration/Unit Diluent (ml) Solution ISUPREL 06/10/2017 4:50:24 PM 4 mcg/min 1 mg 250 NaCl .9 4 mcg/min ISUPREL given in lab by Anesthesia, SENIOR NET PROGRAMMER in Right Forearm via Peripheral IV. Pump/Drip Flow = 60 ml/hr using NaCl .9 with a concentration of 1 mg in 250 ml. Ordered by Ricardo Dickerson. Reason: As per physicians verbal order. IV Solutions 06/10/2017 4:03:41 PM 0 mL (IV) NaCl .9 IV Solutions given in lab by Anesthesia, SENIOR NET PROGRAMMER in Left Antecubital via Peripheral IV. Pump/Drip Flow = 50 ml/hr using NaCl .9. Ordered by Ricardo Dickerson. Reason: As per physicians verbal order. IV Solutions 06/10/2017 4:04:14 PM 0 mL (IV) NaCl .9 IV Solutions given in lab by Anesthesia, SENIOR NET PROGRAMMER in Right Forearm via Peripheral IV. Pump/Drip Flow = 50 ml/hr using NaCl .9. Ordered by Ricardo Dickerson. Reason: As per physicians verbal order. Initial Case Assessment Cardiovascular HR NIBP Chest Pain 76 163/78 0 Edema Present Skin color Skin None Normal Warm Dry Neurological State Oriented to time-place- Alert Moves all extremities person Respiration - General Respiration Rate SpO2 (%) (B/min) 18 100 Final Case Assessment Cardiovascular HR NIBP 80 107/56 Edema Present Skin color Skin None Normal Warm Dry Neurological State Oriented to time-place- Alert Moves all extremities person Respiration - General Respiration Rate SpO2 (%) (B/min) 18 97 Chronological Log Time Study Chronological Log 15:51:27 Patient arrived via Bed. 15:51:31 Patient Name, D.O.B, / Armband Verified By R.N. 15:51:33 Consent signed by the physician and the patient and verified by the Wire Coiler Machine Operator staff. 15:51:35 Pre-op and post- op instructions given; patient acknowledges understanding of instruction s. 15:51:45 Anesthesia at bedside. Assumes care of patient. Chacorta SENIOR NET PROGRAMMER 16:00:31 Presedation assessment performed by Wire Coiler Machine Operator RN. 16:00:38 Verbal Stimulation=2 Physical Stimulation=2 Airway=2 Respiration=2 TOTAL=10. (0=absent, 1=l imited, 2=present) 16:01:24 Patient has been NPO for More than 6Hrs. 16:01:27 Skin Breakdown- generalized scabs 16:01:48 Patient Warmer Placed on the Table. 16:01:51 Disposable Defibrillator Pads Placed On Patient. 16:01:56 Geoff Prominences Protected 16:01:58 A # 20 IV was noted in the Antecubital (left). Grade = ~GRADE~ 16:02:21 A # 20 IV was noted in the Forearm (right). Grade = ~GRADE~ 16:03:04 Device disabled . [id number] per Dr. Dickerson. IV Solutions given in lab by Anesthesia, SENIOR NET PROGRAMMER in Left Antecubital via Peripheral IV. Pump/Drip Flow = 50 ml/hr using 16:03:41 NaCl .9. Ordered by Ricardo Dickerson. Reason: As per physicians verbal order. IV Solutions given in lab by Anesthesia, SENIOR NET PROGRAMMER in Right Forearm via Peripheral IV. Pump/Drip Ba w = 50 ml/hr using 16:04:14 NaCl .9. Ordered by Ricardo Dickerson. Reason: As per physicians verbal order. 16:04:45 History and physical on the chart or being dictated. Assessment: Initial Case, HR=76 BPM, LJYT=317/78 mmhg, Chest Pain=0, Edema=None, Color=Normal, Skin = Warm, Dry 16:04:47 Neurological: State=Alert, Ox3, LIANG Respiration: Resp=18 B/min, HdY4=806 % 16:05:27 Table restraints applied according to hospital policy 16:05:31 Right groin prepped with 2% chlorhexidine, and with a 3 min. waiting time. 16:05:34 Left groin prepped with 2% chlorhexidine, and with a 3 min. waiting time. 16:08:00 MD notified ready. 16:20:43 MD responded 16:29:04 MD arrived. 16:31:21 Immediate Presedation assesment performed by physician. Time Out. Correct patient, procedure, procedure equipment, site and side verified with physicia n present. Time 16:32:24 concurred by MD, individual staff and SENIOR NET PROGRAMMER. Time Out #2 - Consents verified, patient in correct position, all results are labled and displa yed, safety precautions 16:32:29 taken, antibiotics administered. Time out concurred by MD, individual staff and SENIOR NET PROGRAMMER in procedu re 16:32:33 Case Start 20 mL 1% XYLOCAINE given in lab by Ricardo Dickerson in Left Groin via Subcutaneous. Ordered by Ricardo Flores. 16:32:49 Reason: For pain. 16:33:10 Vascular access was obtained in the Fem Vein (left). 16:33:14 Vascular access was obtained in the Fem Vein (left). 16:33:15 Vascular access was obtained in the Fem Vein (left). 16:33:23 A SHEATH, EPS, FR5 FAST CATH FR 5 was advanced into the Fem Vein (left) using the Percutane ous technique. 16:33:34 A SHEATH, EPS, FR5 FAST CATH FR 5 was advanced into the Fem Vein (left) using the Percutane ous technique. 16:33:35 A SHEATH, EPS, FR5 FAST CATH FR 5 was advanced into the Fem Vein (left) using the Percutane ous technique. 20 mL 1% XYLOCAINE given in lab by Ricardo Dickerson in Right Groin via Subcutaneous. Ordered by Ricardo Langston. 16:35:24 Reason: As per physicians verbal order. 16:35:35 Vascular access was obtained in the Fem Vein (right). 16:35:37 Vascular access was obtained in the Fem Vein (right). 16:35:45 A SHEATH, EPS, FR6 FAST CATH FR 6 was advanced into the Fem Vein (right) using the Percutan eous technique. 16:35:52 A SHEATH, EPS, FR8 FAST CATH FR 8 was advanced into the Fem Vein (right) using the Percutan eous technique. A CATHETER, JSN, QUAD FR 5 was advanced vis Fem Vein (left) and placed in the HRA. Placement wa s visually 16:36:03 confirmed under fluoroscopy. A CATHETER, JSN, QUAD FR 5 was advanced vis Fem Vein (right) and placed in the HIS. Placement was visually 16:36:25 confirmed under fluoroscopy. A CATHETER, JSN, QUAD FR 5 was advanced vis Fem Vein (left) and placed in the LV. Placement wa s visually 16:36:45 confirmed under fluoroscopy. A CATHETER, JSN, QUAD FR 5 was advanced vis Fem Vein (right) and placed in the CS. Placement w as visually 16:37:06 confirmed under fluoroscopy. 16:38:43 Mapping in progress. 16:40:44 Mapping complete. A CATHETER, TEEUS DS, 8MM, F TYPE QUAD FR 7 was advanced vis Fem Vein (right) and placed in the Isthmus. 16::45 Placement was visually confirmed under fluoroscopy. 16::53 Ablation begun. 16:48:24 A one Joul DFT was performed. 16:49:00 ECG rhythm of ~RHYTHMS~ noted. Patient cardioverted at 200 joules. Success A tach 16:50:00 Ablation complete. 4 mcg/min ISUPREL given in lab by Anesthesia, SENIOR NET PROGRAMMER in Right Forearm via Peripheral IV. Pump/Dr ip Flow = 60 ml/hr 16:50:24 using NaCl .9 with a concentration of 1 mg in 250 ml. Ordered by Ricardo Dickerson. Reason: As per physicians verbal order. :53:45 Ablation procedure performed: AVN. 16:53:54 EP Procedure was performed. 16:55:07 Parameters changed by Kelly Jefferson per Dr. Dickerson 17:00:27 Isuprel gtt turned off. 17:03:32 Defibrillator turned back on. Device set [id number] by Gema per Dr. Dickerson 17:04:13 Catheters removed. 17:05:16 Sheaths pulled right femoral vein and pressure applied in pacer lab 17:08:02 Sheaths pulled left femoral vein. Pressure applied. Assessment: Final Case, HR=80 BPM, VNXW=508/56 mmhg, Edema=None, Color=Normal, Skin = Warm, Dr moreira 17:08:29 Neurological: State=Alert, Ox3, LIANG Respiration: Resp=18 B/min, SpO2=97 % 17:16:00 Sterile dressing applied to site Hemostasis achieved both groins. 17:17:00 Case End 17:21:12 No case complications noted. 17:21:14 Cine recording checked. 17:21:19 Holding Area notified of successful intervention. 17:21:21 Bedside Report will be given. 17:21:24 Defibrillator and ground pads removed. Skin intact. 17:30:00 Patient moved to trihealther and transported to [facility] in stable condition. End Study - Contrast Media Used In Study Contrast Total Opened (mL) Total Used (mL) Total Wasted (mL) Unspecified 0 0 0 End Study - Maximum Contrast Load Max Contrast Load (mL) 372.4 End Study - Radiation Exposure Fluoro Time (minutes) 3.2 End Study - Patient Disposition Complications Transferred To Interventional Outcome No Telemetry Bed successful
== END 2017-06-11 09:54 | disposition home or self-care (01) ==
LOC: HDIC 10:03 → HDOC 10:03 → HCIN 18:01 → HDOC 06-11 09:54
PROVIDERS: ATTEND Internal Medicine Interventional Cardiology
DX: I48.3 Typical atrial flutter (principal); I48.0 Paroxysmal atrial fibrillation; I12.9 Hypertensive chronic kidney disease with stage 1 through stage 4 chronic kidney disease, or unspecified chronic kidney disease; E11.22 Type 2 diabetes mellitus with diabetic chronic kidney disease; N18.3 Chronic kidney disease, stage 3 (moderate); D69.6 Thrombocytopenia, unspecified; Z95.810 Presence of automatic (implantable) cardiac defibrillator; Z79.4 Long term (current) use of insulin
CPT/HCPCS: 80048; 85025; 85610; 85730; 86850; 86900; 86901; 93005; 93620; 93623; 93650; C1730; C1732; C2630; J2250; J3010

== ENCOUNTER 2017-07-15 11:14 | Inpatient (IN) | payer OTHER, MEDICARE ==
[~2017-07-15] VITALS: Ht 188 cm; Wt 116.0 kg
[~2017-07-15 11:14] MED LIST changes: +APIX5TAB PO; -ASPI81TA11 PO
[2017-07-15 11:22] VITALS: BP 99/54; PULSE 69; RESP 17; O2SAT 98
[2017-07-15 11:31] VITALS: BP 99/54; PULSE 71; RESP 17; O2SAT 98
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
[2017-07-15 12:13] LABS: AUTOMATED NEUTROPHIL # 3.1 TH/MM3 (1.8-7.7); BASOPHIL % 0.6 % (0.0-2.0); EOSINOPHIL # 0.1 TH/MM3 (0-0.4); EOSINOPHIL % 1.9 % (0.0-4.0); HEMATOCRIT 34.6 % (39.0-51.0); LYMPH % 10.5 % (9.0-44.0); LYMPHOCYTE # 0.4 TH/MM3 (1.0-4.8); MEAN CELL VOLUME 94.5 FL (80.0-100.0); MEAN CORPUSCULAR HEMOGLOBIN 30.8 PG (27.0-34.0); MEAN CORPUSCULAR HGB CONC 32.5 % (32.0-36.0); MONO % 7.9 % (0.0-8.0); NEUT % 79.1 % (16.0-70.0); PLATELET COUNT 63 TH/MM3 (150-450); RED BLOOD COUNT 3.66 MIL/MM3 (4.50-5.90); RED CELL DISTRIBUTION WIDTH 15.8 % (11.6-17.2); WHITE BLOOD COUNT 3.9 TH/MM3 (4.0-11.0)
[2017-07-15 12:18] LABS: HEMO FLAGS AUTO DIFF
[2017-07-15 12:24] LABS: APTT (PATIENT) 29.6 SEC (24.3-30.1); INTERNATIONAL NORMALIZED RATIO 1.1 RATIO; PROTHROMBIN TIME - PATIENT 12.4 SEC (9.8-11.6)
[2017-07-15 12:47] LABS: ANION GAP 8 MEQ/L (5-15); AST (GOT) 18 U/L (15-37); BICARBONATE 24.4 MEQ/L (21.0-32.0); BLOOD UREA NITROGEN 37 MG/DL (7-18); CHLORIDE 106 MEQ/L (98-107); GLOMERULAR FILTRATION RATE 39 ML/MIN (>89); POTASSIUM 5.1 MEQ/L (3.5-5.1); SODIUM (NA) 138 MEQ/L (136-145)
[2017-07-15 12:53] LABS: PLATELET ESTIMATE SMEAR LOW (NORMAL); PLATELET MORPHOLOGY ENLARGED (NORMAL); SCAN/DIFF AUTO DIFF CONFIRMED
[2017-07-15 12:54] LABS: ALKALINE PHOSPHATASE 92 U/L (45-117); ALT (GPT) 28 U/L (12-78); TOTAL BILIRUBIN ADULT 0.4 MG/DL (0.2-1.0)
--- NOTE | 2017-07-15 13:26 | RADRPT ---
EXAM DATE/TIME: 07/15/2017 12:43 [facility] COMPARISON: No previous studies available for comparison. INDICATIONS : Right hip pain after fall. MEDICAL HISTORY : Cerebrovascular disease. Cardiovascular disease Carcinoma, colon SURGICAL HISTORY : None. ENCOUNTER: Initial ACUITY: 1 day PAIN SCORE: 10/10 LOCATION: Right Hip. FINDINGS: Examination shows a mildly displaced and moderately angulated basicervical fracture of the right femo ral neck. Femoral head remains situated over the acetabulum. The adjacent pelvis appears intact. CONCLUSION: Moderately angulated basicervical right femoral neck fracture Bonifacio Urbano MD on July 15, 2017 at 13:24 Board Certified Radiologist. This report was verified electronically.
--- NOTE | 2017-07-15 13:34 | RADRPT ---
EXAM DATE/TIME: 07/15/2017 12:43 [facility] COMPARISON: HIP RIGHT (AP&LAT 2/3VWS) W AP PELVIS, July 15, 2017, 12:43. INDICATIONS : Right hip and leg pain after fall. MEDICAL HISTORY : Cerebrovascular disease. Cardiovascular disease Carcinoma, colon SURGICAL HISTORY : None. ENCOUNTER: Initial ACUITY: 1 day PAIN SCORE: 10/10 LOCATION: Right hip/femur. FINDINGS: As seen on the right hip x-rays, there is a medially angulated fracture of the right femoral neck. Th is study shows no additional area of fracture. No acute soft tissue abnormality demonstrated. CONCLUSION: Right femoral neck fracture again noted. The rest of the right femur is intact. Bonifacio Michel MD on July 15, 2017 at 13:31 Board Certified Radiologist. This report was verified electronically.
--- NOTE | 2017-07-15 13:35 | RADRPT ---
EXAM DATE/TIME: 07/15/2017 13:17 [facility] COMPARISON: CT BRAIN W/O CONTRAST, April 08, 2017, 10:42. INDICATIONS : Fall,fell on right side RADIATION DOSE: 63.65 CTDIvol (mGy) MEDICAL HISTORY : Cerebrovascular disease. Hypertension. colon ca ,diabetes SURGICAL HISTORY : Colon resection. Appendectomy.Brain surgery for bleed ENCOUNTER: Initial ACUITY: 1 day PAIN SCALE: 8/10 LOCATION: Bilateral cranial TECHNIQUE: Multiple contiguous axial images were obtained of the head. Using automated exposure control and adj ustment of the mA and/or kV according to patient size, radiation dose was kept as low as reasonably a chievable to obtain optimal diagnostic quality images. DICOM format image data is available electro nically for review and comparison. FINDINGS: A small right basal ganglia lacunar infarct is unchanged. The ventricles are symmetric and stable. No abnormal extra-axial fluid accumulation, mass or hemorrhage is identified. A right frontal mally hole is noted. Confluent facial sinus disease is again identified. CONCLUSION: No acute intracranial injury or Bonifacio Urbano MD on July 15, 2017 at 13:30 Board Certified Radiologist. This report was verified electronically.
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
--- NOTE | 2017-07-15 13:40 | RADRPT ---
EXAM DATE/TIME: 07/15/2017 12:36 [facility] COMPARISON: CHEST SINGLE AP, April 08, 2017, 10:01. INDICATIONS : Rib pain after fall. MEDICAL HISTORY : Cerebrovascular disease. Cardiovascular disease Carcinoma, colon SURGICAL HISTORY : Pacemaker. ENCOUNTER: Initial ACUITY: 1 day PAIN SCORE: 0/10 LOCATION: Bilateral chest FINDINGS: The cardiac silhouette is enlarged in transverse diameter. The lungs are free of acute parenchymal op acity. No effusions are identified. A biventricular defibrillator is in place via a left sided approa ch. CONCLUSION: 1. Cardiomegaly. No acute pulmonary disease. Gonzalez Burris MD on July 15, 2017 at 13:39 Board Certified Radiologist. This report was verified electronically.
[2017-07-15 13:56] VITALS: BP 137/60; PULSE 69; RESP 18; TEMP 98.3; O2SAT 95
[2017-07-15] MEDS ORDERED: MORPHINE SULFATE 4 MG/ML INJ IV ONE (14:00)
--- NOTE | 2017-07-15 14:03 | RADRPT ---
EXAM DATE/TIME: 07/15/2017 13:17 [facility] COMPARISON: No previous studies available for comparison. INDICATIONS : Fall.. RADIATION DOSE: 19.93 CTDIvol (mGy) MEDICAL HISTORY : Cerebrovascular disease. Hypertension. Colon ca diabetes SURGICAL HISTORY : Colon resection. Angioplasty.Brain surgery for bleed ENCOUNTER: Initial ACUITY: 1 day PAIN SCALE: 8/10 LOCATION: neck TECHNIQUE: Volumetric scanning of the cervical spine was performed. Multiplanar reconstructions in the sagittal, coronal and oblique axial planes were performed. Using automated exposure control and adjustment o f the mA and/or kV according to patient size, radiation dose was kept as low as reasonably achievable to obtain optimal diagnostic quality images. DICOM format image data is available electronically f or review and comparison. FINDINGS: No fracture or acute appearing malalignment seen of the cervical spine. Vertebral bodies have normal height. There are couple millimeters of degenerative anterolisthesis at C3/C4 and C4/C5. Moderate uncovertebr al and facet osteoarthritis seen on both sides at these levels. There is mild disc space narrowing wi th a small, broad posterior disc osteophyte complex at C5/C6. There are considerable facet degenerati ve changes at C7/T1, right more so than left. Moderate osteoarthritis seen anteriorly at C1/C2. No ev idence of an acute disc herniation. No high-grade foraminal or spinal stenosis demonstrated. CONCLUSION: 1. No fracture or acute appearing malalignment of the cervical spine. 2. Degenerative changes as above. Bonifacio Michel MD on July 15, 2017 at 13:59 Board Certified Radiologist. This report was verified electronically.
--- NOTE | 2017-07-15 15:06 | HHI.HP ---
[facility] Service [facility] Primary Care Physician Benji Chirinos M.D. Admission Diagnosis right hip fracture Diagnoses: Chief Complaint: R hip pain Travel History International Travel<30 Days: No Contact w/Intl Traveler <30 Da: No Traveled to Known Affected Are: No History of Present Illness This is a 72-year-old male with history of cardiomyopathy, atrial fibrillation status post pacemaker placement, chronic kidney disease, diabetes mellitus, SDH presenting with right hip fracture after a fall. Of note, patient is status post cardiac ablation 3 weeks ago. Allegedly, patient was having someone pushed her car when he jerked backward and he fell on his right side. He did hit his head on the side of the car but no loss of consciousness or dizziness. No nausea, vomiting, headache, chest pain, shortness of breath, palpitations or bleeding. He is currently on eliquis and took it this morning. He does not have any other complaints other than 8/10 right hip pain. He was not feeling well because of the pain hence he decided to go to the emergency department. Review of Systems ROS Limitations: Other (Patient denies smoking, significant alcohol intake or use of any illicit drugs.) Past Family Social History Past Medical History SDH Cardiomyopathy Atrial fibrillation/flutter status post pacemaker placement Bilateral carotid stenosis Diabetes mellitus Osteoarthritis Colon Cancer in remission 8 years ago Past Surgical History Cataract surgery Colectomy for colon cancer Appendectomy Humphrey hole placement Reported Medications Neurontin (Gabapentin) 400 Mg Cap 400 Mg PO HS 30 Days Bumetanide 1 Mg Tab 1 Mg PO DAILY 30 Days Lantus Inj (Insulin Glargine) 1,000 Unit/10 Ml Vial 5 Units SQ HS 30 Days Eliquis (Apixaban) 5 Mg Tab 5 Mg PO BID Glipizide 10 Mg Tab 10 Mg PO BIDAC Take 30 minutes before a meal Simvastatin 20 Mg Tab 20 Mg PO HS Carvedilol 25 Mg Tab 25 Mg PO BID Allergies: Coded Allergies: No Known Allergies (Unverified , 07/15/17) Family History (+) DM Social History Non smoker, no significant alcohol use. Physical Exam Vital Signs Vital Signs Date Time Temp Pulse Resp B/P (MAP) Pulse Ox O2 Delivery O2 Flow Rate FiO2 07/15/17 13:56 98.3 69 18 137/60 (85) 95 Room Air 07/15/17 11:31 71 17 99/54 (69) 98 Room Air 07/15/17 11:22 69 17 99/54 (69) 98 Physical Exam Not in distress, well-nourished, looks stated age PERRL, pink conjunctiva without injection, anicteric Nose without bleeding, airway patent, oropharynx clear Supple neck Normal rate and regular rhythm, no murmurs gallops or rubs appreciated. Clear to auscultation and symmetric bilaterally, normal respiratory effort. Normal bowel sounds, soft, non-tender, nondistended, no guarding. Extremities without clubbing, cyanosis, trace edema. Right knee dressings in place, right lower extremity shortened and externally rotated. No rash of generalized distribution. Skin is warm and dry. AAO x3, no cranial nerve deficits, moves all 4 extremities, no focal neurologic deficits Normal mood, appropriate affect Laboratory Laboratory Tests Test 07/15/17 11:50 White Blood Count 3.9 Red Blood Count 3.66 Hemoglobin 11.3 Hematocrit 34.6 Mean Corpuscular Volume 94.5 Mean Corpuscular Hemoglobin 30.8 Mean Corpuscular Hemoglobin Concent 32.5 Red Cell Distribution Width 15.8 Platelet Count 63 Mean Platelet Volume 8.1 Neutrophils (%) (Auto) 79.1 Lymphocytes (%) (Auto) 10.5 Monocytes (%) (Auto) 7.9 Eosinophils (%) (Auto) 1.9 Basophils (%) (Auto) 0.6 Neutrophils # (Auto) 3.1 Lymphocytes # (Auto) 0.4 Monocytes # (Auto) 0.3 Eosinophils # (Auto) 0.1 Basophils # (Auto) 0.0 CBC Comment AUTO DIFF Differential Comment AUTO DIFF CONFIRMED Platelet Estimate LOW Platelet Morphology Comment ENLARGED Red Cell Morphology Comment NORMAL Prothrombin Time 12.4 Prothromb Time International Ratio 1.1 Activated Partial Thromboplast Time 29.6 Blood Urea Nitrogen 37 Creatinine 1.73 Random Glucose 277 Total Protein 6.9 Albumin 3.0 Calcium Level 8.7 Alkaline Phosphatase 92 Aspartate Amino Transf (AST/SGOT) 18 Alanine Aminotransferase (ALT/SGPT) 28 Total Bilirubin 0.4 Sodium Level 138 Potassium Level 5.1 Chloride Level 106 Carbon Dioxide Level 24.4 Anion Gap 8 Estimat Glomerular Filtration Rate 39 Result Diagram: 07/15/17 1150 07/15/17 1150 Imaging Last Impressions Hip and Pelvis X-Ray 07/15/17 0000 Signed Impressions: Service Date/Time: Saturday, July 15, 2017 12:43 - CONCLUSION: Moderately angulated basicervical right femoral neck fracture Bonifacio Urbano MD Head CT 07/15/17 0000 Signed Impressions: Service Date/Time: Saturday, July 15, 2017 13:17 - CONCLUSION: No acute intracranial injury or Bonifacio Urbano MD Femur X-Ray 07/15/17 0000 Signed Impressions: Service Date/Time: Saturday, July 15, 2017 12:43 - CONCLUSION: Right femoral neck fracture again noted. The rest of the right femur is intact. Bonifacio Michel MD Chest X-Ray 07/15/17 0000 Signed Impressions: Service Date/Time: Saturday, July 15, 2017 12:36 - CONCLUSION: 1. Cardiomegaly. No acute pulmonary disease. Gonzalez Burris MD Cervical Spine CT 07/15/17 0000 Signed Impressions: Service Date/Time: Saturday, July 15, 2017 13:17 - CONCLUSION: 1. No fracture or acute appearing malalignment of the cervical spine. 2. Degenerative changes as above. MD Yaw Garcia VTE Risk Assessment Yaw VTE Risk Assessment: Mod/High Risk (score >= 2) Caprini Risk Assessment Model Point Value = 1 Point Value = 2 Point Value = 3 Point Value = 5 Age 41-60 Minor surgery BMI > 25 kg/m2 Swollen legs Varicose veins or History of unexplained or recurrent spontaneous Oral contraceptives or hormone replacement Sepsis (< 1 month) Serious lung disease, including pneumonia (< 1 month) Abnormal pulmonary function Acute myocardial infarction Congestive heart failure (< 1 month) History of inflammatory bowel disease Medical patient at bed rest Age 61-74 Arthroscopic surgery Major open surgery (> 45 min) Laparoscopic surgery (> 45 min) Malignancy Confined to bed (> 72 hours) Immobilizing plaster cast Central venous access Age >= 75 History of VTE Family history of VTE Factor V Leiden Prothrombin [id number] Lupus anticoagulant Anticardiolipin antibodies Elevated serum homocysteine Heparin-induced thrombocytopenia Other congenital or acquired thrombophilia Stroke (< 1 month) Elective arthroplasty Hip, pelvis, or leg fracture Acute spinal cord injury (< 1 month) Prophylaxis Regimen Total Risk Factor Score Risk Level Prophylaxis Regimen 0-1 Low Early ambulation 2 Moderate Order ONE of the following: *Sequential Compression Device (SCD) *Heparin 5000 units SQ BID 3-4 Higher Order ONE of the following medications: *Heparin 5000 units SQ TID *Enoxaparin/Lovenox 40 mg SQ daily (WT < 150 kg, CrCl > 30 mL/min) *Enoxaparin/Lovenox 30 mg SQ daily (WT < 150 kg, CrCl > 10-29 mL/min) *Enoxaparin/Lovenox 30 mg SQ BID (WT < 150 kg, CrCl > 30 mL/min) AND/OR *Sequential Compression Device (SCD) 5 or more Highest Order ONE of the following medications: *Heparin 5000 units SQ TID (Preferred with Epidurals) *Enoxaparin/Lovenox 40 mg SQ daily (WT < 150 kg, CrCl > 30 mL/min) *Enoxaparin/Lovenox 30 mg SQ daily (WT < 150 kg, CrCl > 10-29 mL/min) *Enoxaparin/Lovenox 30 mg SQ BID (WT < 150 kg, CrCl > 30 mL/min) AND *Sequential Compression Device (SCD) Assessment and Plan Problem List: (1) Chronic kidney disease, stage III (moderate) ICD Code: N18.3 - Chronic kidney disease, stage 3 (moderate) Status: Chronic (2) Paroxysmal atrial flutter ICD Code: I48.92 - Unspecified atrial flutter Status: Chronic (3) Closed right hip fracture ICD Code: S72.001A - Fracture of unspecified part of neck of right femur, initial encounter for closed fracture Status: Acute (4) DM type 2 (diabetes mellitus, type 2) ICD Code: E11.9 - Type 2 diabetes mellitus without complications Status: Chronic Assessment and Plan This is a 72-year-old male with history of chronic kidney disease, diabetes mellitus, cardiomyopathy, atrial fibrillation with recent cardiac ablation presenting with right hip fracture after a fall. Right hip fracture-right hip imaging personally reviewed revealed a right hip fracture. Pain is not controlled, consult orthopedics, will need surgery. Patient is at home with agrees able to take care of him. Start pain control oral and intravenous with bowel regimen. Consult cardiology for clearance given history of recent ablation. Hold eliquis Atrial flutter, stable -telemetry showed paced rhythm, check EKG. Continue Coreg per home dose, hold eliquis in anticipation for surgery History of CHF, diastolic-echocardiogram December 2069 showed ejection fraction of 60%, Mild LVH Chronic kidney disease stage III-creatinine around based at 1.5-1.6, gentle hydration. Continue Bumex, recheck BMP tomorrow. Diabetes mellitus- hold glipizide, continue Lantus, start sliding scale insulin DVT prophylaxis: SCDs for now, start after surgery. Hold eliquis. Consult case management, will likely need SNF versus home health care Code Status Full code per patient Physician Certification 2 Midnight Certification Type: Admission for Inpatient Services Order for Inpatient Services The services are ordered in accordance with Medicare regulations or non- Medicare payer requirements, as applicable. In the case of services not specified as inpatient-only, they are appropriately provided as inpatient services in accordance with the 2-midnight benchmark. Estimated LOS (days): 2 days is the estimated time the patient will need to remain in the hospital, assuming treatment plan goals are met and no additional complications. Post-Hospital Plan: Home Health Problem Qualifiers (1) DM type 2 (diabetes mellitus, type 2): Qualified Codes: E11.8 - Type 2 diabetes mellitus with unspecified complications Gena Nation MD Jul 15, 2017 15:06
[2017-07-15] MEDS ORDERED: MAGNESIUM HYDROXIDE SUSP 30 ML CUP PO PRN (15:15)
[2017-07-15] MEDS ORDERED: BISACODYL 10 MG SUPP RECTAL PRN (15:15)
[2017-07-15] MEDS ORDERED: SENNOSIDES 8.6 MG TAB PO PRN (15:15)
[2017-07-15] MEDS ORDERED: NALOXONE HCL 0.4 MG/ML AMP IV PRN (15:15)
[2017-07-15] MEDS ORDERED: ACETAMINOPHEN 325 MG TAB PO PRN (15:15)
[2017-07-15 16:31] VITALS: BP 131/56; PULSE 71; RESP 17; TEMP 99.8; O2SAT 95
[2017-07-15] MEDS ORDERED: GLUCAGON 1 MG/ML VIAL OTHER PRN (18:15)
[2017-07-15] MEDS ORDERED: DEXTROSE 50% IN WATER 50 ML VIAL(D50) IV PUSH PRN (18:15)
[2017-07-15] MEDS: INSULIN ASPART SUPPLEMENTAL SCALE SQ SCH ×2 (18:37→21:00)
[2017-07-15 19:45] VITALS: BP 105/52; PULSE 70; RESP 16; TEMP 98.9; O2SAT 96
[2017-07-15] MEDS: CARVEDILOL 12.5 MG TAB PO SCH (22:07)
[2017-07-15] MEDS: GABAPENTIN 400 MG CAP PO SCH (22:07)
[2017-07-15] MEDS: DOCUSATE SODIUM 50 MG/SENNA 8.6 MG TAB PO SCH (22:07)
[2017-07-15] MEDS: PRAVASTATIN SOD 40 MG TAB PO SCH (22:07)
[2017-07-15] MEDS: INSULIN DETEMIR 100 UNITS/ML VIAL SQ SCH (22:08)
[2017-07-15 22:53] VITALS: PULSE 77
[2017-07-15] MEDS: HYDROmorphone HCL PF 1 MG/ML VIAL IV PRN (23:20)
[2017-07-16] VITALS (10 sets, daily range): BP systolic 100–123; BP diastolic 52–60; PULSE 69–101; RESP 14–20; TEMP 98.2–100.9; O2SAT 88–99
[2017-07-16] MEDS: HYDROmorphone HCL PF 1 MG/ML VIAL IV PRN ×4 (05:22→21:05)
[2017-07-16] MEDS: INSULIN ASPART SUPPLEMENTAL SCALE SQ SCH ×4 (06:08→21:00)
[2017-07-16] MEDS ORDERED: WALKER WHEELS/F1 MIS (06:57)
[2017-07-16] MEDS ORDERED: COMMODE 3-IN-11 MIS (06:57)
[2017-07-16] MEDS ORDERED: GENTAMICIN SULFATE 80 MG/2 ML VIAL ONE (07:14)
--- NOTE | 2017-07-16 08:17 | MB ---
cc: BETINA PHIPPS DATE OF CONSULTATION: 07/16/2017 REASON FOR CONSULTATION Right hip fracture. HISTORY OF PRESENT ILLNESS The patient is a 72-year-old man who does have a history of cardiomyopathy and atrial fibrillation, who just recently had a procedure done for ablation of atrial fibrillation. The patient has chronic kidney disease and diabetes. The patient has been recovering from the recent procedure. He was doing fairly well. He is on the blood thinner Eliquis. The patient was trying to help some people who had a problem with their car. He was pushing the car, the car jerked backwards and he fell onto the right side. He noticed immediate pain. The patient was unable to ambulate due to significant pain. He describes pain around the groin. He had an abrasion on the right knee. The patient was brought to [facility] and found to have a displaced femoral neck fracture. He was admitted to the hospital for medical clearance and surgical management. The patient says that he has not had any significant problems with the hip before and was able to ambulate well. PAST MEDICAL HISTORY As above. PAST SURGICAL HISTORY 1. Cataract surgery. 2. Colectomy. 3. Appendectomy. 4. Humphrey hole placement. MEDICATIONS See the chart. Note, he is on Lantus, Eliquis and carvedilol. ALLERGIES No known drug allergies. FAMILY HISTORY Noncontributory. SOCIAL HISTORY The patient does not smoke or drink significant alcohol. PHYSICAL EXAMINATION VITAL SIGNS: Temperature 98.3, pulse 69, respirations 18, blood pressure 137/60. GENERAL: He is awake, alert and oriented x3. He is overweight. HEENT/NECK: His head is atraumatic. Neck is supple. Oropharynx is moist. Extraocular muscles are intact. LUNGS: Clear to auscultation bilaterally. HEART: Regular rate and rhythm. ABDOMEN: Soft, nontender, nondistended with some obesity. EXTREMITIES: The right lower extremity is currently in Jerez's traction, shortened and externally rotated. He has a bandage over the right knee. There is swelling of the right hip of at least a mild degree. He can move the toes on the right foot. He has brisk capillary refill. He has swelling about the ankle and I could not feel a dorsalis pedis pulse. The left leg has an abrasion on the anterior aspect of the leg. There is no tenderness about the knee. Examination of the bilateral shoulders, elbows and wrists shows good range of motion, normal alignment and no tenderness. LABORATORY STUDIES White cell count 9.3, hematocrit 34.6, platelets 63. Glucose is 277. Creatinine is 1.73. INR is 1.1. IMAGING STUDIES We reviewed the x-rays and the reports including pelvis and femur which show a right-sided displaced femoral neck fracture. I read the report of the cervical spine which shows no acute fracture or acute findings. IMPRESSION 1. Right hip displaced femoral neck fracture. 2. Thrombocytopenia. 3. Recent history of anticoagulation. DISCUSSION We discussed the diagnosis in detail with the patient and his at the bedside. We discussed treatment options. We do recommend surgical management for this condition. We discussed risks and benefits of surgical management along with postoperative rehabilitation. The patient has been admitted to the internal medicine physician. They found the patient was in atrial flutter with paced rhythm. They held Eliquis in preparation for surgery. He does a history of CHF with estimated ejection fraction of 60%. He does have some kidney disease and put on gentle rehydration. The patient is at increased risk for surgical management as this is a very serious condition. He has multiple associated medical conditions. His low platelets and recent history of Eliquis do increase the chance of bleeding. He has other risks such as infection. We discussed postoperative risks such as DVT, pneumonia, leg length inequality, inability to ambulate, hip dislocation, medical complications such as heart attack, stroke, pulmonary embolus and . The patient and the patient's want to move forward with surgery. All questions have been answered. MD BORIS Infante/MARITA /7:30 AM /7:49 AM
--- NOTE | 2017-07-16 09:15 | ECHRPT ---
Indication: EVAL EF CONCLUSIONS Normal left ventricular size. Mild concentric left ventricular hypertrophy. The left ventricular systolic function is normal with an estimated ejection fraction in the range of 55%. The right ventriclar size is upper limits of normal. The right ventricular systoilc function is possibly mildly decreased. The right atrial size is [id number] dilated. Aortic valve sclerosis is present. There is moderate tricuspid valve regurgitation. Possible severe pulmonary hypertension present ( 72 mmHg). BP: / HR: Rhythm: Sinus MEASUREMENTS (Male / Female) Normal Values Technical Quality:Fair 2D ECHO LV Diastolic Diameter PLAX 4.5 cm 4.2 - 5.9 / 3.9 - 5.3 cm LV Systolic Diameter PLAX 3.5 cm IVS Diastolic Thickness 1.2 cm 0.6 - 1.0 / 0.6 - 0.9 cm LVPW Diastolic Thickness 0.8 cm 0.6 - 1.0 / 0.6 - 0.9 cm LV Relative Wall Thickness 0.4 RV Internal Dim ED PLAX 2.5 cm LA Systolic Diameter LX 3.8 cm 3.0 - 4.0 / 2.7 - 3.8 cm DOPPLER AV Peak Velocity 198.0 cm/s AV Peak Gradient 15.7 mmHg LVOT Peak Velocity 68.6 cm/s LVOT Peak Gradient 1.9 mmHg Mitral E Point Velocity 129.0 cm/s Mitral A Point Velocity 37.7 cm/s Mitral E to A Ratio 3.4 TR Peak Velocity 361.0 cm/s TR Peak Gradient 52.1 mmHg FINDINGS LEFT VENTRICLE Normal left ventricular size. Mild concentric left ventricular hypertrophy. The left ventricular systolic function is normal with an estimated ejection fraction in the range of 55%. RIGHT VENTRICLE The right ventriclar size is upper limits of normal. The right ventricular systoilc function is mildly decreased. LEFT ATRIUM The left atrial size is upper normal. RIGHT ATRIUM The right atrial size is [id number] dilated. ATRIAL SEPTUM Normal atrial septal thickness without atrial level shunting by limited color doppler interrogation. AORTA The aortic root and proximal ascending aorta are normal in size on limited imaging. MITRAL VALVE Structurally normal mitral valve. Trace regurgitation. AORTIC VALVE Aortic valve sclerosis is present. TRICUSPID VALVE There is moderate tricuspid valve regurgitation. There is possible severe pulmonary hypertension present ( 72 mmHg). PULMONARY VALVE The pulmonary valve is not well visualized. VESSELS The inferior vena cava is normal in size. PERICARDIUM No pericardial effusion. Lalit Sim MD (Electronically Signed) Final Date:16 July 2017 09:12
[2017-07-16 10:18] LABS: AUTOMATED NEUTROPHIL # 4.8 TH/MM3 (1.8-7.7); BASOPHIL % 0.6 % (0.0-2.0); EOSINOPHIL # 0.2 TH/MM3 (0-0.4); EOSINOPHIL % 3.4 % (0.0-4.0); HEMATOCRIT 34.3 % (39.0-51.0); LYMPH % 7.3 % (9.0-44.0); LYMPHOCYTE # 0.4 TH/MM3 (1.0-4.8); MEAN CELL VOLUME 95.1 FL (80.0-100.0); MEAN CORPUSCULAR HEMOGLOBIN 31.2 PG (27.0-34.0); MEAN CORPUSCULAR HGB CONC 32.8 % (32.0-36.0); NEUT % 79.7 % (16.0-70.0); PLATELET COUNT 58 TH/MM3 (150-450); RED BLOOD COUNT 3.61 MIL/MM3 (4.50-5.90); RED CELL DISTRIBUTION WIDTH 16.2 % (11.6-17.2)
[2017-07-16 10:22] LABS: HEMO FLAGS AUTO DIFF
[2017-07-16 10:39] LABS: APTT (PATIENT) 32.3 SEC (24.3-30.1); INTERNATIONAL NORMALIZED RATIO 1.2 RATIO; PROTHROMBIN TIME - PATIENT 13.3 SEC (9.8-11.6)
[2017-07-16 10:57] LABS: BLOOD, URINE NEG (NEG); COMMENT (UR) CATH-CULT NOT IND; CULTURE IF INDICATED CATH CULTURE NOT IND; GLUCOSE,URINE NEG (NEG); HYALINE CAST, URINE 3 /lpf (RARE); KETONE, URINE NEG (NEG); MUCUS URINE FEW /lpf (OCC); NITRITE,URINE NEG (NEG); URINE COLOR YELLOW (YELLW/STRAW)
[2017-07-16 11:01] LABS: ANION GAP 3 MEQ/L (5-15); BICARBONATE 26.6 MEQ/L (21.0-32.0); BLOOD UREA NITROGEN 46 MG/DL (7-18); CHLORIDE 108 MEQ/L (98-107); GLOMERULAR FILTRATION RATE 29 ML/MIN (>89); POTASSIUM 5.6 MEQ/L (3.5-5.1); SODIUM (NA) 138 MEQ/L (136-145)
[2017-07-16 11:02] LABS: ALKALINE PHOSPHATASE 64 U/L (45-117); ALT (GPT) 24 U/L (12-78); AST (GOT) 7 U/L (15-37); TOTAL BILIRUBIN ADULT 0.7 MG/DL (0.2-1.0)
[2017-07-16 11:07] LABS: BLOOD GAS BASE EXCESS -0.7 mmol/L (-2-2); BLOOD GAS CARBOXYHEMOGLOBIN 2.5 % (0-4); BLOOD GAS HCO3 24 mmol/L (22-26); BLOOD GAS METHEMOGLOBIN 0.9 % (0-2); BLOOD GAS O2 HGB SATURATION 95 % (90-100); BLOOD GAS OXYGEN CONTENT 14.8 Vol % (12.0-20.0); BLOOD GAS PCO2 44 mmHg (38-42); BLOOD GAS PO2 105 mmHg (61-120); CRITICAL VALUE NO; OXYGEN DEVICE NASAL CANNULA; TEMP CORR TO 98.6
[2017-07-16 11:08] LABS: DRAW SITE RT RADIAL; LITER FLOW 4 L/M; NUMBER OF ARTERIAL PUNCTURES 1; STAT YES
--- NOTE | 2017-07-16 11:08 | PD.CONS ---
[facility] Service Critical Care Medicine Consult Requested By Dr. Whitfield Reason for Consult Fever sepsis Hypoxia Right hip fracture Acute on chronic kidney disease Primary Care Physician Benji Chirinos M.D. History of Present Illness This is a 72-year-old male with history of type 2 diabetes, cardiomyopathy, atrial fibrillation status post pacemaker placement, CKD, history of subdural hemorrhage with the ED yesterday 07/15/17 after sustaining a fall and fracturing right hip. He fell at the [employer] parking lot, did not loose consciousness. Patient was admitted to the hospitalist service and orthopedic surgery Dr. Whitfield was consulted. Apparently patient had a cardiac ablation 3 weeks ago, history does not suggest a cardiac syncope Patient was scheduled for right hip surgery today, in the preop patient was noted be hypoxic with oxygen saturation in the 80s somnolent and with a fever of 102.5. With severe hypoxia and possible sepsis surgery was postponed, patient was placed on 4L nasal cannula and was sent to PACU. Critical care medicine was consulted for sepsis and hypoxia. On my evaluation patient is slightly lethargic but wakes up easily follows commands. Chest x-ray shows no infiltrate, I will get a CT of the chest to rule out pneumonia. Panculture requested, will start patient on Zosyn renally adjusted dose and add azithromycin. It was noted that patient had a platelet count of 63 on admission and a creatinine of 1.7. 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 Wolfe in the past Past Surgical History Pacemaker placement Cataract surgery Colectomy for colon cancer Appendectomy Humphrey hole placement for SDH Reported Medications Neurontin (Gabapentin) 400 Mg Cap 400 Mg PO HS 30 Days Bumetanide 1 Mg Tab 1 Mg PO DAILY 30 Days Lantus Inj (Insulin Glargine) 1,000 Unit/10 Ml Vial 5 Units SQ HS 30 Days Eliquis (Apixaban) 5 Mg Tab 5 Mg PO BID Glipizide 10 Mg Tab 10 Mg PO BIDAC Simvastatin 20 Mg Tab 20 Mg PO HS Carvedilol 25 Mg Tab 25 Mg PO BID Active Ordered Medications Reviewed Family History Significant for diabetes Social History Smoked cigarettes, occasional alcohol use Physical Exam Vital Signs Vital Signs Date Time Temp Pulse Resp B/P (MAP) Pulse Ox O2 Delivery O2 Flow Rate FiO2 07/16/17 08:55 102.6 69 16 114/56 (75) 95 07/16/17 08:20 94 07/16/17 08:17 101.7 70 16 117/59 (78) 80 07/16/17 06:00 14 07/16/17 03:45 98.2 73 18 123/60 (81) 93 07/16/17 00:19 98.6 101 18 116/57 (76) 88 07/15/17 22:53 77 07/15/17 21:46 07/15/17 19:45 98.9 70 16 105/52 (69) 96 Nasal Cannula 2.00 07/15/17 16:31 99.8 71 17 131/56 (81) 95 Nasal Cannula 2.00 07/15/17 13:56 98.3 69 18 137/60 (85) 95 Room Air 07/15/17 11:31 71 17 99/54 (69) 98 Room Air 07/15/17 11:22 69 17 99/54 (69) 98 Physical Exam Gen: 72-year-old obese male, no acute distress slightly somnolent HEENT: OSMANY, No pallor. Nose without bleeding, airway patent, oropharynx clear Neck: Supple CVS: Normal rate and regular rhythm, no murmurs gallops Chest: Clear to auscultation and symmetric bilaterally, no wheezes or crackles GI: Normal bowel sounds, soft, non-tender, nondistended, Extremities: without clubbing, cyanosis, trace edema. Right knee dressing in place, right lower extremity externally rotated. Neuro: Awake and alert. Follows commands no focal deficits. Laboratory Laboratory Tests Test 07/15/17 11:50 07/16/17 09:45 07/16/17 09:57 White Blood Count 3.9 6.0 Red Blood Count 3.66 3.61 Hemoglobin 11.3 11.3 Hematocrit 34.6 34.3 Mean Corpuscular Volume 94.5 95.1 Mean Corpuscular Hemoglobin 30.8 31.2 Mean Corpuscular Hemoglobin Concent 32.5 32.8 Red Cell Distribution Width 15.8 16.2 Platelet Count 63 58 Mean Platelet Volume 8.1 8.6 Neutrophils (%) (Auto) 79.1 79.7 Lymphocytes (%) (Auto) 10.5 7.3 Monocytes (%) (Auto) 7.9 9.0 Eosinophils (%) (Auto) 1.9 3.4 Basophils (%) (Auto) 0.6 0.6 Neutrophils # (Auto) 3.1 4.8 Lymphocytes # (Auto) 0.4 0.4 Monocytes # (Auto) 0.3 0.5 Eosinophils # (Auto) 0.1 0.2 Basophils # (Auto) 0.0 0.0 CBC Comment AUTO DIFF AUTO DIFF Differential Comment AUTO DIFF CONFIRMED Platelet Estimate LOW Platelet Morphology Comment ENLARGED Red Cell Morphology Comment NORMAL Prothrombin Time 12.4 13.3 Prothromb Time International Ratio 1.1 1.2 Activated Partial Thromboplast Time 29.6 32.3 Blood Urea Nitrogen 37 46 Creatinine 1.73 2.26 Random Glucose 277 165 Total Protein 6.9 6.4 Albumin 3.0 2.9 Calcium Level 8.7 8.2 Alkaline Phosphatase 92 64 Aspartate Amino Transf (AST/SGOT) 18 7 Alanine Aminotransferase (ALT/SGPT) 28 24 Total Bilirubin 0.4 0.7 Sodium Level 138 138 Potassium Level 5.1 5.6 Chloride Level 106 108 Carbon Dioxide Level 24.4 26.6 Anion Gap 8 3 Estimat Glomerular Filtration Rate 39 29 Urine Color YELLOW Urine Turbidity CLEAR Urine pH 5.0 Urine Specific [place] 1.018 Urine Protein TRACE Urine Glucose (UA) NEG Urine Ketones NEG Urine Occult Blood NEG Urine Nitrite NEG Urine Bilirubin NEG Urine Urobilinogen LESS THAN 2.0 Urine Leukocyte Esterase NEG Urine RBC 4 Urine WBC 2 Urine Amorphous Sediment RARE Urine Hyaline Casts 3 Urine Mucus FEW Microscopic Urinalysis Comment CATH-CULT NOT IND Date/Time Source Procedure Growth Status 07/16/17 10:15 Blood Line Aerobic Blood Culture Pending Received 07/16/17 10:15 Blood Line Anaerobic Blood Culture Pending Received Result Diagram: 07/16/17 0945 07/16/17 0945 Imaging Chest x-ray shows cardiomegaly which chronic interstitial infiltrates on my review Septic Shock Reassessment Heart: Regular rate and rhythm Lungs: Clear Skin: Warm Peripheral Pulses: Bounding Right Radial Bounding Left Radial Assessment and Plan Assessment and Plan ASSESSMENT: Fever, probable sepsis Hypoxia Right hip fracture Acute on chronic kidney disease 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 Minimize sedation RESP: - Nasal cannula oxygen keep saturation about 90%. CT of the chest to evaluate infiltrates - DuoNeb every 6 hours when necessary - Broad-spectrum antibiotics with Zosyn and azithromycin CV: - Normal saline IV fluids 75 ML per hour - Continue Coreg, continue statins, hold Bumex - Status post cardiac ablation procedure 3 weeks ago - Echo 07/15 ejection fraction 55%, mild to moderate right atrial dilatation, moderate tricuspid regurgitation GI: - ADA Renal diet. - Bowel regimen : - Monitor renal function closely. Santiago catheter. 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 Check serum B12 and folic acid and TSH - Monitor CBC, CMP, coags - No indication for hematology consult at this time, previously seen Dr. Wolfe ENDO: - Levemir and sliding scale insulin PROPH: - Left lower extremity SCDs intact. Avoid Chemical DVT prophylaxis due to thrombocytopenia LINES: - Utilize peripheral IVs, central line if needed Level 3 new consult Code Status Full Discussed Condition With CORONARY CARE UNIT NURSE Jazmyn Valdovinos MD Jul 16, 2017 11:08
[2017-07-16 11:12] LABS: SCAN/DIFF AUTO DIFF CONFIRMED
[2017-07-16] MEDS: SODIUM CHLOR 0.9% 1000 ML INJ 1,000 ML IV SCH (12:00)
[2017-07-16] MEDS: PIPERACIL-TAZO 3.375 GM PREMIX 50 ML IV SCH ×2 (12:00→16:49)
--- NOTE | 2017-07-16 12:15 | RADRPT ---
EXAM DATE/TIME: 07/16/2017 09:58 [facility] COMPARISON: CHEST SINGLE AP, July 15, 2017, 12:36. INDICATIONS : Short of breath. MEDICAL HISTORY : Cerebrovascular disease. Hypertension colon cancer, diabetes SURGICAL HISTORY : Appendectomy. Pacemaker. Colon resection, brain surgery for bleed ENCOUNTER: Initial ACUITY: 1 day PAIN SCORE: 0/10 LOCATION: Bilateral chest FINDINGS: The heart is enlarged. Left subclavian multi-lead pacemaker has its tips in the right atrium and rig ht ventricle. There is no focal infiltrate or pulmonary vascular congestion. Degenerative changes a re noted throughout the thoracic spine. CONCLUSION: 1. Cardiomegaly. 2. No acute focal pulmonary infiltrate or pulmonary vascular congestion. Galo Dumont MD on July 16, 2017 at 11:16 Board Certified Radiologist. This report was verified electronically.
[2017-07-16] MEDS ORDERED: SODIUM POLYSTYRENE SULFONATE SUSP 15 GM/60 ML CUP PO ONE (13:30)
--- NOTE | 2017-07-16 13:32 | RADRPT ---
EXAM DATE/TIME: 07/16/2017 12:45 [facility] COMPARISON: No previous studies available for comparison. INDICATIONS : Possible pneumonia RADIATION DOSE: 9.06 CTDIvol (mGy) MEDICAL HISTORY : Carcinoma, colon. Cardiovascular disease SURGICAL HISTORY : Pacemaker. ENCOUNTER: Initial ACUITY: 1 day PAIN SCALE: 0/10 LOCATION: chest TECHNIQUE: Volumetric scanning of the chest was performed. Using automated exposure control and adjustment of t he mA and/or kV according to patient size, radiation dose was kept as low as reasonably achievable to obtain optimal diagnostic quality images. DICOM format image data is available electronically for r eview and comparison. Follow-up recommendations for detected pulmonary nodules are based at a minimum on nodule size and pa tient risk factors according to Fleischner Society Guidelines. FINDINGS: LUNGS: There is no consolidation or pneumothorax. No concerning pulmonary nodule is visualized. PLEURAE: There is no pleural thickening or pleural effusion. There is some minimal atelectasis adjacent to th e pleura. MEDIASTINUM: Multiple prominent mildly enlarged middle mediastinal lymph nodes measure up to 1.5 cm located in the paratracheal and para-aortic region. Subcarinal node measures 3.1 cm. Panchamber cardiomegaly. AXILLAE: Within normal limits. No lymphadenopathy. MUSCULOSKELETAL: Within normal limits for patient age. MISCELLANEOUS: Cardiac pacer leads project over the right atrium and right ventricle. CONCLUSION: 1. No infiltrate seen. 2. Middle mediastinal adenopathy. Rodo Gaxiola MD on July 16, 2017 at 13:17 Board Certified Radiologist. This report was verified electronically.
--- NOTE | 2017-07-16 14:53 | EKG ---
Date Performed: 07/15/2017 Time Performed: 11:57:49 PTAGE: 72 years EKG: AV sequential pacing PREVIOUS TRACING : 06/11/2017 03.38 DOCTOR: Kike Henley Interpretating Date/Time 07/16/2017 14:51:21
--- NOTE | 2017-07-16 14:55 | EKG ---
Date Performed: 07/15/2017 Time Performed: 15:08:30 PTAGE: 72 years EKG: ELECTRONIC VENTRICULAR PACEMAKER ABNORMAL RHYTHM ECG The underlying atrial rhythm is diffic ult to discern. Cannot exclude atrial fibrillation. There is 100% ventricular pacing. Clinical correl ation needed regarding the underlying atrial rhythm. PREVIOUS TRACING : 07/15/2017 11.57 DOCTOR: Kike Henley Interpretating Date/Time 07/16/2017 14:52:47
[2017-07-16] MEDS: AZITHROMYCIN INJ 500 MG in SODIUM CHLOR 0.9% 250 ML INJ 250 ML IV SCH (14:58)
[2017-07-16] MEDS ORDERED: CHLORHEXIDINE GLUCONATE 2 % 1 PACK (2 CLOTHS)(extra cloths) TOPICAL PRN (20:45)
[2017-07-16] MEDS: DOCUSATE SODIUM 50 MG/SENNA 8.6 MG TAB PO SCH (21:00)
[2017-07-16] MEDS: GABAPENTIN 400 MG CAP PO SCH (21:05)
[2017-07-16] MEDS: CARVEDILOL 12.5 MG TAB PO SCH (21:06)
[2017-07-16] MEDS: PRAVASTATIN SOD 40 MG TAB PO SCH (21:06)
[2017-07-16] MEDS: INSULIN DETEMIR 100 UNITS/ML VIAL SQ SCH (21:13)
[2017-07-17] VITALS (11 sets, daily range): BP systolic 105–143; BP diastolic 51–91; PULSE 70–100; RESP 12–22; TEMP 99.9–101.7; O2SAT 86–100
[2017-07-17] MEDS: SODIUM CHLOR 0.9% 1000 ML INJ 1,000 ML IV SCH (01:03)
[2017-07-17] MEDS: PIPERACIL-TAZO 3.375 GM PREMIX 50 ML IV SCH ×3 (01:03→18:00)
[2017-07-17] MEDS: CHLORHEXIDINE GLUCONATE 2 % 1 PACK (2 CLOTHS)(taper/protocol) TOPICAL SCH (01:03)
[2017-07-17] MEDS: HYDROmorphone HCL PF 1 MG/ML VIAL IV PRN ×5 (01:57→20:14)
[2017-07-17] MEDS: INSULIN ASPART SUPPLEMENTAL SCALE SQ SCH ×4 (06:27→20:22)
[2017-07-17] MEDS: CARVEDILOL 12.5 MG TAB PO SCH ×2 (08:18→20:13)
[2017-07-17] MEDS: DOCUSATE SODIUM 50 MG/SENNA 8.6 MG TAB PO SCH ×2 (08:18→20:13)
[2017-07-17 08:59] LABS: HEMATOCRIT 32.7 % (39.0-51.0); MEAN CELL VOLUME 96.7 FL (80.0-100.0); MEAN CORPUSCULAR HEMOGLOBIN 31.4 PG (27.0-34.0); MEAN CORPUSCULAR HGB CONC 32.5 % (32.0-36.0); PLATELET COUNT 47 TH/MM3 (150-450); RED BLOOD COUNT 3.38 MIL/MM3 (4.50-5.90); RED CELL DISTRIBUTION WIDTH 16.3 % (11.6-17.2); WHITE BLOOD COUNT 4.9 TH/MM3 (4.0-11.0)
[2017-07-17 09:00] LABS: AUTOMATED NEUTROPHIL # 3.7 TH/MM3 (1.8-7.7); BASOPHIL % 0.4 % (0.0-2.0); EOSINOPHIL # 0.1 TH/MM3 (0-0.4); EOSINOPHIL % 1.2 % (0.0-4.0); LYMPH % 10.2 % (9.0-44.0); LYMPHOCYTE # 0.5 TH/MM3 (1.0-4.8); MONO % 11.6 % (0.0-8.0); NEUT % 76.6 % (16.0-70.0)
[2017-07-17] MEDS ORDERED: CYANOCOBALAMIN 1000 MCG/ML VIAL IM ONE (09:00)
[2017-07-17 09:05] LABS: HEMO FLAGS AUTO DIFF
--- NOTE | 2017-07-17 09:07 | HHI.PR ---
Subjective Remarks f/u hypoxia patient still having low grade fever, Tmax 100.6, denies shortness of breath, still in pain but manageable, mildly confused, no chest pain Objective Vitals Vital Signs Date Time Temp Pulse Resp B/P (MAP) Pulse Ox O2 Delivery O2 Flow Rate FiO2 07/17/17 06:00 80 07/17/17 04:00 98 Nasal Cannula 2.00 07/17/17 04:00 100.3 100 15 143/65 (91) 94 07/17/17 04:00 100 07/17/17 02:00 91 07/17/17 00:00 99.9 91 22 115/55 (75) 100 07/17/17 00:00 97 Nasal Cannula 2.00 07/17/17 00:00 85 07/16/17 22:00 76 07/16/17 20:00 96 Nasal Cannula 2.00 07/16/17 20:00 99.1 75 14 100/52 (68) 96 07/16/17 20:00 75 07/16/17 18:00 98 Nasal Cannula 2.00 07/16/17 18:00 74 07/16/17 17:30 99.4 07/16/17 16:00 79 07/16/17 16:00 100.6 79 20 107/55 (72) 98 07/16/17 14:00 79 07/16/17 12:45 19 07/16/17 12:00 98 Nasal Cannula 2.00 07/16/17 12:00 100.9 69 20 116/57 (76) 99 07/16/17 12:00 69 07/16/17 11:05 98 Nasal Cannula 4.00 07/16/17 10:30 100.3 77 16 115/56 (75) 95 Nasal Cannula 3 07/16/17 10:15 77 16 115/56 (75) 97 Nasal Cannula 3 07/16/17 10:00 79 16 100/50 (67) 94 Nasal Cannula 3 07/16/17 09:45 69 17 104/54 (71) 93 Nasal Cannula 3 07/16/17 09:30 69 15 102/55 (71) 93 Nasal Cannula 3 07/16/17 09:15 99.3 70 15 99/55 (70) 93 Nasal Cannula 3 I/O 07/16/17 07/16/17 07/16/17 07/17/1707/17/17 9/7/17 07:00 15:00 23:00 07:00 15:00 23:00 Intake Total 830 ml 881 ml Output Total 300 ml 650 ml Balance 530 ml 231 ml Intake Oral 480 ml 10 ml IV Total 350 ml 871 ml Output Urine Total 300 ml 650 ml Result Diagram: 07/16/17 0945 07/16/1745 Objective Remarks Not in distress, PERRL, pink conjunctiva without injection, anicteric Nose without bleeding, airway patent Supple neck Normal rate and regular rhythm, no murmurs gallops or rubs appreciated. Clear to auscultation and symmetric bilaterally, poor effort Normal bowel sounds, soft, non-tender, nondistended, no guarding. Extremities without clubbing, cyanosis, trace edema. Right knee dressings in place, right lower extremity traction in place AAO to place and person but not to time, no cranial nerve deficits, moves all 4 extremities, no focal neurologic deficits A/P Problem List: (1) Chronic kidney disease, stage III (moderate) ICD Code: N18.3 - Chronic kidney disease, stage 3 (moderate) Status: Chronic (2) Paroxysmal atrial flutter ICD Code: I48.92 - Unspecified atrial flutter Status: Chronic (3) Closed right hip fracture ICD Code: S72.001A - Fracture of unspecified part of neck of right femur, initial encounter for closed fracture Status: Acute (4) DM type 2 (diabetes mellitus, type 2) ICD Code: E11.9 - Type 2 diabetes mellitus without complications Status: Chronic Assessment and Plan This is a 72-year-old male with history of chronic kidney disease, diabetes mellitus, cardiomyopathy, atrial fibrillation with recent cardiac ablation presenting with right hip fracture after a fall. Right hip fracture-right hip imaging revealed a right hip fracture. Orthopedics on board , for surgery, hold for now because of fever. Cont pain control oral and intravenous with bowel regimen. Eliquis on hold. Atrial flutter, stable -telemetry showed paced rhythm. Echo 07/15 ejection fraction 55%, mild to moderate right atrial dilatation, moderate tricuspid regurgitation Continue Coreg per home dose, hold eliquis in anticipation for surgery. Cont NS, statin. Status post cardiac ablation procedure 3 weeks ago R/O sepsis - source unclear, CT chest unremarkable other than adenopathy. 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 serum B12 and folic acid and TSH WNL. Awaiting labs today. No indication for hematology consult at this time, previously seen Dr. Wolfe History of CHF, diastolic-echocardiogram December 2069 showed ejection fraction of 60%, Mild LVH, repeat TTE as above. Chronic kidney disease stage III-creatinine around based at 1.5-1.6, gentle hydration. Hold Bumex, creatinine increasing, awaiting today's labs, cont NS. Diabetes mellitus- hold glipizide, continue Levemir, sliding scale insulin DVT prophylaxis: SCDs for now, start after surgery. Hold eliquis. Consult case management, will likely need SNF versus home health care, transfer to Med Surg d/w Discharge Planning C vs SNF Problem Qualifiers (1) Closed right hip fracture: Qualified Codes: S72.001A - Fracture of unspecified part of neck of right femur , initial encounter for closed fracture (2) DM type 2 (diabetes mellitus, type 2): Qualified Codes: E11.8 - Type 2 diabetes mellitus with unspecified complications Gena Nation MD Jul 17, 2017 09:07
[2017-07-17 09:31] LABS: ALKALINE PHOSPHATASE 58 U/L (45-117); ALT (GPT) 25 U/L (12-78); ANION GAP 5 MEQ/L (5-15); AST (GOT) 24 U/L (15-37); BLOOD UREA NITROGEN 51 MG/DL (7-18); CHLORIDE 108 MEQ/L (98-107); GLOMERULAR FILTRATION RATE 28 ML/MIN (>89); POTASSIUM 5.1 MEQ/L (3.5-5.1); SODIUM (NA) 141 MEQ/L (136-145); TOTAL BILIRUBIN ADULT 0.8 MG/DL (0.2-1.0)
[2017-07-17 09:52] LABS: BANDS 14 % (0-6); METAMYELOCYTES 1 % (0-1); NEUTROPHIL # MANUAL DIFF 4.2 TH/MM3 (1.8-7.7); POLYS (SEG NEUTROPHILS) 71 % (16-70); WBC DIFF SAMPLE 100
[2017-07-17 09:53] LABS: PLATELET ESTIMATE SMEAR LOW (NORMAL); PLATELET MORPHOLOGY NORMAL (NORMAL)
[2017-07-17 09:54] LABS: SCAN/DIFF FINAL DIFF MANUAL
[2017-07-17] MEDS: AZITHROMYCIN INJ 500 MG in SODIUM CHLOR 0.9% 250 ML INJ 250 ML IV SCH (11:02)
--- NOTE | 2017-07-17 12:27 | PD.ORT.PN ---
Subjective Subjective Remarks Patient resting in bed in moderate pain to the right hip. Patient's is concerned of risk factors for delaying surgery. She feels his condition will worsen without surgery and being stuck in bed. We discussed the risks of both proceeding with surgery with low risk of infection/bacteremia vs risk for not doing surgery. Patient and want to move forward with surgery. Objective Vitals Vital Signs Date Time Temp Pulse Resp B/P (MAP) Pulse Ox O2 Delivery O2 Flow Rate FiO2 07/17/17 12:00 82 07/17/17 12:00 96 Nasal Cannula 2.00 07/17/17 10:00 78 07/17/17 08:00 85 07/17/17 08:00 97 Nasal Cannula 2.00 07/17/17 08:00 100.3 85 12 105/51 (69) 97 07/17/17 06:00 80 07/17/17 04:00 98 Nasal Cannula 2.00 07/17/17 04:00 100.3 100 15 143/65 (91) 94 07/17/17 04:00 100 07/17/17 02:00 91 07/17/17 00:00 99.9 91 22 115/55 (75) 100 07/17/17 00:00 97 Nasal Cannula 2.00 07/17/17 00:00 85 07/16/17 22:00 76 07/16/17 20:00 96 Nasal Cannula 2.00 07/16/17 20:00 99.1 75 14 100/52 (68) 96 07/16/17 20:00 75 07/16/17 18:00 98 Nasal Cannula 2.00 07/16/17 18:00 74 07/16/17 17:30 99.4 07/16/17 16:00 79 07/16/17 16:00 100.6 79 20 107/55 (72) 98 07/16/17 14:00 79 07/16/17 12:45 19 I/O 07/16/17 07/16/17 07/16/17 07/17/17 07/17/17 07/17/17 07:00 15:00 23:00 07:00 15:00 23:00 Intake Total 830 ml 931 ml 50 ml Output Total 300 ml 650 ml Balance 530 ml 281 ml 50 ml Intake Oral 480 ml 10 ml IV Total 350 ml 921 ml 50 ml Output Urine Total 300 ml 650 ml Result Diagram: 07/17/17 0747 07/17/1747 Objective Remarks Patient's right LE is in traction. Patient is NVI and has good sensation to light touch about the right LE and foot. Patient has mild to moderate swelling to RLE. Patient moves toes and ankle well. Patient's O2 sat is 95% on NC. Assessment & Plan Assessment and Plan Right hip fracture 1. Maintain traction to RLE 2. NPO for potential surgery later today, pending medical clearance. I discussed the 's concerns with Dr. Nation, hospitalist. I also discussed my concerns with patient being bedridden with a hip fracture and need for medical clearance. He will revisit the patient this afternoon and discuss this with the patient and his . If risks are assumed by the patient and his he will look at clearing the patient medically for surgery this afternoon. 3. Ice to the right hip PRN 4. Patient will remain NWB RLE 5. Pain medication for pain management. Lb Mortensen Jul 17, 2017 12:27
[2017-07-17] MEDS ORDERED: Vancomycin Consult Pharmacy 1 EA OTHER SCH (14:30)
[2017-07-17] MEDS ORDERED: VANCOMYCIN INJ 2,000 MG in SODIUM CHLORID 0.9% 500 ML INJ 500 ML IV ONE (16:00)
[2017-07-17] MEDS: PRAVASTATIN SOD 40 MG TAB PO SCH (20:13)
[2017-07-17] MEDS: INSULIN DETEMIR 100 UNITS/ML VIAL SQ SCH (20:22)
[2017-07-17] MEDS ORDERED: LACTATED RINGER'S 1000 ML IV PRN (22:30)
[2017-07-17] MEDS ORDERED: CHLORHEXIDINE GLUCONATE 2 % 1 PACK (2 CLOTHS) TOPICAL PRN (22:30)
[2017-07-17] MEDS ORDERED: SODIUM CHLORID 0.9% 500 ML IV PRN (22:30)
[2017-07-17] MEDS ORDERED: METOPROLOL TARTRATE 25 MG TAB PO PRN (22:30)
[2017-07-17] MEDS ORDERED: POVIDONE IODINE 5% (ANTISEPSIS KIT) 4 APPLICATIONS EACH NARE PRN (22:30)
[2017-07-18] VITALS (8 sets, daily range): BP systolic 109–153; BP diastolic 59–72; PULSE 70–76; RESP 16–20; TEMP 95.6–98.4; O2SAT 91–100
[2017-07-18] MEDS: PIPERACIL-TAZO 3.375 GM PREMIX 50 ML IV SCH ×2 (02:29→12:28)
[2017-07-18] MEDS: SODIUM CHLOR 0.9% 1000 ML INJ 1,000 ML IV SCH ×3 (02:30→21:36)
[2017-07-18] MEDS: CHLORHEXIDINE GLUCONATE 2 % 1 PACK (2 CLOTHS)(taper/protocol) TOPICAL SCH ×2 (03:34→21:36)
[2017-07-18] MEDS: INSULIN ASPART SUPPLEMENTAL SCALE SQ SCH ×4 (06:23→21:00)
[2017-07-18] MEDS: HYDROmorphone HCL PF 1 MG/ML VIAL IV PRN ×2 (08:11→12:25)
[2017-07-18] MEDS: DOCUSATE SODIUM 50 MG/SENNA 8.6 MG TAB PO SCH ×2 (08:13→21:34)
[2017-07-18] MEDS: CARVEDILOL 12.5 MG TAB PO SCH ×2 (08:13→21:33)
[2017-07-18 09:42] LABS: AUTOMATED NEUTROPHIL # 3.5 TH/MM3 (1.8-7.7); BASOPHIL % 0.4 % (0.0-2.0); HEMATOCRIT 35.6 % (39.0-51.0); LYMPH % 12.3 % (9.0-44.0); LYMPHOCYTE # 0.6 TH/MM3 (1.0-4.8); MEAN CELL VOLUME 96.9 FL (80.0-100.0); MEAN CORPUSCULAR HEMOGLOBIN 30.7 PG (27.0-34.0); MEAN CORPUSCULAR HGB CONC 31.7 % (32.0-36.0); MONO % 11.5 % (0.0-8.0); NEUT % 74.8 % (16.0-70.0); PLATELET COUNT 48 TH/MM3 (150-450); RED BLOOD COUNT 3.67 MIL/MM3 (4.50-5.90); RED CELL DISTRIBUTION WIDTH 16.3 % (11.6-17.2); WHITE BLOOD COUNT 4.6 TH/MM3 (4.0-11.0)
[2017-07-18 09:46] LABS: HEMO FLAGS AUTO DIFF
--- NOTE | 2017-07-18 10:25 | HHI.PR ---
Subjective Remarks Patient resting in bed, he looks calm, answer simple question The was at the bedside she was very agitated, she wants patient to be cleared to go to surgery, I tried to calm her down next to her that I already discussed with the institution director that was on her 's case, and we both think we need an ID consultation to verify the source of the fever, she was arguing that patient did not have fever overnight however patient is on Zosyn and Vanco, even though the CT chest without contrast was unremarkable but with the story of hypoxia in preop and the fever respiratory infection still not completely ruled out. Patient requested to aggressively control the pain. I called Dr. Valdovinos prior to talk to the , and he definitely does not agree with clearing patient at this point, we both agreed on ID consultation therefore I consulted and called her stat, discussed with her she doubts possible aspiration, she recommended repeating chest x-ray, bilateral lower extremity to rule out DVT, I will check VQ scan. I also discussed with Dr. Whitfield the orthopedic explained to him the situation, he requested to notify him once patient is cleared so he can be rescheduled Objective Vitals Vital Signs Date Time Temp Pulse Resp B/P (MAP) Pulse Ox O2 Delivery O2 Flow Rate FiO2 07/18/17 09:50 92 Nasal Cannula 2.00 07/18/17 07:58 95.9 70 18 137/66 (89) 98 07/18/17 04:00 98.1 70 16 109/59 (76) 95 07/18/17 00:00 98.4 71 17 122/60 (80) 91 07/17/17 20:00 100.3 70 20 140/69 (92) 95 07/17/17 18:00 71 07/17/17 16:00 100.3 73 13 136/63 (87) 86 07/17/17 16:00 73 07/17/17 16:00 86 Nasal Cannula 2.00 07/17/17 14:00 80 07/17/17 12:00 82 07/17/17 12:00 101.7 82 12 143/91 (108) 96 07/17/17 12:00 96 Nasal Cannula 2.00 I/O 07/17/17 07/17/17 07/17/17 07/18/17 07/18/17 07/18/17 07:00 15:00 23:00 07:00 15:00 23:00 Intake Total 931 ml 50 ml 430 ml 1379 ml Output Total 650 ml 800 ml 500 ml Balance 281 ml 50 ml -370 ml 879 ml Intake Oral 10 ml 180 ml 0 ml IV Total 921 ml 50 ml 250 ml 1379 ml Output Urine Total 650 ml 800 ml 500 ml # Bowel Movements 0 Result Diagram: 07/18/17 0915 07/17/17 0747 Objective Remarks - GENERAL: This is a well-nourished, well-developed patient, in no apparent distress. SKIN: No rashes, warm and dry HEAD: Atraumatic. Normocephalic. EYES: Pupils equal round and reactive. Extraocular motions intact. No scleral icterus. ENT: Nose without bleeding, or drainage, Airway patent. NECK: Trachea midline. Supple CARDIOVASCULAR: Regular rate and rhythm without murmurs, gallops, or rubs. RESPIRATORY: Mild decreased breath sounds on the right base. No wheezes, rales, or rhonchi. GASTROINTESTINAL: Abdomen soft, non-tender, nondistended. Positive bowel sounds MUSCULOSKELETAL: Extremities without clubbing, cyanosis, or edema. Pedal pulses appreciated, left lower extremity in traction NEUROLOGICAL: Awake and alert. Moves all extremity. Normal speech.no focal neurological deficit A/P Problem List: (1) Chronic kidney disease, stage III (moderate) ICD Code: N18.3 - Chronic kidney disease, stage 3 (moderate) Status: Chronic (2) Paroxysmal atrial flutter ICD Code: I48.92 - Unspecified atrial flutter Status: Chronic (3) Closed right hip fracture ICD Code: S72.001A - Fracture of unspecified part of neck of right femur, initial encounter for closed fracture Status: Acute (4) DM type 2 (diabetes mellitus, type 2) ICD Code: E11.9 - Type 2 diabetes mellitus without complications Status: Chronic Assessment and Plan 07/18: I called Dr. Valdovinos prior to talk to the , and he definitely does not agree with clearing patient at this point, we both agreed on ID consultation therefore I consulted and called her stat, discussed with her she doubts possible aspiration, she recommended repeating chest x-ray, bilateral lower extremity to rule out DVT, I will check VQ scan. will be seeing the patient later today . I also discussed with Dr. Veliz the orthopedic explained to him the situation, he requested to notify him once patient is cleared so he can be rescheduled Discussed with the extensively and explained the plan for her Addendum:D/W after she saw the patient agree with DVT/PE workup, she informed me tomorrow she will be able to know if patient can be cleared for surgery, I notified Dr. Whitfield about this update Time spent 60 minutes A/P: This is a 72-year-old male with history of chronic kidney disease, diabetes mellitus, cardiomyopathy, atrial fibrillation with recent cardiac ablation presenting with right hip fracture after a fall. Right hip fracture-right hip imaging revealed a right hip fracture. Orthopedics on board , for surgery, hold for now because of fever. Cont pain control oral and intravenous with bowel regimen. Eliquis on hold. Atrial flutter, stable -telemetry showed paced rhythm. Echo 07/15 ejection fraction 55%, mild to moderate right atrial dilatation, moderate tricuspid regurgitation Continue Coreg per home dose, hold eliquis in anticipation for surgery. Cont NS, statin. Status post cardiac ablation procedure 3 weeks ago R/O sepsis - source unclear, CT chest unremarkable other than adenopathy. 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 serum B12 and folic acid and TSH WNL. Awaiting labs today. No indication for hematology consult at this time, previously seen Dr. Wolfe History of CHF, diastolic-echocardiogram December 2069 showed ejection fraction of 60%, Mild LVH, repeat TTE as above. Chronic kidney disease stage III-creatinine around based at 1.5-1.6, gentle hydration. Hold Bumex, creatinine increasing, awaiting today's labs, cont NS. Diabetes mellitus- hold glipizide, continue Levemir, sliding scale insulin DVT prophylaxis: SCDs for now, start after surgery. Hold eliquis. Problem Qualifiers (1) Closed right hip fracture: Qualified Codes: S72.001A - Fracture of unspecified part of neck of right femur , initial encounter for closed fracture (2) DM type 2 (diabetes mellitus, type 2): Qualified Codes: E11.8 - Type 2 diabetes mellitus with unspecified complications Sheyla Leiva MD Jul 18, 2017 10:25
[2017-07-18 10:46] LABS: BICARBONATE 23.2 MEQ/L (21.0-32.0)
[2017-07-18] MEDS ORDERED: GENTAMICIN SULFATE 80 MG/2 ML VIAL ONE (11:59)
[2017-07-18] MEDS: AZITHROMYCIN INJ 500 MG in SODIUM CHLOR 0.9% 250 ML INJ 250 ML IV SCH (12:28)
--- NOTE | 2017-07-18 13:01 | RADRPT ---
EXAM DATE/TIME: 07/18/2017 11:32 [facility] COMPARISON: CHEST SINGLE AP, July 16, 2017, 9:58. INDICATIONS : Short of breath MEDICAL HISTORY : Carcinoma, colon. Cardiovascular disease. SURGICAL HISTORY : Pacemaker. ENCOUNTER: Subsequent ACUITY: 2 days PAIN SCORE: 0/10 LOCATION: chest FINDINGS: Slight cardiomegaly seen. Lungs are clear. Cardiac pacer wires have not changed. CONCLUSION: No appreciable change. Brayden Rutherford MD on July 18, 2017 at 12:58 Board Certified Radiologist. This report was verified electronically.
[2017-07-18] MEDS ORDERED: MORPHINE SULFATE 4 MG/ML INJ IM ONE (14:15)
[2017-07-18 14:22] LABS: SCAN/DIFF AUTO DIFF CONFIRMED
[2017-07-18] MEDS ORDERED: LORazepam 2 MG/ML VIAL IV PUSH ONE (14:30)
--- NOTE | 2017-07-18 14:33 | PD.ID.CON ---
History of Present Illness Service Infectious disease Consult Requested By Reason for Consult Evaluation and management of fever Primary Care Physician Benji Chirinos M.D. Diagnoses: History of Present Illness Most of the history was from review of medical records.Mr. Wu is a 72-year- old male with history of type 2 diabetes, cardiomyopathy, atrial fibrillation status post pacemaker placement, CKD, history of subdural hemorrhage with the ED yesterday 07/15/17 after sustaining a fall and fracturing right hip. He fell at the [employer] parking lot, did not loose consciousness. Patient was admitted to the hospitalist service and orthopedic surgery Dr. Whitfield was consulted. Apparently patient had a cardiac ablation 3 weeks ago, history does not suggest a cardiac syncope. Patient was scheduled for right hip surgery today, in the preop patient was noted be hypoxic with oxygen saturation in the 80s somnolent and with a fever of 102.5. With severe hypoxia and possible sepsis surgery was postponed, patient was placed on 4L nasal cannula and was sent to PACU. Critical care medicine was consulted for sepsis and hypoxia. On my evaluation patient is slightly lethargic but wakes up easily follows commands. Chest x-ray shows no infiltrate, I will get a CT of the chest to rule out pneumonia. Panculture requested, will start patient on Zosyn renally adjusted dose and add azithromycin. It was noted that patient had a platelet count of 63 on admission and a creatinine of 1.7. 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 BCX are negative. UA neg. CXR negative. ID consulted for fever evaluation and Mment. Review of Systems ROS Limitations: Poor Historian Past Family Social History Allergies: Coded Allergies: No Known Allergies (Unverified , 07/15/17) Past Medical History History of SDH Cardiomyopathy Atrial fibrillation/flutter status post pacemaker placement Bilateral carotid stenosis Diabetes mellitus Osteoarthritis Colon Cancer 8 years ago, in remission Chronic 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 Wolfe in the past Past Surgical History Pacemaker placement Cataract surgery Colectomy for colon cancer Appendectomy Humphrey hole placement for SDH Reported Medications Reported Meds & Active Scripts Active Neurontin (Gabapentin) 400 Mg Cap 400 Mg PO HS 30 Days Bumetanide 1 Mg Tab 1 Mg PO DAILY 30 Days Lantus Inj (Insulin Glargine) 1,000 Unit/10 Ml Vial 5 Units SQ HS 30 Days Reported Eliquis (Apixaban) 5 Mg Tab 5 Mg PO BID Glipizide 10 Mg Tab 10 Mg PO BIDAC Take 30 minutes before a meal Simvastatin 20 Mg Tab 20 Mg PO HS Carvedilol 25 Mg Tab 25 Mg PO BID Active Ordered Medications Current Medications Medications (Trade) Dose Ordered Sig/Suzanna Route Start Time Stop Time Status Last Admin (Tylenol) 650 mg Q6H PRN PO 07/15/17 15:15 07/16/17 15:15 (Roxicodone) 10 mg Q4H PRN PO 07/15/17 15:15 07/18/17 10:20 (Roxicodone) 5 mg Q4H PRN PO 07/15/17 15:15 (Narcan Inj) 0.4 mg UNSCH PRN IV 07/15/17 15:15 (Jeanine-Colace) 1 tab BID PO 07/15/17 21:00 07/17/17 20:13 (Milk Of Magnesia Liq) 30 ml Q12H PRN PO 07/15/17 15:15 (Senokot) 17.2 mg Q12H PRN PO 07/15/17 15:15 (Dulcolax Supp) 10 mg DAILY PRN RECTAL 07/15/17 15:15 (NovoLOG SUPPLEMENTAL SCALE) 1 ACHS SLIDING SCALE SQ 07/15/17 16:00 07/17/17 16:00 (Bumetanide) 1 mg DAILY PO 07/16/17 09:00 Future Hold (Coreg) 25 mg BID PO 07/15/17 21:00 07/18/17 08:13 (Neurontin) 400 mg HS PO 07/15/17 21:00 Future Hold 07/16/17 21:05 (Levemir Inj) 5 units HS SQ 07/15/17 21:00 07/17/17 20:22 (Pravachol) 40 mg HS PO 07/15/17 21:00 07/17/17 20:13 (D50w (Vial) Inj) 50 ml UNSCH PRN IV PUSH 07/15/17 18:15 (Glucagon Inj) 1 mg UNSCH PRN OTHER 07/15/17 18:15 Piperacillin Sod/ Tazobactam Sod 50 ml @ 100 mls/hr Q8H IV 07/16/17 10:00 07/18/17 12:28 Azithromycin 500 mg/Sodium Chloride 250 ml @ 250 mls/hr Q24H IV 07/16/17 12:00 07/18/17 12:28 Sodium Chloride 1,000 ml @ 75 mls/hr [id number] IV 07/16/17 11:30 07/18/17 02:30 Miscellaneous Information Patient in critical care unit? Ass... [id number] .XX 07/16/17 20:45 (Chlorhexidine 2% Cloth) 3 pack DAILY@04 TOPICAL 07/17/17 04:00 07/21/17 04:01 07/17/17 01:03 (Chlorhexidine 2% Cloth) 3 pack UNSCH PRN TOPICAL 07/16/17 20:45 07/21/17 20:33 (Dilaudid Pf Inj) 0.5 mg Q4H PRN IV 07/17/17 11:00 07/18/17 12:25 Pharmacy Profile Note 0 ml @ 0 mls/hr UNSCH OTHER 07/17/17 14:30 Lactated Ringer's 1,000 ml @ 30 mls/hr Q24H PRN IV 07/17/17 22:30 07/20/17 22:29 Sodium Chloride 500 ml @ 30 mls/hr [id number] PRN IV 07/17/17 22:30 07/20/17 22:29 (Lopressor) 25 mg TV HOST PRN PO 07/17/17 22:30 07/20/17 22:29 (Betadine 5% Antisepsis Kit) 1 applic TV HOST PRN EACH NARE 07/17/17 22:30 07/20/17 22:29 (Chlorhexidine 2% Cloth) 3 pack TV HOST PRN TOPICAL 07/17/17 22:30 07/20/17 22:29 Family History reviewed and NC Social History could not be obtained. Physical Exam Vital Signs Vital Signs Date Time Temp Pulse Resp B/P (MAP) Pulse Ox O2 Delivery O2 Flow Rate FiO2 07/18/17 11:05 95.6 73 18 153/72 (99) 100 07/18/17 09:50 92 Nasal Cannula 2.00 07/18/17 07:58 95.9 70 18 137/66 (89) 98 07/18/17 04:00 98.1 70 16 109/59 (76) 95 07/18/17 00:00 98.4 71 17 122/60 (80) 91 07/17/17 20:00 100.3 70 20 140/69 (92) 95 07/17/17 18:00 71 07/17/17 16:00 100.3 73 13 136/63 (87) 86 07/17/17 16:00 73 07/17/17 16:00 86 Nasal Cannula 2.00 Physical Exam GENERAL: Obese, well-developed patient, in no apparent distress. SKIN: No rashes, ecchymoses or lesions. Cool and dry. HEAD: Atraumatic. Normocephalic. No temporal or scalp tenderness. EYES: Pupils equal round and reactive. Extraocular motions intact. No scleral icterus. No injection or drainage. ENT: Nose without bleeding, purulent drainage or septal hematoma. Throat without erythema, tonsillar hypertrophy or exudate. Uvula midline. Airway patent. NECK: Trachea midline. Supple, nontender, no meningeal signs. CARDIOVASCULAR: Regular rate and rhythm without murmurs, gallops, or rubs. RESPIRATORY: Clear to auscultation. Breath sounds equal bilaterally. No wheezes , rales, or rhonchi. GASTROINTESTINAL: Abdomen soft, non-tender, nondistended. MUSCULOSKELETAL: Right leg in dressing and immobilizer. Toes pink. NEUROLOGICAL: Awake and alert. Grossly non focal Psych: cooperative but uncomfortable due to pain. IV line sites with no e.o infection Laboratory Laboratory Tests Test 07/18/17 09:15 White Blood Count 4.6 Red Blood Count 3.67 Hemoglobin 11.3 Hematocrit 35.6 Mean Corpuscular Volume 96.9 Mean Corpuscular Hemoglobin 30.7 Mean Corpuscular Hemoglobin Concent 31.7 Red Cell Distribution Width 16.3 Platelet Count 48 Mean Platelet Volume 8.7 Neutrophils (%) (Auto) 74.8 Lymphocytes (%) (Auto) 12.3 Monocytes (%) (Auto) 11.5 Eosinophils (%) (Auto) 1.0 Basophils (%) (Auto) 0.4 Neutrophils # (Auto) 3.5 Lymphocytes # (Auto) 0.6 Monocytes # (Auto) 0.5 Eosinophils # (Auto) 0.0 Basophils # (Auto) 0.0 CBC Comment AUTO DIFF Differential Comment AUTO DIFF CONFIRMED Blood Urea Nitrogen 52 Creatinine 1.94 Random Glucose 125 Calcium Level 8.7 Sodium Level 139 Potassium Level 5.0 Chloride Level 108 Carbon Dioxide Level 23.2 Anion Gap 8 Estimat Glomerular Filtration Rate 34 Date/Time Source Procedure Growth Status 07/16/17 11:10 Blood Line Aerobic Blood Culture - Preliminary NO GROWTH IN 2 DAYS Resulted 07/16/17 11:10 Blood Line Anaerobic Blood Culture - Preliminary NO GROWTH IN 2 DAYS Resulted Result Diagram: 07/18/17 0915 07/18/17 0915 Imaging Last Impressions Lung Scan-VQ Nuclear Medicine 07/18/17 0000 Signed Impressions: Service Date/Time: Tuesday, July 18, 2017 15:10 - CONCLUSION: Normal examination. Brayden Rutherford MD Chest X-Ray 07/18/17 0000 Signed Impressions: Service Date/Time: Tuesday, July 18, 2017 11:32 - CONCLUSION: No appreciable change. Brayden Rutherford MD Chest CT 07/16/17 0000 Signed Impressions: Service Date/Time: Sunday, July 16, 2017 12:45 - CONCLUSION: 1. No infiltrate seen. 2. Middle mediastinal adenopathy. Rodo Gaxiola MD Hip and Pelvis X-Ray 07/15/17 0000 Signed Impressions: Service Date/Time: Saturday, July 15, 2017 12:43 - CONCLUSION: Moderately angulated basicervical right femoral neck fracture Bonifacio Urbano MD Head CT 07/15/17 Signed Impressions: Service Date/Time: Saturday, July 15, 2017 13:17 - CONCLUSION: No acute intracranial injury or Bonifacio Urbano MD Femur X-Ray 07/15/17 Signed Impressions: Service Date/Time: Saturday, July 15, 2017 12:43 - CONCLUSION: Right femoral neck fracture again noted. The rest of the right femur is intact. Bonifacio Michel MD Cervical Spine CT 07/15/17 0000 Signed Impressions: Service Date/Time: Saturday, July 15, 2017 13:17 - CONCLUSION: 1. No fracture or acute appearing malalignment of the cervical spine. 2. Degenerative changes as above. Bonifacio Michel MD Assessment and Plan Assessment and Plan Fever Right femur fracture Acute on chronic renal failure thrombocytopenia chronic. H.o hypersplenism recs Observe off antibiotics overnight Check procalcitonin. If normal less likely to be infectious process. Fever could be from trauma, femur fracture. CXR negative. UA negative CT head negative CT chest negative (non contrast) will get VQ scan to r/o PE. will follow pt in am and clear pt for surgery depending on labs, clinical and radiological picture. Sigrid Gastelum MD Jul 18, 2017 14:33
--- NOTE | 2017-07-18 15:39 | PD.ORT.PN ---
Subjective Subjective Remarks Patient is currently in V/Q scan. The patient's is at the bedside. Objective Vitals Vital Signs Date Time Temp Pulse Resp B/P (MAP) Pulse Ox O2 Delivery O2 Flow Rate FiO2 07/18/17 11:05 95.6 73 18 153/72 (99) 100 07/18/17 09:50 92 Nasal Cannula 2.00 07/18/17 07:58 95.9 70 18 137/66 (89) 98 07/18/17 04:00 98.1 70 16 109/59 (76) 95 07/18/17 00:00 98.4 71 17 122/60 (80) 91 07/17/17 20:00 100.3 70 20 140/69 (92) 95 07/17/17 18:00 71 07/17/17 16:00 100.3 73 13 136/63 (87) 86 07/17/17 16:00 73 07/17/17 16:00 86 Nasal Cannula 2.00 I/O 07/17/17 07/17/17 07/17/17 07/18/17 07/18/17 07/18/17 07:00 15:00 23:00 07:00 15:00 23:00 Intake Total 931 ml 50 ml 430 ml 1379 ml Output Total 650 ml 800 ml 500 ml Balance 281 ml 50 ml -370 ml 879 ml Intake Oral 10 ml 180 ml 0 ml IV Total 921 ml 50 ml 250 ml 1379 ml Output Urine Total 650 ml 800 ml 500 ml # Bowel Movements 0 Result Diagram: 07/18/17 0915 07/18/17 0915 Imaging Last 24 hours Impressions Chest X-Ray 07/18/17 0000 Signed Impressions: Service Date/Time: Tuesday, July 18, 2017 11:32 - CONCLUSION: No appreciable change. Brayden Rutherford MD Objective Remarks The physical exam is deferred as the patient is in V/Q scan. Assessment & Plan Assessment and Plan Right hip fracture (femoral neck fracture) 1. Maintain traction to RLE 2. We did make another attempt today to move forward with surgical management. Unfortunately, based on conversations with the patient's admitting physician this patient is not currently clear to move forward with surgical management. They feel that in conjunction with the other medical physicians on the case that there is a good chance he will get cleared by tomorrow for surgery. 3. Ice to the right hip PRN 4. Patient will remain NWB RLE for now 5. Pain medication for pain management. 6. Follow-up on the V/Q scan, with hopes of medical clearance to move forward with surgical management tomorrow. 7. Tomorrow starts the beginning of the weekend. I will communicate the plan with one of my partners to see if they can help manage this patient surgically over the weekend so as not to delay care once he is medically cleared. Bubba Whitfield MD Jul 18, 2017 15:39
--- NOTE | 2017-07-18 15:45 | RADRPT ---
EXAM DATE/TIME: 07/18/2017 15:10 [facility] COMPARISON: CHEST PA & LAT, July 18, 2017, 11:32. INDICATIONS : Shortness of breath for 1 day. DOSE: 8.2 mCi Tc99m MAA IV 0.9 mCi Tc99m DTPA aerosol MEDICAL HISTORY : Carcinoma, colon. Diabetes mellitus type 2. Renal failure, chronic. SURGICAL HISTORY : Pacemaker. ENCOUNTER: Initial ACUITY: 1 day PAIN SCALE: 1/10 LOCATION: Bilateral chest TECHNIQUE: Following five minutes of tidal breathing of DTPA aerosol, planar images of the lungs were performed in eight projections. The patient was then injected with MAA, and eight-view perfusion scan was perf ormed. FINDINGS: There is a homogeneous pattern of aerosol delivery to the periphery of both lungs. No focal ventilat ory defects are seen. The perfusion lung scan demonstrates a homogenous pattern of uptake in both lungs. No segmental or s ubsegmental defects are seen. CONCLUSION: Normal examination. Brayden Rutherford MD on July 18, 2017 at 15:43 Board Certified Radiologist. This report was verified electronically.
--- NOTE | 2017-07-18 18:28 | RADRPT ---
EXAM DATE/TIME: 07/18/2017 11:30 [facility] COMPARISON: No previous studies available for comparison. INDICATIONS : Bilateral leg swelling. MEDICAL HISTORY : Congestive heart failure. Carcinoma, colon. Renal calculi. Current Right Hip Fracture. Brain bleed. C VA. Sinus headaches. Cardiac ablasion. Afib. Stage III chronic kidney disease. Diabetes. Anticoagula nt therapy. SURGICAL HISTORY : Pacemaker.Appendectomy. Cataracts. Colon surgery. Brain surgery x5. Blood transfusions. ENCOUNTER: Initial ACUITY: 1 day PAIN SCORE: 7/10 LOCATION: Bilateral leg. TECHNIQUE: Venous ultrasound of the left and right leg was performed from the inguinal ligament to the proximal calf. Real-time, color Doppler and spectral tracing, compression and augmentation techniques were us ed. FINDINGS: RIGHT LEG: There is normal compressibility of the deep venous system from the inguinal region to the proximal ca lf. No echogenic clot is seen in the lumen of the common femoral, femoral veins. There is a normal response of the venous system to proximal and distal augmentation and respiration. LEFT LEG: There is normal compressibility of the deep venous system from the inguinal region to the proximal ca lf. No echogenic clot is seen in the lumen of the common femoral, femoral, popliteal, and posterior tibial veins. There is a normal response of the venous system to proximal and distal augmentation an d respiration. CONCLUSION: 1. Negative limited exam for deep venous thrombosis. Unable to visualize right popliteal vein and bel ow due to brace. Chris Sher MD on July 18, 2017 at 18:25 Board Certified Radiologist. This report was verified electronically.
[2017-07-18] MEDS: PRAVASTATIN SOD 40 MG TAB PO SCH (21:33)
[2017-07-18] MEDS: INSULIN DETEMIR 100 UNITS/ML VIAL SQ SCH (21:35)
[2017-07-19] VITALS (8 sets, daily range): BP systolic 94–157; BP diastolic 53–73; PULSE 69–72; RESP 17–18; TEMP 95.8–98.2; O2SAT 92–100
[2017-07-19] MEDS: INSULIN ASPART SUPPLEMENTAL SCALE SQ SCH ×4 (06:10→21:00)
[2017-07-19] MEDS: CARVEDILOL 12.5 MG TAB PO SCH ×2 (07:42→20:58)
[2017-07-19] MEDS ORDERED: TRANEXAMIC ACID INJ 1,000 MG/10 ML AMP ONE (07:51)
[2017-07-19] MEDS ORDERED: SODIUM CHLORIDE 0.9% 20 ML VIAL ONE (07:57)
[2017-07-19] MEDS ORDERED: ceFAZolin 2 GM PREMIX 50 ML ONE (08:07)
[2017-07-19] MEDS ORDERED: VANCOMYCIN HCL 1000 MG VIAL ONE (08:07)
[2017-07-19] MEDS ORDERED: Post-op Orders (for Pharmacy) MISC XX ONE (09:00)
[2017-07-19] MEDS ORDERED: ceFAZolin 2 GM PREMIX 50 ML IV ONE (09:00)
[2017-07-19] MEDS: DOCUSATE SODIUM 50 MG/SENNA 8.6 MG TAB PO SCH ×3 (09:00→20:58)
[2017-07-19] MEDS ORDERED: BISACODYL 10 MG SUPP RECTAL PRN (09:00)
[2017-07-19] MEDS ORDERED: SODIUM CHLORIDE 0.9% FLUSH 10 ML FLUSH IV FLUSH PRN (09:00)
[2017-07-19] MEDS ORDERED: ACETAMINOPHEN/HYDROcodone 325 MG/5 MG TAB PO PRN (09:00)
[2017-07-19] MEDS ORDERED: MAGNESIUM HYDROXIDE SUSP 30 ML CUP PO PRN (09:00)
[2017-07-19] MEDS ORDERED: VANCOMYCIN INJ 1,000 MG in SODIUM CHLOR 0.9% 250 ML INJ 250 ML IV ONE (09:00)
[2017-07-19] MEDS ORDERED: SENNOSIDES 8.6 MG TAB PO PRN (09:00)
[2017-07-19] MEDS ORDERED: LACTULOSE SYRUP 20 GM/30 ML CUP PO PRN (09:00)
--- NOTE | 2017-07-19 09:05 | HHI.IDPN ---
Subjective Subjective Remarks chart was reviewed Pt is denmented at baseline and not really answers questions Dw Dr Benji Moy, nurses Pt sp R hip fracture (he and his fell in parking lot) and now is going for R hip arhtroplasty He had fever 102.8 3 days ago, abx were stopped yday nearly 24 hrs ago (zosyn, vanco) but is afebrile x [address] chest neg; VQ neg US LE neg BC neg @ 2 days UA on 07/16 was neg Antibiotics none Past Medical History History of SDH Cardiomyopathy Atrial fibrillation/flutter status post pacemaker placement Bilateral carotid stenosis Diabetes mellitus Osteoarthritis Colon Cancer 8 years ago, in remission Chronic 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 Wolfe in the past Past Surgical History Pacemaker placement Cataract surgery Colectomy for colon cancer Appendectomy Humphrey hole placement for SDH Allergies: Coded Allergies: No Known Allergies (Unverified , 07/15/17) Objective . Vital Signs Date Time Temp Pulse Resp B/P (MAP) Pulse Ox O2 Delivery O2 Flow Rate FiO2 07/19/17 08:00 96.5 70 17 135/68 (90) 98 07/19/17 04:05 96.9 70 18 157/73 (101) 95 07/19/17 00:45 98.2 72 18 156/70 (98) 94 07/18/17 21:32 94 Nasal Cannula 3.00 07/18/17 21:32 70 07/18/17 20:05 97.7 76 20 149/69 (95) 93 07/18/17 14:56 96.4 70 18 126/65 (85) 92 07/18/17 11:05 95.6 73 18 153/72 (99) 100 07/18/17 09:50 92 Nasal Cannula 2.00 . Laboratory Tests Test 07/18/17 09:15 White Blood Count 4.6 TH/MM3 Red Blood Count 3.67 MIL/MM3 Hemoglobin 11.3 GM/DL Hematocrit 35.6 % Mean Corpuscular Volume 96.9 FL Mean Corpuscular Hemoglobin 30.7 PG Mean Corpuscular Hemoglobin Concent 31.7 % Red Cell Distribution Width 16.3 % Platelet Count 48 TH/MM3 Mean Platelet Volume 8.7 FL Neutrophils (%) (Auto) 74.8 % Lymphocytes (%) (Auto) 12.3 % Monocytes (%) (Auto) 11.5 % Eosinophils (%) (Auto) 1.0 % Basophils (%) (Auto) 0.4 % Neutrophils # (Auto) 3.5 TH/MM3 Lymphocytes # (Auto) 0.6 TH/MM3 Monocytes # (Auto) 0.5 TH/MM3 Eosinophils # (Auto) 0.0 TH/MM3 Basophils # (Auto) 0.0 TH/MM3 CBC Comment AUTO DIFF Differential Comment AUTO DIFF CONFIRMED Laboratory Tests Test 07/18/17 09:15 Blood Urea Nitrogen 52 MG/DL Creatinine 1.94 MG/DL Random Glucose 125 MG/DL Calcium Level 8.7 MG/DL Sodium Level 139 MEQ/L Potassium Level 5.0 MEQ/L Chloride Level 108 MEQ/L Carbon Dioxide Level 23.2 MEQ/L Anion Gap 8 MEQ/L Estimat Glomerular Filtration Rate 34 ML/MIN Procalcitonin 0.38 ng/mL Microbiology Date/Time Source Procedure Growth Status 07/16/17 11:10 Blood Line Aerobic Blood Culture - Preliminary NO GROWTH IN 2 DAYS Resulted 07/16/17 11:10 Blood Line Anaerobic Blood Culture - Preliminary NO GROWTH IN 2 DAYS Resulted 07/16/17 10:15 Blood Line Aerobic Blood Culture - Preliminary NO GROWTH IN 2 DAYS Resulted 07/16/17 10:15 Blood Line Anaerobic Blood Culture - Preliminary NO GROWTH IN 2 DAYS Resulted Imaging Last Impressions Lung Scan-V Nuclear Medicine 07/18/17 0000 Signed Impressions: Service Date/Time: Tuesday, July 18, 2017 15:10 - CONCLUSION: Normal examination. Brayden Rutherford MD Lower Extremity Ultrasound 07/18/17 0000 Signed Impressions: Service Date/Time: Tuesday, July 18, 2017 11:30 - CONCLUSION: 1. Negative limited exam for deep venous thrombosis. Unable to visualize right popliteal vein and below due to brace. Chris Sher MD Chest X-Ray 07/18/17 0000 Signed Impressions: Service Date/Time: Tuesday, July 18, 2017 11:32 - CONCLUSION: No appreciable change. Brayden Rutherford MD Chest CT 07/16/17 0000 Signed Impressions: Service Date/Time: Sunday, July 16, 2017 12:45 - CONCLUSION: 1. No infiltrate seen. 2. Middle mediastinal adenopathy. Rodo Gaxiola MD Hip and Pelvis X-Ray 9/5/17 0000 Signed Impressions: Service Date/Time: Saturday, July 15, 2017 12:43 - CONCLUSION: Moderately angulated basicervical right femoral neck fracture Bonifacio Urbano MD Head CT 07/15/17 Signed Impressions: Service Date/Time: Saturday, July 15, 2017 13:17 - CONCLUSION: No acute intracranial injury or Bonifacio Urbano MD Femur X-Ray 07/15/17 Signed Impressions: Service Date/Time: Saturday, July 15, 2017 12:43 - CONCLUSION: Right femoral neck fracture again noted. The rest of the right femur is intact. Bonifacio Michel MD Cervical Spine CT 07/15/17 Signed Impressions: Service Date/Time: Saturday, July 15, 2017 13:17 - CONCLUSION: 1. No fracture or acute appearing malalignment of the cervical spine. 2. Degenerative changes as above. Bonifacio Michel MD Physical Exam GENERAL: Obese, well-developed patient, in no apparent distress. SKIN: No rashes, ecchymoses or lesions. Cool and dry. No [place] lesions HEAD: Atraumatic. Normocephalic. No temporal or scalp tenderness. EYES: Pupils equal round and reactive. Extraocular motions intact. No scleral icterus. No injection or drainage. ENT: Nose without bleeding, purulent drainage or septal hematoma. Oral mucosae moist, dentition is poor NECK: Trachea midline. CARDIOVASCULAR: Regular rate and rhythm without murmurs, gallops, or rubs. Well perfused perifery RESPIRATORY: Clear to auscultation. Breath sounds equal bilaterally. No wheezes , rales, or rhonchi. GASTROINTESTINAL: Abdomen soft, non-tender, mildly distended. MUSCULOSKELETAL: Right leg in dressing and immobilizer. Toes pink. NEUROLOGICAL: Awake and alert. Grossly non focal, but quite confused Psych: cooperative calm IV line sites with no e.o infection : parry in place, urine with sediment and cloudiness Assessment & Plan Remarks Fever, resolved, clx and other w/u neg - no e/o infiltrate to sugg PNA - blood clx neg - procalcitonine is low Fever could be from trauma, femur fracture. Right femur fracture for surgery today _ He is sstable from ID standpoint to have surgery and has no e/o infection that will be a contraindication to have his surgery today; also the fever is resolved and WBC is normal Acute on chronic renal failure: ceratinine improving thrombocytopenia chronic. H.o hypersplenism recs cont to observe off antibiotics (except for pre-op per protocol) will repeat UA fu bl;ood clx untill final dw Mendy Gusman MD Jul 19, 2017 09:05
[2017-07-19 09:11] LABS: HEMATOCRIT 31.4 % (39.0-51.0); MEAN CELL VOLUME 94.3 FL (80.0-100.0); MEAN CORPUSCULAR HEMOGLOBIN 30.6 PG (27.0-34.0); MEAN CORPUSCULAR HGB CONC 32.5 % (32.0-36.0); PLATELET COUNT 50 TH/MM3 (150-450); RED BLOOD COUNT 3.33 MIL/MM3 (4.50-5.90); RED CELL DISTRIBUTION WIDTH 15.5 % (11.6-17.2); WHITE BLOOD COUNT 4.9 TH/MM3 (4.0-11.0)
[2017-07-19 09:16] LABS: REVIEW FLAG FINAL
[2017-07-19 09:29] LABS: BICARBONATE 25.1 MEQ/L (21.0-32.0); POTASSIUM 4.9 MEQ/L (3.5-5.1)
[2017-07-19] MEDS ORDERED: GENTAMICIN SULFATE 80 MG/2 ML VIAL ONE (10:27)
[2017-07-19] MEDS ORDERED: BUPIVACAINE LIPOSOME PF 1.3% 20 ML VIAL INFIL ONE (10:37)
[2017-07-19] MEDS ORDERED: LACTATED RINGER'S 1000 ML INJ 1,000 ML IV ONE (11:10)
[2017-07-19] MEDS ORDERED: PROPOFOL 200 MG/20 ML AMP IV ONE (11:10)
[2017-07-19] MEDS ORDERED: ONDANSETRON HCL 4 MG/2 ML VIAL IV PUSH ONE (11:10)
[2017-07-19] MEDS ORDERED: SODIUM CHLOR 0.9% 250 ML INJ 500 ML IV ONE (11:10)
--- NOTE | 2017-07-19 11:13 | PD.OP ---
Operative Report Date of Surgery: Jul 19, 2017 Preoperative Diagnosis: (1) Closed displaced fracture of right femoral neck Postoperative Diagnosis: (1) Closed displaced fracture of right femoral neck Procedure: Right hip hemiarthroplasty for fracture Anesthesia: General Surgeon: Johnny Gaxiola MD Supply Chain Assistant(s): Rolando ANDERSON Operation and Findings: see dictation Johnny Gaxiola MD Jul 19, 2017 11:13
[2017-07-19] MEDS ORDERED: DO NOT ADM ANY ANTICOAGULANT DRUGS PRN (11:17)
[2017-07-19] MEDS: LACTATED RINGER'S 1000 ML INJ 1,000 ML IV SCH ×2 (11:37→22:18)
[2017-07-19] MEDS: SODIUM CHLORIDE 0.9% FLUSH 10 ML FLUSH IV FLUSH SCH ×2 (11:38→20:59)
--- NOTE | 2017-07-19 12:05 | MP ---
cc: EVERETT OBRIEN M.D. DATE OF SURGERY: 07/19/2017. PREOPERATIVE DIAGNOSIS: Right hip displaced femoral neck fracture. POSTOPERATIVE DIAGNOSIS: Right hip displaced femoral neck fracture. OPERATION: Right hip hemiarthroplasty for fracture using Mario Alberto & Mario Alberto DePuy size 16 Corail stem with a 53 mm bipolar femoral head. SURGEON: Everett Obrien M.D. STREET SWEEPER OPERATOR SURGEON: JUSTIN Lee. ANESTHESIA: General. ESTIMATED BLOOD LOSS: 300 cc. COMPLICATIONS: Unknown. TRANSFUSIONS: One unit of platelets. INDICATIONS FOR THE PROCEDURE: Michelet Wu is a 72-year-old male with thrombocytopenia who sustained a fall and displaced right hip fracture four days ago. He was admitted to the hospital. He has had some temperature spikes and ultimately surgery was cancelled because of the possibility of infection. No obvious infection identified. He is now cleared to proceed with surgical intervention. He does have low platelets of 48,000. He is indicated for transfusion for this. Additionally we plan on using operation. The patient was previously consented for my partner, Dr. Bubba Whitfield and/or associates, and so that is who I am, and I have talked to the family about surgery and risks associated with surgery and the potential benefits and the risks/benefits ratio and discussed this with the other medical providers as well. He is indicated to proceed. A detailed informed consent has been obtained. DESCRIPTION OF THE PROCEDURE IN DETAIL: The patient was brought into the operating room. He was placed under general anesthetic. He was turned to the lateral decubitus position with the right hip up. The right hip was prepped and draped in the usual sterile fashion. IV antibiotics were given. Time-out was completed. We also used tranexamic acid. Posterolateral approach taken through the subcutaneous tissue. Meticulous hemostasis. . Bovie electrocautery. The fascial layer was then split and then split into the gluteus darrick and deep retractors were placed and then we traversed again with meticulous detail to hemostasis the bursal tissue and then identified the pyriformis and the posterior capsule and tagged this and took this down in a single unit and exposed the fracture site and made a finishing cut on the femoral neck and then removed the multiple fragments and then the femoral head was removed and sized to 53 mm and we then inspected the acetabulum. No significant arthritis. The labrum was intact. We irrigated out with copious amounts of irrigation. All small bone fragments appeared to have been removed. We then eldon attention to the proximal femur and we proceeded with an osteotome and then canal finder and then sequential broaching up to a size 16 Corail. Calcar reamer used. Trial head and neck assembly. The hip was reduced. Excellent range of motion and stability. This was the final component. The 16 cementless standard offset Corail stem was used. The +5, 28-mm head with the 53 mm bipolar. The hip was reduced. Excellent range of motion and stability. Leg length looked very good. Anatomic repair of the posterior capsule. Irrigated out with copious amounts of irrigation. Proceeded to close with absorbable sutures. Long-acting Marcaine injected. Meticulous hemostasis as we left as well and crispin were used on the skin. Standard dressing applied. Knee immobilizer applied. The patient was awakened and returned to the recovery room in stable condition. MD DAWNA Rothman/SKIP /11:14 AM /11:51 AM
--- NOTE | 2017-07-19 12:08 | RADRPT ---
EXAM DATE/TIME: 07/19/2017 11:48 [facility] COMPARISON: No previous studies available for comparison. INDICATIONS : Post operative right hip. MEDICAL HISTORY : Cerebrovascular disease. Cardiovascular disease Carcinoma, colon. SURGICAL HISTORY : None. ENCOUNTER: Subsequent ACUITY: 4 - 6 days PAIN SCORE: Non-responsive. LOCATION: Right hip. FINDINGS: Single AP view of the right hip demonstrates a related to prior bipolar arthroplasty. Expected findin gs are present. There are overlying skin crispin. CONCLUSION: Expected changes are present following right hip bipolar arthroplasty. No acute finding is seen. Bonifacio Gibson MD on July 19, 2017 at 12:06 Board Certified Radiologist. This report was verified electronically.
[2017-07-19] MEDS ORDERED: SUGAMMADEX SODIUM 200 MG/2 ML VIAL IV PUSH ONE ×2 (13:01)
[2017-07-19] MEDS: ceFAZolin 2 GM PREMIX 50 ML IV SCH ×2 (13:13→20:58)
[2017-07-19] MEDS ORDERED: TRANEXAMIC ACID INJ 1,000 MG in SODIUM CHLORIDE 0.9% INJ 100 ML IV ONE (14:00)
[2017-07-19] MEDS: ACETAMINOPHEN/HYDROcodone 325 MG/5 MG TAB PO PRN ×2 (16:35→21:05)
--- NOTE | 2017-07-19 18:31 | HHI.PR ---
Subjective Remarks She just came from or, he had hip surgery D/W she was at the bedside, patient was still under partial sedation the open his eyes he was able to wiggle his toes Objective Vitals Vital Signs Date Time Temp Pulse Resp B/P (MAP) Pulse Ox O2 Delivery O2 Flow Rate FiO2 07/19/17 16:00 96.5 69 18 99/56 (70) 92 07/19/17 12:00 69 16 107/53 (71) 98 Nasal Cannula 3 07/19/17 12:00 95.8 70 17 142/62 (88) 100 07/19/17 11:45 69 16 123/56 (78) 98 Nasal Cannula 3 07/19/17 11:30 69 16 105/55 (72) 98 Nasal Cannula 3 07/19/17 11:22 97.2 69 16 100/47 (64) 100 Nasal Cannula 2 07/19/17 08:00 96.5 70 17 135/68 (90) 98 07/19/17 07:40 Nasal Cannula 2.00 07/19/17 04:05 96.9 70 18 157/73 (101) 95 07/19/17 00:45 98.2 72 18 156/70 (98) 94 07/18/17 21:32 94 Nasal Cannula 3.00 07/18/17 21:32 70 07/18/17 20:05 97.7 76 20 149/69 (95) 93 I/O 07/18/17 07/18/17 07/18/17 07/19/17 07/19/17 07/19/17 06:59 14:59 22:59 06:59 14:59 22:59 Intake Total 1379 ml 0 ml 360 ml 0 ml 2662 ml Output Total 500 ml 850 ml 600 ml 800 ml 1000 ml Balance 879 ml -850 ml -240 ml -800 ml 1662 ml Intake Oral 0 ml 0 ml 360 ml 0 ml 240 ml IV Total 1379 ml Platelets 222 ml Blood Product IV Normal Saline Flush 100 ml Other 2100 ml Output Urine Total 500 ml 850 ml 600 ml 800 ml 500 ml Estimated Blood Loss 500 ml # Voids 0 # Bowel Movements 0 0 0 0 Result Diagram: 07/19/1746 07/19/1746 Objective Remarks - GENERAL: This is a well-nourished, well-developed patient, in no apparent distress. SKIN: No rashes, warm and dry HEAD: Atraumatic. Normocephalic. EYES: Pupils equal round and reactive. Extraocular motions intact. No scleral icterus. ENT: Nose without bleeding, or drainage, Airway patent. NECK: Trachea midline. Supple CARDIOVASCULAR: Regular rate and rhythm without murmurs, gallops, or rubs. RESPIRATORY: Mild decreased breath sounds on the right base. No wheezes, rales, or rhonchi. GASTROINTESTINAL: Abdomen soft, non-tender, nondistended. Positive bowel sounds MUSCULOSKELETAL: Extremities without clubbing, cyanosis, or edema. Pedal pulses appreciated, left lower extremity in traction NEUROLOGICAL: Awake and alert. Moves all extremity. Normal speech.no focal neurological deficit A/P Problem List: (1) Chronic kidney disease, stage III (moderate) ICD Code: N18.3 - Chronic kidney disease, stage 3 (moderate) Status: Chronic (2) Paroxysmal atrial flutter ICD Code: I48.92 - Unspecified atrial flutter Status: Chronic (3) Closed right hip fracture ICD Code: S72.001A - Fracture of unspecified part of neck of right femur, initial encounter for closed fracture Status: Acute (4) DM type 2 (diabetes mellitus, type 2) ICD Code: E11.9 - Type 2 diabetes mellitus without complications Status: Chronic Assessment and Plan 07/19: Fever resolved ID cleared patient for surgery, status post hip arthroplasty , continue monitoring, appreciate ortho help A/P: This is a 72-year-old male with history of chronic kidney disease, diabetes mellitus, cardiomyopathy, atrial fibrillation with recent cardiac ablation presenting with right hip fracture after a fall. Right hip fracture-right hip imaging revealed a right hip fracture. Orthopedics on board , for surgery, hold for now because of fever. Cont pain control oral and intravenous with bowel regimen. Eliquis on hold. Atrial flutter, stable -telemetry showed paced rhythm. Echo 07/15 ejection fraction 55%, mild to moderate right atrial dilatation, moderate tricuspid regurgitation Continue Coreg per home dose, hold eliquis in anticipation for surgery. Cont NS, statin. Status post cardiac ablation procedure 3 weeks ago R/O sepsis - source unclear, CT chest unremarkable other than adenopathy. 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 serum B12 and folic acid and TSH WNL. Awaiting labs today. No indication for hematology consult at this time, previously seen Dr. Wolfe History of CHF, diastolic-echocardiogram December 2069 showed ejection fraction of 60%, Mild LVH, repeat TTE as above. Chronic kidney disease stage III-creatinine around based at 1.5-1.6, gentle hydration. Hold Bumex, creatinine increasing, awaiting today's labs, cont NS. Diabetes mellitus- hold glipizide, continue Levemir, sliding scale insulin DVT prophylaxis: SCDs for now, start after surgery. Hold eliquis. Problem Qualifiers (1) Closed right hip fracture: Qualified Codes: S72.001A - Fracture of unspecified part of neck of right femur , initial encounter for closed fracture (2) DM type 2 (diabetes mellitus, type 2): Qualified Codes: E11.8 - Type 2 diabetes mellitus with unspecified complications Sheyla Leiva MD Jul 19, 2017 18:31
[2017-07-19] MEDS: SODIUM CHLOR 0.9% 1000 ML INJ 1,000 ML IV SCH (19:30)
[2017-07-19] MEDS: PRAVASTATIN SOD 40 MG TAB PO SCH (20:58)
[2017-07-19] MEDS: INSULIN DETEMIR 100 UNITS/ML VIAL SQ SCH (21:07)
[2017-07-20] MEDS: CHLORHEXIDINE GLUCONATE 2 % 1 PACK (2 CLOTHS)(taper/protocol) TOPICAL SCH ×2 (01:24→23:04)
[2017-07-20] MEDS: ceFAZolin 2 GM PREMIX 50 ML IV SCH (01:28)
[2017-07-20] MEDS: ACETAMINOPHEN/HYDROcodone 325 MG/5 MG TAB PO PRN ×3 (03:43→18:53)
[2017-07-20 04:40] VITALS: BP 92/52; PULSE 70; RESP 18; TEMP 97; O2SAT 94
[2017-07-20] MEDS: INSULIN ASPART SUPPLEMENTAL SCALE SQ SCH ×4 (05:47→20:12)
[2017-07-20 07:16] LABS: HEMATOCRIT 27.2 % (39.0-51.0)
[2017-07-20 07:27] LABS: REVIEW FLAG FINAL
[2017-07-20 08:00] VITALS: BP 121/58; PULSE 70; RESP 17; TEMP 97.8; O2SAT 96
[2017-07-20] MEDS: CARVEDILOL 12.5 MG TAB PO SCH ×2 (08:23→20:09)
[2017-07-20] MEDS: RIVAROXABAN 10 MG TAB PO SCH (08:23)
[2017-07-20] MEDS: DOCUSATE SODIUM 50 MG/SENNA 8.6 MG TAB PO SCH ×2 (08:23→20:10)
[2017-07-20] MEDS: SODIUM CHLOR 0.9% 1000 ML INJ 1,000 ML IV SCH ×2 (08:50→22:10)
[2017-07-20] MEDS: SODIUM CHLORIDE 0.9% FLUSH 10 ML FLUSH IV FLUSH SCH ×2 (09:00→20:06)
[2017-07-20] MEDS: LACTATED RINGER'S 1000 ML INJ 1,000 ML IV SCH ×2 (09:58→22:28)
[2017-07-20 12:00] VITALS: BP 121/59; PULSE 70; RESP 17; TEMP 99.1; O2SAT 94
[2017-07-20] MEDS ORDERED: BACLOFEN 10 MG TAB PO ONE (12:15)
--- NOTE | 2017-07-20 13:19 | HHI.PR ---
Subjective Remarks Patient is getting evaluated either PT "I had better days " White count the bedside discussed with her and with the nurse Skin tear on the buttock being dressed by the nurse Objective Vitals Vital Signs Date Time Temp Pulse Resp B/P (MAP) Pulse Ox O2 Delivery O2 Flow Rate FiO2 07/20/17 08:00 97.8 70 17 121/58 (79) 96 07/20/17 04:40 97.0 70 18 92/52 (65) 94 07/19/17 23:05 97.7 70 18 94/53 (67) 95 07/19/17 21:00 69 07/19/17 20:35 97.6 70 18 107/56 (73) 93 07/19/17 16:00 96.5 69 18 99/56 (70) 92 I/O 07/19/17 07/19/17 07/19/17 07/20/17 07/20/17 07/20/17 07:00 15:00 23:00 07:00 15:00 23:00 Intake Total 0 ml 2822 ml 290 ml 170 ml Output Total 800 ml 1000 ml 400 ml 350 ml Balance -800 ml 1822 ml -110 ml -180 ml Intake Oral 0 ml 240 ml 240 ml 120 ml IV Total 160 ml 50 ml 50 ml Platelets 222 ml Blood Product IV Normal Saline Flush 100 ml Other 2100 ml Output Urine Total 800 ml 500 ml 400 ml 350 ml Estimated Blood Loss 500 ml # Bowel Movements 0 0 0 0 Result Diagram: 07/20/17 0645 07/19/17 0846 Objective Remarks - GENERAL: This is a well-nourished, well-developed patient, in no apparent distress. SKIN: No rashes, warm and dry HEAD: Atraumatic. Normocephalic. EYES: Pupils equal round and reactive. Extraocular motions intact. No scleral icterus. ENT: Nose without bleeding, or drainage, Airway patent. NECK: Trachea midline. Supple CARDIOVASCULAR: Regular rate and rhythm without murmurs, gallops, or rubs. RESPIRATORY: Mild decreased breath sounds on the right base. No wheezes, rales, or rhonchi. GASTROINTESTINAL: Abdomen soft, non-tender, nondistended. Positive bowel sounds MUSCULOSKELETAL: Extremities without clubbing, cyanosis, or edema. Pedal pulses appreciated, left lower extremity in traction NEUROLOGICAL: Awake and alert. Moves all extremity. Normal speech.no focal neurological deficit A/P Problem List: (1) Chronic kidney disease, stage III (moderate) ICD Code: N18.3 - Chronic kidney disease, stage 3 (moderate) Status: Chronic (2) Paroxysmal atrial flutter ICD Code: I48.92 - Unspecified atrial flutter Status: Chronic (3) Closed right hip fracture ICD Code: S72.001A - Fracture of unspecified part of neck of right femur, initial encounter for closed fracture Status: Acute (4) DM type 2 (diabetes mellitus, type 2) ICD Code: E11.9 - Type 2 diabetes mellitus without complications Status: Chronic Assessment and Plan 07/19: Fever resolved ID cleared patient for surgery, status post hip arthroplasty , continue monitoring, appreciate ortho help 07/20: Doing well, started PT today, monitor for any fever A/P: This is a 72-year-old male with history of chronic kidney disease, diabetes mellitus, cardiomyopathy, atrial fibrillation with recent cardiac ablation presenting with right hip fracture after a fall. Right hip fracture-right hip imaging revealed a right hip fracture. Orthopedics on board , for surgery, hold for now because of fever. Cont pain control oral and intravenous with bowel regimen. Eliquis on hold. Atrial flutter, stable -telemetry showed paced rhythm. Echo 07/15 ejection fraction 55%, mild to moderate right atrial dilatation, moderate tricuspid regurgitation Continue Coreg per home dose, hold eliquis in anticipation for surgery. Cont NS, statin. Status post cardiac ablation procedure 3 weeks ago R/O sepsis - source unclear, CT chest unremarkable other than adenopathy. 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 serum B12 and folic acid and TSH WNL. Awaiting labs today. No indication for hematology consult at this time, previously seen Dr. Wolfe History of CHF, diastolic-echocardiogram December 2069 showed ejection fraction of 60%, Mild LVH, repeat TTE as above. Chronic kidney disease stage III-creatinine around based at 1.5-1.6, gentle hydration. Hold Bumex, creatinine increasing, awaiting today's labs, cont NS. Diabetes mellitus- hold glipizide, continue Levemir, sliding scale insulin DVT prophylaxis: SCDs for now, start after surgery. Hold eliquis. Problem Qualifiers (1) Closed right hip fracture: Qualified Codes: S72.001A - Fracture of unspecified part of neck of right femur , initial encounter for closed fracture (2) DM type 2 (diabetes mellitus, type 2): Qualified Codes: E11.8 - Type 2 diabetes mellitus with unspecified complications Sheyla Leiva MD Jul 20, 2017 13:19
--- NOTE | 2017-07-20 15:28 | PD.ORT.PN ---
Subjective Subjective Remarks Patient comfortable. Pain controlled. Objective Vitals Vital Signs Date Time Temp Pulse Resp B/P (MAP) Pulse Ox O2 Delivery O2 Flow Rate FiO2 07/20/17 12:00 99.1 70 17 121/59 (79) 94 07/20/17 08:00 97.8 70 17 121/58 (79) 96 07/20/17 04:40 97.0 70 18 92/52 (65) 94 07/19/17 23:05 97.7 70 18 94/53 (67) 95 07/19/17 21:00 69 07/19/17 20:35 97.6 70 18 107/56 (73) 93 07/19/17 16:00 96.5 69 18 99/56 (70) 92 I/O 07/19/17 07/19/17 07/19/17 07/20/17 07/20/17 07/20/17 06:59 14:59 22:59 06:59 14:59 22:59 Intake Total 0 ml 2712 ml 400 ml 170 ml Output Total 800 ml 1000 ml 400 ml 350 ml Balance -800 ml 1712 ml 0 ml -180 ml Intake Oral 0 ml 240 ml 240 ml 120 ml IV Total 50 ml 160 ml 50 ml Platelets 222 ml Blood Product IV Normal Saline Flush 100 ml Other 2100 ml Output Urine Total 800 ml 500 ml 400 ml 350 ml Estimated Blood Loss 500 ml # Bowel Movements 0 0 0 0 Result Diagram: 07/20/17 0645 07/19/17 0846 Imaging Last 24 hours Impressions Chest X-Ray 07/18/17 0000 Signed Impressions: Service Date/Time: Tuesday, July 18, 2017 11:32 - CONCLUSION: No appreciable change. Brayden Rutherford MD Procedures Right Hip Hemiarthroplasty Objective Remarks Right hip dressing C/D/I calves soft negative Jef's NVI Assessment & Plan Assessment and Plan POD #1 Right Hip Hemiarthroplasty Pain management - Percocet DVT prophylaxis - Lovenox Physical therapy - WBAT, hip precautions D/C planning - anticipating SNF Monitor Rolando Osorio Jul 20, 2017 15:28
[2017-07-20 16:00] VITALS: BP 130/57; PULSE 70; RESP 17; TEMP 97.6; O2SAT 92
[2017-07-20] MEDS ORDERED: PILL SPLITTER OTHER PRN (19:00)
[2017-07-20] MEDS: CYCLOBENZAPRINE HCL 10 MG TAB PO PRN (20:05)
[2017-07-20] MEDS: PRAVASTATIN SOD 40 MG TAB PO SCH (20:10)
[2017-07-20] MEDS: INSULIN DETEMIR 100 UNITS/ML VIAL SQ SCH (20:11)
[2017-07-20 20:25] VITALS: BP 116/56; PULSE 69; RESP 20; TEMP 97.4; O2SAT 93
[2017-07-21] VITALS (7 sets, daily range): BP systolic 121–179; BP diastolic 60–72; PULSE 68–70; RESP 16–20; TEMP 96–99.3; O2SAT 92–97
[2017-07-21] MEDS: ACETAMINOPHEN/HYDROcodone 325 MG/5 MG TAB PO PRN (02:41)
[2017-07-21 04:32] LABS: HEMATOCRIT 25.9 % (39.0-51.0)
[2017-07-21 04:46] LABS: REVIEW FLAG FINAL
[2017-07-21] MEDS: INSULIN ASPART SUPPLEMENTAL SCALE SQ SCH ×4 (06:24→21:08)
[2017-07-21] MEDS: DOCUSATE SODIUM 50 MG/SENNA 8.6 MG TAB PO SCH ×2 (08:14→21:06)
[2017-07-21] MEDS: RIVAROXABAN 10 MG TAB PO SCH (08:14)
[2017-07-21] MEDS: CARVEDILOL 12.5 MG TAB PO SCH ×2 (08:14→21:06)
--- NOTE | 2017-07-21 08:18 | PD.ORT.PN ---
Subjective Subjective Remarks POD 3 s/p right hip hemiarthroplasty confused. not responding to queestions. at bedside. states he has not been doing well and has been having significant campos. Objective Vitals Vital Signs Date Time Temp Pulse Resp B/P (MAP) Pulse Ox O2 Delivery O2 Flow Rate FiO2 07/21/17 08:15 97.9 70 17 160/71 (100) 93 07/21/17 04:20 96.7 70 18 121/63 (82) 94 07/21/17 00:15 96.0 68 20 151/60 (90) 92 07/20/17 20:25 97.4 69 20 116/56 (76) 93 07/20/17 16:00 97.6 70 17 130/57 (81) 92 07/20/17 12:00 99.1 70 17 121/59 (79) 94 I/O 07/20/17 07/20/17 07/20/17 07/21/17 07/21/17 07/21/17 07:00 15:00 23:00 07:00 15:00 23:00 Intake Total 170 ml 480 ml 120 ml 240 ml Output Total 350 ml 350 ml 0 ml 350 ml Balance -180 ml 130 ml 120 ml -110 ml Intake Oral 120 ml 480 ml 120 ml 240 ml IV Total 50 ml Output Urine Total 350 ml 350 ml 0 ml 350 ml # Bowel Movements 0 0 0 0 Result Diagram: 07/21/17 0423 07/19/17 0846 Imaging Last 24 hours Impressions Chest X-Ray 07/18/17 0000 Signed Impressions: Service Date/Time: Tuesday, July 18, 2017 11:32 - CONCLUSION: No appreciable change. Brayden Rutherford MD Procedures Right Hip Hemiarthroplasty Objective Remarks Right hip dressing C/D/I calves soft negative Jef's NVI Assessment & Plan Assessment and Plan POD #3 Right Hip Hemiarthroplasty Pain management - Percocet DVT prophylaxis - Lovenox Physical therapy - WBAT, hip precautions D/C planning - anticipating SNF Monitor Maximus Herrera Jul 21, 2017 08:18
[2017-07-21] MEDS: SODIUM CHLORIDE 0.9% FLUSH 10 ML FLUSH IV FLUSH SCH ×2 (09:00→21:00)
[2017-07-21] MEDS: LACTATED RINGER'S 1000 ML INJ 1,000 ML IV SCH ×2 (10:58→23:28)
--- NOTE | 2017-07-21 11:32 | HHI.PR ---
Subjective Remarks Patient sitting in bed he is awake alert but not answering any question, nonverbal, when I also question he just look at me Discussed with the she stated the patient usually is not like this, is usually conversant Physical exam no change in pupils or other focal neurological deficit Per the patient has a history of intracranial bleed in the past Objective Vitals Vital Signs Date Time Temp Pulse Resp B/P (MAP) Pulse Ox O2 Delivery O2 Flow Rate FiO2 07/21/17 08:15 97.9 70 17 160/71 (100) 93 07/21/17 04:20 96.7 70 18 121/63 (82) 94 07/21/17 00:15 96.0 68 20 151/60 (90) 92 07/20/17 20:25 97.4 69 20 116/56 (76) 93 07/20/17 16:00 97.6 70 17 130/57 (81) 92 07/20/17 12:00 99.1 70 17 121/59 (79) 94 I/O 07/20/17 07/20/17 07/20/17 07/21/17 07/21/17 07/21/17 07:00 15:00 23:00 07:00 15:00 23:00 Intake Total 170 ml 480 ml 120 ml 240 ml Output Total 350 ml 350 ml 0 ml 350 ml Balance -180 ml 130 ml 120 ml -110 ml Intake Oral 120 ml 480 ml 120 ml 240 ml IV Total 50 ml Output Urine Total 350 ml 350 ml 0 ml 350 ml # Bowel Movements 0 0 0 0 Result Diagram: 07/21/17 0423 07/19/17 0846 Objective Remarks - GENERAL: This is a well-nourished, well-developed patient, in no apparent distress. Patient is not answering question SKIN: No rashes, warm and dry HEAD: Atraumatic. Normocephalic. EYES: Pupils equal round and reactive. Extraocular motions intact. No scleral icterus. ENT: Nose without bleeding, or drainage, Airway patent. NECK: Trachea midline. Supple CARDIOVASCULAR: Regular rate and rhythm without murmurs, gallops, or rubs. RESPIRATORY: Mild decreased breath sounds on the right base. No wheezes, rales, or rhonchi. GASTROINTESTINAL: Abdomen soft, non-tender, nondistended. Positive bowel sounds MUSCULOSKELETAL: Extremities without clubbing, cyanosis, or edema. Pedal pulses appreciated, left lower extremity in traction NEUROLOGICAL: Awake and alert but nonconversant, does not answer question. Moves all extremity. A/P Problem List: (1) Chronic kidney disease, stage III (moderate) ICD Code: N18.3 - Chronic kidney disease, stage 3 (moderate) Status: Chronic (2) Paroxysmal atrial flutter ICD Code: I48.92 - Unspecified atrial flutter Status: Chronic (3) Closed right hip fracture ICD Code: S72.001A - Fracture of unspecified part of neck of right femur, initial encounter for closed fracture Status: Acute (4) DM type 2 (diabetes mellitus, type 2) ICD Code: E11.9 - Type 2 diabetes mellitus without complications Status: Chronic Assessment and Plan 07/19: Fever resolved ID cleared patient for surgery, status post hip arthroplasty , continue monitoring, appreciate ortho help 07/20: Doing well, started PT today, monitor for any fever 07/21: Worsening mental status, patient awake alert not answering question or making any conversation, per the this is not his baseline,H/O intracranial bleed in the past, will check stat CT of the head, ammonia level, neurology consultation A/P: This is a 72-year-old male with history of chronic kidney disease, diabetes mellitus, cardiomyopathy, atrial fibrillation with recent cardiac ablation presenting with right hip fracture after a fall. Right hip fracture-right hip imaging revealed a right hip fracture. Orthopedics on board , for surgery, hold for now because of fever. Cont pain control oral and intravenous with bowel regimen. Eliquis on hold. Atrial flutter, stable -telemetry showed paced rhythm. Echo 07/15 ejection fraction 55%, mild to moderate right atrial dilatation, moderate tricuspid regurgitation Continue Coreg per home dose, hold eliquis in anticipation for surgery. Cont NS, statin. Status post cardiac ablation procedure 3 weeks ago R/O sepsis - source unclear, CT chest unremarkable other than adenopathy. 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 serum B12 and folic acid and TSH WNL. Awaiting labs today. No indication for hematology consult at this time, previously seen Dr. Wolfe History of CHF, diastolic-echocardiogram December 2069 showed ejection fraction of 60%, Mild LVH, repeat TTE as above. Chronic kidney disease stage III-creatinine around based at 1.5-1.6, gentle hydration. Hold Bumex, creatinine increasing, awaiting today's labs, cont NS. Diabetes mellitus- hold glipizide, continue Levemir, sliding scale insulin DVT prophylaxis: SCDs for now, start after surgery. Hold eliquis. Problem Qualifiers (1) Closed right hip fracture: Qualified Codes: S72.001A - Fracture of unspecified part of neck of right femur , initial encounter for closed fracture (2) DM type 2 (diabetes mellitus, type 2): Qualified Codes: E11.8 - Type 2 diabetes mellitus with unspecified complications Sheyla Leiva MD Jul 21, 2017 11:32
[2017-07-21] MEDS: SODIUM CHLOR 0.9% 1000 ML INJ 1,000 ML IV SCH (12:39)
[2017-07-21] MEDS: HYDROmorphone HCL PF 1 MG/ML VIAL IV PRN (12:45)
--- NOTE | 2017-07-21 13:59 | PD.CONS ---
History of Present Illness Service Neurology Consult Requested By medical Reason for Consult encephalopathy Primary Care Physician Benji Chirinos M.D. History of Present Illness 72-year-old male with history of cardiomyopathy, atrial fibrillation status post pacemaker placement, chronic kidney disease, diabetes mellitus, SDH presenting with right hip fracture after a fall. recent cardiac ablation. has been confused off/on during hospital stay, including prior to hip surgery. has had acute on chronic renal failure, hypoxia during hospitalization. today noticed to be more confused and neuro was consulted. pt poor hx. not speaking much. not very co-operative with exam. Review of Systems ROS Limitations: limited 2/2 pt's mental status. Past Family Social History Past Medical History SDH Cardiomyopathy Atrial fibrillation/flutter status post pacemaker placement Bilateral carotid stenosis Diabetes mellitus Osteoarthritis Colon Cancer in remission 8 years ago Past Surgical History Cataract surgery Colectomy for colon cancer Appendectomy Humphrey hole placement Reported Medications Neurontin (Gabapentin) 400 Mg Cap 400 Mg PO HS 30 Days Bumetanide 1 Mg Tab 1 Mg PO DAILY 30 Days Lantus Inj (Insulin Glargine) 1,000 Unit/10 Ml Vial 5 Units SQ HS 30 Days Eliquis (Apixaban) 5 Mg Tab 5 Mg PO BID Glipizide 10 Mg Tab 10 Mg PO BIDAC Take 30 minutes before a meal Simvastatin 20 Mg Tab 20 Mg PO HS Carvedilol 25 Mg Tab 25 Mg PO BID Allergies: Coded Allergies: No Known Allergies (Unverified , 07/15/17) Family History (+) DM Social History Non smoker, no significant alcohol use. Review of Systems All other ROS: ROS reviewed as documented in chart Past Family Social History Allergies: Coded Allergies: No Known Allergies (Unverified , 07/15/17) Active Ordered Medications Current Medications Medications (Trade) Dose Ordered Sig/Suzanna Route Start Time Stop Time Status Last Admin (Tylenol) 650 mg Q6H PRN PO 07/15/17 15:15 07/16/17 15:15 (Narcan Inj) 0.4 mg UNSCH PRN IV 07/15/17 15:15 (NovoLOG SUPPLEMENTAL SCALE) 1 ACHS SLIDING SCALE SQ 07/15/17 16:00 07/20/17 20:12 (Bumetanide) 1 mg DAILY PO 07/16/17 09:00 Future Hold (Coreg) 25 mg BID PO 07/15/17 21:00 07/21/17 08:14 (Neurontin) 400 mg HS PO 07/15/17 21:00 Future Hold 07/16/17 21:05 (Levemir Inj) 5 units HS SQ 07/15/17 21:00 07/20/17 20:11 (Pravachol) 40 mg HS PO 07/15/17 21:00 07/19/17 20:58 (D50w (Vial) Inj) 50 ml UNSCH PRN IV PUSH 07/15/17 18:15 (Glucagon Inj) 1 mg UNSCH PRN OTHER 07/15/17 18:15 Sodium Chloride 1,000 ml @ 75 mls/hr [id number] IV 07/16/17 11:30 07/21/17 12:39 Miscellaneous Information Patient in critical care unit? Ass... Q361D .XX 07/16/17 20:45 (Chlorhexidine 2% Cloth) 3 pack UNSCH PRN TOPICAL 07/16/17 20:45 07/21/17 20:33 (Dilaudid Pf Inj) 0.5 mg Q4H PRN IV 07/17/17 11:00 07/21/17 12:45 Lactated Ringer's 1,000 ml @ 80 mls/hr [id number] IV 07/19/17 08:58 07/19/17 22:18 (NS Flush) 2 ml UNSCH PRN IV FLUSH 07/19/17 09:00 (NS Flush) 2 ml BID IV FLUSH 07/19/17 09:00 07/19/17 11:38 (Purdy 5-325 Mg) 1 tab Q4H PRN PO 07/19/17 09:00 07/21/17 02:41 (Purdy 5-325 Mg) 2 tab Q4H PRN PO 07/19/17 09:00 07/21/17 08:15 (Jeanine-Colace) 1 tab BID PO 07/19/17 09:00 07/21/17 08:14 (Milk Of Magnesia Liq) 30 ml Q12H PRN PO 07/19/17 09:00 (Senokot) 17.2 mg Q12H PRN PO 07/19/17 09:00 07/19/17 20:58 (Dulcolax Supp) 10 mg DAILY PRN RECTAL 07/19/17 09:00 (Lactulose Liq) 30 ml DAILY PRN PO 07/19/17 09:00 (Xarelto) 10 mg DAILY PO 07/20/17 09:00 07/21/17 08:14 (Flexeril) 5 mg Q8H PRN PO 07/20/17 19:00 07/20/17 20:05 (Pill Splitter) 1 ea UNSCH PRN OTHER 07/20/17 19:00 Exam I&O / VS Vital Signs Date Time Temp Pulse Resp B/P (MAP) Pulse Ox O2 Delivery O2 Flow Rate FiO2 07/21/17 12:31 99.2 69 17 179/72 (107) 93 07/21/17 08:15 97.9 70 17 160/71 (100) 93 07/21/17 04:20 96.7 70 18 121/63 (82) 94 07/21/17 00:15 96.0 68 20 151/60 (90) 92 07/20/17 20:25 97.4 69 20 116/56 (76) 93 07/20/17 16:00 97.6 70 17 130/57 (81) 92 Respiratory: Lungs CTA, Non-labored respirations, BS equal, Other Cardiology: Normal rate, Regular Rhythm Musculoskeletal: Swelling Exam Comments awake, not following, poor attention, grimaces, may state 1 word, reduced blink to threat on the right, eomi, face sym, maddox to gravity except rt le in cast, sensory/cerebellar limited 2/2 mental status Review/Management Diagnosis/Plan: (1) Acute encephalopathy ICD Codes: G93.40 - Encephalopathy, unspecified Status: Acute Plan: metabolic, possibly embolic strokes, r/o complex-sz -was off OAC and restarted post-op tsh, b12 nml. nh3 mildly elevated recs eeg ct brain no mri with hx of pacemaker follow exam d/w rn (2) Atrial fibrillation ICD Codes: I48.91 - Unspecified atrial fibrillation Status: Acute (3) HTN (hypertension) ICD Codes: I10 - Essential (primary) hypertension Status: Acute (4) Fracture of femoral neck, right, closed ICD Codes: S72.001A - Fracture of unspecified part of neck of right femur, initial encounter for closed fracture Status: Acute Plan: s/p rt hip arthroplasty Problem Qualifiers (1) Atrial fibrillation: Qualified Codes: I48.2 - Chronic atrial fibrillation (2) HTN (hypertension): Qualified Codes: I10 - Essential (primary) hypertension (3) Fracture of femoral neck, right, closed: Qualified Codes: S72.001A - Fracture of unspecified part of neck of right femur , initial encounter for closed fracture Owen Montoya MD Jul 21, 2017 13:59
[2017-07-21 15:03] LABS: BICARBONATE 24.8 MEQ/L (21.0-32.0); POTASSIUM 5.2 MEQ/L (3.5-5.1)
--- NOTE | 2017-07-21 19:35 | RADRPT ---
EXAM DATE/TIME: 07/21/2017 19:21 [facility] COMPARISON: CT BRAIN W/O CONTRAST, July 15, 2017, 13:17. INDICATIONS : Neuro status change. RADIATION DOSE: 56.51 CTDIvol (mGy) MEDICAL HISTORY : Cardiovascular disease. Carcinoma, colon. Hypertension. SURGICAL HISTORY : Pacemaker. Coronary artery stent.Colon resection.Craniotomy ENCOUNTER: Initial ACUITY: 1 day PAIN SCALE: 0/10 LOCATION: cranial TECHNIQUE: Multiple contiguous axial images were obtained of the head. Using automated exposure control and adj ustment of the mA and/or kV according to patient size, radiation dose was kept as low as reasonably a chievable to obtain optimal diagnostic quality images. DICOM format image data is available electro nically for review and comparison. FINDINGS: CEREBRUM: The ventricles are normal for age. No evidence of midline shift, mass lesion, hemorrhage or acute in farction. No extra-axial fluid collections are seen. POSTERIOR FOSSA: The cerebellum and brainstem are intact. The 4th ventricle is midline. The cerebellopontine angle i s unremarkable. EXTRACRANIAL: Persistent opacification of the visualized paranasal sinuses. SKULL: No acute skull abnormality. Old right frontal mally hole again seen. CONCLUSION: No acute intracranial abnormality. Chronic sinus disease. Bonifacio Michel MD on July 21, 2017 at 19:31 Board Certified Radiologist. This report was verified electronically.
[2017-07-21] MEDS: PRAVASTATIN SOD 40 MG TAB PO SCH (21:06)
[2017-07-21] MEDS: INSULIN DETEMIR 100 UNITS/ML VIAL SQ SCH (21:09)
[2017-07-22] VITALS (7 sets, daily range): BP systolic 121–157; BP diastolic 54–69; PULSE 69–80; RESP 18–20; TEMP 97–99.2; O2SAT 95–97
[2017-07-22] MEDS: SODIUM CHLOR 0.9% 1000 ML INJ 1,000 ML IV SCH ×2 (00:50→14:10)
[2017-07-22] MEDS: INSULIN ASPART SUPPLEMENTAL SCALE SQ SCH ×4 (06:34→22:50)
[2017-07-22] MEDS: CARVEDILOL 12.5 MG TAB PO SCH ×2 (07:41→22:44)
[2017-07-22] MEDS: CYCLOBENZAPRINE HCL 10 MG TAB PO PRN (07:42)
[2017-07-22] MEDS: DOCUSATE SODIUM 50 MG/SENNA 8.6 MG TAB PO SCH ×2 (07:42→22:44)
[2017-07-22] MEDS: RIVAROXABAN 10 MG TAB PO SCH (07:42)
[2017-07-22] MEDS: ACETAMINOPHEN/HYDROcodone 325 MG/5 MG TAB PO PRN (07:43)
[2017-07-22] MEDS: SODIUM CHLORIDE 0.9% FLUSH 10 ML FLUSH IV FLUSH SCH ×2 (09:00→22:45)
--- NOTE | 2017-07-22 09:20 | HHI.PR ---
Addendum to Inpatient Note Addendum Reason: Additional Documentation Additional Information Chart review documentation Was cleared for surgery. Off antibiotics did ok with no e.o infection WBC ok No fevers No ID needs. Will sign off please call back if any change in clinical condition or questions. Sigrid Gastelum MD Jul 22, 2017 09:20
[2017-07-22 09:21] LABS: POTASSIUM 4.8 MEQ/L (3.5-5.1)
[2017-07-22] MEDS ORDERED: traMADol HCL 50 MG TAB PO PRN (09:45)
--- NOTE | 2017-07-22 10:28 | MG ---
cc: ISAURO HYDE MD Lab No: [id number] Date: 07/21/2017 Age: 72 Sex: M Race: 1945 A 72-year-old with history of confusion, altered mental status. Generalized 2-3 Hz delta activity with overriding, 4-5 Hz theta activity occurring, 20-70 microvolts with some triphasic waveforms, occasional frontal sharps. Limited driving with photic stimulation. Mild EEG variability reactivity. Single lead EKG showing sinus rhythm with questionable irregularity at times. INTERPRETATION Moderate encephalopathy as noted above. Clinical correlation. Isauro Hyde MD MG/TLL /5:59 PM /10:22 AM
[2017-07-22] MEDS: LACTATED RINGER'S 1000 ML INJ 1,000 ML IV SCH (11:58)
--- NOTE | 2017-07-22 14:07 | HHI.PR ---
Subjective Remarks I want to see the patient today he was sitting in bed staring at people does not converse at all His looks very nervous her attitude is to be very neurotic, and that was confirmed by the nurses It was hard to to Dr. the patient will examine him without her interrupting, patient listened to my question but he doesn't answer the only question he answer is when I asked him if he notes a lady in the room which is his , he answer that question by "she is a crazy leg " He seems to be comfortable in bed, I discussed with his and explained to her that she needs to calm down because her attitude may agitate him, and I explained to her all the finding on the EEG and CT head Objective Vitals Vital Signs Date Time Temp Pulse Resp B/P (MAP) Pulse Ox O2 Delivery O2 Flow Rate FiO2 07/22/17 11:46 97.3 80 20 121/54 (76) 96 07/22/17 08:00 97.0 69 20 157/69 (98) 95 07/22/17 04:39 97.5 69 18 147/68 (94) 97 07/22/17 00:05 97.5 72 18 144/63 (90) 96 07/21/17 23:03 69 07/21/17 20:00 98.4 70 18 136/65 (88) 97 07/21/17 16:00 99.3 70 16 158/70 (99) 93 I/O 07/21/17 07/21/17 07/21/17 07/22/17 07/22/17 07/22/17 07:00 15:00 23:00 07:00 15:00 23:00 Intake Total 240 ml 120 ml 240 ml 240 ml Output Total 350 ml 1000 ml 650 ml 900 ml Balance -110 ml -880 ml -410 ml -660 ml Intake Oral 240 ml 120 ml 240 ml 240 ml Output Urine Total 350 ml 1000 ml 650 ml 900 ml # Bowel Movements 0 1 1 0 Result Diagram: 07/21/17 0423 07/22/17 0835 Objective Remarks - GENERAL: This is a well-nourished, well-developed patient, in no apparent distress. Patient is not answering question SKIN: No rashes, warm and dry HEAD: Atraumatic. Normocephalic. EYES: Pupils equal round and reactive. Extraocular motions intact. No scleral icterus. ENT: Nose without bleeding, or drainage, Airway patent. NECK: Trachea midline. Supple CARDIOVASCULAR: Regular rate and rhythm without murmurs, gallops, or rubs. RESPIRATORY: Mild decreased breath sounds on the right base. No wheezes, rales, or rhonchi. GASTROINTESTINAL: Abdomen soft, non-tender, nondistended. Positive bowel sounds MUSCULOSKELETAL: Extremities without clubbing, cyanosis, or edema. Pedal pulses appreciated, left lower extremity in traction NEUROLOGICAL: Awake and alert but nonconversant, does not answer question. Moves all extremity. A/P Problem List: (1) Chronic kidney disease, stage III (moderate) ICD Code: N18.3 - Chronic kidney disease, stage 3 (moderate) Status: Chronic (2) Paroxysmal atrial flutter ICD Code: I48.92 - Unspecified atrial flutter Status: Chronic (3) Closed right hip fracture ICD Code: S72.001A - Fracture of unspecified part of neck of right femur, initial encounter for closed fracture Status: Acute (4) DM type 2 (diabetes mellitus, type 2) ICD Code: E11.9 - Type 2 diabetes mellitus without complications Status: Chronic Assessment and Plan 07/19: Fever resolved ID cleared patient for surgery, status post hip arthroplasty , continue monitoring, appreciate ortho help 07/20: Doing well, started PT today, monitor for any fever 07/21: Worsening mental status, patient awake alert not answering question or making any conversation, per the this is not his baseline,H/O intracranial bleed in the past, will check stat CT of the head, ammonia level, neurology consultation 07/22: No change in mental status patient still awake alert loosening to questions but rarely answers as mentioned above, EEG showed encephalopathy nonspecific, CT head no acute issue, appreciate neurology consultation possible progressive ischemic stroke, if neuro workup BACK negative we may consider psychiatry consultation A/P: This is a 72-year-old male with history of chronic kidney disease, diabetes mellitus, cardiomyopathy, atrial fibrillation with recent cardiac ablation presenting with right hip fracture after a fall. Right hip fracture-right hip imaging revealed a right hip fracture. Orthopedics on board , for surgery, hold for now because of fever. Cont pain control oral and intravenous with bowel regimen. Eliquis on hold. Atrial flutter, stable -telemetry showed paced rhythm. Echo 9/5 ejection fraction 55%, mild to moderate right atrial dilatation, moderate tricuspid regurgitation Continue Coreg per home dose, hold eliquis in anticipation for surgery. Cont NS, statin. Status post cardiac ablation procedure 3 weeks ago R/O sepsis - source unclear, CT chest unremarkable other than adenopathy. 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 serum B12 and folic acid and TSH WNL. Awaiting labs today. No indication for hematology consult at this time, previously seen Dr. Wolfe History of CHF, diastolic-echocardiogram December 2069 showed ejection fraction of 60%, Mild LVH, repeat TTE as above. Chronic kidney disease stage III-creatinine around based at 1.5-1.6, gentle hydration. Hold Bumex, creatinine increasing, awaiting today's labs, cont NS. Diabetes mellitus- hold glipizide, continue Levemir, sliding scale insulin DVT prophylaxis: SCDs for now, start after surgery. Hold eliquis. Problem Qualifiers (1) Closed right hip fracture: Qualified Codes: S72.001A - Fracture of unspecified part of neck of right femur , initial encounter for closed fracture (2) DM type 2 (diabetes mellitus, type 2): Qualified Codes: E11.8 - Type 2 diabetes mellitus with unspecified complications Sheyla Leiva MD Jul 22, 2017 14:07
[2017-07-22] MEDS ORDERED: FOSPHENYTOIN INJ 1,000 MGPE in SODIUM CHLORIDE 0.9% INJ 50 ML IV ONE (19:15)
[2017-07-22] MEDS ORDERED: MORPHINE SULFATE 2 MG/ML INJ IV PUSH PRN (19:15)
--- NOTE | 2017-07-22 19:18 | HHI.PR ---
Review/Management Diagnosis/Plan: (1) Acute encephalopathy ICD Codes: G93.40 - Encephalopathy, unspecified Status: Acute Plan: appears metabolic -was off OAC and restarted post-op -should improve with time tsh, b12 nml. nh3 mildly elevated recs will stop tramadol- can lower sz threshold increase gabapentin to 400mg bid start iv cerebryx trial has dilaudid prn severe pain eeg-reviewed ct brain- stable Rehab planning follow exam d/w rn (2) Atrial fibrillation ICD Codes: I48.91 - Unspecified atrial fibrillation Status: Acute (3) HTN (hypertension) ICD Codes: I10 - Essential (primary) hypertension Status: Acute (4) Fracture of femoral neck, right, closed ICD Codes: S72.001A - Fracture of unspecified part of neck of right femur, initial encounter for closed fracture Status: Acute Plan: s/p rt hip arthroplasty Subjective Subjective Comments No acute events reported pain during times of p.t. the most took keppra in the past for a short time period No headache No chest pain No dyspnea Active Medications Current Medications Medications (Trade) Dose Ordered Sig/Suzanna Route Start Time Stop Time Status Last Admin (Narcan Inj) 0.4 mg UNSCH PRN IV 07/15/17 15:15 (NovoLOG SUPPLEMENTAL SCALE) 1 ACHS SLIDING SCALE SQ 07/15/17 16:00 07/22/17 06:34 (Bumetanide) 1 mg DAILY PO 07/16/17 09:00 Future Hold (Coreg) 25 mg BID PO 07/15/17 21:00 07/22/17 07:41 (Neurontin) 400 mg HS PO 07/15/17 21:00 Future hold 07/16/17 21:05 (Levemir Inj) 5 units HS SQ 07/15/17 21:00 07/21/17 21:09 (Pravachol) 40 mg HS PO 07/15/17 21:00 07/21/17 21:06 (D50w (Vial) Inj) 50 ml UNSCH PRN IV PUSH 07/15/17 18:15 (Glucagon Inj) 1 mg UNSCH PRN OTHER 07/15/17 18:15 Sodium Chloride 1,000 ml @ 75 mls/hr [id number] IV 07/16/17 11:30 07/21/17 12:39 Miscellaneous Information Patient in critical care unit? Ass... Q361D .XX 07/16/17 20:45 (Dilaudid Pf Inj) 0.5 mg Q4H PRN IV 07/17/17 11:00 07/21/17 12:45 Lactated Ringer's 1,000 ml @ 80 mls/hr [id number] IV 07/19/17 08:58 07/19/17 22:18 (NS Flush) 2 ml UNSCH PRN IV FLUSH 07/19/17 09:00 (NS Flush) 2 ml BID IV FLUSH 07/19/17 09:00 07/19/17 11:38 (Jeanine-Colace) 1 tab BID PO 07/19/17 09:00 07/22/17 07:42 (Milk Of Magnesia Liq) 30 ml Q12H PRN PO 07/19/17 09:00 (Senokot) 17.2 mg Q12H PRN PO 07/19/17 09:00 07/19/17 20:58 (Dulcolax Supp) 10 mg DAILY PRN RECTAL 07/19/17 09:00 (Lactulose Liq) 30 ml DAILY PRN PO 07/19/17 09:00 (Xarelto) 10 mg DAILY PO 07/20/17 09:00 07/22/17 07:42 (Flexeril) 5 mg Q8H PRN PO 07/20/17 19:00 07/22/17 07:42 (Pill Splitter) 1 ea UNSCH PRN OTHER 07/20/17 19:00 (Ultram) 50 mg Q6H PRN PO 07/22/17 09:45 Allergies Allergies Coded Allergies No Known Allergies (Unverified07/15/17) Review of Systems All other ROS: ROS reviewed as documented in chart Exam I&O / VS 07/22/17 07/22/17 07/23/17 15:00 23:00 07:00 Intake Total 480 ml Balance 480 ml Intake Oral 480 ml # Voids 3 # Bowel Movements 0 Vital Signs Date Time Temp Pulse Resp B/P (MAP) Pulse Ox O2 Delivery O2 Flow Rate FiO2 07/22/17 16:00 98.6 69 20 156/69 (98) 96 07/22/17 11:46 97.3 80 20 121/54 (76) 96 07/22/17 08:00 97.0 69 20 157/69 (98) 95 07/22/17 04:39 97.5 69 18 147/68 (94) 97 07/22/17 00:05 97.5 72 18 144/63 (90) 96 07/21/17 23:03 69 07/21/17 20:00 98.4 70 18 136/65 (88) 97 Respiratory: Lungs CTA, Non-labored respirations, BS equal, Other Cardiology: Normal rate, Regular Rhythm Musculoskeletal: Swelling Exam Comments alert, ox 2, a little better attention, pres Trump, eomi, face sym, maddox to gravity except rt le in cast, sensory/cerebellar limited 2/2 mental status Objective Micro and Labs Laboratory Tests Test 07/22/17 08:35 Blood Urea Nitrogen 51 Creatinine 1.32 Random Glucose 186 Calcium Level 8.4 Sodium Level 138 Potassium Level 4.8 Chloride Level 107 Carbon Dioxide Level 23.0 Anion Gap 8 Estimat Glomerular Filtration Rate 54 Date/Time Source Procedure Growth Status 07/16/17 11:10 Blood Line Aerobic Blood Culture - Final NO GROWTH IN 5 DAYS Complete 07/16/17 11:10 Blood Line Anaerobic Blood Culture - Final NO GROWTH IN 5 DAYS Complete Problem Qualifiers (1) Atrial fibrillation: Qualified Codes: I48.2 - Chronic atrial fibrillation (2) HTN (hypertension): Qualified Codes: I10 - Essential (primary) hypertension (3) Fracture of femoral neck, right, closed: Qualified Codes: S72.001A - Fracture of unspecified part of neck of right femur , initial encounter for closed fracture Owen Montoya MD Jul 22, 2017 19:17
[2017-07-22] MEDS ORDERED: FOSPHENYTOIN INJ 200 MGPE in SODIUM CHLORIDE 0.9% INJ 50 ML IV SCH (21:00)
[2017-07-22] MEDS: PRAVASTATIN SOD 40 MG TAB PO SCH (22:44)
[2017-07-22] MEDS: GABAPENTIN 400 MG CAP PO SCH (22:45)
[2017-07-22] MEDS: INSULIN DETEMIR 100 UNITS/ML VIAL SQ SCH (22:51)
[2017-07-23] VITALS (7 sets, daily range): BP systolic 111–149; BP diastolic 53–63; PULSE 69–70; RESP 18–19; TEMP 96.3–98.6; O2SAT 94–100
[2017-07-23] MEDS: LACTATED RINGER'S 1000 ML INJ 1,000 ML IV SCH ×2 (00:28→12:58)
[2017-07-23] MEDS: SODIUM CHLOR 0.9% 1000 ML INJ 1,000 ML IV SCH ×2 (01:00→17:49)
--- NOTE | 2017-07-23 07:57 | HHI.PR ---
Review/Management Diagnosis/Plan: (1) Acute encephalopathy ICD Codes: G93.40 - Encephalopathy, unspecified Status: Acute Plan: appears metabolic -was off OAC and restarted post-op -should improve with time tsh, b12 nml. nh3 mildly elevated recs neuro stable; mild disorientation f/u dilantin level f/u eeg ct brain- stable Rehab planning follow exam d/w rn (2) Atrial fibrillation ICD Codes: I48.91 - Unspecified atrial fibrillation Status: Acute (3) HTN (hypertension) ICD Codes: I10 - Essential (primary) hypertension Status: Acute (4) Fracture of femoral neck, right, closed ICD Codes: S72.001A - Fracture of unspecified part of neck of right femur, initial encounter for closed fracture Status: Acute Plan: s/p rt hip arthroplasty Subjective Subjective Comments No acute events reported No headache No chest pain No dyspnea Active Medications Current Medications Medications (Trade) Dose Ordered Sig/Suzanna Route Start Time Stop Time Status Last Admin (Narcan Inj) 0.4 mg UNSCH PRN IV 07/15/17 15:15 (NovoLOG SUPPLEMENTAL SCALE) 1 ACHS SLIDING SCALE SQ 07/15/17 16:00 07/22/17 06:34 (Bumetanide) 1 mg DAILY PO 07/16/17 09:00 Future Hold (Coreg) 25 mg BID PO 07/15/17 21:00 07/22/17 22:44 (Levemir Inj) 5 units HS SQ 07/15/17 21:00 07/21/17 21:09 (Pravachol) 40 mg HS PO 07/15/17 21:00 07/22/17 22:44 (D50w (Vial) Inj) 50 ml UNSCH PRN IV PUSH 07/15/17 18:15 (Glucagon Inj) 1 mg UNSCH PRN OTHER 07/15/17 18:15 Sodium Chloride 1,000 ml @ 75 mls/hr [id number] IV 07/16/17 11:30 07/21/17 12:39 Miscellaneous Information Patient in critical care unit? Ass... Q361D .XX 07/16/17 20:45 (Dilaudid Pf Inj) 0.5 mg Q4H PRN IV 07/17/17 11:00 07/21/17 12:45 Lactated Ringer's 1,000 ml @ 80 mls/hr [id number] IV 07/19/17 08:58 07/19/17 22:18 (NS Flush) 2 ml UNSCH PRN IV FLUSH 07/19/17 09:00 (NS Flush) 2 ml BID IV FLUSH 07/19/17 09:00 07/22/17 22:45 (Jeanine-Colace) 1 tab BID PO 07/19/17 09:00 07/22/17 22:44 (Milk Of Magnesia Liq) 30 ml Q12H PRN PO 07/19/17 09:00 (Senokot) 17.2 mg Q12H PRN PO 07/19/17 09:00 07/19/17 20:58 (Dulcolax Supp) 10 mg DAILY PRN RECTAL 07/19/17 09:00 (Lactulose Liq) 30 ml DAILY PRN PO 07/19/17 09:00 (Xarelto) 10 mg DAILY PO 07/20/17 09:00 07/22/17 07:42 (Flexeril) 5 mg Q8H PRN PO 07/20/17 19:00 07/22/17 07:42 (Pill Splitter) 1 ea UNSCH PRN OTHER 07/20/17 19:00 (Neurontin) 400 mg Q12HR PO 07/22/17 21:00 07/22/17 22:45 Fosphenytoin Sodium 200 mgpe/ Sodium Chloride 54 ml @ 216 mls/hr Q12HR IV 07/23/17 09:00 Allergies Allergies Coded Allergies No Known Allergies (Unverified07/15/17) Review of Systems All other ROS: ROS reviewed as documented in chart Exam I&O / VS Vital Signs Date Time Temp Pulse Resp B/P (MAP) Pulse Ox O2 Delivery O2 Flow Rate FiO2 07/23/17 04:35 98.0 69 18 149/63 (91) 97 07/23/17 02:00 Room Air 07/23/17 00:41 98.3 70 18 142/63 (89) 95 07/22/17 20:30 99.2 69 18 148/68 (94) 96 07/22/17 20:00 69 07/22/17 16:00 98.6 69 20 156/69 (98) 96 07/22/17 11:46 97.3 80 20 121/54 (76) 96 07/22/17 08:00 97.0 69 20 157/69 (98) 95 Respiratory: Lungs CTA, Non-labored respirations, BS equal, Other Cardiology: Normal rate, Regular Rhythm Musculoskeletal: Swelling Exam Comments alert, ox 2, not to date, "i'm in [place]", a little better attention, pres Trump, eomi, face sym, madodx to gravity except rt le in cast, sensory/cerebellar limited 2/2 mental status Objective Micro and Labs Laboratory Tests Test 07/22/17 08:35 Blood Urea Nitrogen 51 Creatinine 1.32 Random Glucose 186 Calcium Level 8.4 Sodium Level 138 Potassium Level 4.8 Chloride Level 107 Carbon Dioxide Level 23.0 Anion Gap 8 Estimat Glomerular Filtration Rate 54 Date/Time Source Procedure Growth Status 07/16/17 11:10 Blood Line Aerobic Blood Culture - Final NO GROWTH IN 5 DAYS Complete 07/16/17 11:10 Blood Line Anaerobic Blood Culture - Final NO GROWTH IN 5 DAYS Complete Problem Qualifiers (1) Atrial fibrillation: Qualified Codes: I48.2 - Chronic atrial fibrillation (2) HTN (hypertension): Qualified Codes: I10 - Essential (primary) hypertension (3) Fracture of femoral neck, right, closed: Qualified Codes: S72.001A - Fracture of unspecified part of neck of right femur , initial encounter for closed fracture Owen Montoya MD Jul 23, 2017 07:57
[2017-07-23] MEDS: INSULIN ASPART SUPPLEMENTAL SCALE SQ SCH ×4 (08:00→23:30)
[2017-07-23] MEDS ORDERED: FOSPHENYTOIN SODIUM 100 MG PE/2 ML VIAL IV SCH (09:00)
[2017-07-23] MEDS: DOCUSATE SODIUM 50 MG/SENNA 8.6 MG TAB PO SCH ×2 (10:17→23:30)
[2017-07-23] MEDS: RIVAROXABAN 10 MG TAB PO SCH (10:17)
[2017-07-23] MEDS: CARVEDILOL 12.5 MG TAB PO SCH ×2 (10:17→23:30)
[2017-07-23] MEDS: GABAPENTIN 400 MG CAP PO SCH ×2 (10:18→23:30)
[2017-07-23] MEDS: SODIUM CHLORIDE 0.9% FLUSH 10 ML FLUSH IV FLUSH SCH ×2 (10:21→23:30)
[2017-07-23] MEDS: FOSPHENYTOIN INJ 200 MGPE in SODIUM CHLORIDE 0.9% INJ 50 ML IV SCH ×2 (10:24→23:30)
--- NOTE | 2017-07-23 15:26 | HHI.PR ---
Subjective Remarks Patient was sleeping, woke up to verbal stimuli, however he is answering simple questions today, his told she think there was improvement today patient is on antiseizure medication followed by neurology Objective Vitals Vital Signs Date Time Temp Pulse Resp B/P (MAP) Pulse Ox O2 Delivery O2 Flow Rate FiO2 07/23/17 12:00 98.2 69 18 111/53 (72) 96 07/23/17 08:00 98.6 70 18 139/60 (86) 94 07/23/17 04:35 98.0 69 18 149/63 (91) 97 07/23/17 02:00 Room Air 07/23/17 00:41 98.3 70 18 142/63 (89) 95 07/22/17 20:30 99.2 69 18 148/68 (94) 96 07/22/17 20:00 69 07/22/17 16:00 98.6 69 20 156/69 (98) 96 I/O 07/22/17 07/22/17 07/22/17 07/23/17 07/23/17 07/23/17 07:00 15:00 23:00 07:00 15:00 23:00 Intake Total 240 ml 480 ml 240 ml 310 ml Output Total 900 ml 650 ml 600 ml Balance -660 ml 480 ml -410 ml -290 ml Intake Oral 240 ml 480 ml 240 ml 240 ml IV Total 70 ml Output Urine Total 900 ml 650 ml 600 ml # Voids 3 # Bowel Movements 0 0 0 1 Result Diagram: 07/21/17 0423 07/22/17 0835 Objective Remarks - GENERAL: This is a well-nourished, well-developed patient, in no apparent distress. Patient is somnolent SKIN: No rashes, warm and dry HEAD: Atraumatic. Normocephalic. EYES: Pupils equal round and reactive. Extraocular motions intact. No scleral icterus. ENT: Nose without bleeding, or drainage, Airway patent. NECK: Trachea midline. Supple CARDIOVASCULAR: Regular rate and rhythm without murmurs, gallops, or rubs. RESPIRATORY: Fair air entry. No wheezes, rales, or rhonchi. GASTROINTESTINAL: Abdomen soft, non-tender, nondistended. Positive bowel sounds MUSCULOSKELETAL: Extremities without clubbing, cyanosis, or edema. Pedal pulses appreciated, left lower extremity in traction NEUROLOGICAL: Somnolent, does not answer question. Moves all extremity. A/P Problem List: (1) Chronic kidney disease, stage III (moderate) ICD Code: N18.3 - Chronic kidney disease, stage 3 (moderate) Status: Chronic (2) Paroxysmal atrial flutter ICD Code: I48.92 - Unspecified atrial flutter Status: Chronic (3) Closed right hip fracture ICD Code: S72.001A - Fracture of unspecified part of neck of right femur, initial encounter for closed fracture Status: Acute (4) DM type 2 (diabetes mellitus, type 2) ICD Code: E11.9 - Type 2 diabetes mellitus without complications Status: Chronic Assessment and Plan 07/19: Fever resolved ID cleared patient for surgery, status post hip arthroplasty , continue monitoring, appreciate ortho help 07/20: Doing well, started PT today, monitor for any fever 07/21: Worsening mental status, patient awake alert not answering question or making any conversation, per the this is not his baseline,H/O intracranial bleed in the past, will check stat CT of the head, ammonia level, neurology consultation 07/22: No change in mental status patient still awake alert loosening to questions but rarely answers as mentioned above, EEG showed encephalopathy nonspecific, CT head no acute issue, appreciate neurology consultation possible progressive ischemic stroke, if neuro workup BACK negative we may consider psychiatry consultation 07/23: Patient seems to be able to answer questions today despite being someone, seems to be showing improvement on fosphenytoin and increasing gabapentin, will continue monitoring, neurology follow up very appreciated Patient has few petechial rash on his right cheek with subcutaneous bleed on the right earlobe, the told me that this is improving, will monitor closely A/P: This is a 72-year-old male with history of chronic kidney disease, diabetes mellitus, cardiomyopathy, atrial fibrillation with recent cardiac ablation presenting with right hip fracture after a fall. Right hip fracture-right hip imaging revealed a right hip fracture. Orthopedics on board , for surgery, hold for now because of fever. Cont pain control oral and intravenous with bowel regimen. Eliquis on hold. Atrial flutter, stable -telemetry showed paced rhythm. Echo 07/15 ejection fraction 55%, mild to moderate right atrial dilatation, moderate tricuspid regurgitation Continue Coreg per home dose, hold eliquis in anticipation for surgery. Cont NS, statin. Status post cardiac ablation procedure 3 weeks ago R/O sepsis - source unclear, CT chest unremarkable other than adenopathy. 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 serum B12 and folic acid and TSH WNL. Awaiting labs today. No indication for hematology consult at this time, previously seen Dr. Wolfe History of CHF, diastolic-echocardiogram December 2069 showed ejection fraction of 60%, Mild LVH, repeat TTE as above. Chronic kidney disease stage III-creatinine around based at 1.5-1.6, gentle hydration. Hold Bumex, creatinine increasing, awaiting today's labs, cont NS. Diabetes mellitus- hold glipizide, continue Levemir, sliding scale insulin DVT prophylaxis: SCDs for now, start after surgery. Hold eliquis. Problem Qualifiers (1) Closed right hip fracture: Qualified Codes: S72.001A - Fracture of unspecified part of neck of right femur , initial encounter for closed fracture (2) DM type 2 (diabetes mellitus, type 2): Qualified Codes: E11.8 - Type 2 diabetes mellitus with unspecified complications Sheyla Leiva MD Jul 23, 2017 15:26
--- NOTE | 2017-07-23 17:47 | PD.ORT.PN ---
Subjective Subjective Remarks Patient appears comfortable. Resting in bed. Objective Vitals Vital Signs Date Time Temp Pulse Resp B/P (MAP) Pulse Ox O2 Delivery O2 Flow Rate FiO2 07/23/17 12:00 98.2 69 18 111/53 (72) 96 07/23/17 08:00 98.6 70 18 139/60 (86) 94 07/23/17 04:35 98.0 69 18 149/63 (91) 97 07/23/17 02:00 Room Air 07/23/17 00:41 98.3 70 18 142/63 (89) 95 07/22/17 20:30 99.2 69 18 148/68 (94) 96 07/22/17 20:00 69 I/O 07/22/17 07/22/17 07/22/17 07/23/17 07/23/17 07/23/17 07:00 15:00 23:00 07:00 15:00 23:00 Intake Total 240 ml 480 ml 240 ml 310 ml Output Total 900 ml 650 ml 600 ml Balance -660 ml 480 ml -410 ml -290 ml Intake Oral 240 ml 480 ml 240 ml 240 ml IV Total 70 ml Output Urine Total 900 ml 650 ml 600 ml # Voids 3 # Bowel Movements 0 0 0 1 Result Diagram: 07/21/17 0423 07/22/17 0835 Imaging Last 24 hours Impressions Chest X-Ray 07/18/17 0000 Signed Impressions: Service Date/Time: Tuesday, July 18, 2017 11:32 - CONCLUSION: No appreciable change. Brayden Rutherford MD Procedures Right Hip Hemiarthroplasty Objective Remarks Right hip dressing C/D/I calves soft negative Jef's NVI Assessment & Plan Assessment and Plan POD #4 Right Hip Hemiarthroplasty Pain management - Percocet DVT prophylaxis - Lovenox Physical therapy - WBAT, hip precautions Orthopedically stable for discharge D/C planning - anticipating SNF F/U in [address] Gaxiola or JUSTIN in office Rolando Osorio Jul 23, 2017 17:47
--- NOTE | 2017-07-23 19:35 | MG ---
cc: [facility] Lab No: [id number] Date: 07/23/2017 Age: 72 Sex: M Race: ___ TECHNIQUE 17 channel EEG. DESCRIPTION The background rhythm reveals initially mild slowing in the theta range at roughly 6 Hz, amplitude at 20-30 microvolts. Later there does appear to be somewhat of an alpha rhythm, but the majority of the tracing is fairly slow in the theta range. There are no lateralizing features seen. There are no epileptiform discharges. There is occasional muscle artifact present. Photic stimulation results in a modest driving response. INTERPRETATION Normal EEG. There is a normal alpha rhythm seen at times in the tracing. There is slowing probably related to drowsiness. MD KARI Quinn/KANDIS /7:02 PM /7:30 PM
[2017-07-23] MEDS: INSULIN DETEMIR 100 UNITS/ML VIAL SQ SCH (23:30)
[2017-07-23] MEDS: PRAVASTATIN SOD 40 MG TAB PO SCH (23:30)
[2017-07-24] VITALS: BP 137/60; PULSE 71; RESP 17; TEMP 98.9; O2SAT 97
[2017-07-24] MEDS: LACTATED RINGER'S 1000 ML INJ 1,000 ML IV SCH ×2 (01:22→13:58)
[2017-07-24] MEDS: SODIUM CHLOR 0.9% 1000 ML INJ 1,000 ML IV SCH ×2 (01:23→19:30)
[2017-07-24 04:00] VITALS: BP 126/54; PULSE 68; RESP 16; TEMP 99.1; O2SAT 98
[2017-07-24 08:00] VITALS: BP_SYST 142; BP_SYST 155; BP_DIAS 63; BP_DIAS 78; PULSE 108; PULSE 69; RESP 18; TEMP 100.5; TEMP 98.4; O2SAT 92; O2SAT 96
[2017-07-24] MEDS: INSULIN ASPART SUPPLEMENTAL SCALE SQ SCH ×4 (08:00→21:18)
[2017-07-24] MEDS: DOCUSATE SODIUM 50 MG/SENNA 8.6 MG TAB PO SCH ×2 (09:00→21:00)
[2017-07-24] MEDS: SODIUM CHLORIDE 0.9% FLUSH 10 ML FLUSH IV FLUSH SCH ×2 (09:00→21:00)
[2017-07-24] MEDS: GABAPENTIN 400 MG CAP PO SCH ×2 (09:38→21:00)
[2017-07-24] MEDS: RIVAROXABAN 10 MG TAB PO SCH (09:38)
[2017-07-24] MEDS: FOSPHENYTOIN INJ 200 MGPE in SODIUM CHLORIDE 0.9% INJ 50 ML IV SCH ×2 (09:38→21:00)
[2017-07-24] MEDS: CARVEDILOL 12.5 MG TAB PO SCH ×2 (09:39→21:00)
[2017-07-24 12:00] VITALS: BP 127/65; PULSE 69; RESP 18; TEMP 99.5; O2SAT 94
[2017-07-24] MEDS: HYDROmorphone HCL PF 1 MG/ML VIAL IV PRN (15:15)
--- NOTE | 2017-07-24 15:29 | HHI.PR ---
Subjective Remarks Patient is much better today as far as mental status he is conversant, awake alert oriented answering question He is complaining of pain in his both knees not able to bend his knee, he is concerned about gout flareup Also his right thigh and calf feels tender and swelling, no fever or chills Objective Vitals Vital Signs Date Time Temp Pulse Resp B/P (MAP) Pulse Ox O2 Delivery O2 Flow Rate FiO2 07/24/17 08:00 98.4 69 18 142/63 (89) 96 07/24/17 04:00 99.1 68 16 126/54 (78) 98 07/24/17 02:30 Room Air 07/24/17 00:00 98.9 71 17 137/60 (85) 97 07/23/17 20:48 69 07/23/17 19:00 98.3 69 19 133/63 (86) 96 07/23/17 16:00 96.3 70 18 136/62 (86) 100 I/O 07/23/17 07/23/17 07/23/17 07/24/17 07/24/17 07/24/17 07:00 15:00 23:00 07:00 15:00 23:00 Intake Total 310 ml 480 ml 480 ml 300 ml Output Total 600 ml 775 ml 600 ml 600 ml Balance -290 ml -295 ml -120 ml -300 ml Intake Oral 240 ml 480 ml 480 ml 300 ml IV Total 70 ml Output Urine Total 600 ml 775 ml 600 ml 600 ml # Bowel Movements 1 3 0 2 Result Diagram: 07/21/17 0423 07/22/17 0835 Objective Remarks - GENERAL: This is a well-nourished, well-developed patient, in no apparent distress. Awake alert oriented SKIN: No rashes, warm and dry HEAD: Atraumatic. Normocephalic. EYES: Pupils equal round and reactive. Extraocular motions intact. No scleral icterus. ENT: Nose without bleeding, or drainage, Airway patent. NECK: Trachea midline. Supple CARDIOVASCULAR: Regular rate and rhythm without murmurs, gallops, or rubs. RESPIRATORY: Fair air entry. No wheezes, rales, or rhonchi. GASTROINTESTINAL: Abdomen soft, non-tender, nondistended. Positive bowel sounds MUSCULOSKELETAL: Extremities without clubbing, cyanosis, slightly swollen in the right thigh, and calf, trace pitting edema bilateral lower extremity NEUROLOGICAL: Awake alert oriented, wiggle both toes moves upper extremities A/P Problem List: (1) Chronic kidney disease, stage III (moderate) ICD Code: N18.3 - Chronic kidney disease, stage 3 (moderate) Status: Chronic (2) Paroxysmal atrial flutter ICD Code: I48.92 - Unspecified atrial flutter Status: Chronic (3) Closed right hip fracture ICD Code: S72.001A - Fracture of unspecified part of neck of right femur, initial encounter for closed fracture Status: Acute (4) DM type 2 (diabetes mellitus, type 2) ICD Code: E11.9 - Type 2 diabetes mellitus without complications Status: Chronic Assessment and Plan 07/19: Fever resolved ID cleared patient for surgery, status post hip arthroplasty , continue monitoring, appreciate ortho help 07/20: Doing well, started PT today, monitor for any fever 07/21: Worsening mental status, patient awake alert not answering question or making any conversation, per the this is not his baseline,H/O intracranial bleed in the past, will check stat CT of the head, ammonia level, neurology consultation 07/22: No change in mental status patient still awake alert loosening to questions but rarely answers as mentioned above, EEG showed encephalopathy nonspecific, CT head no acute issue, appreciate neurology consultation possible progressive ischemic stroke, if neuro workup BACK negative we may consider psychiatry consultation 07/23: Patient seems to be able to answer questions today despite being someone, seems to be showing improvement on fosphenytoin and increasing gabapentin, will continue monitoring, neurology follow up very appreciated Patient has few petechial rash on his right cheek with subcutaneous bleed on the right earlobe, the told me that this is improving, will monitor closely 07/24: Phenytoin level went down we'll give extra fosphenytoin 400 mg iv and repeat level in a.m., discussed with the patient's Right thigh and calves tenderness swelling, Bilateral knee pain concern for gout/pseudogout flareup We'll asked or so to assess patient, possible knee arthrocentesis, I will start him on prednisone due to kidney failure, will avoid NSAID/colchicine Appreciate is on Xarelto however will do Doppler ultrasound rule out DVT A/P: This is a 72-year-old male with history of chronic kidney disease, diabetes mellitus, cardiomyopathy, atrial fibrillation with recent cardiac ablation presenting with right hip fracture after a fall. Right hip fracture-right hip imaging revealed a right hip fracture. Orthopedics on board , for surgery, hold for now because of fever. Cont pain control oral and intravenous with bowel regimen. Eliquis on hold. Atrial flutter, stable -telemetry showed paced rhythm. Echo 07/15 ejection fraction 55%, mild to moderate right atrial dilatation, moderate tricuspid regurgitation Continue Coreg per home dose, hold eliquis in anticipation for surgery. Cont NS, statin. Status post cardiac ablation procedure 3 weeks ago R/O sepsis - source unclear, CT chest unremarkable other than adenopathy. 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 serum B12 and folic acid and TSH WNL. Awaiting labs today. No indication for hematology consult at this time, previously seen Dr. Wolfe History of CHF, diastolic-echocardiogram December 2069 showed ejection fraction of 60%, Mild LVH, repeat TTE as above. Chronic kidney disease stage III-creatinine around based at 1.5-1.6, gentle hydration. Hold Bumex, creatinine increasing, awaiting today's labs, cont NS. Diabetes mellitus- hold glipizide, continue Levemir, sliding scale insulin DVT prophylaxis: SCDs for now, start after surgery. Hold eliquis. Problem Qualifiers (1) Closed right hip fracture: Qualified Codes: S72.001A - Fracture of unspecified part of neck of right femur , initial encounter for closed fracture (2) DM type 2 (diabetes mellitus, type 2): Qualified Codes: E11.8 - Type 2 diabetes mellitus with unspecified complications Sheyla Leiva MD Jul 24, 2017 15:29
[2017-07-24] MEDS ORDERED: FOSPHENYTOIN SODIUM 100 MG PE/2 ML VIAL IV ONE ×2 (15:30)
[2017-07-24] MEDS ORDERED: ACETAMINOPHEN/HYDROcodone 325 MG/5 MG TAB PO PRN (15:45)
[2017-07-24 16:00] VITALS: BP 143/61; PULSE 72; RESP 18; TEMP 98.1; O2SAT 96
[2017-07-24] MEDS ORDERED: FOSPHENYTOIN INJ 400 MGPE in SODIUM CHLORIDE 0.9% INJ 50 ML IV ONE (17:00)
[2017-07-24] MEDS: predniSONE 20 MG TAB PO SCH (17:27)
[2017-07-24 20:00] VITALS: BP 134/61; PULSE 71; RESP 17; TEMP 98.9; O2SAT 95
[2017-07-24] MEDS: PRAVASTATIN SOD 40 MG TAB PO SCH (21:00)
[2017-07-24] MEDS: INSULIN DETEMIR 100 UNITS/ML VIAL SQ SCH (21:19)
--- NOTE | 2017-07-24 22:06 | RADRPT ---
EXAM DATE/TIME: 07/24/2017 20:35 [facility] COMPARISON: No previous studies available for comparison. INDICATIONS : Right leg swelling. MEDICAL HISTORY : Congestive heart failure. Carcinoma, colon. Renal calculi. Right hip fracture. Brain bleed. CVA. S inus headaches. Cardiac ablasion. Afib. Stage III chronic kidney disease. Diabetes. Anticoagulant the rapy, Eliquis. SURGICAL HISTORY : Pacemaker.Appendectomy. Cataracts. Colon surgery. Brain surgery x5.Blood transfusions. ENCOUNTER: Subsequent ACUITY: 1 week PAIN SCORE: 10/10 LOCATION: Right leg. TECHNIQUE: Venous ultrasound of the leg was performed from the inguinal ligament to the proximal calf. Real-myranda e, color Doppler and spectral tracing, compression and augmentation techniques were used. FINDINGS: There is normal compressibility of the deep venous system from the inguinal region to the proximal ca lf. No echogenic clot is seen in the lumen of the common femoral, femoral, popliteal, and posterior tibial veins. There is a normal response of the venous system to proximal and distal augmentation an d respiration. CONCLUSION: No DVT of the right lower extremity. Bonifacio Michel MD on July 24, 2017 at 22:04 Board Certified Radiologist. This report was verified electronically.
[2017-07-24] MEDS: ACETAMINOPHEN/HYDROcodone 325 MG/7.5 MG TAB PO PRN (22:50)
[2017-07-25] VITALS: BP 118/59; PULSE 70; RESP 16; TEMP 97.1; O2SAT 94
[2017-07-25] MEDS: LACTATED RINGER'S 1000 ML INJ 1,000 ML IV SCH (02:28)
[2017-07-25 04:00] VITALS: BP 130/67; PULSE 74; RESP 16; TEMP 98; O2SAT 96
[2017-07-25] MEDS: ACETAMINOPHEN/HYDROcodone 325 MG/7.5 MG TAB PO PRN ×2 (05:06→14:09)
[2017-07-25 08:00] VITALS: BP 153/75; PULSE 73; RESP 18; TEMP 96.9; O2SAT 93
[2017-07-25] MEDS: INSULIN ASPART SUPPLEMENTAL SCALE SQ SCH ×4 (08:00→21:50)
[2017-07-25] MEDS: SODIUM CHLOR 0.9% 1000 ML INJ 1,000 ML IV SCH ×2 (08:50→22:10)
[2017-07-25] MEDS: DOCUSATE SODIUM 50 MG/SENNA 8.6 MG TAB PO SCH ×2 (09:00→20:39)
[2017-07-25] MEDS: FOSPHENYTOIN INJ 200 MGPE in SODIUM CHLORIDE 0.9% INJ 50 ML IV SCH ×2 (09:01→20:38)
[2017-07-25] MEDS: predniSONE 20 MG TAB PO SCH ×3 (09:01→17:16)
[2017-07-25] MEDS: GABAPENTIN 400 MG CAP PO SCH ×2 (09:02→20:38)
[2017-07-25] MEDS: CARVEDILOL 12.5 MG TAB PO SCH ×2 (09:02→20:38)
[2017-07-25] MEDS: RIVAROXABAN 10 MG TAB PO SCH (09:02)
[2017-07-25] MEDS: SODIUM CHLORIDE 0.9% FLUSH 10 ML FLUSH IV FLUSH SCH ×2 (09:03→20:38)
[2017-07-25 12:00] VITALS: BP 149/67; PULSE 71; RESP 18; TEMP 97.3; O2SAT 97
[2017-07-25] MEDS ORDERED: PHEN125S9 PO (13:31)
[2017-07-25] MEDS ORDERED: PRED20 PO (13:31)
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
[2017-07-25 13:59] LABS: BACTERIA, URINE RARE /hpf; BLOOD, URINE SMALL (NEG); COMMENT (UR) CULTURE INDICATED; CULTURE IF INDICATED CULTURE INDICATED; GLUCOSE,URINE 300 mg/dL (NEG); KETONE, URINE NEG (NEG); MUCUS URINE FEW /lpf (OCC); NITRITE,URINE NEG (NEG); PH, URINE 5.5 (5.0-8.5); SQUAMOUS EPITHELIAL CELL URINE <1 /hpf (0-5); URINE COLOR YELLOW (YELLW/STRAW)
--- NOTE | 2017-07-25 14:55 | HHI.PR ---
Subjective Remarks Patient doing much better cognitively he is conversing, consistent and coherent He's telling me he always have gout flareup with the get trauma I discussed with the neurologist and he agreed to discharge him on phenytoin and to follow up as an outpatient Awaiting ortho to check on the right thigh and the knee, if they elect to do arthrocentesis then we will hold his discharge otherwise patient can be discharged on prednisone to follow up with PCP and shrink pit operator Objective Vitals Vital Signs Date Time Temp Pulse Resp B/P (MAP) Pulse Ox O2 Delivery O2 Flow Rate FiO2 07/25/17 12:00 97.3 71 18 149/67 (94) 97 07/25/17 08:00 96.9 73 18 153/75 (101) 93 07/25/17 04:00 98.0 74 16 130/67 (88) 96 07/25/17 00:00 97.1 70 16 118/59 (78) 94 07/24/17 20:00 98.9 71 17 134/61 (85) 95 07/24/17 16:00 98.1 72 18 143/61 (88) 96 I/O 07/24/17 07/24/17 07/24/17 07/25/17 07/25/17 07/25/17 07:00 15:00 23:00 07:00 15:00 23:00 Intake Total 300 ml 480 ml 700 ml 240 ml Output Total 600 ml 1600 ml 350 ml 100 ml 700 ml Balance -300 ml -1120 ml 350 ml 140 ml -700 ml Intake Oral 300 ml 480 ml 600 ml 240 ml IV Total 100 ml Output Urine Total 600 ml 1600 ml 350 ml 100 ml 700 ml # Bowel Movements 2 1 Result Diagram: 07/21/17 0423 07/22/17 0835 Objective Remarks - GENERAL: This is a well-nourished, well-developed patient, in no apparent distress. Awake alert oriented SKIN: No rashes, warm and dry HEAD: Atraumatic. Normocephalic. EYES: Pupils equal round and reactive. Extraocular motions intact. No scleral icterus. ENT: Nose without bleeding, or drainage, Airway patent. NECK: Trachea midline. Supple CARDIOVASCULAR: Regular rate and rhythm without murmurs, gallops, or rubs. RESPIRATORY: Fair air entry. No wheezes, rales, or rhonchi. GASTROINTESTINAL: Abdomen soft, non-tender, nondistended. Positive bowel sounds MUSCULOSKELETAL: Extremities without clubbing, cyanosis, slightly swollen in the right thigh, and calf, trace pitting edema bilateral lower extremity NEUROLOGICAL: Awake alert oriented, wiggle both toes moves upper extremities Procedures Right hip surgical repair A/P Problem List: (1) Chronic kidney disease, stage III (moderate) ICD Code: N18.3 - Chronic kidney disease, stage 3 (moderate) Status: Chronic (2) Paroxysmal atrial flutter ICD Code: I48.92 - Unspecified atrial flutter Status: Chronic (3) Closed right hip fracture ICD Code: S72.001A - Fracture of unspecified part of neck of right femur, initial encounter for closed fracture Status: Acute (4) DM type 2 (diabetes mellitus, type 2) ICD Code: E11.9 - Type 2 diabetes mellitus without complications Status: Chronic Assessment and Plan 07/19: Fever resolved ID cleared patient for surgery, status post hip arthroplasty , continue monitoring, appreciate ortho help 07/20: Doing well, started PT today, monitor for any fever 07/21: Worsening mental status, patient awake alert not answering question or making any conversation, per the this is not his baseline,H/O intracranial bleed in the past, will check stat CT of the head, ammonia level, neurology consultation 07/22: No change in mental status patient still awake alert loosening to questions but rarely answers as mentioned above, EEG showed encephalopathy nonspecific, CT head no acute issue, appreciate neurology consultation possible progressive ischemic stroke, if neuro workup BACK negative we may consider psychiatry consultation 07/23: Patient seems to be able to answer questions today despite being someone, seems to be showing improvement on fosphenytoin and increasing gabapentin, will continue monitoring, neurology follow up very appreciated Patient has few petechial rash on his right cheek with subcutaneous bleed on the right earlobe, the told me that this is improving, will monitor closely 07/24: Phenytoin level went down we'll give extra fosphenytoin 400 mg iv and repeat level in a.m., discussed with the patient's Right thigh and calves tenderness swelling, Bilateral knee pain concern for gout/pseudogout flareup We'll asked or so to assess patient, possible knee arthrocentesis, I will start him on prednisone due to kidney failure, will avoid NSAID/colchicine Appreciate is on Xarelto however will do Doppler ultrasound rule out DVT 07/25: Doing much better cognitively, stated the prednisone helped with his knee pain, awaiting ortho to get their opinion about the right side and about need for arthrocentesis, if no indication, will show if patient on prednisone tapering to follow up with his shrink pit operator and PCP as well as ortho A/P: This is a 72-year-old male with history of chronic kidney disease, diabetes mellitus, cardiomyopathy, atrial fibrillation with recent cardiac ablation presenting with right hip fracture after a fall. Right hip fracture-right hip imaging revealed a right hip fracture. Orthopedics on board , for surgery, hold for now because of fever. Cont pain control oral and intravenous with bowel regimen. Eliquis on hold. Atrial flutter, stable -telemetry showed paced rhythm. Echo 07/15 ejection fraction 55%, mild to moderate right atrial dilatation, moderate tricuspid regurgitation Continue Coreg per home dose, hold eliquis in anticipation for surgery. Cont NS, statin. Status post cardiac ablation procedure 3 weeks ago R/O sepsis - source unclear, CT chest unremarkable other than adenopathy. 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 serum B12 and folic acid and TSH WNL. Awaiting labs today. No indication for hematology consult at this time, previously seen Dr. Wolfe History of CHF, diastolic-echocardiogram December 2069 showed ejection fraction of 60%, Mild LVH, repeat TTE as above. Chronic kidney disease stage III-creatinine around based at 1.5-1.6, gentle hydration. Hold Bumex, creatinine increasing, awaiting today's labs, cont NS. Diabetes mellitus- hold glipizide, continue Levemir, sliding scale insulin DVT prophylaxis: SCDs for now, start after surgery. Hold eliquis. Problem Qualifiers (1) Closed right hip fracture: Qualified Codes: S72.001A - Fracture of unspecified part of neck of right femur , initial encounter for closed fracture (2) DM type 2 (diabetes mellitus, type 2): Qualified Codes: E11.8 - Type 2 diabetes mellitus with unspecified complications Sheyla Leiva MD Jul 25, 2017 14:54
[2017-07-25 16:00] VITALS: BP 148/71; PULSE 70; RESP 18; TEMP 97; O2SAT 95
--- NOTE | 2017-07-25 17:54 | PD.ORT.PN ---
Subjective Subjective Remarks Patient c/o right knee pain. s/p right hip hemiarthroplasty. Right hip is doing well. Spouse at bedside. Patient received oral steroids yesterday which help significant to left knee and minimal relief to right knee. Objective Vitals Vital Signs Date Time Temp Pulse Resp B/P (MAP) Pulse Ox O2 Delivery O2 Flow Rate FiO2 07/25/17 12:00 97.3 71 18 149/67 (94) 97 07/25/17 08:00 96.9 73 18 153/75 (101) 93 07/25/17 04:00 98.0 74 16 130/67 (88) 96 07/25/17 00:00 97.1 70 16 118/59 (78) 94 07/24/17 20:00 98.9 71 17 134/61 (85) 95 I/O 07/24/17 07/24/17 07/24/17 07/25/17 07/25/17 07/25/17 07:00 15:00 23:00 07:00 15:00 23:00 Intake Total 300 ml 480 ml 700 ml 240 ml Output Total 600 ml 1600 ml 350 ml 100 ml 700 ml Balance -300 ml -1120 ml 350 ml 140 ml -700 ml Intake Oral 300 ml 480 ml 600 ml 240 ml IV Total 100 ml Output Urine Total 600 ml 1600 ml 350 ml 100 ml 700 ml # Bowel Movements 2 1 Result Diagram: 07/21/17 0423 07/22/17 0835 Imaging Last 24 hours Impressions Chest X-Ray 07/18/17 0000 Signed Impressions: Service Date/Time: Tuesday, July 18, 2017 11:32 - CONCLUSION: No appreciable change. Brayden Rutherford MD Procedures Right Hip Hemiarthroplasty Objective Remarks Right hip dressing C/D/I swelling calves soft negative Jef's NVI Right knee moderate effusion abrasion noted inferior of knee no erythema or warmth noted limited ROM pain with ROM NVI Assessment & Plan Assessment and Plan POD #6 Right Hip Hemiarthroplasty Patient's condition was discussed, his options of treatment was discussed in regards to right knee effusion. Right knee x-rays ordered. Uric acid level ordered to r/o gout since the patient has hx of gout. We discussed the different possibilities of knee effusion which include: effusion due to recent surgery, gout, osteoarthritis, meniscus pathology or infection process. At this time we will wait on x-ray results and blood work to provide us with more information. Patient and spouse asked appropriate questions. All questions answered. Pain management - Percocet DVT prophylaxis - Lovenox Physical therapy - WBAT, hip precautions Orthopedically stable for discharge D/C planning - anticipating SNF F/U in [address] Gaxiola or JUSTIN in office Rolando Osorio Jul 25, 2017 17:54
--- NOTE | 2017-07-25 18:10 | RADRPT ---
EXAM DATE/TIME: 07/25/2017 17:37 [facility] COMPARISON: No previous studies available for comparison. INDICATIONS : Right knee pain post fall 1 weeks ago MEDICAL HISTORY : None. SURGICAL HISTORY : None. ENCOUNTER: Initial ACUITY: 1 week PAIN SCORE: 5/10 LOCATION: Right entire knee FINDINGS: Moderate-sized joint effusion. No fat layer seen. No fracture or subluxation demonstrated. There is m ild medial and moderate patellofemoral compartment osteoarthritis. CONCLUSION: 1. No evidence of fracture or subluxation of the right knee. 2. Nonspecific joint effusion. 3. Mild to moderate osteoarthritis. Bonifacio Michel MD on July 25, 2017 at 18:08 Board Certified Radiologist. This report was verified electronically.
[2017-07-25 20:00] VITALS: BP 155/68; PULSE 71; RESP 18; TEMP 97; O2SAT 96
[2017-07-25] MEDS: PRAVASTATIN SOD 40 MG TAB PO SCH (20:38)
[2017-07-25] MEDS: INSULIN DETEMIR 100 UNITS/ML VIAL SQ SCH (21:50)
[2017-07-26] VITALS (8 sets, daily range): BP systolic 132–161; BP diastolic 61–74; PULSE 69–77; RESP 16–18; TEMP 95.9–97.8; O2SAT 94–97
[2017-07-26] MEDS: ACETAMINOPHEN/HYDROcodone 325 MG/7.5 MG TAB PO PRN (06:45)
[2017-07-26] MEDS: BUMETANIDE 1 MG TAB PO SCH (08:22)
[2017-07-26] MEDS: FOSPHENYTOIN INJ 200 MGPE in SODIUM CHLORIDE 0.9% INJ 50 ML IV SCH ×2 (08:22→20:13)
[2017-07-26] MEDS: DOCUSATE SODIUM 50 MG/SENNA 8.6 MG TAB PO SCH ×2 (08:23→20:13)
[2017-07-26] MEDS: RIVAROXABAN 10 MG TAB PO SCH (08:23)
[2017-07-26] MEDS: predniSONE 20 MG TAB PO SCH ×3 (08:23→17:30)
[2017-07-26] MEDS: GABAPENTIN 400 MG CAP PO SCH ×2 (08:23→20:13)
[2017-07-26] MEDS: CARVEDILOL 12.5 MG TAB PO SCH ×2 (08:23→20:13)
[2017-07-26 09:00] LABS: URIC ACID 7.4 MG/DL (2.6-7.2)
[2017-07-26] MEDS: SODIUM CHLORIDE 0.9% FLUSH 10 ML FLUSH IV FLUSH SCH ×2 (09:00→20:13)
[2017-07-26] MEDS: INSULIN ASPART SUPPLEMENTAL SCALE SQ SCH ×4 (09:52→20:14)
[2017-07-26] MEDS: SODIUM CHLOR 0.9% 1000 ML INJ 1,000 ML IV SCH (09:55)
--- NOTE | 2017-07-26 14:20 | HHI.PR ---
Subjective Remarks in no acute distress. still complaining of pain to the right knee with some decrease in ROM. no fever. d/w the RN. Objective Vitals Vital Signs Date Time Temp Pulse Resp B/P (MAP) Pulse Ox O2 Delivery O2 Flow Rate FiO2 07/26/17 12:00 96.5 76 18 146/65 (92) 97 07/26/17 08:00 95.9 70 18 138/61 (86) 96 07/26/17 04:00 97.3 77 18 132/72 (92) 96 07/26/17 00:00 96.3 73 16 135/65 (88) 97 07/25/17 20:00 97.0 71 18 155/68 (97) 96 07/25/17 16:00 97.0 70 18 148/71 (96) 95 I/O 07/25/17 07/25/17 07/25/17 07/26/17 07/26/17 07/26/17 07:00 15:00 23:00 07:00 15:00 23:00 Intake Total 240 ml 600 ml 720 ml 480 ml Output Total 100 ml 925 ml 550 ml 350 ml Balance 140 ml -325 ml 170 ml 130 ml Intake Oral 240 ml 600 ml 720 ml 480 ml Output Urine Total 100 ml 925 ml 550 ml 350 ml # Bowel Movements 0 Result Diagram: 07/22/17 0835 Imaging Last Impressions Knee X-Ray 07/25/17 0000 Signed Impressions: Service Date/Time: Tuesday, July 25, 2017 17:37 - CONCLUSION: 1. No evidence of fracture or subluxation of the right knee. 2. Nonspecific joint effusion. 3. Mild to moderate osteoarthritis. Bonifacio Michel MD Lower Extremity Ultrasound 07/24/17 0000 Signed Impressions: Service Date/Time: July 20:35 - CONCLUSION: No DVT of the right lower extremity. Bonifacio Michel MD Head CT 07/21/17 0000 Signed Impressions: Service Date/Time: Friday, July 21, 2017 19:21 - CONCLUSION: No acute intracranial abnormality. Chronic sinus disease. Bonifacio Michel MD Hip X-Ray 07/19/17 0000 Signed Impressions: Service Date/Time: Wednesday, July 19, 2017 11:48 - CONCLUSION: Expected changes are present following right hip bipolar arthroplasty. No acute finding is seen. Bonifacio Gibson MD Lung Scan-VQ Nuclear Medicine 07/18/17 0000 Signed Impressions: Service Date/Time: Tuesday, July 18, 2017 15:10 - CONCLUSION: Normal examination. Brayden Rutherford MD Chest X-Ray 07/18/17 0000 Signed Impressions: Service Date/Time: Tuesday, July 18, 2017 11:32 - CONCLUSION: No appreciable change. Brayden Rutherford MD Chest CT 07/16/17 0000 Signed Impressions: Service Date/Time: Sunday, July 16, 2017 12:45 - CONCLUSION: 1. No infiltrate seen. 2. Middle mediastinal adenopathy. Rodo Gaxiola MD Hip and Pelvis X-Ray 07/15/17 0000 Signed Impressions: Service Date/Time: Saturday, July 15, 2017 12:43 - CONCLUSION: Moderately angulated basicervical right femoral neck fracture oBnifacio Urbano MD Femur X-Ray 07/15/17 0000 Signed Impressions: Service Date/Time: Saturday, July 15, 2017 12:43 - CONCLUSION: Right femoral neck fracture again noted. The rest of the right femur is intact. Bonifacio Michel MD Cervical Spine CT 07/15/17 0000 Signed Impressions: Service Date/Time: Saturday, July 15, 2017 13:17 - CONCLUSION: 1. No fracture or acute appearing malalignment of the cervical spine. 2. Degenerative changes as above. Bonifacio Michel MD Objective Remarks GENERAL: This is a well-nourished, well-developed patient, in no apparent distress. CARDIOVASCULAR: Regular rate and regular rhythm without murmurs, gallops, or rubs. RESPIRATORY: Clear to auscultation. Breath sounds equal bilaterally. No wheezes , rales, or rhonchi. GASTROINTESTINAL: Abdomen soft, non-tender, nondistended. Normal, active bowel sounds MUSCULOSKELETAL: some swelling and decrease in ROM right knee. NEURO: Alert & Oriented x4 to person, place, time, situation. Moves all ext x4 Procedures Right hip surgical repair Medications and IVs Current Medications Morphine Sulfate (Morphine Inj) 4 mg ONCE ONCE IV Last administered on t 14:05; Start 07/15/17 at 14:00; Stop 07/15/17 at 14:01; Status DC Acetaminophen (Tylenol) 650 mg Q6H PRN PO PAIN SCALE 1 TO 2 Last administered on 07/16/17 15:15; Start 07/15/17 at 15:15; Stop 07/22/17 at 09:45; Status DC Oxycodone HCl (Roxicodone) 10 mg Q4H PRN PO PAIN SCALE 6 TO 10 Last administered on 07/19/17 06:10; Start 07/15/17 at 15:15; Stop 07/19/17 at 14:00; Status DC Hydromorphone HCl (Dilaudid Pf Inj) 1 mg Q4H PRN IV BREAKTHROUGH PAIN Last administered on 07/17/17 05:56; Start 07/15/17 at 15:15; Stop 07/17/17 at 08:48; Status DC Oxycodone HCl (Roxicodone) 5 mg Q4H PRN PO PAIN SCALE 3 TO 5; Start 07/15/17 at 15:15; Stop 07/19/17 at 14:01; Status DC Naloxone HCl (Narcan Inj) 0.4 mg UNSCH PRN IV SEE LABEL COMMENTS; Start at 15:15 Senna/Docusate Sodium (Jeanine-Colace) 1 tab BID PO Last administered on 07/18/17 21:34; Start 07/15/17 at 21:00; Stop 07/19/17 at 13:38; Status DC Magnesium Hydroxide (Milk Of Magnesia Liq) 30 ml Q12H PRN PO MILD - MODERATE CONSTIPATION Last administered on 07/18/17 21:33; Start 07/15/17 at 15:15; Stop 07/19/17 at 13:40; Status DC Sennosides (Senokot) 17.2 mg Q12H PRN PO MODERATE - SEVERE CONSTIPATION; Start 07/15/17 at 15:15; Status Cancel Bisacodyl (Dulcolax Supp) 10 mg DAILY PRN RECTAL SEVERE CONSITIPATION; Start at 15:15; Status Cancel Insulin Aspart (NovoLOG SUPPLEMENTAL SCALE) 1 ACHS SLIDING SCALE SQ Last administered on 07/26/17 12:10; Start 07/15/17 at 16:00 Bumetanide (Bumetanide) 1 mg DAILY PO Last administered on 07/26/17 08:22; Start 07/16/17 at 09:00; Status Future hold Carvedilol (Coreg) 25 mg BID PO Last administered on 07/26/17 08:23; Start 07/15/17 at 21:00 Gabapentin (Neurontin) 400 mg HS PO Last administered on 07/16/17 21:05; Start 07/15/17 at 21:00; Stop 07/22/17 at 19:14; Status DC Insulin Detemir (Levemir Inj) 5 units HS SQ Last administered on 07/25/17 21: 50; Start 07/15/17 at 21:00 Pravastatin Sodium (Pravachol) 40 mg HS PO Last administered on 07/25/17 20:38 ; Start 07/15/17 at 21:00 Dextrose (D50w (Vial) Inj) 50 ml UNSCH PRN IV PUSH HYPOGLYCEMIA - SEE COMMENTS ; Start 07/15/17 at 18:15 Glucagon (Glucagon Inj) 1 mg UNSCH PRN OTHER HYPOGLYCEMIA-SEE COMMENTS; Start 07/15/17 at 18:15 Gentamicin Sulfate (Gentamicin Inj) 240 mg STK-MED ONCE .ROUTE ; Start 07/16/17 at 07:14; Stop 07/16/17 at 07:15; Status DC Piperacillin Sod/ Tazobactam Sod 50 ml @ 100 mls/hr Q8H IV Last administered on 07/18/17 12:28; Start 07/16/17 at 10:00; Stop 07/18/17 at 18:04; Status DC Azithromycin 500 mg/Sodium Chloride 250 ml @ 250 mls/hr Q24H IV Last administered on 07/18/17 12:28; Start 07/16/17 at 12:00; Stop 07/18/17 at 18:04; Status DC Sodium Chloride 1,000 ml @ 75 mls/hr [id number] IV Last administered on 17:49; Start 07/16/17 at 11:30 Sodium Polystyrene Sulfonate (Kayexalate Liq) 30 gm ONCE ONCE PO Last administered on 07/16/17 14:57; Start 07/16/17 at 13:30; Stop 07/16/17 at 13:37; Status DC Miscellaneous Information Patient in critical care unit? Ass... [id number] .XX ; Start 07/16/17 at 20:45 Chlorhexidine Gluconate (Chlorhexidine 2% Cloth) 3 pack DAILY@04 TOPICAL Last administered on 07/17/17 01:03; Start 07/17/17 at 04:00; Stop 07/21/17 at 04:01; Status DC Chlorhexidine Gluconate (Chlorhexidine 2% Cloth) 3 pack UNSCH PRN TOPICAL HYGIENIC CARE; Start 07/16/17 at 20:45; Stop 07/21/17 at 20:33; Status DC Hydromorphone HCl (Dilaudid Pf Inj) 0.5 mg Q4H PRN IV BREAKTHROUGH PAIN Last administered on 07/24/17 15:15; Start 07/17/17 at 11:00 Cyanocobalamin (Vitamin B12 Inj) 1,000 mcg ONCE ONCE IM Last administered on 09:47; Start 07/17/17 at 09:00; Stop 07/17/17 at 09:01; Status DC Vancomycin HCl 2000 mg/Sodium Chloride 520 ml @ 258.75 mls/ hr ONCE ONCE IV Last administered on 07/17/17 16:29; Start 07/17/17 at 16:00; Stop 07/17/17 at 18: 00; Status DC Pharmacy Profile Note 0 ml @ 0 mls/hr UNSCH OTHER ; Start 07/17/17 at 14:30; Stop 07/18/17 at 18:04; Status DC Lactated Ringer's 1,000 ml @ 30 mls/hr Q24H PRN IV SEE LABEL COMMENTS; Start at 22:30; Stop 07/20/17 at 22:29; Status DC Sodium Chloride 500 ml @ 30 mls/hr [id number] PRN IV SEE LABEL COMMENTS; Start 07/17/17 at 22:30; Stop 07/20/17 at 22:29; Status DC Metoprolol Tartrate (Lopressor) 25 mg JAW SKINNER PRN PO SEE LABEL COMMENTS; Start 07/17/17 at 22:30; Stop 07/20/17 at 22:29; Status DC Povidone Iodine (Betadine 5% Antisepsis Kit) 1 applic JAW SKINNER PRN EACH NARE SEE LABEL COMMENTS; Start 07/17/17 at 22:30; Stop 07/20/17 at 22:29; Status DC Chlorhexidine Gluconate (Chlorhexidine 2% Cloth) 3 pack JAW SKINNER PRN TOPICAL SEE LABEL COMMENTS; Start 07/17/17 at 22:30; Stop 07/20/17 at 22:29; Status DC Gentamicin Sulfate (Gentamicin Inj) 240 mg STK-MED ONCE .ROUTE ; Start 07/18/17 at 11:59; Stop 07/18/17 at 12:00; Status DC Morphine Sulfate (Morphine Inj) 4 mg ONCE ONCE IM ; Start 07/18/17 at 14:15; Stop 07/18/17 at 14:16; Status DC Lorazepam (Ativan Inj) 2 mg ONCE ONCE IV PUSH Last administered on 07/18/17 14 :38; Start 07/18/17 at 14:30; Stop 07/18/17 at 14:31; Status DC Tranexamic Acid (Cyklokapron Inj) 1,000 mg STK-MED ONCE .ROUTE ; Start 07/19/17 at 07:51; Stop 07/19/17 at 07:52; Status DC Sodium Chloride (Sodium Chloride 0.9% Inj) 40 ml STK-MED ONCE .ROUTE ; Start 07/19/17 at 07:57; Stop 07/19/17 at 07:58; Status DC Vancomycin HCl (Vancomycin Inj) 1,000 mg STK-MED ONCE .ROUTE Last administered on 07/19/17 09:15; Start 07/19/17 at 08:07; Stop 07/19/17 at 08:08; Status DC Cefazolin Sodium/ Dextrose 50 ml @ As Directed STK-MED ONCE .ROUTE ; Start at 08:07; Stop 07/19/17 at 08:08; Status DC Vancomycin HCl 1000 mg/Sodium Chloride 250 ml @ 250 mls/hr ONCE ONCE IV ; Start 07/19/17 at 09:00; Stop 07/19/17 at 10:02; Status DC Cefazolin Sodium/ Dextrose 50 ml @ 100 mls/hr ONCE ONCE IV Last administered on 07/19/17 09:03; Start 07/19/17 at 09:00; Stop 07/19/17 at 09:58; Status DC Lactated Ringer's 1,000 ml @ 80 mls/hr [id number] IV Last administered on 22:18; Start 07/19/17 at 08:58; Stop 07/25/17 at 12:46; Status DC Sodium Chloride (NS Flush) 2 ml UNSCH PRN IV FLUSH FLUSH AFTER USING IV ACCESS ; Start 07/19/17 at 09:00 Sodium Chloride (NS Flush) 2 ml BID IV FLUSH Last administered on 07/25/17 09: 03; Start 07/19/17 at 09:00 Cefazolin Sodium/ Dextrose 50 ml @ 100 mls/hr Q6H IV Last administered on 07/20 01:28; Start 07/19/17 at 14:00; Stop 07/20/17 at 02:29; Status DC Miscellaneous Information (Post-op Orders (for Pharmacy)) STAT ONCE XX ; Start 07/19/17 at 09:00; Stop 07/19/17 at 12:51; Status DC Acetaminophen/ Hydrocodone Bitart ([place] 5-325 Mg) 1 tab Q4H PRN PO PAIN SCALE 3-5 Last administered on 07/22/17 07:43; Start 07/19/17 at 09:00; Stop 10/26 at 09:43; Status DC Acetaminophen/ Hydrocodone Bitart ([place] 5-325 Mg) 2 tab Q4H PRN PO PAIN SCALE 6 TO 10 Last administered on 07/21/17 08:15; Start 07/19/17 at 09:00; Stop 07/22/17 at 09:43; Status DC Tranexamic Acid 1000 mg/Sodium Chloride 110 ml @ 200 mls/hr ONCE ONCE IV Last administered on 07/19/17 14:00; Start 07/19/17 at 14:00; Stop 07/19/17 at 14: 32; Status DC Senna/Docusate Sodium (Jeanine-Colace) 1 tab BID PO Last administered on 23:30; Start 07/19/17 at 09:00 Magnesium Hydroxide (Milk Of Magnesia Liq) 30 ml Q12H PRN PO MILD - MODERATE CONSTIPATION; Start 07/19/17 at 09:00 Sennosides (Senokot) 17.2 mg Q12H PRN PO MODERATE - SEVERE CONSTIPATION Last administered on 07/19/17 20:58; Start 07/19/17 at 09:00 Bisacodyl (Dulcolax Supp) 10 mg DAILY PRN RECTAL SEVERE CONSITIPATION; Start at 09:00 Lactulose (Lactulose Liq) 30 ml DAILY PRN PO SEVERE CONSITIPATION; Start at 09:00 Rivaroxaban (Xarelto) 10 mg DAILY PO Last administered on 07/26/17 08:23; Start 07/20/17 at 09:00 Fentanyl Citrate (fentaNYL INJ) 200 mcg STK-MED ONCE .ROUTE ; Start 07/19/17 at 09:26; Stop 07/19/17 at 09:27; Status DC Gentamicin Sulfate (Gentamicin Inj) 240 mg STK-MED ONCE .ROUTE Last administered on 07/19/17 09:27; Start 07/19/17 at 10:27; Stop 07/19/17 at 10:28; Status DC Bupivacaine Liposome (Exparel Pf 1.3% Inj) 20 ml ONCE ONCE INFIL Last administered on 07/19/17 10:38; Start 07/19/17 at 10:37; Stop 07/19/17 at 10:38; Status DC Miscellaneous Information ALL NURSING DEPARTME... UNSCH PRN .XX SEE LABEL COMMENTS; Start 07/19/17 at 11:17; Stop 07/20/17 at 11:16; Status DC Sugammadex Sodium (Bridion Inj) 200 mg STK-MED ONCE IV PUSH ; Start 07/19/17 at 13:01; Stop 07/19/17 at 13:02; Status DC Baclofen (Lioresal) 10 mg ONCE ONCE PO ; Start 07/20/17 at 12:15; Stop at 12:29; Status DC Cyclobenzaprine HCl (Flexeril) 5 mg Q8H PRN PO MUSCLE SPASMS Last administered on 07/22/17 07:42; Start 07/20/17 at 19:00 Miscellaneous (Pill Splitter) 1 ea UNSCH PRN OTHER SEE LABEL COMMENTS; Start at 19:00 Tramadol HCl (Ultram) 50 mg Q6H PRN PO PAIN 1-10; Start 07/22/17 at 09:45; Stop 07/22/17 at 19:14; Status DC Gabapentin (Neurontin) 400 mg Q12HR PO Last administered on 07/26/17 08:23; Start 07/22/17 at 21:00 Fosphenytoin Sodium (Cerebyx Inj) 200 mgpe Q12HR IV ; Start 07/23/17 at 09:00; Stop 07/23/17 at 09:00; Status DC Fosphenytoin Sodium 1000 mgpe/ Sodium Chloride 70 ml @ 280 mls/hr ONCE ONCE IV Last administered on 07/22/17 22:43; Start 07/22/17 at 19:15; Stop at 19:29; Status DC Morphine Sulfate (Morphine Inj) 2 mg Q8HR PRN IV PUSH PAIN SCALE 7 TO 10; Start 07/22/17 at 19:15; Stop 07/22/17 at 19:17; Status DC Fosphenytoin Sodium 200 mgpe/ Sodium Chloride 54 ml @ 216 mls/hr Q12HR IV ; Start 07/22/17 at 21:00; Status Cancel Fosphenytoin Sodium 200 mgpe/ Sodium Chloride 54 ml @ 216 mls/hr Q12HR IV Last administered on 07/26/17 08:22; Start 07/23/17 at 09:00 Fosphenytoin Sodium (Cerebyx Inj) 200 mgpe ONCE ONCE IV ; Start 07/24/17 at 15: 30; Stop 07/24/17 at 15:31; Status UNV Fosphenytoin Sodium (Cerebyx Inj) 200 mgpe ONCE ONCE IV ; Start 07/24/17 at 15: 30; Stop 07/24/17 at 15:31; Status UNV Acetaminophen/ Hydrocodone Bitart ([place] 5-325 Mg) 1 tab Q4H PRN PO PAIN SCALE 3 TO 5; Start 07/24/17 at 15:45 Acetaminophen/ Hydrocodone Bitart ([place] 7.5-325 Mg) 1 tab Q4H PRN PO PAIN SCALE 6 TO 10 Last administered on 07/26/17 06:45; Start 07/24/17 at 15:45 Prednisone (Deltasone) 20 mg TID PO Last administered on 07/26/17 12:10; Start 07/24/17 at 18:00 Fosphenytoin Sodium 400 mgpe/ Sodium Chloride 58 ml @ 174 mls/hr ONCE ONCE IV Last administered on 07/24/17 18:46; Start 07/24/17 at 17:00; Stop 07/24/17 at 17:19; Status DC A/P Assessment and Plan Right hip fracture-right hip imaging revealed a right hip fracture. s/p ORIF- cleared for discharge per ortho. Atrial flutter, stable -telemetry showed paced rhythm. Echo 07/15 ejection fraction 55%, mild to moderate right atrial dilatation, moderate tricuspid regurgitation Continue Coreg and eliquis. Toxic metabolic encephalopathy - resolved. neurology evaluation appreciated. 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 serum B12 and folic acid and TSH WNL. Awaiting labs today. No indication for hematology consult at this time, previously seen Dr. Wolfe History of CHF, diastolic-echocardiogram December 2069 showed ejection fraction of 60%, Mild LVH, repeat TTE as above. Chronic kidney disease stage III-will monitor. Diabetes mellitus- hold glipizide, continue Levemir, sliding scale insulin DVT prophylaxis:on eliquis. Ericka Rios MD Jul 26, 2017 14:20
[2017-07-26] MEDS: PRAVASTATIN SOD 40 MG TAB PO SCH (20:13)
[2017-07-26] MEDS: INSULIN DETEMIR 100 UNITS/ML VIAL SQ SCH (20:14)
[2017-07-27] MEDS: SODIUM CHLOR 0.9% 1000 ML INJ 1,000 ML IV SCH ×2 (00:50→14:10)
[2017-07-27 04:19] VITALS: BP 145/66; PULSE 69; RESP 18; TEMP 96.3; O2SAT 95
[2017-07-27] MEDS: INSULIN ASPART SUPPLEMENTAL SCALE SQ SCH ×2 (08:00→12:51)
[2017-07-27] MEDS: predniSONE 20 MG TAB PO SCH ×2 (08:13→12:50)
[2017-07-27] MEDS: CARVEDILOL 12.5 MG TAB PO SCH (08:13)
[2017-07-27] MEDS: BUMETANIDE 1 MG TAB PO SCH (08:13)
[2017-07-27] MEDS: GABAPENTIN 400 MG CAP PO SCH (08:13)
[2017-07-27] MEDS: DOCUSATE SODIUM 50 MG/SENNA 8.6 MG TAB PO SCH (08:13)
[2017-07-27] MEDS: RIVAROXABAN 10 MG TAB PO SCH (08:13)
[2017-07-27] MEDS: SODIUM CHLORIDE 0.9% FLUSH 10 ML FLUSH IV FLUSH SCH (08:14)
[2017-07-27 08:18] VITALS: BP 147/66; PULSE 73; RESP 18; TEMP 95.9; O2SAT 95
[2017-07-27] MEDS: FOSPHENYTOIN INJ 200 MGPE in SODIUM CHLORIDE 0.9% INJ 50 ML IV SCH (09:38)
[2017-07-27] MEDS: CYCLOBENZAPRINE HCL 10 MG TAB PO PRN (12:50)
--- NOTE | 2017-07-27 13:06 | HHI.PR ---
Subjective Remarks in no acute distress. pain and ROM right knee is better today. no other complaints. at the bedside. d/w the RN. Objective Vitals Vital Signs Date Time Temp Pulse Resp B/P (MAP) Pulse Ox O2 Delivery O2 Flow Rate FiO2 07/27/17 08:18 95.9 73 18 147/66 (93) 95 07/27/17 04:19 96.3 69 18 145/66 (92) 95 07/26/17 23:40 97.8 71 17 139/67 (91) 94 07/26/17 20:30 69 07/26/17 20:05 97.3 70 18 161/72 (101) 95 07/26/17 16:00 97.2 70 18 146/74 (98) 94 I/O 07/26/17 07/26/17 07/26/17 07/27/17 07/27/17 07/27/17 07:00 15:00 23:00 07:00 15:00 23:00 Intake Total 480 ml 480 ml 240 ml 240 ml Output Total 350 ml 600 ml 550 ml 650 ml Balance 130 ml -120 ml -310 ml -410 ml Intake Oral 480 ml 480 ml 240 ml 240 ml Output Urine Total 350 ml 600 ml 550 ml 650 ml # Bowel Movements 0 0 0 Imaging Last Impressions Knee X-Ray 07/25/17 0000 Signed Impressions: Service Date/Time: Tuesday, July 25, 2017 17:37 - CONCLUSION: 1. No evidence of fracture or subluxation of the right knee. 2. Nonspecific joint effusion. 3. Mild to moderate osteoarthritis. Bonifacio Michel MD Lower Extremity Ultrasound 07/24/17 0000 Signed Impressions: Service Date/Time: July 20:35 - CONCLUSION: No DVT of the right lower extremity. Bonifacio Michel MD Head CT 07/21/17 0000 Signed Impressions: Service Date/Time: Friday, July 21, 2017 19:21 - CONCLUSION: No acute intracranial abnormality. Chronic sinus disease. Bonifacio Michel MD Hip X-Ray 07/19/17 0000 Signed Impressions: Service Date/Time: Wednesday, July 19, 2017 11:48 - CONCLUSION: Expected changes are present following right hip bipolar arthroplasty. No acute finding is seen. Bonifacio Gibson MD Lung Scan-V Nuclear Medicine 9/8/17 0000 Signed Impressions: Service Date/Time: Tuesday, July 18, 2017 15:10 - CONCLUSION: Normal examination. Brayden Rutherford MD Chest X-Ray 07/18/17 Signed Impressions: Service Date/Time: Tuesday, July 18, 2017 11:32 - CONCLUSION: No appreciable change. Brayden Rutherford MD Chest CT 07/16/17 Signed Impressions: Service Date/Time: Sunday, July 16, 2017 12:45 - CONCLUSION: 1. No infiltrate seen. 2. Middle mediastinal adenopathy. Rodo Gaxiola MD Hip and Pelvis X-Ray 07/15/17 Signed Impressions: Service Date/Time: Saturday, July 15, 2017 12:43 - CONCLUSION: Moderately angulated basicervical right femoral neck fracture Bonifacio Urbano MD Femur X-Ray 07/15/17 Signed Impressions: Service Date/Time: Saturday, July 15, 2017 12:43 - CONCLUSION: Right femoral neck fracture again noted. The rest of the right femur is intact. Bonifacio Michel MD Cervical Spine CT 07/15/17 Signed Impressions: Service Date/Time: Saturday, July 15, 2017 13:17 - CONCLUSION: 1. No fracture or acute appearing malalignment of the cervical spine. 2. Degenerative changes as above. Bonifacio Michel MD Objective Remarks GENERAL: This is a well-nourished, well-developed patient, in no apparent distress. CARDIOVASCULAR: Regular rate and regular rhythm without murmurs, gallops, or rubs. RESPIRATORY: Clear to auscultation. Breath sounds equal bilaterally. No wheezes , rales, or rhonchi. GASTROINTESTINAL: Abdomen soft, non-tender, nondistended. Normal, active bowel sounds MUSCULOSKELETAL: some swelling and decrease in ROM right knee. NEURO: Alert & Oriented x4 to person, place, time, situation. Moves all ext x4 Procedures Right hip surgical repair Medications and IVs Current Medications Morphine Sulfate (Morphine Inj) 4 mg ONCE ONCE IV Last administered on t 14:05; Start 07/15/17 at 14:00; Stop 07/15/17 at 14:01; Status DC Acetaminophen (Tylenol) 650 mg Q6H PRN PO PAIN SCALE 1 TO 2 Last administered on 07/16/17 15:15; Start 07/15/17 at 15:15; Stop 07/22/17 at 09:45; Status DC Oxycodone HCl (Roxicodone) 10 mg Q4H PRN PO PAIN SCALE 6 TO 10 Last administered on 07/19/17 06:10; Start 07/15/17 at 15:15; Stop 07/19/17 at 14:00; Status DC Hydromorphone HCl (Dilaudid Pf Inj) 1 mg Q4H PRN IV BREAKTHROUGH PAIN Last administered on 07/17/17 05:56; Start 07/15/17 at 15:15; Stop 07/17/17 at 08:48; Status DC Oxycodone HCl (Roxicodone) 5 mg Q4H PRN PO PAIN SCALE 3 TO 5; Start 07/15/17 at 15:15; Stop 07/19/17 at 14:01; Status DC Naloxone HCl (Narcan Inj) 0.4 mg UNSCH PRN IV SEE LABEL COMMENTS; Start at 15:15 Senna/Docusate Sodium (Jeanine-Colace) 1 tab BID PO Last administered on 07/18/17 21:34; Start 07/15/17 at 21:00; Stop 07/19/17 at 13:38; Status DC Magnesium Hydroxide (Milk Of Magnesia Liq) 30 ml Q12H PRN PO MILD - MODERATE CONSTIPATION Last administered on 07/18/17 21:33; Start 07/15/17 at 15:15; Stop 07/19/17 at 13:40; Status DC Sennosides (Senokot) 17.2 mg Q12H PRN PO MODERATE - SEVERE CONSTIPATION; Start 07/15/17 at 15:15; Status Cancel Bisacodyl (Dulcolax Supp) 10 mg DAILY PRN RECTAL SEVERE CONSITIPATION; Start at 15:15; Status Cancel Insulin Aspart (NovoLOG SUPPLEMENTAL SCALE) 1 ACHS SLIDING SCALE SQ Last administered on 07/26/17 20:14; Start 07/15/17 at 16:00 Bumetanide (Bumetanide) 1 mg DAILY PO Last administered on 07/27/17 08:13; Start 07/16/17 at 09:00; Status Future hold Carvedilol (Coreg) 25 mg BID PO Last administered on 07/27/17 08:13; Start 07/15/17 at 21:00 Gabapentin (Neurontin) 400 mg HS PO Last administered on 07/16/17 21:05; Start 07/15/17 at 21:00; Stop 07/22/17 at 19:14; Status DC Insulin Detemir (Levemir Inj) 5 units HS SQ Last administered on 07/26/17 20: 14; Start 07/15/17 at 21:00 Pravastatin Sodium (Pravachol) 40 mg HS PO Last administered on 07/26/17 20:13 ; Start 07/15/17 at 21:00 Dextrose (D50w (Vial) Inj) 50 ml UNSCH PRN IV PUSH HYPOGLYCEMIA - SEE COMMENTS ; Start 07/15/17 at 18:15 Glucagon (Glucagon Inj) 1 mg UNSCH PRN OTHER HYPOGLYCEMIA-SEE COMMENTS; Start 07/15/17 at 18:15 Gentamicin Sulfate (Gentamicin Inj) 240 mg STK-MED ONCE .ROUTE ; Start 07/16/17 at 07:14; Stop 07/16/17 at 07:15; Status DC Piperacillin Sod/ Tazobactam Sod 50 ml @ 100 mls/hr Q8H IV Last administered on 07/18/17 12:28; Start 07/16/17 at 10:00; Stop 07/18/17 at 18:04; Status DC Azithromycin 500 mg/Sodium Chloride 250 ml @ 250 mls/hr Q24H IV Last administered on 07/18/17 12:28; Start 07/16/17 at 12:00; Stop 07/18/17 at 18:04; Status DC Sodium Chloride 1,000 ml @ 75 mls/hr [id number] IV Last administered on 17:49; Start 07/16/17 at 11:30 Sodium Polystyrene Sulfonate (Kayexalate Liq) 30 gm ONCE ONCE PO Last administered on 07/16/17 14:57; Start 07/16/17 at 13:30; Stop 07/16/17 at 13:37; Status DC Miscellaneous Information Patient in critical care unit? Ass... [id number] .XX ; Start 07/16/17 at 20:45 Chlorhexidine Gluconate (Chlorhexidine 2% Cloth) 3 pack DAILY@04 TOPICAL Last administered on 07/17/17 01:03; Start 07/17/17 at 04:00; Stop 07/21/17 at 04:01; Status DC Chlorhexidine Gluconate (Chlorhexidine 2% Cloth) 3 pack UNSCH PRN TOPICAL HYGIENIC CARE; Start 07/16/17 at 20:45; Stop 07/21/17 at 20:33; Status DC Hydromorphone HCl (Dilaudid Pf Inj) 0.5 mg Q4H PRN IV BREAKTHROUGH PAIN Last administered on 07/24/17 15:15; Start 07/17/17 at 11:00 Cyanocobalamin (Vitamin B12 Inj) 1,000 mcg ONCE ONCE IM Last administered on 09:47; Start 07/17/17 at 09:00; Stop 07/17/17 at 09:01; Status DC Vancomycin HCl 2000 mg/Sodium Chloride 520 ml @ 258.75 mls/ hr ONCE ONCE IV Last administered on 07/17/17 16:29; Start 07/17/17 at 16:00; Stop 07/17/17 at 18: 00; Status DC Pharmacy Profile Note 0 ml @ 0 mls/hr UNSCH OTHER ; Start 07/17/17 at 14:30; Stop 07/18/17 at 18:04; Status DC Lactated Ringer's 1,000 ml @ 30 mls/hr Q24H PRN IV SEE LABEL COMMENTS; Start at 22:30; Stop 07/20/17 at 22:29; Status DC Sodium Chloride 500 ml @ 30 mls/hr [id number] PRN IV SEE LABEL COMMENTS; Start 07/17/17 at 22:30; Stop 07/20/17 at 22:29; Status DC Metoprolol Tartrate (Lopressor) 25 mg LEAD DENTAL ASSISTANT PRN PO SEE LABEL COMMENTS; Start 07/17/17 at 22:30; Stop 07/20/17 at 22:29; Status DC Povidone Iodine (Betadine 5% Antisepsis Kit) 1 applic LEAD DENTAL ASSISTANT PRN EACH NARE SEE LABEL COMMENTS; Start 07/17/17 at 22:30; Stop 07/20/17 at 22:29; Status DC Chlorhexidine Gluconate (Chlorhexidine 2% Cloth) 3 pack LEAD DENTAL ASSISTANT PRN TOPICAL SEE LABEL COMMENTS; Start 07/17/17 at 22:30; Stop 07/20/17 at 22:29; Status DC Gentamicin Sulfate (Gentamicin Inj) 240 mg STK-MED ONCE .ROUTE ; Start 07/18/17 at 11:59; Stop 07/18/17 at 12:00; Status DC Morphine Sulfate (Morphine Inj) 4 mg ONCE ONCE IM ; Start 07/18/17 at 14:15; Stop 07/18/17 at 14:16; Status DC Lorazepam (Ativan Inj) 2 mg ONCE ONCE IV PUSH Last administered on 07/18/17 14 :38; Start 07/18/17 at 14:30; Stop 07/18/17 at 14:31; Status DC Tranexamic Acid (Cyklokapron Inj) 1,000 mg STK-MED ONCE .ROUTE ; Start 07/19/17 at 07:51; Stop 07/19/17 at 07:52; Status DC Sodium Chloride (Sodium Chloride 0.9% Inj) 40 ml STK-MED ONCE .ROUTE ; Start 07/19/17 at 07:57; Stop 07/19/17 at 07:58; Status DC Vancomycin HCl (Vancomycin Inj) 1,000 mg STK-MED ONCE .ROUTE Last administered on 07/19/17 09:15; Start 07/19/17 at 08:07; Stop 07/19/17 at 08:08; Status DC Cefazolin Sodium/ Dextrose 50 ml @ As Directed STK-MED ONCE .ROUTE ; Start at 08:07; Stop 07/19/17 at 08:08; Status DC Vancomycin HCl 1000 mg/Sodium Chloride 250 ml @ 250 mls/hr ONCE ONCE IV ; Start 07/19/17 at 09:00; Stop 07/19/17 at 10:02; Status DC Cefazolin Sodium/ Dextrose 50 ml @ 100 mls/hr ONCE ONCE IV Last administered on 07/19/17 09:03; Start 07/19/17 at 09:00; Stop 07/19/17 at 09:58; Status DC Lactated Ringer's 1,000 ml @ 80 mls/hr [id number] IV Last administered on 22:18; Start 07/19/17 at 08:58; Stop 07/25/17 at 12:46; Status DC Sodium Chloride (NS Flush) 2 ml UNSCH PRN IV FLUSH FLUSH AFTER USING IV ACCESS ; Start 07/19/17 at 09:00 Sodium Chloride (NS Flush) 2 ml BID IV FLUSH Last administered on 07/27/17 08: 14; Start 07/19/17 at 09:00 Cefazolin Sodium/ Dextrose 50 ml @ 100 mls/hr Q6H IV Last administered on 07/20 01:28; Start 07/19/17 at 14:00; Stop 07/20/17 at 02:29; Status DC Miscellaneous Information (Post-op Orders (for Pharmacy)) STAT ONCE XX ; Start 07/19/17 at 09:00; Stop 07/19/17 at 12:51; Status DC Acetaminophen/ Hydrocodone Bitart (Meridian 5-325 Mg) 1 tab Q4H PRN PO PAIN SCALE 3-5 Last administered on 07/22/17 07:43; Start 07/19/17 at 09:00; Stop 10/26 at 09:43; Status DC Acetaminophen/ Hydrocodone Bitart (Meridian 5-325 Mg) 2 tab Q4H PRN PO PAIN SCALE 6 TO 10 Last administered on 07/21/17 08:15; Start 07/19/17 at 09:00; Stop 07/22/17 at 09:43; Status DC Tranexamic Acid 1000 mg/Sodium Chloride 110 ml @ 200 mls/hr ONCE ONCE IV Last administered on 07/19/17 14:00; Start 07/19/17 at 14:00; Stop 07/19/17 at 14: 32; Status DC Senna/Docusate Sodium (Jeanine-Colace) 1 tab BID PO Last administered on 20:13; Start 07/19/17 at 09:00 Magnesium Hydroxide (Milk Of Magnesia Liq) 30 ml Q12H PRN PO MILD - MODERATE CONSTIPATION; Start 07/19/17 at 09:00 Sennosides (Senokot) 17.2 mg Q12H PRN PO MODERATE - SEVERE CONSTIPATION Last administered on 07/19/17 20:58; Start 07/19/17 at 09:00 Bisacodyl (Dulcolax Supp) 10 mg DAILY PRN RECTAL SEVERE CONSITIPATION; Start at 09:00 Lactulose (Lactulose Liq) 30 ml DAILY PRN PO SEVERE CONSITIPATION; Start at 09:00 Rivaroxaban (Xarelto) 10 mg DAILY PO Last administered on 07/27/17 08:13; Start 07/20/17 at 09:00 Fentanyl Citrate (fentaNYL INJ) 200 mcg STK-MED ONCE .ROUTE ; Start 07/19/17 at 09:26; Stop 07/19/17 at 09:27; Status DC Gentamicin Sulfate (Gentamicin Inj) 240 mg STK-MED ONCE .ROUTE Last administered on 07/19/17 09:27; Start 07/19/17 at 10:27; Stop 07/19/17 at 10:28; Status DC Bupivacaine Liposome (Exparel Pf 1.3% Inj) 20 ml ONCE ONCE INFIL Last administered on 07/19/17 10:38; Start 07/19/17 at 10:37; Stop 07/19/17 at 10:38; Status DC Miscellaneous Information ALL NURSING DEPARTME... UNSCH PRN .XX SEE LABEL COMMENTS; Start 07/19/17 at 11:17; Stop 07/20/17 at 11:16; Status DC Sugammadex Sodium (Bridion Inj) 200 mg STK-MED ONCE IV PUSH ; Start 07/19/17 at 13:01; Stop 07/19/17 at 13:02; Status DC Baclofen (Lioresal) 10 mg ONCE ONCE PO ; Start 07/20/17 at 12:15; Stop at 12:29; Status DC Cyclobenzaprine HCl (Flexeril) 5 mg Q8H PRN PO MUSCLE SPASMS Last administered on 07/22/17 07:42; Start 07/20/17 at 19:00 Miscellaneous (Pill Splitter) 1 ea UNSCH PRN OTHER SEE LABEL COMMENTS; Start at 19:00 Tramadol HCl (Ultram) 50 mg Q6H PRN PO PAIN 1-10; Start 07/22/17 at 09:45; Stop 07/22/17 at 19:14; Status DC Gabapentin (Neurontin) 400 mg Q12HR PO Last administered on 07/27/17 08:13; Start 07/22/17 at 21:00 Fosphenytoin Sodium (Cerebyx Inj) 200 mgpe Q12HR IV ; Start 07/23/17 at 09:00; Stop 07/23/17 at 09:00; Status DC Fosphenytoin Sodium 1000 mgpe/ Sodium Chloride 70 ml @ 280 mls/hr ONCE ONCE IV Last administered on 07/22/17 22:43; Start 07/22/17 at 19:15; Stop at 19:29; Status DC Morphine Sulfate (Morphine Inj) 2 mg Q8HR PRN IV PUSH PAIN SCALE 7 TO 10; Start 07/22/17 at 19:15; Stop 07/22/17 at 19:17; Status DC Fosphenytoin Sodium 200 mgpe/ Sodium Chloride 54 ml @ 216 mls/hr Q12HR IV ; Start 07/22/17 at 21:00; Status Cancel Fosphenytoin Sodium 200 mgpe/ Sodium Chloride 54 ml @ 216 mls/hr Q12HR IV Last administered on 07/27/17 09:38; Start 07/23/17 at 09:00 Fosphenytoin Sodium (Cerebyx Inj) 200 mgpe ONCE ONCE IV ; Start 07/24/17 at 15: 30; Stop 07/24/17 at 15:31; Status UNV Fosphenytoin Sodium (Cerebyx Inj) 200 mgpe ONCE ONCE IV ; Start 07/24/17 at 15: 30; Stop 07/24/17 at 15:31; Status UNV Acetaminophen/ Hydrocodone Bitart (Meridian 5-325 Mg) 1 tab Q4H PRN PO PAIN SCALE 3 TO 5; Start 07/24/17 at 15:45 Acetaminophen/ Hydrocodone Bitart (Meridian 7.5-325 Mg) 1 tab Q4H PRN PO PAIN SCALE 6 TO 10 Last administered on 07/26/17 06:45; Start 07/24/17 at 15:45 Prednisone (Deltasone) 20 mg TID PO Last administered on 07/27/17 08:13; Start 07/24/17 at 18:00 Fosphenytoin Sodium 400 mgpe/ Sodium Chloride 58 ml @ 174 mls/hr ONCE ONCE IV Last administered on 07/24/17 18:46; Start 07/24/17 at 17:00; Stop 07/24/17 at 17:19; Status DC A/P Assessment and Plan Right hip fracture-right hip imaging revealed a right hip fracture. s/p right hip hemiarthroplasty- cleared for discharge per ortho. Atrial flutter, stable -telemetry showed paced rhythm. Echo 07/15 ejection fraction 55%, mild to moderate right atrial dilatation, moderate tricuspid regurgitation Continue Coreg and eliquis. Toxic metabolic encephalopathy - resolved. neurology evaluation appreciated. 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 serum B12 and folic acid and TSH WNL. Awaiting labs today. No indication for hematology consult at this time, previously seen Dr. Wolfe History of CHF, diastolic-echocardiogram December 2069 showed ejection fraction of 60%, Mild LVH, repeat TTE as above. Chronic kidney disease stage III-will monitor. Diabetes mellitus- hold glipizide, continue Levemir, sliding scale insulin gout flare-up; improving- continue prednisone. DVT prophylaxis:on eliquis. Discharge Planning dc to rehab. see [facility]. f/u; pcp and ortho. d/w the patient and his . d/w the RN. time spent 35 min. Ericka Rios MD Jul 27, 2017 13:06
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
[2017-07-27] MEDS ORDERED: PERC5TAB12 PO (14:08)
== END 2017-07-27 17:47 | DRG 469 ==
LOC: NEPC 11:14 → NEDA 14:44 → NEDH 19:51 → NEPGCP 21:51 → N06B 07-16 07:38 → HIME 07-16 10:45 → N06B 07-17 18:31 → N06A 07-18 20:46
PROVIDERS: ADMIT Internal Medicine; ATTEND Internal Medicine
PROC: 0SRR0JA Replacement of Right Hip Joint, Femoral Surface with Synthetic Substitute, Uncemented, Open Approach (ICD-10-PCS; principal; 2017-07-19 08:28)
DX: S72.041A Displaced fracture of base of neck of right femur, initial encounter for closed fracture (principal); G92 Toxic encephalopathy; N17.9 Acute kidney failure, unspecified; D61.818 Other pancytopenia; I42.9 Cardiomyopathy, unspecified; I50.32 Chronic diastolic (congestive) heart failure; N18.3 Chronic kidney disease, stage 3 (moderate); I13.0 Hypertensive heart and chronic kidney disease with heart failure and stage 1 through stage 4 chronic kidney disease, or unspecified chronic kidney disease; I48.92 Unspecified atrial flutter; S80.211A Abrasion, right knee, initial encounter; D69.59 Other secondary thrombocytopenia; E11.22 Type 2 diabetes mellitus with diabetic chronic kidney disease; I07.1 Rheumatic tricuspid insufficiency; I48.2 Chronic atrial fibrillation; R50.81 Fever presenting with conditions classified elsewhere; R09.02 Hypoxemia; M10.9 Gout, unspecified; M19.90 Unspecified osteoarthritis, unspecified site; M25.461 Effusion, right knee; D73.1 Hypersplenism; Y92.481 Parking lot as the place of occurrence of the external cause; W18.39XA Other fall on same level, initial encounter; Z79.01 Long term (current) use of anticoagulants; Z87.828 Personal history of other (healed) physical injury and trauma; Z86.73 Personal history of transient ischemic attack (TIA), and cerebral infarction without residual deficits; Z85.038 Personal history of other malignant neoplasm of large intestine; Z95.0 Presence of cardiac pacemaker; Z79.4 Long term (current) use of insulin
CPT/HCPCS: 36430; 36600; 70450; 71010; 71020; 71250; 72125; 73501; 73502; 73552; 73564; 78582; 80048; 80053; 80185; 81001; 82140; 82607; 82746; 82805; 82948; 83605; 83880; 84145; 84443; 84550; 85007; 85014; 85018; 85025; 85027; 85610; 85730; 86850; 86900; 86901; 86920; 87040; 87086; 87641; 93005; 93306; 93970; 93971; 94150; 95819; 96374; A9540; A9567; C1776; C9290; J0456; J0690; J1170; J1580; J1815; J2060; J2270; J2405; J2543; J3010; J3370; J3420; J7030; J7040; J7050; J7120; J7512; L1830; P9035; Q2009